=== PATIENT | female | born 1955 ===

== ENCOUNTER 2017-01-16 07:53 | Day surgery (SDC) | payer MEDICAID ==
[2016-11-17 08:17] VITALS: PULSE 83
[2017-01-16 08:09] VITALS: BMI 36.0
[2017-01-16] MEDS ORDERED: Lactated Ringer's 1,000 ML IV ONE (09:21)
[2017-01-16 10:03] LABS: PARTIAL THROMBOPLASTIN TIME 32.5 SECONDS (23.3-32.5)
[2017-01-16] MEDS ORDERED: Lidocaine 1% Inj (20ml) ONE (10:11)
[2017-01-16] MEDS ORDERED: Midazolam 2 MG/2 ML VIAL ONE (10:11)
[2017-01-16] MEDS ORDERED: Lactated Ringer's 1,000 ML IV SCH (10:38)
[2017-01-16 10:57] VITALS: RESP 18
--- NOTE | 2017-01-16 11:41 | CP.SDSHP ---
Same Day Surgery H & P - History Proposed Procedure: Left neck mass biopsy Pre-Op Diagnosis: Left neck mass, MM - Allergies Allergies: Allergies No Known Allergies Allergy (Verified 01/16/17 08:09) - Physical Exam Vital Signs: Vital Signs 01/16/17 01/16/17 01/16/17 08:52 10:22 10:35 Temperature 9.2 F L 98.5 F 97.0 F L Pulse Rate 83 84 83 Respiratory 18 16 18 Rate Blood Pressure 119/81 141/98 H 140/95 H O2 Sat by Pulse 96 100 98 Oximetry 01/16/17 01/16/17 01/16/17 10:50 11:05 11:20 Temperature 97.6 F Pulse Rate 86 84 86 Respiratory 18 18 18 Rate Blood Pressure 130/80 137/80 130/90 O2 Sat by Pulse 98 99 99 Oximetry 01/16/17 11:35 Temperature Pulse Rate 88 Respiratory 18 Rate Blood Pressure 134/86 O2 Sat by Pulse 99 Oximetry Short Stay Discharge - Short Stay Discharge Admitting Diagnosis/Reason for Visit: MULTIPLE MYELOMA Disposition: HOME/ ROUTINE Referrals: Thang Rider MD [Primary Care Provider] -
--- NOTE | 2017-01-16 11:42 | PCM.SURG1 ---
Surgeon's Initial Post Op Note - Surgeon's Notes Surgeon: Meme Circular Knife Machine Cutter: None Type of Anesthesia: IV Sedation, Local Pre-Operative Diagnosis: Left neck mass Operative Findings: Left neck mass Post-Operative Diagnosis: Left neck mass Operation Performed: Left neck mass biopsy Specimen/Specimens Removed: 18G core samples x 2 Estimated Blood Loss: EBL {In ML}: 1 Date of Surgery/Procedure: 01/16/17 Time of Surgery/Procedure: 10:20
[2017-01-16 12:53] VITALS: O2SAT 98
[2017-01-16 13:43] VITALS: BP 117/85; PULSE 92; TEMP 98.3
--- NOTE | 2017-01-20 18:18 | US ---
Left neck mass History: 61-year-old female with history of multiple myeloma presenting with left neck supraclavicular mass. Comparison: Comparison is made to prior CT scan of the chest from 11/23/2015. Procedure and findings: Informed consent was obtained after discussion of relative risks and benefits with the patient. The patient provided written informed consent. The left neck region was prepped and draped in the usual sterile techniques. Direct ultrasound evaluation of the left neck was obtained. A heterogeneous relatively oval-shaped mass measuring approximately 1.8 centimeters is noted. No significant internal vascularity was identified. Permanent images were stored. A percutaneous access site was chosen. 1 % lidocaine was used to anesthetize the skin and the subcutaneous soft tissue. A 17 gauge coaxial needle was introduced into the left neck mass. The inner stylet was removed. 18 gauge spring-loaded biopsy system was introduced into the peripheral aspect of the mass. Two 18 gauge core biopsy samples were obtained. Permanent images were stored. Biopsy samples were sent to pathology for analysis. Post biopsy ultrasound images did not demonstrate any hematoma. The patient tolerated the procedure well without any adverse events. Impression: Successful left neck mass biopsy.
== END 2017-01-16 13:35 | disposition home or self-care (01) ==
LOC: H.OPSURG 07:53
PROVIDERS: ATTEND Internal Medicine Cardiovascular Disease
DX: R22.1 Localized swelling, mass and lump, neck (principal); C90.00 Multiple myeloma not having achieved remission; I48.91 Unspecified atrial fibrillation; M54.9 Dorsalgia, unspecified

== ENCOUNTER 2017-10-03 14:46 | Inpatient (IN) | payer MEDICAID ==
[2017-10-03 14:57] VITALS: BMI 39.4
[2017-10-03] MEDS ORDERED: Albuterol-Ipratrop 3 mg / 0.5 (3 ml) UD INH STA (15:10)
--- NOTE | 2017-10-03 15:46 | RAD ---
HISTORY: SOB COMPARISON: Chest radiograph dated 11/17/2016. TECHNIQUE: Chest PA and lateral FINDINGS: LUNGS: No active pulmonary disease. PLEURA: No significant pleural effusion identified. No pneumothorax apparent. CARDIOVASCULAR: Cardiomediastinal silhouette stably enlarged. OSSEOUS STRUCTURES: Unchanged. VISUALIZED UPPER ABDOMEN: Normal. OTHER FINDINGS: None. IMPRESSION: No active disease.
[2017-10-03] MEDS ORDERED: Albuterol-Ipratrop 3 mg / 0.5 (3 ml) UD ONE (16:08)
[2017-10-03 16:31] LABS: BASO % 0.3 % (0.0-2.0); EOS # 0.2 K/uL (0.0-0.7); EOS % 2.2 % (0.0-4.0); LYMPH % 11.6 % (20.0-40.0); MEAN CELL VOLUME 89.7 fl (81.0-99.0); MEAN CORPUSCULAR HEMOGLOBIN 30.3 pg (27.0-31.0); MEAN CORPUSCULAR HGB CONC 33.8 g/dL (33.0-37.0); MEAN PLATELET VOLUME 9.2 fl (7.2-11.7); MONO # 1.1 K/uL (0.0-0.8); MONO % 12.6 % (0.0-10.0); NEUT # 6.1 K/uL (1.8-7.0); NEUT % 73.3 % (50.0-75.0); RBC 4.95 Mil/uL (3.80-5.20); RED CELL DISTRIBUTION WIDTH 14.3 % (11.5-14.5); WHITE BLOOD COUNT 8.4 K/uL (4.8-10.8)
[2017-10-03 16:44] LABS: SQUAMOUS EPITHIAL < 1 /hpf (0-5); URINE BILIRUBIN NEGATIVE (NEGATIVE); URINE BLOOD NEGATIVE (NEGATIVE); URINE CLARITY CLEAR (Clear); URINE COLOR YELLOW (YELLOW); URINE GLUCOSE (UA) NEG (Normal); URINE LEUKOCYTE ESTERASE NEG Leu/uL (Negative); URINE NITRATE NEGATIVE (NEGATIVE); URINE PROTEIN NEGATIVE (NEGATIVE); URINE UROBILINOGEN 0.2-1.0 mg/dL (0.2-1.0)
[2017-10-03 16:52] LABS: ALB/GLOB RATIO 1.3 (1.0-2.1); ALBUMIN 3.9 g/dL (3.5-5.0); ALT/SGPT 33 U/L (9-52); AST/SGOT 28 U/L (14-36); BLOOD UREA NITROGEN 10 mg/dl (7-17); CALCIUM 8.7 mg/dL (8.4-10.2); GFR AFRICAN-AMERICAN > 60; GFR NON-AFRICAN AMERICAN > 60
[2017-10-03 16:59] LABS: B-TYPE NATRIURETIC PEPTIDE 663 pg/ml (0-900)
[2017-10-03] MEDS ORDERED: levoFLOXacin 750 mg in D5W 150 ML BAG IVPB STA (17:40)
[2017-10-03] MEDS ORDERED: levoFLOXacin 750 mg in D5W 750 MG/150 ML BAG IVPB ONE (18:00)
--- NOTE | 2017-10-03 18:16 | CP.PCM.HP ---
History of Present Illness - History of Present Illness History of Present Illness: CC: shortness of breath HPI: 62 year old female with PMHx of A Fib, HTN, Multiple Myeloma on Chemotherapy, and CHF presents with a one day history of worsening dyspnea, associated with wheezing, ameliorated by home O2 patient has at home from another family member. In the ER she states she improved with nebulizer treatments, and that her mother had a history of emphysema. She has never smoked , and was never around any family members who smoke. Patient is currently saturating 96% on 2 L nasal cannula. Chest XR has no active disease, patient is afebrile, and no leukocytosis. Patient to be observed overnight for possible worsening dyspnea. ROS: per HPI all other systems reviewed and negative PMH: Chronic Back Pain; Multiple Myeloma on Chemotherapy; A Fib on Digoxin and Xarelto as anticoagulant; CHF diastolic dysfunction with EF of 60% on ECHO of 2015; gout; Mediastinal Mass; HTN; Fractured Ribs PSH: Appendectomy; Hysterectomy; Cholecystectomy SH: No Alcohol usage; No smoking; no illegal drug use; Live with the family FH: Mother with DM II; HTN Allergies: NKDA Present on Admission - Present on Admission Any Indicators Present on Admission: No Past Patient History - Infectious Disease Hx of Infectious Diseases: None - Tetanus Immunizations Tetanus Immunization: Unknown - Past Medical History & Family History Past Medical History?: Yes - Past Social History Smoking Status: Never Smoked - CARDIAC Hx Cardiac Disorders: Yes Hx Cardia Arrhythmia: Yes Hx Hypertension: Yes - PULMONARY Hx Respiratory Disorders: Yes Hx Pneumonia: Yes Other/Comment: MEDIASTINAL MASS - NEUROLOGICAL Hx Neurological Disorder: No - HEENT Hx HEENT Problems: No Other/Comment: Glasses for reading - RENAL Hx Chronic Kidney Disease: No - ENDOCRINE/METABOLIC Hx Endocrine Disorders: No - HEMATOLOGICAL/ONCOLOGICAL Hx Blood Disorders: Yes Hx AIDS: No Hx Blood Transfusions: No Hx Cancer: Yes (Multiple Myeloma) Hx Chemotherapy: Yes (Multiple Myeloma on revilimid) Hx Human Immunodeficiency Virus (HIV): No Other/Comment: Multiple Myeloma - INTEGUMENTARY Hx Dermatological Problems: No Hx Psoriasis: Yes - MUSCULOSKELETAL/RHEUMATOLOGICAL Hx Musculoskeletal Disorders: Yes Hx Back Pain: Yes Hx Falls: No Hx Fractures: Yes (rib) - GASTROINTESTINAL Hx Gastrointestinal Disorders: No - GENITOURINARY/GYNECOLOGICAL Hx Genitourinary Disorders: No Other/Comment: Uterine fibroids Hx of Hysterectomy - PSYCHIATRIC Hx Psychophysiologic Disorder: No Hx Substance Use: No - SURGICAL HISTORY Hx Surgeries: Yes Hx Appendectomy: Yes Hx Cholecystectomy: Yes Hx Hysterectomy: Yes Other/Comment: Hysterectomy - ANESTHESIA Hx Anesthesia: Yes Hx Anesthesia Reactions: No Hx Malignant Hyperthermia: No Meds Allergies/Adverse Reactions: Allergies Allergy/AdvReac Type Severity Reaction Status Date / Time No Known Allergies Allergy Verified 08/25/17 09:48 Physical Exam - Constitutional Appears: Non-toxic, No Acute Distress - Head Exam Head Exam: ATRAUMATIC, NORMOCEPHALIC - Eye Exam Eye Exam: EOMI, Normal appearance, PERRL Pupil Exam: NORMAL ACCOMODATION - ENT Exam ENT Exam: Mucous Membranes Moist, Normal Oropharynx - Respiratory Exam Respiratory Exam: Wheezes, NORMAL BREATHING PATTERN - Cardiovascular Exam Cardiovascular Exam: RRR, +S1, +S2 - GI/Abdominal Exam GI & Abdominal Exam: Normal Bowel Sounds, Soft. absent: Organomegaly, Tenderness - Extremities Exam Extremities exam: Positive for: normal capillary refill, pedal pulses present - Back Exam Back exam: absent: CVA tenderness (L), CVA tenderness (R) - Neurological Exam Neurological exam: Alert, Oriented x3 - Psychiatric Exam Psychiatric exam: Normal Affect, Normal Mood Results - Vital Signs Recent Vital Signs: Last Vital Signs Temp 98.0 F 10/03/17 14:56 Pulse 74 10/03/17 14:56 Resp 19 10/03/17 15:05 BP 147/84 10/03/17 14:56 Pulse Ox 96 10/03/17 15:05 - Labs Result Diagrams: 10/03/17 16:06 10/03/17 16:06 Labs: Laboratory Results - last 24 hr 10/03/17 10/03/17 10/03/17 16:03 16:06 16:06 WBC 8.4 D RBC 4.95 Hgb 15.0 Hct 44.4 MCV 89.7 MCH 30.3 MCHC 33.8 RDW 14.3 Plt Count 202 MPV 9.2 Neut % (Auto) 73.3 Lymph % (Auto) 11.6 L [place] % (Auto) 12.6 H Eos % (Auto) 2.2 Baso % (Auto) 0.3 Neut # 6.1 Lymph # 1.0 [place] # 1.1 H Eos # 0.2 Baso # 0.0 Sodium 140 Potassium 3.4 L Chloride 101 Carbon Dioxide 32 H Anion Gap 10 BUN 10 Creatinine 0.5 L Est GFR ( Amer) > 60 Est GFR (Non-Af Amer) > 60 Random Glucose 120 H Calcium 8.7 Total Bilirubin 0.7 AST 28 ALT 33 Alkaline Phosphatase 95 Troponin I < 0.0120 NT-Pro-B Natriuret Pep 663 Total Protein 6.9 Albumin 3.9 Globulin 3.0 Albumin/Globulin Ratio 1.3 Urine Color Yellow Urine Clarity Clear Urine pH 6.0 Ur Specific [place] 1.017 Urine Protein Negative Urine Glucose (UA) Neg Urine Ketones Negative Urine Blood Negative Urine Nitrate Negative Urine Bilirubin Negative Urine Urobilinogen 0.2-1.0 Ur Leukocyte Esterase Neg Urine RBC (Auto) 3 Urine Microscopic WBC 4 Ur Squamous Epith Cells < 1 Assessment & Plan - Assessment and Plan (Free Text) Plan: 62 year old female with PMHx of A Fib, HTN, Multiple Myeloma on Chemotherapy, and CHF presents with a one day history of worsening dyspnea, associated with mild cough and wheezing, ameliorated by home O2 patient has at home from another family member. In the ER she states she improved with nebulizer treatments, and that her mother had a history of emphysema. She has never smoked , and was never around any family members who smoke. Patient is currently saturating 96% on 2 L nasal cannula. Chest XR has no active disease, patient is afebrile, and no leukocytosis. Patient to be observed overnight for possible worsening dyspnea. Dyspnea 2/2 Bronchitis? family hx emphysema afebrile, no leukocytosis, no cough or congestion on exam, + wheezing wheezing improving with bronchodilators procalcitonin pending for bacterial infection? cont bronchodilators and reassess in AM AFib HTN cont ASA, Coreg, Digoxin, Lisinopril, Xarelto MM on chemotherapy, follows with Dr. Maddy Garcia cont dexamethasone VTE ppx cont patient Xarelto
[2017-10-03] MEDS ORDERED: Albuterol-Ipratrop 3 mg / 0.5 (3 ml) UD INH PRN (18:26)
[2017-10-03 20:59] LABS: INR 1.5 (0.9-1.2); PARTIAL THROMBOPLASTIN TIME 36.1 Seconds (25.6-37.1); PROTHROMBIN TIME 16.3 Seconds (9.8-13.1)
[2017-10-03 21:15] VITALS: RESP 18
[2017-10-03] MEDS: Oxycodone/Acetaminophen 5/325 mg Tab PO PRN (22:28)
[2017-10-04] MEDS: Oxycodone/Acetaminophen 5/325 mg Tab PO PRN ×2 (05:10→13:15)
[2017-10-04] MEDS: Albuterol-Ipratrop 3 mg / 0.5 (3 ml) UD INH SCH ×3 (07:33→15:31)
[2017-10-04 08:45] VITALS: PULSE 81
[2017-10-04] MEDS ORDERED: LENALIDOMIDE 15 MG PO SCH (09:00)
[2017-10-04] MEDS ORDERED: Digoxin 125 mcg (0.125 mg) Tab PO SCH (09:00)
[2017-10-04] MEDS ORDERED: methylPREDNISolone 125 MG in Sodium Chloride 0.9% 50 ML IVPB ONE (09:51)
--- NOTE | 2017-10-04 09:51 | CP.PCM.DIS ---
Provider - Provider Date of Admission: 10/03/17 17:41 Attending physician: Brenda Tarango DO Primary care physician: De. Rider Consults: none Time Spent in preparation of Discharge (in minutes): 20 Hospital Course - Lab Results Lab Results: Most Recent Lab Values WBC 8.4 K/uL (4.8-10.8) D 10/03/17 16:06 RBC 4.95 Mil/uL (3.80-5.20) 10/03/17 16:06 Hgb 15.0 g/dL (12.0-16.0) 10/03/17 16:06 Hct 44.4 % (34.0-47.0) 10/03/17 16:06 MCV 89.7 fl (81.0-99.0) 10/03/17 16:06 MCH 30.3 pg (27.0-31.0) 10/03/17 16:06 MCHC 33.8 g/dL (33.0-37.0) 10/03/17 16:06 RDW 14.3 % (11.5-14.5) 10/03/17 16:06 Plt Count 202 K/uL (130-400) 10/03/17 16:06 MPV 9.2 fl (7.2-11.7) 10/03/17 16:06 Neut % (Auto) 73.3 % (50.0-75.0) 10/03/17 16:06 Lymph % (Auto) 11.6 % (20.0-40.0) L 10/03/17 16:06 [place] % (Auto) 12.6 % (0.0-10.0) H 10/03/17 16:06 Eos % (Auto) 2.2 % (0.0-4.0) 10/03/17 16:06 Baso % (Auto) 0.3 % (0.0-2.0) 10/03/17 16:06 Neut # 6.1 K/uL (1.8-7.0) 10/03/17 16:06 Lymph # 1.0 K/uL (1.0-4.3) 10/03/17 16:06 [place] # 1.1 K/uL (0.0-0.8) H 10/03/17 16:06 Eos # 0.2 K/uL (0.0-0.7) 10/03/17 16:06 Baso # 0.0 K/uL (0.0-0.2) 10/03/17 16:06 PT 16.3 Seconds (9.8-13.1) H 10/03/17 20:01 INR 1.5 (0.9-1.2) H 10/03/17 20:01 APTT 36.1 Seconds (25.6-37.1) 10/03/17 20:01 Sodium 140 mmol/l (132-148) 10/03/17 16:06 Potassium 3.4 MMOL/L (3.6-5.0) L 10/03/17 16:06 Chloride 101 mmol/L (98-107) 10/03/17 16:06 Carbon Dioxide 32 mmol/L (22-30) H 10/03/17 16:06 Anion Gap 10 (10-20) 10/03/17 16:06 BUN 10 mg/dl (7-17) 10/03/17 16:06 Creatinine 0.5 mg/dl (0.7-1.2) L 10/03/17 16:06 Est GFR ( Amer) > 60 10/03/17 16:06 Est GFR (Non-Af Amer) > 60 10/03/17 16:06 Random Glucose 120 mg/dL (65-105) H 10/03/17 16:06 Calcium 8.7 mg/dL (8.4-10.2) 10/03/17 16:06 Total Bilirubin 0.7 mg/dl (0.2-1.3) 10/03/17 16:06 AST 28 U/L (14-36) 10/03/17 16:06 ALT 33 U/L (9-52) 10/03/17 16:06 Alkaline Phosphatase 95 U/L (38-126) 10/03/17 16:06 Troponin I < 0.0120 ng/mL (0.00-0.120) 10/03/17 16:06 NT-Pro-B Natriuret Pep 663 pg/ml (0-900) 10/03/17 16:06 Total Protein 6.9 G/DL (6.3-8.2) 10/03/17 16:06 Albumin 3.9 g/dL (3.5-5.0) 10/03/17 16:06 Globulin 3.0 gm/dL (2.2-3.9) 10/03/17 16:06 Albumin/Globulin Ratio 1.3 (1.0-2.1) 10/03/17 16:06 Urine Color Yellow (YELLOW) 10/03/17 16:03 Urine Clarity Clear (Clear) 10/03/17 16:03 Urine pH 6.0 (5.0-8.0) 10/03/17 16:03 Ur Specific [place] 1.017 (1.003-1.030) 10/03/17 16:03 Urine Protein Negative mg/dL (NEGATIVE) 10/03/17 16:03 Urine Glucose (UA) Neg mg/dL (Normal) 10/03/17 16:03 Urine Ketones Negative mg/dL (NEGATIVE) 10/03/17 16:03 Urine Blood Negative (NEGATIVE) 10/03/17 16:03 Urine Nitrate Negative (NEGATIVE) 10/03/17 16:03 Urine Bilirubin Negative (NEGATIVE) 10/03/17 16:03 Urine Urobilinogen 0.2-1.0 mg/dL (0.2-1.0) 10/03/17 16:03 Ur Leukocyte Esterase Neg [place]/uL (Negative) 10/03/17 16:03 Urine RBC (Auto) 3 /hpf (0-3) 10/03/17 16:03 Urine Microscopic WBC 4 /hpf (0-5) 10/03/17 16:03 Ur Squamous Epith Cells < 1 /hpf (0-5) 10/03/17 16:03 - Hospital Course Hospital Course: 62 year old female with PMHx of A Fib, HTN, Multiple Myeloma on Chemotherapy, and CHF presented with a one day history of worsening dyspnea, associated with mild cough and wheezing,upon going out in cold weather , ameliorated by home O2 patient has at home from another family member. In the ER she states she improved with nebulizer treatments, and that her mother had a history of emphysema. She has never smoked, and was never around any family members who smoke.she states that was just started recently , 2 weeks ago on Zometa. She also admits to having cough and greenish sputum production for 5 days and was started on Mucinex Po by her PMD. At present she denies any more sputum production .CXR showed no active disease but some increased interstitial markings ( as read by me). She was found to be afebrile with normal WBC, wheezing on exam . She was given Dounoebs in Er and Levaquine IV and placed under observation in telemetry for dyspnea and acute bronchitis. Patient clinically showed improvement , at present with no dyspnea, scattered wheezing on exam, afebrile saturating 97-98 % on 2 L O2 via NC patient feeling well and ready to go home Will discharge patient home on Albuterol PRN,Levaquine and Medrol pack Patient to follow up with Dr. Rider and her oncologist for continuation of her chemotherapy 1. Acute bronchitis/ URI Dyspnea 2/2 Bronchitis Patient recently started on Zometa that can cause URi and dyspnea afebrile, no leukocytosis, with cough and greenish sputum production for the last 4 days, + wheezing wheezing improved with bronchodilators Given solumedrol 125 mg IV, levaquine and Duonebs Will continue same treatment upon discharge 2.AFib rate controlled continue digoxin and xeralto 3.HTN controlled cont ASA, Coreg, Digoxin, Lisinopril, Xarelto 4.MM on chemotherapy, follows with Dr. Maddy Garcia Discharge Exam - Head Exam Head Exam: ATRAUMATIC, NORMOCEPHALIC - Eye Exam Eye Exam: EOMI, Normal appearance, PERRL Pupil Exam: NORMAL ACCOMODATION - ENT Exam ENT Exam: Mucous Membranes Moist, Normal Exam - Neck Exam Neck exam: Full Rom, Normal Inspection - Respiratory Exam Respiratory Exam: Wheezes (scattered wheezing and rhonchi), NORMAL BREATHING PATTERN. absent: Accessory Muscle Use, Prolonged Expiratory Phase, Respiratory Distress - Cardiovascular Exam Cardiovascular Exam: Irregular Rhythm, +S1, +S2. absent: JVD - GI/Abdominal Exam GI & Abdominal Exam: Normal Bowel Sounds, Soft. absent: Distended, Guarding, Rebound, Tenderness - Rectal Exam Rectal Exam: Deferred - Extremities Exam Extremities exam: normal capillary refill, normal inspection, pedal pulses present - Back Exam Back exam: NORMAL INSPECTION - Neurological Exam Neurological exam: Alert, CN II-XII Intact, Oriented x3, Reflexes Normal - Psychiatric Exam Psychiatric exam: Normal Affect, Normal Mood - Skin Skin Exam: Dry, Intact, Normal Color, Warm Discharge Plan - Discharge Medications Prescriptions: Albuterol HFA [Ventolin HFA 90 mcg/actuation (8 g)] 1 puff IH Q4 #1 inhaler levoFLOXacin [Levaquin] 750 mg PO DAILY #7 tab Methylprednisolone [Medrol Dose Pack (21 tabs)] 4 mg PO DAILY #21 mg - Follow Up Plan Condition: STABLE Disposition: HOME/ ROUTINE Patient education suggested?: Yes Instructions: Bronchospasm (DC), How to Use a Nebulizer (DC), Acute Bronchitis (GEN) Referrals: Thang Rider MD [Staff Provider] -
[2017-10-04] MEDS ORDERED: levoFLOXacin 750 mg in D5W 750 MG/150 ML BAG IVPB ONE (09:52)
[2017-10-04] MEDS ORDERED: Albuterol-Ipratrop 3 mg / 0.5 (3 ml) UD INH STA (10:00)
[2017-10-04 12:16] VITALS: BP 96/68; PULSE 74; TEMP 97.5; O2SAT 96
--- NOTE | 2017-10-04 17:00 | CT ---
PROCEDURE: CT Chest without contrast HISTORY: r/o pneumonia COMPARISON: CT chest dated 11/09/2016. TECHNIQUE: Contiguous axial images were obtained through the chest without intravenous contrast enhancement. Sagittal and coronal reconstructions were performed. Radiation dose (DLP): 648.1 mGy-cm. This CT exam was performed using one or more of the following dose reduction techniques: Automated exposure control, adjustment of the mA and/or kV according to patient size, and/or use of iterative reconstruction technique. FINDINGS: LUNGS: Bibasilar atelectasis/scarring. Stable 5 millimeter left lower lobe nodule (series 3, image 61). Visualized airway clear. MEDIASTINUM: Redemonstration of heterogeneous superior mediastinal/left lower neck mass measuring 6.7 by 4.9 centimeter causing similar tracheal deviation to the right without narrowing. Stable appearance of expansile lesion left posterior 1st rib contiguous with mediastinal mass. Unremarkable thoracic aorta. No aneurysm. Normal sized heart. Main pulmonary artery unremarkable. No vascular congestion. No lymphadenopathy. Small pericardial effusion. PLEURA: No pleural fluid. No pneumothorax. BONES: Stable osseous heterogeneity. Stable degenerative changes with multiple vertebral compression deformities. UPPER ABDOMEN: Stable left hepatic lobe cyst. OTHER FINDINGS: None. IMPRESSION: Grossly stable appearance of left superior mediastinal/lower neck mass with associated involvement of the posterior 1st rib. Additional stable findings as above.
--- NOTE | 2017-10-07 08:14 | CARD ---
APPROVED REPORT EKG Measurement Heart [id number] <Conclusion> Atrial fibrillation ST & T wave abnormality, consider inferolateral ischemia Abnormal ECG
--- NOTE | 2017-10-08 12:10 | ED PDOC ---
HPI: SOB/CHF/COPD Time Seen by Provider: 10/03/17 15:05 Chief Complaint (Nursing): Shortness Of Breath Chief Complaint (Provider): cough, SOB, respiratory distress History Per: Patient, Family History/Exam Limitations: no limitations Current Symptoms Are (Timing): Still Present Initiating Event: Upper Respiratory Illness Quality: Tightness Exacerbating Factor(s): Exertion, Coughing Current Respiratory Medications: See Home Med List Severity: Severe Similar Symptoms Previously: + Recently: Treated By A Physician Additional Complaint(s): 62yo female currently under care for multiple myeloma on cycle for chemo presents c/o cough, SOB, malaise and chest tightness. Denies hemoptysis, leg pain/edema or syncope. Using medications at home without relief. Past Medical History Reviewed: Historical Data, Nursing Documentation, Vital Signs Vital Signs: Last Vital Signs Temp 97.5 F L 10/04/17 12:16 Pulse 74 10/04/17 12:16 Resp 18 10/04/17 12:16 BP 96/68 L 10/04/17 12:16 Pulse Ox 96 10/04/17 12:16 - Medical History PMH: Atrial Fibrillation, Back Problems, Cardia Arrhythmia, CHF, Fractures (rib) , HTN, Pneumonia Denies: HIV, Chronic Kidney Disease - Surgical History Surgical History: Appendectomy, Cholecystectomy - Family History Family History: States: Unknown Family Hx - Living Arrangements Living Arrangements: With Family - Social History Current smoker - smoking cessation education provided: No - Home Medications Home Medications: Ambulatory Orders Medication Instructions Recorded Aspirin [Aspirin EC] 81 mg PO DAILY #0 tablet. 03/10/16 Carvedilol [Coreg] 25 mg PO Q12 #0 tab 03/10/16 Digoxin 0.125 mg PO DAILY #0 tab 03/10/16 Famotidine [Pepcid] 20 mg PO DAILY #0 tab 03/10/16 Furosemide [Lasix] 40 mg PO DAILY #0 tab 03/10/16 Lisinopril [Zestril] 10 mg PO DAILY #0 tab 03/10/16 Calcium Carbonate [Oscal] 500 mg PO BID tab 11/11/16 Rivaroxaban [Xarelto] 20 mg PO DAILY 11/18/16 Lenalidomide [Revlimid] 15 mg PO DAILY 02/10/17 Potassium Chloride [K-Dur 20 mEq 2 tab PO BID 05/05/17 ER Tab] Albuterol HFA [Ventolin HFA 90 1 puff IH Q4 #1 inhaler 10/04/17 mcg/actuation (8 g)] Guaifenesin [Mucinex] 600 mg PO BID #20 tab.er.12h 10/04/17 Methylprednisolone [Medrol Dose 4 mg PO DAILY #21 mg 10/04/17 Pack (21 tabs)] levoFLOXacin [Levaquin] 750 mg PO DAILY #7 tab 10/04/17 - Allergies Allergies/Adverse Reactions: Allergies Allergy/AdvReac Type Severity Reaction Status Date / Time No Known Allergies Allergy Verified 08/25/17 09:48 Review of Systems Constitutional: Positive for: Weakness, Malaise ENT: Negative for: Mouth Swelling, Throat Swelling Cardiovascular: Positive for: Chest Pain, Palpitations Respiratory: Positive for: Cough, Shortness of Breath Gastrointestinal: Negative for: Vomiting, Abdominal Pain Musculoskeletal: Negative for: Neck Pain, Arm Pain, Leg Pain Neurological: Positive for: Headache, Dizziness. Negative for: Weakness, Numbness Psych: Negative for: Suicidal ideation Physical Exam - Reviewed Nursing Documentation Reviewed: Yes Vital Signs Reviewed: Yes - Physical Exam Appears: Positive for: Non-toxic, Uncomfortable (mild resp distress) Head Exam: Positive for: ATRAUMATIC, NORMAL INSPECTION, NORMOCEPHALIC Skin: Positive for: Normal Color, Warm, DRY Eye Exam: Positive for: EOMI, Normal appearance, PERRL ENT: Positive for: Normal ENT Inspection Neck: Positive for: Normal, Painless ROM Cardiovascular/Chest: Positive for: Regular Rate, Rhythm Respiratory: Positive for: Decreased Breath Sounds, Wheezing, Respiratory Distress Pulses-Radial (L): 3+/4+ Pulses-Radial (R): 3+/4+ Gastrointestinal/Abdominal: Positive for: Bowel Sounds, Soft. Negative for: Tenderness Back: Positive for: Normal Inspection Extremity: Positive for: Normal ROM Neurologic/Psych: Positive for: Alert, Oriented. Negative for: Motor/Sensory Deficits - Laboratory Results Result Diagrams: 10/03/17 16:06 10/03/17 16:06 - ECG O2 Sat by Pulse Oximetry: 96 Medical Decision Making Medical Decision Making: workup for dyspnea initiated. given history on chemo/myeloma consider infectious etiology as immunocompromised labs, CXR and EKG were reviewed Given bronchodilators and antibiotics were initiated empirically given clinical presentation and immunocompromised Despite optimal treatment in ED, she remained w dyspnea, placed obs to hospitalist covering Dr Rider Disposition - Clinical Impression Clinical Impression: Dyspnea, Respiratory tract infection - Patient ED Disposition Is Patient to be Admitted: Yes Counseled Patient/Family Regarding: Studies Performed, Diagnosis - Disposition Disposition Time: 17:01 Condition: STABLE - Pt Status Changed To: Hospital Disposition Of: Observation
== END 2017-10-04 17:55 | disposition home or self-care (01) | DRG 588 ==
LOC: H.ER 14:46 → H.ERHOLD 17:41 → H.TEL 18:56
PROVIDERS: ADMIT Student in an Organized Health Care Education/Training Program; ATTEND Student in an Organized Health Care Education/Training Program
PROC: 3E0F7GC Introduction of Other Therapeutic Substance into Respiratory Tract, Via Natural or Artificial Opening (ICD-10-PCS; principal; 2017-10-04)
DX: J20.9 Acute bronchitis, unspecified (principal); I50.30 Unspecified diastolic (congestive) heart failure; C90.00 Multiple myeloma not having achieved remission; D89.9 Disorder involving the immune mechanism, unspecified; J44.0 Chronic obstructive pulmonary disease with (acute) lower respiratory infection; I11.0 Hypertensive heart disease with heart failure; M10.9 Gout, unspecified; Z82.49 Family history of ischemic heart disease and other diseases of the circulatory system; Z82.5 Family history of asthma and other chronic lower respiratory diseases; Z83.3 Family history of diabetes mellitus; Z87.01 Personal history of pneumonia (recurrent); Z90.49 Acquired absence of other specified parts of digestive tract; Z90.710 Acquired absence of both cervix and uterus; G89.29 Other chronic pain; L40.9 Psoriasis, unspecified; M54.9 Dorsalgia, unspecified; I48.91 Unspecified atrial fibrillation; Z92.21 Personal history of antineoplastic chemotherapy; Z79.01 Long term (current) use of anticoagulants; Z79.82 Long term (current) use of aspirin; Z79.899 Other long term (current) drug therapy

== ENCOUNTER 2017-12-21 12:07 | Observation (INO) | payer MEDICAID ==
[2017-12-21 12:08] VITALS: BMI 39.6
[2017-12-21] MEDS ORDERED: Albuterol-Ipratrop 3 mg / 0.5 (3 ml) UD INH STA (12:32)
--- NOTE | 2017-12-21 12:42 | ED PDOC ---
HPI: SOB/CHF/COPD Time Seen by Provider: 12/21/17 12:25 Chief Complaint (Nursing): Shortness Of Breath Chief Complaint (Provider): difficulty breathing History Per: Patient, Brass Buffer History/Exam Limitations: no limitations Onset/Duration Of Symptoms: Days (2) Current Symptoms Are (Timing): Still Present Quality: Tightness Exacerbating Factor(s): Exertion, Laying Flat, Coughing Current Respiratory Medications: See Home Med List Severity: Moderate Associated Symptoms: Heart Racing, Ankle/Leg Swelling, Dizziness Similar Symptoms Previously: ++ Additional Complaint(s): 62yo female c/o dyspnea, orthopnea and cough ongoing and worsening for several days. Denies fever, body aches or syncope. States compliance w medications, admits to azeri food intake which may have precipitated symptoms. Prior charts reviewed revealing under treatment for multiple myeloma, also w Afib, HTN, CHF and had episode URI/bronchoconstriction this winter requiring hospitalization. Past Medical History Reviewed: Historical Data, Nursing Documentation, Vital Signs Vital Signs: Last Vital Signs Temp 98.6 F 12/23/17 11:48 Pulse 81 12/23/17 11:48 Resp 18 12/23/17 11:48 BP 121/77 12/23/17 11:48 Pulse Ox 96 12/23/17 11:48 - Medical History PMH: Atrial Fibrillation, Back Problems, Cardia Arrhythmia, CHF, Fractures (rib) , HTN, Pneumonia Denies: HIV, Chronic Kidney Disease - Surgical History Surgical History: Appendectomy, Cholecystectomy - Family History Family History: States: Unknown Family Hx - Living Arrangements Living Arrangements: With Family - Social History Current smoker - smoking cessation education provided: No Drugs: Denies - Home Medications Home Medications: Ambulatory Orders Medication Instructions Recorded Rivaroxaban [Xarelto] 20 mg PO DAILY 11/18/16 Lenalidomide [Revlimid] 15 mg PO DAILY 02/10/17 Potassium Chloride [K-Dur 20 mEq 20 meq PO BID 05/05/17 ER Tab] Dexamethasone [Decadron] 10 mg PO BID 11/23/17 Albuterol HFA [Ventolin HFA 90 2 puff IH Q4 PRN 12/21/17 mcg/actuation (8 g)] Allopurinol [Zyloprim] 100 mg PO DAILY 12/21/17 Aspirin [Ecotrin] 81 mg PO DAILY 12/21/17 Carvedilol [Coreg] 25 mg PO Q12 12/21/17 Digoxin [Digitek] 125 mcg PO DAILY 12/21/17 Famotidine [Pepcid] 20 mg PO DAILY 12/21/17 Lisinopril [Zestril] 10 mg PO DAILY 12/21/17 oxyCODONE/Acetaminophen [Percocet 1 tab PO Q6 PRN 12/21/17 5/325 mg Tab] Furosemide [Lasix] 20 mg PO BID #60 12/23/17 guaiFENesin/Dextromethorphan 10 ml PO Q4 PRN #200 ml 12/23/17 [Robitussin DM] - Allergies Allergies/Adverse Reactions: Allergies Allergy/AdvReac Type Severity Reaction Status Date / Time No Known Allergies Allergy Verified 08/25/17 09:48 Review of Systems Constitutional: Positive for: Weakness. Negative for: Fever, Chills Cardiovascular: Positive for: Chest Pain, Palpitations, Paroxysmal Noc. Dyspnea , Edema, Light Headedness Respiratory: Positive for: Cough, Shortness of Breath, SOB with Exertion. Negative for: Hemoptysis Gastrointestinal: Negative for: Nausea, Abdominal Pain Genitourinary Female: Negative for: Dysuria Musculoskeletal: Negative for: Neck Pain, Leg Pain Skin: Negative for: Rash, Jaundice Neurological: Positive for: Dizziness. Negative for: Weakness, Numbness, Headache Psych: Negative for: Depression Physical Exam - Reviewed Nursing Documentation Reviewed: Yes Vital Signs Reviewed: Yes - Physical Exam Appears: Positive for: Well, Non-toxic, No Acute Distress Head Exam: Positive for: ATRAUMATIC, NORMAL INSPECTION, NORMOCEPHALIC Skin: Positive for: Normal Color, Warm, DRY Eye Exam: Positive for: EOMI, Normal appearance, PERRL ENT: Positive for: Normal ENT Inspection Neck: Positive for: Normal, Painless ROM Cardiovascular/Chest: Positive for: Regular Rate, Rhythm Respiratory: Positive for: Decreased Breath Sounds, Wheezing. Negative for: Respiratory Distress Gastrointestinal/Abdominal: Positive for: Soft. Negative for: Tenderness Back: Positive for: Normal Inspection Extremity: Positive for: Pedal Edema, Swelling (b/l LE) Neurologic/Psych: Positive for: Alert, Oriented. Negative for: Motor/Sensory Deficits - Laboratory Results Result Diagrams: 12/21/17 13:35 12/23/17 04:20 - ECG ECG: Positive for: Interpreted By Me ECG Rhythm: Positive for: Atrial Fibrillation, Nonspecific Changes Rate: 79 O2 Sat by Pulse Oximetry: 99 Pulse Ox Interpretation: Normal Medical Decision Making Medical Decision Making: workup for dyspnea initiated Duoneb ordered given trace wheeze at bases Time: 13:06 Portable Chest X-Ray FINDINGS: LUNGS: Inspiratory volume appears diminished bilaterally. Linear atelectasis or fibrosis seen at the inferior left lung zone laterally. No infiltrate bilaterally. PLEURA: No significant pleural effusion identified, no pneumothorax apparent. CARDIOVASCULAR: Prominent cardiac silhouette appears stable. Borderline pulmonary venous congestion. OSSEOUS STRUCTURES: Multiple old healed mid to inferior right rib fractures again evident. VISUALIZED UPPER ABDOMEN: Normal. OTHER FINDINGS: None. IMPRESSION: Borderline CHF pattern. Linear atelectasis or fibrosis in the left base laterally. No acute infiltrate or pleural effusion identified bilaterally. 14:[address] Braswell Scribe Attestation: Documented by Tay Noriega, acting as a scribe for Adrian Aquino III DO Disposition - Clinical Impression Clinical Impression: CHF exacerbation - Patient ED Disposition Is Patient to be Admitted: Yes - Disposition Disposition Time: 14:30 (admit hospitalist) Condition: GOOD - Pt Status Changed To: Hospital Disposition Of: Observation - POA Present On Arrival: None
--- NOTE | 2017-12-21 13:07 | RAD ---
HISTORY: SOB COMPARISON: Chest radiographs 10/03/2017. FINDINGS: LUNGS: Inspiratory volume appears diminished bilaterally. Linear atelectasis or fibrosis seen at the inferior left lung zone laterally. No infiltrate bilaterally. PLEURA: No significant pleural effusion identified, no pneumothorax apparent. CARDIOVASCULAR: Prominent cardiac silhouette appears stable. Borderline pulmonary venous congestion. OSSEOUS STRUCTURES: Multiple old healed mid to inferior right rib fractures again evident. VISUALIZED UPPER ABDOMEN: Normal. OTHER FINDINGS: None. IMPRESSION: Borderline CHF pattern. Linear atelectasis or fibrosis in the left base laterally. No acute infiltrate or pleural effusion identified bilaterally.
[2017-12-21] MEDS ORDERED: Albuterol-Ipratrop 3 mg / 0.5 (3 ml) UD ONE (13:11)
[2017-12-21 13:58] LABS: BASO % 0.7 % (0.0-2.0); EOS # 0.1 K/uL (0.0-0.7); EOS % 1.6 % (0.0-4.0); HEMOGLOBIN 12.7 g/dL (12.0-16.0); LYMPH # 0.8 K/uL (1.0-4.3); LYMPH % 15.4 % (20.0-40.0); MEAN CELL VOLUME 89.7 fl (81.0-99.0); MEAN CORPUSCULAR HEMOGLOBIN 30.3 pg (27.0-31.0); MEAN CORPUSCULAR HGB CONC 33.7 g/dL (33.0-37.0); MEAN PLATELET VOLUME 8.5 fl (7.2-11.7); MONO # 0.6 K/uL (0.0-0.8); MONO % 12.6 % (0.0-10.0); NEUT # 3.6 K/uL (1.8-7.0); NEUT % 69.7 % (50.0-75.0); NRBC % 0.3 % (0.0-0.0); RBC 4.18 Mil/uL (3.80-5.20); RED CELL DISTRIBUTION WIDTH 16.4 % (11.5-14.5); WHITE BLOOD COUNT 5.1 K/uL (4.8-10.8)
[2017-12-21 14:04] LABS: URINE BILIRUBIN NEGATIVE (NEGATIVE); URINE BLOOD NEGATIVE (NEGATIVE); URINE CLARITY CLEAR (Clear); URINE COLOR STRAW (YELLOW); URINE GLUCOSE (UA) NEG (Normal); URINE LEUKOCYTE ESTERASE NEG Leu/uL (Negative); URINE PROTEIN NEGATIVE (NEGATIVE); URINE UROBILINOGEN 0.2-1.0 mg/dL (0.2-1.0)
[2017-12-21 14:14] LABS: INR 1.7 (0.9-1.2); PARTIAL THROMBOPLASTIN TIME 44.7 Seconds (25.6-37.1); PROTHROMBIN TIME 18.9 Seconds (9.8-13.1)
[2017-12-21 14:21] LABS: ALB/GLOB RATIO 1.2 (1.0-2.1); ALBUMIN 3.7 g/dL (3.5-5.0); ALT/SGPT 64 U/L (9-52); AST/SGOT 41 U/L (14-36); BLOOD UREA NITROGEN 4 mg/dl (7-17); GFR AFRICAN-AMERICAN > 60; GFR NON-AFRICAN AMERICAN > 60
[2017-12-21 14:22] LABS: B-TYPE NATRIURETIC PEPTIDE 1120 pg/ml (0-900)
--- NOTE | 2017-12-21 15:51 | CP.PCM.HP ---
History of Present Illness - History of Present Illness History of Present Illness: 62 yo female with history of AFib, HTN, MMyeloma and CHF came in complaining of sudden onset of SOB upon waking up this morning. Accompanying symptoms were orthopnea with 4 pillows and on going cough productive with yellow sputum for a few days. Denied chest pain, fever, chills or abdominal pain. Present on Admission - Present on Admission Any Indicators Present on Admission: No History of DVT/PE: No History of Uncontrolled Diabetes: No Urinary Catheter: No Decubitus Ulcer Present: No Review of Systems - Review of Systems All systems: reviewed and no additional remarkable complaints except (aside from those mentioned above, 12 point system review were negative by me) Past Patient History - Infectious Disease Hx of Infectious Diseases: None - Tetanus Immunizations Tetanus Immunization: Unknown - Past Medical History & Family History Past Medical History?: Yes - Past Social History Smoking Status: Never Smoked Alcohol: Occasional Drugs: Denies Home Situation {Lives}: With Family - CARDIAC Hx Atrial Fibrillation: Yes Hx Cardia Arrhythmia: Yes Hx Congestive Heart Failure: Yes Hx Hypertension: Yes - PULMONARY Hx Pneumonia: Yes - NEUROLOGICAL Hx Neurological Disorder: No - HEENT Hx HEENT Problems: No Other/Comment: Glasses for reading - RENAL Hx Chronic Kidney Disease: No - ENDOCRINE/METABOLIC Hx Endocrine Disorders: No - HEMATOLOGICAL/ONCOLOGICAL Hx Chemotherapy: Yes Hx Human Immunodeficiency Virus (HIV): No Other/Comment: Multiple Myeloma - INTEGUMENTARY Hx Dermatological Problems: Yes Hx Psoriasis: Yes - MUSCULOSKELETAL/RHEUMATOLOGICAL Hx Fractures: Yes (rib) Hx Gout: Yes - GASTROINTESTINAL Hx Gastrointestinal Disorders: No - GENITOURINARY/GYNECOLOGICAL Hx Genitourinary Disorders: No Other/Comment: Uterine Fibroids - PSYCHIATRIC Hx Psychophysiologic Disorder: No Hx Substance Use: No - SURGICAL HISTORY Hx Appendectomy: Yes Hx Cholecystectomy: Yes Hx Hysterectomy: Yes (because of Fibroid Uteri) - ANESTHESIA Hx Anesthesia: Yes Hx Anesthesia Reactions: No Hx Malignant Hyperthermia: No Meds Allergies/Adverse Reactions: Allergies Allergy/AdvReac Type Severity Reaction Status Date / Time No Known Allergies Allergy Verified 08/25/17 09:48 Physical Exam - Constitutional Appears: No Acute Distress - Head Exam Head Exam: ATRAUMATIC - Eye Exam Eye Exam: absent: Scleral icterus - ENT Exam ENT Exam: Mucous Membranes Moist - Neck Exam Neck exam: Negative for: Meningismus - Respiratory Exam Respiratory Exam: Decreased Breath Sounds. absent: Rales, Rhonchi, Wheezes, Respiratory Distress - Cardiovascular Exam Cardiovascular Exam: REGULAR RHYTHM, +S1, +S2 - GI/Abdominal Exam GI & Abdominal Exam: Soft. absent: Tenderness - Rectal Exam Rectal Exam: Deferred - Extremities Exam Extremities exam: Negative for: pedal edema - Back Exam Back exam: NORMAL INSPECTION - Neurological Exam Neurological exam: Alert, Oriented x3 - Psychiatric Exam Psychiatric exam: Normal Affect - Skin Skin Exam: Dry, Intact Results - Vital Signs Recent Vital Signs: Last Vital Signs Temp 98 F 12/21/17 15:03 Pulse 72 12/21/17 15:03 Resp 18 12/21/17 15:03 BP 122/71 12/21/17 15:03 Pulse Ox 98 12/21/17 15:03 - Labs Result Diagrams: 12/21/17 13:35 12/21/17 13:35 Labs: Laboratory Results - last 24 hr 12/21/17 12/21/17 12/21/17 13:35 13:35 13:35 WBC 5.1 RBC 4.18 Hgb 12.7 Hct 37.5 MCV 89.7 MCH 30.3 MCHC 33.7 RDW 16.4 H Plt Count 263 MPV 8.5 Neut % (Auto) 69.7 Lymph % (Auto) 15.4 L [place] % (Auto) 12.6 H Eos % (Auto) 1.6 Baso % (Auto) 0.7 Neut # (Auto) 3.6 Lymph # (Auto) 0.8 L [place] # (Auto) 0.6 Eos # (Auto) 0.1 Baso # (Auto) 0.0 PT 18.9 H INR 1.7 H APTT 44.7 H Sodium 142 Potassium 3.0 L Chloride 103 Carbon Dioxide 27 Anion Gap 15 BUN 4 L Creatinine 0.4 L Est GFR ( Amer) > 60 Est GFR (Non-Af Amer) > 60 Random Glucose 102 Calcium 9.0 Total Bilirubin 1.2 AST 41 H D ALT 64 H D Alkaline Phosphatase 95 Troponin I < 0.0120 NT-Pro-B Natriuret Pep 1120 H Total Protein 6.8 Albumin 3.7 Globulin 3.1 Albumin/Globulin Ratio 1.2 Urine Color Urine Clarity Urine pH Ur Specific [place] Urine Protein Urine Glucose (UA) Urine Ketones Urine Blood Urine Nitrate Urine Bilirubin Urine Urobilinogen Ur Leukocyte Esterase Urine RBC (Auto) Urine Microscopic WBC 12/21/17 13:35 WBC RBC Hgb Hct MCV MCH MCHC RDW Plt Count MPV Neut % (Auto) Lymph % (Auto) [place] % (Auto) Eos % (Auto) Baso % (Auto) Neut # (Auto) Lymph # (Auto) [place] # (Auto) Eos # (Auto) Baso # (Auto) PT INR APTT Sodium Potassium Chloride Carbon Dioxide Anion Gap BUN Creatinine Est GFR ( Amer) Est GFR (Non-Af Amer) Random Glucose Calcium Total Bilirubin AST ALT Alkaline Phosphatase Troponin I NT-Pro-B Natriuret Pep Total Protein Albumin Globulin Albumin/Globulin Ratio Urine Color Straw Urine Clarity Clear Urine pH 7.0 Ur Specific [place] < 1.005 Urine Protein Negative Urine Glucose (UA) Neg Urine Ketones Negative Urine Blood Negative Urine Nitrate Negative Urine Bilirubin Negative Urine Urobilinogen 0.2-1.0 Ur Leukocyte Esterase Neg Urine RBC (Auto) 2 Urine Microscopic WBC < 1 Assessment & Plan - Assessment and Plan (Free Text) Assessment: 62 yo female with history of AFib, HTN, MMyeloma and CHF came in complaining of sudden onset of SOB upon waking up this morning. Accompanying symptoms were orthopnea with 4 pillows and on going cough productive with yellow sputum for a few days. Denied chest pain, fever, chills or abdominal pain. 1. CHF exacerbation Lasix 40mg IV continue Lisinopril serial Troponins 2. AFib rate controlled continue Digoxin and Carvedilol continue Xarelto 3. HTN BP stable continue Lisinopril 4. Multiple Myeloma continue Revlimid 15mg PO daily
[2017-12-21] MEDS ORDERED: Albuterol HFA 90 mcg/actuation (8 g) IH PRN (16:14)
[2017-12-21] MEDS ORDERED: Potassium Chloride 20 mEq ER Tab PO ONE (18:07)
[2017-12-21] MEDS: Potassium Chloride 20 mEq ER Tab PO SCH (18:07)
[2017-12-21] MEDS: Oxycodone/Acetaminophen 5/325 mg Tab PO PRN (21:11)
[2017-12-22] MEDS: Digoxin 125 mcg (0.125 mg) Tab PO SCH (09:08)
[2017-12-22] MEDS: Potassium Chloride 20 mEq ER Tab PO SCH ×2 (09:09→16:11)
[2017-12-22] MEDS: LENALIDOMIDE 15 MG PO SCH (09:11)
--- NOTE | 2017-12-22 10:53 | CP.PCM.CON ---
History of Present Illness - History of Present Illness History of Present Illness: This is a 62 yrs old female who was admitted for CHF. Pt was first diagnosed to have a myeloma when she presented in 2013 with a right upper lobe mass. This was biopsied and turned out to be a myeloma. She was started on chemotherapy and very well. the mass was almost completely gone, and her immunoglobulins came to normal as well. She was started on Revlimid and and decadron as maintenance. Recently she started having a lot of pain in the left ribs , but refused RT. She was restarted on chemotherapy but new lesions were seen on the ribs and scapular area,. She started aving a fair amount of pain and finally agreed to get rt to the mass in the left upper lobe as well as the ribs, and she is now on chemotherapy again. Pt however has a h/o chronic congestive heart failure and atrial fib and when she came for the chemotherapy yesterday she was very short of breath and could not walk a few feet without getting SOB. She was sent to the ER from where she was admitted. She was given lasix and she is much better now. Will do her chemo on ThursdayJanuary 04 Past Patient History - Infectious Disease Hx of Infectious Diseases: None - Tetanus Immunizations Tetanus Immunization: Unknown - Past Medical History & Family History Past Medical History?: Yes - Past Social History Smoking Status: Never Smoked - CARDIAC Hx Cardiac Disorders: Yes Hx Atrial Fibrillation: Yes Hx Cardia Arrhythmia: Yes Hx Congestive Heart Failure: Yes Hx Hypertension: Yes - PULMONARY Hx Respiratory Disorders: Yes Hx Pneumonia: Yes - NEUROLOGICAL Hx Neurological Disorder: No - HEENT Hx HEENT Problems: No - RENAL Hx Chronic Kidney Disease: No - ENDOCRINE/METABOLIC Hx Endocrine Disorders: No - HEMATOLOGICAL/ONCOLOGICAL Hx Blood Disorders: Yes Hx Chemotherapy: Yes Hx Human Immunodeficiency Virus (HIV): No Other/Comment: Multiple Myeloma - INTEGUMENTARY Hx Dermatological Problems: No - MUSCULOSKELETAL/RHEUMATOLOGICAL Hx Musculoskeletal Disorders: No Hx Falls: No - GASTROINTESTINAL Hx Gastrointestinal Disorders: No - GENITOURINARY/GYNECOLOGICAL Hx Genitourinary Disorders: No - PSYCHIATRIC Hx Psychophysiologic Disorder: No Hx Substance Use: No - SURGICAL HISTORY Hx Surgeries: Yes Hx Appendectomy: Yes Hx Hysterectomy: Yes (due to fibroids) - ANESTHESIA Hx Anesthesia: Yes Hx Anesthesia Reactions: No Hx Malignant Hyperthermia: No Has any member of the family had a problem w/ anesthesia?: No Meds Allergies/Adverse Reactions: Allergies Allergy/AdvReac Type Severity Reaction Status Date / Time No Known Allergies Allergy Verified 08/25/17 09:48 - Medications Medications: Current Medications Albuterol (Ventolin Hfa 90 Mcg/Actuation (8 G)) 2 puff IH Q4 PRN PRN Reason: Shortness of Breath Allopurinol (Zyloprim) 100 mg PO DAILY [facility] Last Admin: 12/22/17 09:11 Dose: 100 mg Aspirin (Ecotrin) 81 mg PO DAILY [facility] Last Admin: 12/22/17 09:09 Dose: 81 mg Carvedilol (Coreg) 25 mg PO Q12 [facility] Last Admin: 12/22/17 09:08 Dose: 25 mg Dexamethasone (Decadron) 10 mg PO BID [facility] Last Admin: 12/22/17 09:08 Dose: 10 mg Digoxin (Digoxin) 0.125 mg PO DAILY [facility] Last Admin: 12/22/17 09:08 Dose: 0.125 mg Famotidine (Pepcid) 20 mg PO DAILY [facility] Last Admin: 12/22/17 09:09 Dose: 20 mg Furosemide (Lasix) 40 mg IV DAILY [facility] Last Admin: 12/22/17 09:09 Dose: 40 mg Home Med (Lenalidomide [Revlimid]) 15 mg PO DAILY [facility] Last Admin: 12/22/17 09:11 Dose: 15 mg Lisinopril (Zestril) 10 mg PO DAILY [facility] Last Admin: 12/22/17 09:10 Dose: 10 mg Oxycodone/Acetaminophen (Percocet 5/325 Mg Tab) 1 tab PO Q6 PRN PRN Reason: Pain, severe (8-10) Stop: 12/24/17 16:15 Last Admin: 12/21/17 21:11 Dose: 1 tab Potassium Chloride (K-Dur 20 Meq Er Tab) 20 meq PO BID [facility] Last Admin: 12/22/17 09:09 Dose: 20 meq Rivaroxaban (Xarelto) 20 mg PO DAILY [facility] PRN Reason: Protocol Last Admin: 12/22/17 09:10 Dose: 20 mg Physical Exam - Additional Findings Additional findings: Physical exam; Alert,well oriented, in no acute distress neck; supple,no adenopathy, except some fullness in the neck area from a benign tumor. Cheat; Bibasilar rales. Heart; RSR, no murmur Abd; soft, no mass, no h/s megaly Results - Vital Signs Recent Vital Signs: Last Vital Signs Temp 98.4 F 12/22/17 07:58 Pulse 74 12/22/17 09:10 Resp 18 12/22/17 07:58 BP 127/80 12/22/17 09:10 Pulse Ox 97 12/22/17 07:58 - Labs Result Diagrams: 12/21/17 13:35 12/21/17 13:35 Labs: Laboratory Results - last 24 hr 12/21/17 12/21/17 12/21/17 13:35 13:35 13:35 WBC 5.1 RBC 4.18 Hgb 12.7 Hct 37.5 MCV 89.7 MCH 30.3 MCHC 33.7 RDW 16.4 H Plt Count 263 MPV 8.5 Neut % (Auto) 69.7 Lymph % (Auto) 15.4 L [place] % (Auto) 12.6 H Eos % (Auto) 1.6 Baso % (Auto) 0.7 Neut # (Auto) 3.6 Lymph # (Auto) 0.8 L [place] # (Auto) 0.6 Eos # (Auto) 0.1 Baso # (Auto) 0.0 PT 18.9 H INR 1.7 H APTT 44.7 H Sodium 142 Potassium 3.0 L Chloride 103 Carbon Dioxide 27 Anion Gap 15 BUN 4 L Creatinine 0.4 L Est GFR ( Amer) > 60 Est GFR (Non-Af Amer) > 60 Random Glucose 102 Calcium 9.0 Total Bilirubin 1.2 AST 41 H D ALT 64 H D Alkaline Phosphatase 95 Troponin I < 0.0120 NT-Pro-B Natriuret Pep 1120 H Total Protein 6.8 Albumin 3.7 Globulin 3.1 Albumin/Globulin Ratio 1.2 Urine Color Urine Clarity Urine pH Ur Specific [place] Urine Protein Urine Glucose (UA) Urine Ketones Urine Blood Urine Nitrate Urine Bilirubin Urine Urobilinogen Ur Leukocyte Esterase Urine RBC (Auto) Urine Microscopic WBC 12/21/17 13:35 WBC RBC Hgb Hct MCV MCH MCHC RDW Plt Count MPV Neut % (Auto) Lymph % (Auto) [place] % (Auto) Eos % (Auto) Baso % (Auto) Neut # (Auto) Lymph # (Auto) [place] # (Auto) Eos # (Auto) Baso # (Auto) PT INR APTT Sodium Potassium Chloride Carbon Dioxide Anion Gap BUN Creatinine Est GFR ( Amer) Est GFR (Non-Af Amer) Random Glucose Calcium Total Bilirubin AST ALT Alkaline Phosphatase Troponin I NT-Pro-B Natriuret Pep Total Protein Albumin Globulin Albumin/Globulin Ratio Urine Color Straw Urine Clarity Clear Urine pH 7.0 Ur Specific [place] < 1.005 Urine Protein Negative Urine Glucose (UA) Neg Urine Ketones Negative Urine Blood Negative Urine Nitrate Negative Urine Bilirubin Negative Urine Urobilinogen 0.2-1.0 Ur Leukocyte Esterase Neg Urine RBC (Auto) 2 Urine Microscopic WBC < 1 Assessment & Plan - Assessment and Plan (Free Text) Assessment: Imp; Multiple myeloma, Skeletal metastasis., congestive heart failure. Plan: Plan; She is being treated now with diuretics and is better. Will give her the chemotherapy on December 28 - Date & Time Date: 12/22/17 Time: 11:19
--- NOTE | 2017-12-22 11:47 | CARD ---
APPROVED REPORT EKG Measurement Heart [id number] <Conclusion> Atrial fibrillation ST & T wave abnormality, consider lateral ischemia Abnormal ECG
[2017-12-22 12:15] LABS: BLOOD UREA NITROGEN 10 mg/dl (7-17); CALCIUM 9.1 mg/dL (8.4-10.2); GFR AFRICAN-AMERICAN > 60; GFR NON-AFRICAN AMERICAN > 60
--- NOTE | 2017-12-22 12:18 | CP.PCM.CON ---
History of Present Illness - History of Present Illness History of Present Illness: this 62-year-old female,a hypertensive with a history of multiple myeloma has chronic atrial fibrillation and congestive cardiac failure which is left ventricular, diastolic and chronic , arrived in the hospital profoundly short of breath and orthopneic after having eaten salty fish for 3-4 days. The patient was hospitalized in 2015 and with congestive cardiac failure and has been taking furosemide as well as a beta abdifatah along with digoxin for rate control as well as lisinopril. She has been on oral anticoagulation for preventing systemic embolization. She also reports having noticed bloating of her abdomen and swelling of her feet at the same time she began to get short of breath. Having received intravenous furosemide she has diuresed profusely and reports significant relief of her symptoms. Patient never been a smoker and has never suffered a myocardial infarction. She is not a diabetic. Physical examination shows an elderly female who is still mildly dyspneic with a respiratory rate of approximately 18 breaths per minute while at rest she breathes comfortably propped up in bed. Has a heart rate of 76 bpm irregularly irregular and a blood pressure of 130/70 millimeters Hg. Her jugular venous pressure was not elevated. There was minimal pitting edema of both lower extremities. The pedal pulses were well felt. There were no carotid bruits. The apex was not palpable. The 1st heart sounds was variable in intensity the second heart sound was normal. No murmurs or gallop was audible.There were coarse rales at both bases. Abdomen was soft liver and spleen are not palpable. Her electrocardiogram showed atrial fibrillation at moderate heart rates nonspecific ST-T changes. The QRS voltage was borderline for left ventricular hypertrophy.the lab data was noted. Review of her echocardiogram from October 2015 demonstrates a hypertrophied left ventricle with preserved systolic function and depressed diastolic compliance and a dilated left atrium, a pattern suggestive of severe diastolic left ventricular dysfunction. impression: congestive cardiac failure which is left ventricular diastolic and acute on chronic precipitated by excessive salt intake. Hypertension, multiple myeloma, chronic atrial fibrillation. The patient is being diuresed. I have requested an echocardiogram to evaluate her left ventricle systolic function. And I have explained to the patient in great detail to avoid salty food. Past Patient History - Infectious Disease Hx of Infectious Diseases: None - Tetanus Immunizations Tetanus Immunization: Unknown - Past Medical History & Family History Past Medical History?: Yes - Past Social History Smoking Status: Never Smoked - CARDIAC Hx Cardiac Disorders: Yes Hx Atrial Fibrillation: Yes Hx Cardia Arrhythmia: Yes Hx Congestive Heart Failure: Yes Hx Hypertension: Yes - PULMONARY Hx Respiratory Disorders: Yes Hx Pneumonia: Yes - NEUROLOGICAL Hx Neurological Disorder: No - HEENT Hx HEENT Problems: No - RENAL Hx Chronic Kidney Disease: No - ENDOCRINE/METABOLIC Hx Endocrine Disorders: No - HEMATOLOGICAL/ONCOLOGICAL Hx Blood Disorders: Yes Hx Chemotherapy: Yes Hx Human Immunodeficiency Virus (HIV): No Other/Comment: Multiple Myeloma - INTEGUMENTARY Hx Dermatological Problems: No - MUSCULOSKELETAL/RHEUMATOLOGICAL Hx Musculoskeletal Disorders: No Hx Falls: No - GASTROINTESTINAL Hx Gastrointestinal Disorders: No - GENITOURINARY/GYNECOLOGICAL Hx Genitourinary Disorders: No - PSYCHIATRIC Hx Psychophysiologic Disorder: No Hx Substance Use: No - SURGICAL HISTORY Hx Surgeries: Yes Hx Appendectomy: Yes Hx Hysterectomy: Yes (due to fibroids) - ANESTHESIA Hx Anesthesia: Yes Hx Anesthesia Reactions: No Hx Malignant Hyperthermia: No Has any member of the family had a problem w/ anesthesia?: No Meds Allergies/Adverse Reactions: Allergies Allergy/AdvReac Type Severity Reaction Status Date / Time No Known Allergies Allergy Verified 08/25/17 09:48 - Medications Medications: Current Medications Albuterol (Ventolin Hfa 90 Mcg/Actuation (8 G)) 2 puff IH Q4 PRN PRN Reason: Shortness of Breath Allopurinol (Zyloprim) 100 mg PO DAILY [facility] Last Admin: 12/22/17 09:11 Dose: 100 mg Aspirin (Ecotrin) 81 mg PO DAILY [facility] Last Admin: 12/22/17 09:09 Dose: 81 mg Carvedilol (Coreg) 25 mg PO Q12 [facility] Last Admin: 12/22/17 09:08 Dose: 25 mg Dexamethasone (Decadron) 10 mg PO BID [facility] Last Admin: 12/22/17 09:08 Dose: 10 mg Digoxin (Digoxin) 0.125 mg PO DAILY [facility] Last Admin: 12/22/17 09:08 Dose: 0.125 mg Famotidine (Pepcid) 20 mg PO DAILY [facility] Last Admin: 12/22/17 09:09 Dose: 20 mg Furosemide (Lasix) 40 mg IV DAILY [facility] Last Admin: 12/22/17 09:09 Dose: 40 mg Home Med (Lenalidomide [Revlimid]) 15 mg PO DAILY [facility] Last Admin: 12/22/17 09:11 Dose: 15 mg Lisinopril (Zestril) 10 mg PO DAILY [facility] Last Admin: 12/22/17 09:10 Dose: 10 mg Oxycodone/Acetaminophen (Percocet 5/325 Mg Tab) 1 tab PO Q6 PRN PRN Reason: Pain, severe (8-10) Stop: 12/24/17 16:15 Last Admin: 12/21/17 21:11 Dose: 1 tab Potassium Chloride (K-Dur 20 Meq Er Tab) 20 meq PO BID [facility] Last Admin: 12/22/17 09:09 Dose: 20 meq Rivaroxaban (Xarelto) 20 mg PO DAILY [facility] PRN Reason: Protocol Last Admin: 12/22/17 09:10 Dose: 20 mg Results - Vital Signs Recent Vital Signs: Last Vital Signs Temp 98.8 F 12/22/17 12:00 Pulse 81 12/22/17 12:00 Resp 18 12/22/17 12:00 BP 118/74 12/22/17 12:00 Pulse Ox 96 12/22/17 12:00 - Labs Result Diagrams: 12/21/17 13:35 12/21/17 13:35 Labs: Laboratory Results - last 24 hr 12/21/17 12/21/17 12/21/17 13:35 13:35 13:35 WBC 5.1 RBC 4.18 Hgb 12.7 Hct 37.5 MCV 89.7 MCH 30.3 MCHC 33.7 RDW 16.4 H Plt Count 263 MPV 8.5 Neut % (Auto) 69.7 Lymph % (Auto) 15.4 L [place] % (Auto) 12.6 H Eos % (Auto) 1.6 Baso % (Auto) 0.7 Neut # (Auto) 3.6 Lymph # (Auto) 0.8 L [place] # (Auto) 0.6 Eos # (Auto) 0.1 Baso # (Auto) 0.0 PT 18.9 H INR 1.7 H APTT 44.7 H Sodium 142 Potassium 3.0 L Chloride 103 Carbon Dioxide 27 Anion Gap 15 BUN 4 L Creatinine 0.4 L Est GFR ( Amer) > 60 Est GFR (Non-Af Amer) > 60 Random Glucose 102 Calcium 9.0 Total Bilirubin 1.2 AST 41 H D ALT 64 H D Alkaline Phosphatase 95 Troponin I < 0.0120 NT-Pro-B Natriuret Pep 1120 H Total Protein 6.8 Albumin 3.7 Globulin 3.1 Albumin/Globulin Ratio 1.2 Urine Color Urine Clarity Urine pH Ur Specific [place] Urine Protein Urine Glucose (UA) Urine Ketones Urine Blood Urine Nitrate Urine Bilirubin Urine Urobilinogen Ur Leukocyte Esterase Urine RBC (Auto) Urine Microscopic WBC 12/21/17 13:35 WBC RBC Hgb Hct MCV MCH MCHC RDW Plt Count MPV Neut % (Auto) Lymph % (Auto) [place] % (Auto) Eos % (Auto) Baso % (Auto) Neut # (Auto) Lymph # (Auto) [place] # (Auto) Eos # (Auto) Baso # (Auto) PT INR APTT Sodium Potassium Chloride Carbon Dioxide Anion Gap BUN Creatinine Est GFR ( Amer) Est GFR (Non-Af Amer) Random Glucose Calcium Total Bilirubin AST ALT Alkaline Phosphatase Troponin I NT-Pro-B Natriuret Pep Total Protein Albumin Globulin Albumin/Globulin Ratio Urine Color Straw Urine Clarity Clear Urine pH 7.0 Ur Specific [place] < 1.005 Urine Protein Negative Urine Glucose (UA) Neg Urine Ketones Negative Urine Blood Negative Urine Nitrate Negative Urine Bilirubin Negative Urine Urobilinogen 0.2-1.0 Ur Leukocyte Esterase Neg Urine RBC (Auto) 2 Urine Microscopic WBC < 1
[2017-12-22] MEDS ORDERED: Potassium Chloride 20 mEq ER Tab PO ONE (13:15)
[2017-12-22] MEDS: guaiFENesin DM 200 mg-20 mg/10 ml UD PO PRN ×2 (17:08→22:48)
--- NOTE | 2017-12-22 19:45 | CP.PCM.PN ---
Subjective - Date & Time of Evaluation Date of Evaluation: 12/22/17 Time of Evaluation: 11:30 - Subjective Subjective: Patient seen and examined. Claimed she felt better although appeared still catching up breath. Objective - Vital Signs/Intake and Output Vital Signs (last 24 hours): Temp Pulse Resp BP Pulse Ox 98.4 F 77 19 105/68 97 12/22/17 15:45 12/22/17 15:45 12/22/17 15:45 12/22/17 15:45 12/22/17 15:45 - Medications Medications: Current Medications Albuterol (Ventolin Hfa 90 Mcg/Actuation (8 G)) 2 puff IH Q4 PRN PRN Reason: Shortness of Breath Allopurinol (Zyloprim) 100 mg PO DAILY [facility] Last Admin: 12/22/17 09:11 Dose: 100 mg Aspirin (Ecotrin) 81 mg PO DAILY [facility] Last Admin: 12/22/17 09:09 Dose: 81 mg Carvedilol (Coreg) 25 mg PO Q12 [facility] Last Admin: 12/22/17 09:08 Dose: 25 mg Dexamethasone (Decadron) 10 mg PO BID [facility] Last Admin: 12/22/17 16:11 Dose: 10 mg Digoxin (Digoxin) 0.125 mg PO DAILY [facility] Last Admin: 12/22/17 09:08 Dose: 0.125 mg Famotidine (Pepcid) 20 mg PO DAILY [facility] Last Admin: 12/22/17 09:09 Dose: 20 mg Furosemide (Lasix) 40 mg IV DAILY [facility] Last Admin: 12/22/17 09:09 Dose: 40 mg Guaifenesin/Dextromethorphan (Robitussin Dm) 10 ml PO Q4 PRN PRN Reason: Cough Last Admin: 12/22/17 17:08 Dose: 10 ml Home Med (Lenalidomide [Revlimid]) 15 mg PO DAILY [facility] Last Admin: 12/22/17 09:11 Dose: 15 mg Lisinopril (Zestril) 10 mg PO DAILY [facility] Last Admin: 12/22/17 09:10 Dose: 10 mg Oxycodone/Acetaminophen (Percocet 5/325 Mg Tab) 1 tab PO Q6 PRN PRN Reason: Pain, severe (8-10) Stop: 12/24/17 16:15 Last Admin: 04/02/18 21:11 Dose: 1 tab Potassium Chloride (K-Dur 20 Meq Er Tab) 20 meq PO BID [facility] Last Admin: 12/22/17 16:11 Dose: 20 meq Rivaroxaban (Xarelto) 20 mg PO DAILY [facility] PRN Reason: Protocol Last Admin: 12/22/17 09:10 Dose: 20 mg - Labs Labs: 12/21/17 13:35 12/22/17 11:05 PT 18.9 Seconds (9.8-13.1) H 12/21/17 13:35 INR 1.7 (0.9-1.2) H 12/21/17 13:35 APTT 44.7 Seconds (25.6-37.1) H 12/21/17 13:35 - Constitutional Appears: No Acute Distress - Head Exam Head Exam: ATRAUMATIC - Eye Exam Eye Exam: absent: Scleral icterus - ENT Exam ENT Exam: Mucous Membranes Moist - Neck Exam Neck Exam: absent: Meningismus - Respiratory Exam Respiratory Exam: Decreased Breath Sounds. absent: Rhonchi, Wheezes - Cardiovascular Exam Cardiovascular Exam: Irregular Rhythm - GI/Abdominal Exam GI & Abdominal Exam: Soft. absent: Tenderness - Rectal Exam Rectal Exam: Deferred - Back Exam Back Exam: NORMAL INSPECTION - Neurological Exam Neurological Exam: Alert, Oriented x3 - Psychiatric Exam Psychiatric exam: Normal Affect - Skin Skin Exam: Dry, Intact Assessment and Plan - Assessment and Plan (Free Text) Assessment: 62 yo female with history of AFib, HTN, MMyeloma and CHF came in complaining of sudden onset of SOB upon waking up this morning. Accompanying symptoms were orthopnea with 4 pillows and on going cough productive with yellow sputum for a few days. Denied chest pain, fever, chills or abdominal pain. 1. CHF exacerbation continue Lasix 40mg IV continue Lisinopril Troponins: negative for ischemia ECHO: offical report pending Dr Monterroso called for cardiology consult 2. AFib rate controlled continue Digoxin and Carvedilol continue Xarelto 3. HTN BP stable continue Lisinopril 4. Multiple Myeloma continue Revlimid 15mg PO daily Dr Patiño on consult
[2017-12-22] MEDS: Oxycodone/Acetaminophen 5/325 mg Tab PO PRN (20:40)
[2017-12-23 00:14] VITALS: RESP 18
[2017-12-23 06:41] LABS: BLOOD UREA NITROGEN 15 mg/dl (7-17); CALCIUM 9.5 mg/dL (8.4-10.2); GFR AFRICAN-AMERICAN > 60; GFR NON-AFRICAN AMERICAN > 60
--- NOTE | 2017-12-23 08:20 | CP.PCM.PN ---
Subjective - Date & Time of Evaluation Date of Evaluation: 12/23/17 Time of Evaluation: 08:05 - Subjective Subjective: Slept well during the night Has diuresed well with Lasix A fib at 80 BPM, BP 130/70 mm Hg JVP flat, no oedema over feet Labs: BUN/Creatinin has remained normal with normal electrolytes Echo shows Normal LV syst function with markedly dilated LA (Clear sign of LV diastolic dysfunction in absence of Mitral disease) May go home, on present Rx Pt instructed to avoid salty food and to weigh herself daily Objective - Vital Signs/Intake and Output Vital Signs (last 24 hours): Temp Pulse Resp BP Pulse Ox 98.2 F 90 18 145/88 96 12/23/17 07:46 12/23/17 07:46 12/23/17 07:46 12/23/17 07:46 12/23/17 07:46 - Medications Medications: Current Medications Albuterol (Ventolin Hfa 90 Mcg/Actuation (8 G)) 2 puff IH Q4 PRN PRN Reason: Shortness of Breath Allopurinol (Zyloprim) 100 mg PO DAILY [facility] Last Admin: 12/22/17 09:11 Dose: 100 mg Aspirin (Ecotrin) 81 mg PO DAILY [facility] Last Admin: 12/22/17 09:09 Dose: 81 mg Carvedilol (Coreg) 25 mg PO Q12 [facility] Last Admin: 12/22/17 20:39 Dose: 25 mg Dexamethasone (Decadron) 10 mg PO BID [facility] Last Admin: 12/22/17 16:11 Dose: 10 mg Digoxin (Digoxin) 0.125 mg PO DAILY [facility] Last Admin: 12/22/17 09:08 Dose: 0.125 mg Famotidine (Pepcid) 20 mg PO DAILY [facility] Last Admin: 12/22/17 09:09 Dose: 20 mg Furosemide (Lasix) 40 mg IV DAILY [facility] Last Admin: 12/22/17 09:09 Dose: 40 mg Guaifenesin/Dextromethorphan (Robitussin Dm) 10 ml PO Q4 PRN PRN Reason: Cough Last Admin: 12/22/17 22:48 Dose: 10 ml Home Med (Lenalidomide [Revlimid]) 15 mg PO DAILY [facility] Last Admin: 12/22/17 09:11 Dose: 15 mg Lisinopril (Zestril) 10 mg PO DAILY [facility] Last Admin: 12/22/17 09:10 Dose: 10 mg Oxycodone/Acetaminophen (Percocet 5/325 Mg Tab) 1 tab PO Q6 PRN PRN Reason: Pain, severe (8-10) Stop: 12/24/17 16:15 Last Admin: 12/22/17 20:40 Dose: 1 tab Potassium Chloride (K-Dur 20 Meq Er Tab) 20 meq PO BID [facility] Last Admin: 12/22/17 16:11 Dose: 20 meq Rivaroxaban (Xarelto) 20 mg PO DAILY [facility] PRN Reason: Protocol Last Admin: 12/22/17 09:10 Dose: 20 mg - Labs Labs: 12/21/17 13:35 12/23/17 04:20 PT 18.9 Seconds (9.8-13.1) H 12/21/17 13:35 INR 1.7 (0.9-1.2) H 12/21/17 13:35 APTT 44.7 Seconds (25.6-37.1) H 12/21/17 13:35
--- NOTE | 2017-12-23 08:51 | CP.PCM.PN ---
Subjective - Date & Time of Evaluation Date of Evaluation: 12/23/17 Time of Evaluation: 08:49 - Subjective Subjective: Pt is afebrile, in no respiratory distress. She is doig better since she was diuresed. Vital signs stable she will return to the infusion center om thursday to continue her chemotherapy Objective - Vital Signs/Intake and Output Vital Signs (last 24 hours): Temp Pulse Resp BP Pulse Ox 98.2 F 90 18 145/88 96 12/23/17 07:46 12/23/17 07:46 12/23/17 07:46 12/23/17 07:46 12/23/17 07:46 - Medications Medications: Current Medications Albuterol (Ventolin Hfa 90 Mcg/Actuation (8 G)) 2 puff IH Q4 PRN PRN Reason: Shortness of Breath Allopurinol (Zyloprim) 100 mg PO DAILY [facility] Last Admin: 12/22/17 09:11 Dose: 100 mg Aspirin (Ecotrin) 81 mg PO DAILY [facility] Last Admin: 12/22/17 09:09 Dose: 81 mg Carvedilol (Coreg) 25 mg PO Q12 [facility] Last Admin: 12/22/17 20:39 Dose: 25 mg Dexamethasone (Decadron) 10 mg PO BID [facility] Last Admin: 12/22/17 16:11 Dose: 10 mg Digoxin (Digoxin) 0.125 mg PO DAILY [facility] Last Admin: 12/22/17 09:08 Dose: 0.125 mg Famotidine (Pepcid) 20 mg PO DAILY [facility] Last Admin: 12/22/17 09:09 Dose: 20 mg Furosemide (Lasix) 40 mg IV DAILY [facility] Last Admin: 12/22/17 09:09 Dose: 40 mg Guaifenesin/Dextromethorphan (Robitussin Dm) 10 ml PO Q4 PRN PRN Reason: Cough Last Admin: 12/22/17 22:48 Dose: 10 ml Home Med (Lenalidomide [Revlimid]) 15 mg PO DAILY [facility] Last Admin: 12/22/17 09:11 Dose: 15 mg Lisinopril (Zestril) 10 mg PO DAILY [facility] Last Admin: 12/22/17 09:10 Dose: 10 mg Oxycodone/Acetaminophen (Percocet 5/325 Mg Tab) 1 tab PO Q6 PRN PRN Reason: Pain, severe (8-10) Stop: 12/24/17 16:15 Last Admin: 12/22/17 20:40 Dose: 1 tab Potassium Chloride (K-Dur 20 Meq Er Tab) 20 meq PO BID [facility] Last Admin: 12/22/17 16:11 Dose: 20 meq Rivaroxaban (Xarelto) 20 mg PO DAILY [facility] PRN Reason: Protocol Last Admin: 12/22/17 09:10 Dose: 20 mg - Labs Labs: 12/21/17 13:35 12/23/17 04:20 PT 18.9 Seconds (9.8-13.1) H 12/21/17 13:35 INR 1.7 (0.9-1.2) H 12/21/17 13:35 APTT 44.7 Seconds (25.6-37.1) H 12/21/17 13:35
[2017-12-23] MEDS: Digoxin 125 mcg (0.125 mg) Tab PO SCH (09:29)
[2017-12-23] MEDS: guaiFENesin DM 200 mg-20 mg/10 ml UD PO PRN (09:31)
[2017-12-23] MEDS: LENALIDOMIDE 15 MG PO SCH (09:31)
[2017-12-23] MEDS: Potassium Chloride 20 mEq ER Tab PO SCH (09:33)
[2017-12-23 09:34] VITALS: PULSE 90
--- NOTE | 2017-12-23 11:05 | CP.PCM.DIS ---
Provider - Provider Date of Admission: 12/22/17 14:09 Attending physician: Leonides Braswell MD Primary care physician: Dr Rider Consults: Cardio; Dr Yareli Garcia Oncology: Dr Maddy Garcia Time Spent in preparation of Discharge (in minutes): 35 Diagnosis - Discharge Diagnosis (1) CHF exacerbation Status: Acute (2) Chronic atrial fibrillation Status: Chronic (3) Multiple myeloma Status: Chronic Hospital Course - Lab Results Lab Results: Most Recent Lab Values WBC 5.1 K/uL (4.8-10.8) 12/21/17 13:35 RBC 4.18 Mil/uL (3.80-5.20) 12/21/17 13:35 Hgb 12.7 g/dL (12.0-16.0) 12/21/17 13:35 Hct 37.5 % (34.0-47.0) 12/21/17 13:35 MCV 89.7 fl (81.0-99.0) 12/21/17 13:35 MCH 30.3 pg (27.0-31.0) 12/21/17 13:35 MCHC 33.7 g/dL (33.0-37.0) 12/21/17 13:35 RDW 16.4 % (11.5-14.5) H 12/21/17 13:35 Plt Count 263 K/uL (130-400) 12/21/17 13:35 MPV 8.5 fl (7.2-11.7) 12/21/17 13:35 Neut % (Auto) 69.7 % (50.0-75.0) 12/21/17 13:35 Lymph % (Auto) 15.4 % (20.0-40.0) L 12/21/17 13:35 [place] % (Auto) 12.6 % (0.0-10.0) H 12/21/17 13:35 Eos % (Auto) 1.6 % (0.0-4.0) 12/21/17 13:35 Baso % (Auto) 0.7 % (0.0-2.0) 12/21/17 13:35 Neut # (Auto) 3.6 K/uL (1.8-7.0) 12/21/17 13:35 Lymph # (Auto) 0.8 K/uL (1.0-4.3) L 12/21/17 13:35 [place] # (Auto) 0.6 K/uL (0.0-0.8) 12/21/17 13:35 Eos # (Auto) 0.1 K/uL (0.0-0.7) 12/21/17 13:35 Baso # (Auto) 0.0 K/uL (0.0-0.2) 12/21/17 13:35 PT 18.9 Seconds (9.8-13.1) H 12/21/17 13:35 INR 1.7 (0.9-1.2) H 12/21/17 13:35 APTT 44.7 Seconds (25.6-37.1) H 12/21/17 13:35 Sodium 142 mmol/l (132-148) 12/23/17 04:20 Potassium 3.8 MMOL/L (3.6-5.0) 12/23/17 04:20 Chloride 106 mmol/L (98-107) 12/23/17 04:20 Carbon Dioxide 26 mmol/L (22-30) 12/23/17 04:20 Anion Gap 14 (10-20) 12/23/17 04:20 BUN 15 mg/dl (7-17) 12/23/17 04:20 Creatinine 0.4 mg/dl (0.7-1.2) L 12/23/17 04:20 Est GFR ( Amer) > 60 12/23/17 04:20 Est GFR (Non-Af Amer) > 60 12/23/17 04:20 Random Glucose 142 mg/dL (65-105) H 12/23/17 04:20 Calcium 9.5 mg/dL (8.4-10.2) 12/23/17 04:20 Total Bilirubin 1.2 mg/dl (0.2-1.3) 12/21/17 13:35 AST 41 U/L (14-36) H D 12/21/17 13:35 ALT 64 U/L (9-52) H D 12/21/17 13:35 Alkaline Phosphatase 95 U/L (38-126) 12/21/17 13:35 Troponin I < 0.0120 ng/mL (0.00-0.120) 12/21/17 13:35 NT-Pro-B Natriuret Pep 1120 pg/ml (0-900) H 12/21/17 13:35 Total Protein 6.8 G/DL (6.3-8.2) 12/21/17 13:35 Albumin 3.7 g/dL (3.5-5.0) 12/21/17 13:35 Globulin 3.1 gm/dL (2.2-3.9) 12/21/17 13:35 Albumin/Globulin Ratio 1.2 (1.0-2.1) 12/21/17 13:35 Urine Color Straw (YELLOW) 12/21/17 13:35 Urine Clarity Clear (Clear) 12/21/17 13:35 Urine pH 7.0 (5.0-8.0) 12/21/17 13:35 Ur Specific [place] < 1.005 (1.003-1.030) 12/21/17 13:35 Urine Protein Negative mg/dL (NEGATIVE) 12/21/17 13:35 Urine Glucose (UA) Neg mg/dL (Normal) 12/21/17 13:35 Urine Ketones Negative mg/dL (NEGATIVE) 12/21/17 13:35 Urine Blood Negative (NEGATIVE) 12/21/17 13:35 Urine Nitrate Negative (NEGATIVE) 12/21/17 13:35 Urine Bilirubin Negative (NEGATIVE) 12/21/17 13:35 Urine Urobilinogen 0.2-1.0 mg/dL (0.2-1.0) 12/21/17 13:35 Ur Leukocyte Esterase Neg [place]/uL (Negative) 12/21/17 13:35 Urine RBC (Auto) 2 /hpf (0-3) 12/21/17 13:35 Urine Microscopic WBC < 1 /hpf (0-5) 12/21/17 13:35 - Hospital Course Hospital Course: 62 yo female with history of AFib, HTN, Multiple Myeloma and Diatolic CHF came in complaining of sudden onset of SOB upon waking up in the morning. Accompanying symptoms were orthopnea with 4 pillows, pedal edema and on going cough productive with yellow sputum for a few days. Denied chest pain, fever, chills or abdominal pain. 1. Acute Diastolic CHF exacerbation received Lasix 40mg IV improved with diuretics continue Lisinopril and Cored Troponins: negative ECHO: normal LV function Dr Monterroso : cardiology consult SOB now resolved, pedal edema resolved 2. AFib, chronic rate controlled continue Digoxin and Carvedilol continue Xarelto 3. HTN BP stable continue Lisinopril, Coreg and Lasix 4. Multiple Myeloma on chemotherapy continue Revlimid 15mg PO daily and Decadron Dr Patiño on consulted- for Chemotherapy December 28 Discharge Exam - Head Exam Head Exam: ATRAUMATIC - Eye Exam Eye Exam: EOMI, Normal appearance Pupil Exam: NORMAL ACCOMODATION - ENT Exam ENT Exam: Mucous Membranes Moist, Normal External Ear Exam - Neck Exam Neck exam: Full Rom - Respiratory Exam Respiratory Exam: Rhonchi, NORMAL BREATHING PATTERN. absent: Rales, Respiratory Distress - Cardiovascular Exam Cardiovascular Exam: Irregular Rhythm, +S1, +S2 - GI/Abdominal Exam GI & Abdominal Exam: Normal Bowel Sounds, Soft. absent: Tenderness - Extremities Exam Extremities exam: full ROM, normal capillary refill, pedal pulses present - Back Exam Back exam: FULL ROM. absent: CVA tenderness (L), CVA tenderness (R) - Neurological Exam Neurological exam: Alert, CN II-XII Intact, Oriented x3, Reflexes Normal - Psychiatric Exam Psychiatric exam: Normal Affect, Normal Mood - Skin Skin Exam: Dry, Normal Color, Warm Discharge Plan - Discharge Medications Prescriptions: guaiFENesin/Dextromethorphan [Robitussin DM] 10 ml PO Q4 PRN #200 ml PRN Reason: Cough - Follow Up Plan Condition: GOOD Disposition: HOME/ ROUTINE Instructions: Heart Healthy Diet, Heart Failure, Adult (DC) Additional Instructions: ff up with Dr Adry dawn appt with Dr Maddy Garcia for Chemotx on Thursday12/28/17 at 10:00am 6th floor infusion center appt with Dr Yareli Garcia in 1 wk Low salt diet Referrals: Itz Garcia MD [Staff Provider] - Thang Rider MD [Family Provider] - Clinical Quality Measures - CQM - Heart Failure Ejection Fraction: 40 % or Greater Left Ventricular Function to be assessed after discharge: Yes MYRNA Inhibitor Prescribed: Yes Beta-Moiz Prescribed: Carvedilol Angiotensin II Receptor Moiz Prescribed: No Contraindication/Reason for not providing: pt on MYRNA AnticoagulationTherapy for Atrial Fibrillation/Atrialflutter: Yes Aldosterone Antagonist Prescribed: No Contraindication/Reason for not providing: BP normal Hydralazine Nitrate Prescribed: No Contraindication/Reason for not providing: normal Implantable Cardioverter Defibrillator Therapy: No Contraindication/Reason for not providing: N/A Cardiac Resynchronization Therapy Prescribed: No Contraindication/Reason for not providing: N/A Will be discharged to: Home Follow Up Date (must be within 7 days from discharge): 12/28/17 Follow Up Time: 10:00 - Date & Time of Discharge Summary Date of Discharge Summary: 12/23/17 Time of Discharge Summary: 16:38
--- NOTE | 2017-12-23 11:14 | CARD ---
APPROVED REPORT EXAM: Two-dimensional and M-mode echocardiogram with Doppler and color Doppler. Other Information Quality : AverageRhythm : Atrial Fibrillation Technically limited study due to body habitus. INDICATION Congestive Heart Failure 2D DIMENSIONS IVSd1.31 (0.7-1.1cm)LVDd4.62 (3.9-5.9cm) LVOT Diameter2.20 (1.8-2.4cm)PWd0.95 (0.7-1.1cm) IVSs1.41 (0.8-1.2cm)LVDs2.83 (2.5-4.0cm) FS (%) 38.7 %PWs1.09 (0.8-1.2cm) M-Mode DIMENSIONS Left Atrium (MM)6.43 (2.5-4.0cm)IVSd1.01 (0.7-1.1cm) Aortic Root3.28 (2.2-3.7cm)LVDd5.20 (4.0-5.6cm) Aortic Cusp Exc.1.96 (1.5-2.0cm)PWd1.01 (0.7-1.1cm) IVSs1.54 cmFS (%) 38 % LVDs3.21 (2.0-3.8cm)PWs1.68 cm Mitral Valve E/A ratio0.0 TDI E/Lateral E'0.0E/Medial E'0.0 Pulmonary Valve PV Peak Yjhajndl42.0cm/s LEFT VENTRICLE The left ventricle is normal size. There is normal left ventricular wall thickness. The left ventricular function is normal. The left ventricular ejection fraction is 60% There is normal LV segmental wall motion. not reviewed due to atrial fibrillation No left ventricle thrombus noted on this study. There is no ventricular septal defect visualized. There is no left ventricular aneurysm. There is no mass noted in the left ventricle. RIGHT VENTRICLE The right ventricle is normal size. There is normal right ventricular wall thickness. The right ventricular systolic function is normal. ATRIA The left atrium is severely dilated. The right atrium size is normal. The interatrial septum is intact with no evidence for an atrial septal defect. AORTIC VALVE The aortic valve is normal in structure. No aortic regurgitation is present. There is no aortic valvular stenosis. There is no aortic valvular vegetation. MITRAL VALVE The mitral valve is normal in structure. There is no evidence of mitral valve prolapse. There is no mitral valve stenosis. Mitral regurgitation is trace to mild. TRICUSPID VALVE The tricuspid valve is normal in structure. There is no tricuspid valve regurgitation noted. There is no tricuspid valve prolapse or vegetation. There is no tricuspid valve stenosis. PULMONIC VALVE The pulmonary valve is normal in structure. There is no pulmonic valvular regurgitation. There is no pulmonic valvular stenosis. GREAT VESSELS The aortic root is normal in size. The ascending aorta is normal in size. The IVC is normal in size and collapses >50% with inspiration. PERICARDIAL EFFUSION The pericardium appears normal. There is no pleural effusion. <Conclusion> Normal LV systolic function Left Atrial Enlargement Trace to Mild Mitral Regurgitation
[2017-12-23 11:49] VITALS: BP 121/77; TEMP 98.6
[2017-12-23 16:09] VITALS: PULSE 79; O2SAT 99
== END 2017-12-23 14:50 | disposition home or self-care (01) ==
LOC: H.ER 12:07 → H.ERHOLD 14:51 → H.TEL 19:09 → INTOOBSV 12-22 14:09 → OBSVTOIN 12-22 14:09
DX: I11.0 Hypertensive heart disease with heart failure (principal); I50.33 Acute on chronic diastolic (congestive) heart failure; C90.00 Multiple myeloma not having achieved remission; I48.2 Chronic atrial fibrillation; J44.9 Chronic obstructive pulmonary disease, unspecified; J98.11 Atelectasis; Z90.49 Acquired absence of other specified parts of digestive tract; Z90.710 Acquired absence of both cervix and uterus
CPT/HCPCS: 36415; 71045; 80048; 80053; 81003; 83880; 84484; 85025; 85610; 85730; 93005; 93306; 96374; 99285; G0378; J1940; J8540

== ENCOUNTER 2017-12-27 15:34 | Emergency (ER) | payer MEDICAID ==
[2017-12-27 15:34] VITALS: PULSE 90; BMI 39.6
[2017-12-27 15:49] VITALS: BP 133/76; PULSE 98; RESP 16; TEMP 98.1; O2SAT 96
[2017-12-27] MEDS ORDERED: Oxycodone/Acetaminophen 5/325 mg Tab PO STA (16:55)
[2017-12-27 17:24] LABS: SQUAMOUS EPITHIAL 1 /hpf (0-5); URINE AMORPHOUS SEDIMENT RARE /ul (<OCC); URINE BILIRUBIN NEGATIVE (NEGATIVE); URINE BLOOD NEGATIVE (NEGATIVE); URINE CLARITY SLIGHTY-CLOUDY (Clear); URINE COLOR YELLOW (YELLOW); URINE GLUCOSE (UA) NEG (Normal); URINE LEUKOCYTE ESTERASE TRACE Leu/uL (Negative); URINE PROTEIN NEGATIVE (NEGATIVE); URINE UROBILINOGEN 0.2-1.0 mg/dL (0.2-1.0)
--- NOTE | 2017-12-27 17:32 | RAD ---
PROCEDURE: Left Hip X-ray Radiographs. HISTORY: Pain COMPARISON: None. FINDINGS: BONES: The pelvic ring is intact. There is no acute displaced fracture or bone destruction. Bone alignment is normal. There is diffuse bone demineralization. JOINTS: Normal. SOFT TISSUES: Normal. OTHER FINDINGS: None. IMPRESSION: No acute displaced fracture or dislocation. Please note occult fractures cannot be excluded on plain radiographs. If there is a persistent clinical concern, an MRI of the hip may be performed for further evaluation.
--- NOTE | 2017-12-27 17:34 | RAD ---
PROCEDURE: Radiographs of the Lumbar Spine. HISTORY: Back pain COMPARISON: No prior. FINDINGS: BONES: There is diffuse bone demineralization. There is normal alignment of the lumbar vertebral bodies. There is normal lumbar lordosis. There is age indeterminate osteoporotic compression fracture deformity in the L3 vertebral body. DISC SPACES: There is multilevel degenerative disc disease with anterior spurring, reduced disc heights and multilevel facet arthropathy, worse at L5-S1. OTHER FINDINGS: None. IMPRESSION: Diffuse bone demineralization. Age indeterminate osteoporotic compression deformity in the L3 vertebral body. Multilevel degenerative disc disease, worse at L5-S1.
[2017-12-27] MEDS ORDERED: Oxycodone/Acetaminophen 5/325 mg Tab ONE (17:39)
--- NOTE | 2017-12-27 18:06 | ED PDOC ---
HPI: Back Time Seen by Provider: 12/27/17 16:12 Chief Complaint (Nursing): Back Pain Chief Complaint (Provider): Back Pain History Per: Patient History/Exam Limitations: no limitations Additional Complaint(s): Patient reports pain in the left lower back, radiating to left hip and left leg. Reports taking Percocet and Tylenol with mild improvement in pain. Patient is currently on chemotherapy. Otherwise: (-) urinary symptoms, (-) trauma / injury, (-) fall, (-) paresthesias, (-) weakness, (-) acute bowel or bladder dysfunction, (-) fever. Has past medical history of sciatica, and multiple myeloma. OMD: Thang Rider MD Past Medical History Reviewed: Historical Data, Nursing Documentation, Vital Signs Vital Signs: Last Vital Signs Temp 98.1 F 12/27/17 15:47 Pulse 98 H 12/27/17 15:47 Resp 16 12/27/17 15:47 BP 133/76 12/27/17 15:47 Pulse Ox 96 12/27/17 15:47 - Medical History PMH: Atrial Fibrillation, Back Problems, Cardia Arrhythmia, CHF, Fractures (rib) , HTN, Pneumonia Denies: HIV, Chronic Kidney Disease Other PMH: Multiple myeloma, Sciatica - Surgical History Surgical History: Appendectomy, Cholecystectomy - Family History Family History: States: Unknown Family Hx - Social History Current smoker - smoking cessation education provided: No Alcohol: None Drugs: Denies - Home Medications Home Medications: Ambulatory Orders Medication Instructions Recorded Rivaroxaban [Xarelto] 20 mg PO DAILY 11/18/16 Lenalidomide [Revlimid] 15 mg PO DAILY 02/10/17 Potassium Chloride [K-Dur 20 mEq 20 meq PO BID 05/05/17 ER Tab] Dexamethasone [Decadron] 10 mg PO BID 11/23/17 Albuterol HFA [Ventolin HFA 90 2 puff IH Q4 PRN 12/21/17 mcg/actuation (8 g)] Allopurinol [Zyloprim] 100 mg PO DAILY 12/21/17 Aspirin [Ecotrin] 81 mg PO DAILY 12/21/17 Carvedilol [Coreg] 25 mg PO Q12 12/21/17 Digoxin [Digitek] 125 mcg PO DAILY 12/21/17 Famotidine [Pepcid] 20 mg PO DAILY 12/21/17 Lisinopril [Zestril] 10 mg PO DAILY 12/21/17 oxyCODONE/Acetaminophen [Percocet 1 tab PO Q6 PRN 12/21/17 5/325 mg Tab] Furosemide [Lasix] 20 mg PO BID #60 12/23/17 guaiFENesin/Dextromethorphan 10 ml PO Q4 PRN #200 ml 12/23/17 [Robitussin DM] Cephalexin [Keflex] 500 mg PO Q6 #28 capsule 12/27/17 Cyclobenzaprine [Cyclobenzaprine 10 mg PO TID PRN #15 tab 12/27/17 HCl] - Allergies Allergies/Adverse Reactions: Allergies Allergy/AdvReac Type Severity Reaction Status Date / Time No Known Allergies Allergy Verified 12/27/17 15:46 Review of Systems ROS Statement: Except As Marked, All Systems Reviewed And Found Negative (As per HPI, otherwise negative) Musculoskeletal: Positive for: Back Pain (lower left) Physical Exam - Reviewed Nursing Documentation Reviewed: Yes Vital Signs Reviewed: Yes - Physical Exam Comments: GENERAL APPEARANCE: Patient is awake, alert, oriented x 3, in mild painful distress. SKIN: Warm, dry; (-) cyanosis. EYES: (-) conjunctival pallor. ENMT: Mucous membranes moist. NECK: (-) tenderness, (-) stiffness, (-) lymphadenopathy. CHEST AND RESPIRATORY: (-) rales, (-) rhonchi, (-) wheezes; breath sounds equal bilaterally. HEART AND CARDIOVASCULAR: (-) irregularity; (-) murmur, (-) gallop. ABDOMEN AND GI: Soft; (-) tenderness; (-) palpable mass. BACK: (+) left paralumbar tenderness, (+) mild spasm, (-) direct bony tenderness, (-) deformity. Straight leg raising (-) bilaterally. EXTREMITIES: (-) deformity. Distal pulses good bilaterally. NEURO AND PSYCH: Mental status as above. Intact sensation bilaterally; normal strength in extension of the knees, plantar and dorsiflexion of the toes. DTRs symmetric. - ECG O2 Sat by Pulse Oximetry: 96 (RA) Pulse Ox Interpretation: Normal Medical Decision Making Medical Decision Making: Time: 16:55 Initial Impression: Back Pain Plan: Cyclobenzaprine 10mg PO Oxycodone/Acetaminophen 1tab PO Urine culture Hip/pelvis X-ray Lumbar spine X-ray Urinalysis Reevaluation Time: 17:31 XR Hip/Pelvis : FINDINGS: BONES: The pelvic ring is intact. There is no acute displaced fracture or bone destruction. Bone alignment is normal. There is diffuse bone demineralization. JOINTS: Normal. SOFT TISSUES: Normal. OTHER FINDINGS: None. IMPRESSION: No acute displaced fracture or dislocation. Please note occult fractures cannot be excluded on plain radiographs. If there is a persistent clinical concern, an MRI of the hip may be performed for further evaluation. XR Lumbar spine : FINDINGS: BONES: There is diffuse bone demineralization. There is normal alignment of the lumbar vertebral bodies. There is normal lumbar lordosis. There is age indeterminate osteoporotic compression fracture deformity in the L3 vertebral body. DISC SPACES: There is multilevel degenerative disc disease with anterior spurring, reduced disc heights and multilevel facet arthropathy, worse at L5-S1. OTHER FINDINGS: None. IMPRESSION: Diffuse bone demineralization. Age indeterminate osteoporotic compression deformity in the L3 vertebral body. Multilevel degenerative disc disease, worse at L5-S1. UA shows (+) UTI, urine cx sent and pending. XR results d/w the patient and family. Dx of sciatica and UTI d/w the patient and family. On reevaluation, patient reports improvement of pain. Patient is laying in bed comfortably in no acute distress. Advised to follow up with primary care physician and referral physician provided in 1-2 days without fail. Advised to take medication as prescribed and continue taking percocet for pain. Return to the emergency room at any time for any new or worsening symptoms. Patient states she fully agrees with and understands discharge instructions. States that she agrees with the plan and disposition. Verbalized and repeated discharge instructions and plan. I have given the patient opportunity to ask any additional questions. Scribe Attestation: Documented by Jd Davila acting as a scribe for PA. Rand PA-C MD Loera Attestation: All medical record entries made by the Evaristo were at my direction and personally dictated by me. I have reviewed the chart and agree that the record accurately reflects my personal performance of the history, physical exam, medical decision making, and the department course for this patient. I have also personally directed, reviewed, and agree with the discharge instructions and disposition. Disposition - Clinical Impression Clinical Impression: Low back pain, Sciatica, Urinary tract infection - Patient ED Disposition Is Patient to be Admitted: No Counseled Patient/Family Regarding: Studies Performed, Diagnosis, Need For Followup, Rx Given - Disposition Disposition: Routine/Home Disposition Time: 18:00 Condition: STABLE Additional Instructions: Thank you for letting us take care of you today. You were treated for low back pain, sciatica. The emergency medical care you received today was directed at your acute symptoms. If you were prescribed any medication, please fill it and take as directed. It may take several days for your symptoms to resolve. Return to the Emergency Department if your symptoms worsen, do not improve, or if you have any other problems. Please contact your doctor in 2 days for re-evaluation and follow up / or call one of the physicians/clinics you have been referred to that are listed on the Patient Visit Information form that is included in your discharge packet. Bring any paperwork you were given at discharge with you along with any medications you are taking to your follow up visit. Our treatment cannot replace ongoing medical care by a primary care provider (PCP) outside of the emergency department. Thank you for allowing the [facility] team to be part of your care today. Prescriptions: Cephalexin [Keflex] 500 mg PO Q6 #28 capsule Cyclobenzaprine [Cyclobenzaprine HCl] 10 mg PO TID PRN #15 tab PRN Reason: Muscle Spasm Instructions: Urinary Tract Infections in Adults, Low Back Pain (DC), Sciatica (DC) Forms: [employer] ([place] Citizen) Print Language: KINYARWANDA
== END 2017-12-27 19:22 | disposition home or self-care (01) ==
LOC: H.ER 15:34
DX: N39.0 Urinary tract infection, site not specified (principal); M54.5 Low back pain; M51.37 Other intervertebral disc degeneration, lumbosacral region; M81.0 Age-related osteoporosis without current pathological fracture; M54.40 Lumbago with sciatica, unspecified side

== ENCOUNTER 2017-12-29 09:30 | Inpatient (IN) | payer MEDICAID ==
[2017-12-29 09:30] VITALS: BMI 39.6
[2017-12-29] MEDS ORDERED: Gadodiamide 287 MG/ML VIAL (15ML) IV ONE ×3 (11:41→18:50)
[2017-12-29] MEDS ORDERED: Oxycodone/Acetaminophen 5/325 mg Tab PO ONE ×2 (11:49)
[2017-12-29 12:12] LABS: BASO # 0.1 K/uL (0.0-0.2); BASO % 0.7 % (0.0-2.0); EOS % 0.1 % (0.0-4.0); HEMOGLOBIN 14.8 g/dL (12.0-16.0); LYMPH # 0.7 K/uL (1.0-4.3); LYMPH % 3.6 % (20.0-40.0); MEAN CELL VOLUME 89.2 fl (81.0-99.0); MEAN CORPUSCULAR HEMOGLOBIN 30.2 pg (27.0-31.0); MEAN CORPUSCULAR HGB CONC 33.9 g/dL (33.0-37.0); MEAN PLATELET VOLUME 9.4 fl (7.2-11.7); MONO # 1.3 K/uL (0.0-0.8); MONO % 7.3 % (0.0-10.0); NEUT % 88.3 % (50.0-75.0); PLATELET COUNT 213 K/uL (130-400); RBC 4.91 Mil/uL (3.80-5.20); RED CELL DISTRIBUTION WIDTH 16.2 % (11.5-14.5)
[2017-12-29 12:14] LABS: WHITE BLOOD COUNT 18.1 K/uL (4.8-10.8)
--- NOTE | 2017-12-29 12:42 | ED PDOC ---
HPI: Back Time Seen by Provider: 12/29/17 10:23 Chief Complaint (Nursing): Back Pain Chief Complaint (Provider): Back Pain History Per: Patient History/Exam Limitations: no limitations Onset/Duration Of Symptoms: Days (x3) Current Symptoms Are (Timing): Still Present Quality Of Discomfort: "Pain" Associated Symptoms: Other (urinary retention) Exacerbating Factor(s): Standing Additional Complaint(s): Seema Nieto is a 62 year old female, with a past medical history of HTN, and multiple myeloma, who presents to the emergency department complaining of back pain onset x3 days ago and difficulty urination since last night. Patient reports the lower back pain does not radiate to legs and pain is worst when she gets up and walks. Patient states she had urinary retention and was not able to urinate since last night. She was diagnosed with UTI last week and started on Keflex. According to Dr. Maddy Garcia, oncologist, and patient, she has gone through chemotherapy and radiation for multiple myeloma. She has no metastasis in her spine. She reports improvement of pain after radiation. However, patient is still on chemo at home, through tablets. Patient had it for many years, but over the weekend she started to have back pain. Doctor knows she has a disc herniation. Patient states she is not in a lot of pain but eventually called Dr. Maddy Garcia who instructed her to come to the ER. She denies any new weakness or numbness. No further medical complaints. PMD: Thang Rider Past Medical History Reviewed: Historical Data, Nursing Documentation, Vital Signs Vital Signs: Last Vital Signs Temp 98.1 F 12/29/17 09:34 Pulse 114 H 12/29/17 09:34 Resp 21 12/29/17 09:34 BP 117/69 12/29/17 09:34 Pulse Ox 96 12/29/17 09:34 - Medical History PMH: Atrial Fibrillation, Back Problems, Cardia Arrhythmia, CHF, Fractures (rib) , HTN, Pneumonia Denies: HIV, Chronic Kidney Disease Other PMH: Multiple Myeloma - Surgical History Surgical History: Appendectomy, Cholecystectomy Other surgeries: hysterectomy - Family History Family History: States: Unknown Family Hx - Home Medications Home Medications: Ambulatory Orders Medication Instructions Recorded Rivaroxaban [Xarelto] 20 mg PO DAILY 11/18/16 Lenalidomide [Revlimid] 15 mg PO DAILY 02/10/17 Potassium Chloride [K-Dur 20 mEq 20 meq PO BID 05/05/17 ER Tab] Dexamethasone [Decadron] 10 mg PO BID 11/23/17 Albuterol HFA [Ventolin HFA 90 2 puff IH Q4 PRN 12/21/17 mcg/actuation (8 g)] Allopurinol [Zyloprim] 100 mg PO DAILY 12/21/17 Aspirin [Ecotrin] 81 mg PO DAILY 12/21/17 Carvedilol [Coreg] 25 mg PO Q12 12/21/17 Digoxin [Digitek] 125 mcg PO DAILY 12/21/17 Famotidine [Pepcid] 20 mg PO DAILY 12/21/17 Lisinopril [Zestril] 10 mg PO DAILY 12/21/17 oxyCODONE/Acetaminophen [Percocet 1 tab PO Q6 PRN 12/21/17 5/325 mg Tab] Furosemide [Lasix] 20 mg PO BID #60 12/23/17 guaiFENesin/Dextromethorphan 10 ml PO Q4 PRN #200 ml 12/23/17 [Robitussin DM] - Allergies Allergies/Adverse Reactions: Allergies Allergy/AdvReac Type Severity Reaction Status Date / Time No Known Allergies Allergy Verified 12/27/17 15:46 Review of Systems ROS Statement: Except As Marked, All Systems Reviewed And Found Negative Constitutional: Negative for: Fever Genitourinary Female: Positive for: Other (urinary retention). Negative for: Incontinence Musculoskeletal: Positive for: Back Pain Neurological: Negative for: Weakness (legs and perineal area), Numbness (legs and perineal area) Physical Exam - Reviewed Nursing Documentation Reviewed: Yes Vital Signs Reviewed: Yes - Physical Exam Appears: Positive for: Non-toxic, Uncomfortable Head Exam: Positive for: ATRAUMATIC, NORMAL INSPECTION, NORMOCEPHALIC Skin: Positive for: Normal Color, Warm, Dry Eye Exam: Positive for: Normal appearance, EOMI, PERRL Neck: Positive for: Painless ROM, Supple Cardiovascular/Chest: Positive for: Regular Rate, Rhythm. Negative for: Murmur Respiratory: Positive for: Normal Breath Sounds. Negative for: Respiratory Distress Gastrointestinal/Abdominal: Positive for: Normal Exam, Soft. Negative for: Tenderness, Guarding, Rebound Back: Positive for: Normal Inspection, Vertebral Tenderness (lower back diffusely) Extremity: Positive for: Normal ROM (upper and lower extremities), Other (Full strength in legs and arms). Negative for: Tenderness, Deformity, Swelling Neurologic/Psych: Positive for: Alert, Oriented, Gait (unable to test due to pain). Negative for: reading professor II-XII (no deficits), Motor/Sensory Deficits (in lower extremities) - Laboratory Results Result Diagrams: 12/30/17 04:25 12/30/17 04:25 - ECG O2 Sat by Pulse Oximetry: 96 (RA) Pulse Ox Interpretation: Normal Medical Decision Making Medical Decision Making: Initial Impression: Back pain with history of meds and multiple myeloma of the spine as well as urinary retention. Differential includes MM lesions, equina, disc herniation, lumbar radiculopathy, metastatic cancer, less likely cord compression/cauda equina Additional dx Afib with RVR. Urinary retention. Possible UTI Initial Plan: --BMP --Uric Acid --Urine dipstick --CBC w/ differential --Lumbar Spine MRI w/wo Gadolinium [MRI] --Thoracic Spine w/wo Gadolinium [MRI] --Percocet 5/325 mg tab 1 tab PO --Percocet 5/325 mg tab 1 tab PO --Reevaluation -Consult has been done with Dr. Maddy Garcia who recommended an MRI, with contrast of the spine and to hold on Decadron for now. -1600 Patient went to MRI x2 unsuccessfully because she couldn't lay still in MRI. Patient refuses stronger opiods at this time. Will request anesthesia consult. Time: 162 -Spoke with Dr. Maddy Garcia who wants to admit patient to hospitalist. She agrees with the plan to obtain MRI with anesthesia. Advises 8 mg of Decadron Q8. -Potassium PO -[address] Ambrosio, hospitalist, who admitted patient for telemetry for intractable pain. -170 Discussed with anesthesiologist, Dr. Guan for possible sedation and pain control. He will provide sedation for MRI. If no contraindications, patient will be intubated. -170 Discussed with medical technologist prn to expedite. -There is no evidence of cord compression based on neuro exam although suspicion still remains due to urinary retention. There is no indicatrions for STAT neurosurgical consult. Hemonc consulted. There is no evidence of spinal infection until imaging is performed. Discussed with Dr Ambrosio to follow up on MRI and request appropriate consults. Started IV steroids. MRI will be performed with anesthesia STAT. Scribe Attestation: Documented by Harinder Tello, acting as a scribe for Day Hahn PA-C Provider Scribe Attestation: All medical record entries made by the Scribe were at my direction and personally dictated by me. I have reviewed the chart and agree that the record accurately reflects my personal performance of the history, physical exam, medical decision making, and the department course for this patient. I have also personally directed, reviewed, and agree with the discharge instructions and disposition. Disposition - Clinical Impression Clinical Impression: Back pain, Atrial fibrillation with rapid ventricular response, Hypokalemia due to loss of potassium, Myeloma, Urinary retention - Patient ED Disposition Is Patient to be Admitted: Yes Discussed With : Santos Ambrosio Doctor Will See Patient In The: ED Counseled Patient/Family Regarding: Studies Performed, Diagnosis - Disposition Disposition Time: 17:00 Condition: FAIR - Pt Status Changed To: Hospital Disposition Of: Inpatient - Admit Certification Admit to Inpatient:: After my assessment, the patient will require hospitalization for at least two midnights. This is because of the severity of symptoms shown, intensity of services needed, and/or the medical risk in this patient being treated as an outpatient. - POA Present On Arrival: Poor Glycemic Control
[2017-12-29 12:46] LABS: BLOOD UREA NITROGEN 9 mg/dl (7-17); CALCIUM 9.1 mg/dL (8.4-10.2); GFR AFRICAN-AMERICAN > 60; GFR NON-AFRICAN AMERICAN > 60; URIC ACID 2.1 mg/Dl (2.2-7.5)
[2017-12-29] MEDS ORDERED: Potassium Chloride 20 mEq ER Tab PO ONE (13:02)
[2017-12-29 14:08] LABS: BANDS 3 % (0-2); LYMPHOCYTE 4 % (20-50); MONOCYTE 8 % (0-10); NEUTROPHIL 85 % (42-75); TOTAL CELLS COUNTED 100
[2017-12-29 14:09] LABS: ANISOCYTOSIS SLIGHT; GIANT PLATELETS PRESENT; LARGE PLATELETS PRESENT; PLATELET ESTIMATE NORMAL (NORMAL)
[2017-12-29] MEDS ORDERED: Metoprolol 1 mg/ml Inj IVP ONE ×4 (16:09→18:41)
[2017-12-29] MEDS ORDERED: Dexamethasone 8 MG in Dextrose 5% In Water 50 ML IV SCH (18:45)
--- NOTE | 2017-12-29 19:37 | CP.PCM.HP ---
History of Present Illness - History of Present Illness History of Present Illness: CC: Severe back pain This is a 62 year old female with a past medical history significant for atrial fibrillation anticoagulated on Xarelto, essential hypertension, Multiple myeloma , and CHF, who presented to the ED complaining of worsening back pain. The patient has chronic back pain due to the multiple myeloma, however today the pain became much worse. In addition the patient was found to have urinary retention since this morning, prompting her to come to the ED. In the ED, the patient was found to be hemodynamically stable although in severe pain not relieved by Percocets. Garrett catheter was placed and drained large amount of urine. Multiple attempts in the ED were made for MRI to assess for spinal cord compression (possibly due to malignancy), however the patient was unable to lie flat in MRI due to pain. She is for another attempt at MRI with Iv morphine and we will attempt again. She is also found to have afib with RVR, likely secondary to pain and anxiety. Patient has no motor or sensory deficits, no fecal or urinary incontinence, and no saddle anesthesia. She denies chest pain, sob, nausea, vomiting, diarrhea, or headache at this time. Present on Admission - Present on Admission Any Indicators Present on Admission: No Review of Systems - Review of Systems Review of Systems: A 12 point review of systems was conducted and found to be negative other than what was mentioned in the HPI. Past Patient History - Infectious Disease Hx of Infectious Diseases: None - Tetanus Immunizations Tetanus Immunization: Unknown - Past Medical History & Family History Past Medical History?: Yes - Past Social History Smoking Status: Never Smoked - CARDIAC Hx Atrial Fibrillation: Yes Hx Cardia Arrhythmia: Yes Hx Congestive Heart Failure: Yes Hx Hypertension: Yes - PULMONARY Hx Pneumonia: Yes - NEUROLOGICAL Hx Neurological Disorder: No - HEENT Hx HEENT Problems: No - RENAL Hx Chronic Kidney Disease: No - ENDOCRINE/METABOLIC Hx Endocrine Disorders: No - HEMATOLOGICAL/ONCOLOGICAL Hx Human Immunodeficiency Virus (HIV): No - INTEGUMENTARY Hx Dermatological Problems: No - MUSCULOSKELETAL/RHEUMATOLOGICAL Hx Fractures: Yes (rib) - GASTROINTESTINAL Hx Gastrointestinal Disorders: No - GENITOURINARY/GYNECOLOGICAL Other/Comment: Uterine Fibroids - PSYCHIATRIC Hx Psychophysiologic Disorder: No Hx Substance Use: No - SURGICAL HISTORY Hx Appendectomy: Yes Hx Cholecystectomy: Yes - ANESTHESIA Hx Anesthesia: Yes Hx Anesthesia Reactions: No Hx Malignant Hyperthermia: No Meds Allergies/Adverse Reactions: Allergies Allergy/AdvReac Type Severity Reaction Status Date / Time No Known Allergies Allergy Verified 12/27/17 15:46 Physical Exam - Additional Findings Additional findings: Physical exam: Constitutional- cooperative, awake, alert, Head- NCAT, PERRL Eye- PERRL, EOMI ENT- normal exam, MMM. Neck- normal inspection, supple, no JVD Respiratory- CTAB, no wheezes rales rhonchi Cardiovascular- RRR, +S1, +S2 no MRG GI/Abdominal- obese, normal bowel sounds, soft, no mass, no hsm Skin- warm, dry Extremities Exam- normal capillary refill, normal inspection Neurological Exam- alert, awake, oriented, no motor or sensory deficits, CN II- XII intact Psych- normal affect appears anxious Results - Vital Signs Recent Vital Signs: Last Vital Signs Temp 98.1 F 12/29/17 14:34 Pulse 110 H 12/29/17 18:19 Resp 18 12/29/17 18:19 BP 115/51 L 12/29/17 18:19 Pulse Ox 96 12/29/17 18:19 - Labs Result Diagrams: 12/29/17 12:05 12/29/17 12:05 Labs: Laboratory Results - last 24 hr 12/29/17 12/29/17 12/29/17 12:05 12:05 14:21 WBC 18.1 H D RBC 4.91 Hgb 14.8 D Hct 43.8 MCV 89.2 MCH 30.2 MCHC 33.9 RDW 16.2 H Plt Count 213 MPV 9.4 Neut % (Auto) 88.3 H Lymph % (Auto) 3.6 L [place] % (Auto) 7.3 Eos % (Auto) 0.1 Baso % (Auto) 0.7 Neut # (Auto) 16.0 H Lymph # (Auto) 0.7 L [place] # (Auto) 1.3 H Eos # (Auto) 0.0 Baso # (Auto) 0.1 Neutrophils % (Manual) 85 H Band Neutrophils % 3 H Lymphocytes % (Manual) 4 L Monocytes % (Manual) 8 Platelet Estimate Normal Large Platelets Present Giant Platelets Present Anisocytosis (manual) Slight Sodium 134 Potassium 3.2 L Chloride 95 L Carbon Dioxide 25 Anion Gap 17 BUN 9 Creatinine 0.5 L Est GFR ( Amer) > 60 Est GFR (Non-Af Amer) > 60 Random Glucose 162 H Uric Acid 2.1 L Calcium 9.1 NT-Pro-B Natriuret Pep 898 Digoxin 12/29/17 14:21 WBC RBC Hgb Hct MCV MCH MCHC RDW Plt Count MPV Neut % (Auto) Lymph % (Auto) [place] % (Auto) Eos % (Auto) Baso % (Auto) Neut # (Auto) Lymph # (Auto) [place] # (Auto) Eos # (Auto) Baso # (Auto) Neutrophils % (Manual) Band Neutrophils % Lymphocytes % (Manual) Monocytes % (Manual) Platelet Estimate Large Platelets Giant Platelets Anisocytosis (manual) Sodium Potassium Chloride Carbon Dioxide Anion Gap BUN Creatinine Est GFR ( Amer) Est GFR (Non-Af Amer) Random Glucose Uric Acid Calcium NT-Pro-B Natriuret Pep Digoxin < 0.4 L Assessment & Plan - Assessment and Plan (Free Text) Plan: ASSESSMENT/PLAN This is a 62 year old female with a past medical history significant for atrial fibrillation anticoagulated on Xarelto, essential hypertension, Multiple myeloma , and CHF, who presented to the ED complaining of worsening back pain, now with concern for cord compression as there is coexisting new onset urinary retention 1) Severe acute on chronic back pain with urinary retention, r/o spinal cord compression - Admit to telemetry - Consultation with Dr. Kim for anesthesia- we will attempt MRI at first with IV morphine on board, if patient still unable to go for MRI due to pain we will intubate to obtain the MRI. - Decadron 8 mg IVP q 8 hours - Stat CXR 2) Afib with RVR - Lopressor 5 mg IV once to reduce HR - Likely due to anxiety and pain - Iv morphine - Restart home medications including Xarelto after the MRI and diet is advanced 3) Hypokalemia, mild - Repleted in ED - Recheck in AM 4) Essential htn - chronic - holding all bp meds for now - lopressor IV - will restart when patient is able to take po 5) Multiple myeloma - chronic - Dr. Maddy Garcia on consultation for heme/onc 6) Leukocytosis - secondary to Decadron - no evidence of infection 7) DVT prophylaxis - will restart Xarelto
[2017-12-29] MEDS ORDERED: Lactated Ringer's 1,000 ML IV SCH (22:30)
[2017-12-29] MEDS ORDERED: Digoxin 500 mcg/2ml (0.5 mg/2ml) Inj IVP STA (23:26)
--- NOTE | 2017-12-30 00:08 | CP.PCM.PN ---
Subjective - Date & Time of Evaluation Date of Evaluation: 12/30/17 Time of Evaluation: 00:08 - Subjective Subjective: EXAM: MR Lumbar Spine Without and With Intravenous Contrast EXAM DATE/TIME: Exam ordered 12/29/2017 11:33 AM FINDINGS: Vertebrae: Loss of height of the L3 vertebral body appears to be new since the prior MRI however lack of edema would suggest that this is a chronic abnormality. Prior study is 2013. History of multiple myeloma. The L1 vertebral body demonstrates mild loss of height also to be chronic. There is diffuse extramedullary, intradural diffuse pachymeningeal thickening is identified extending throughout the lumbar spine, which may be reflective of neoplasm or infection most likely. Hypertrophic change anteriorly in the lumbar spine diffusely. Mild lumbar scoliosis. No acute fracture. Spinal cord: Unremarkable. Normal signal. No abnormal enhancement. Soft tissues: Unremarkable. Kidneys and ureters: Possible cysts in the right kidney not further characterized. DISCS/SPINAL CANAL/NEURAL FORAMINA: T12-L1: At T12-L1 disc bulge is noted with central stenosis with mass effect by the intradural extramedullary process posteriorly. Similar findings are noted at L1-L2, L2-L3, and L3-L4 with degenerative disc disease and facet arthritis contributing to central stenosis. A left paracentral disc herniation is noted at L3-L4. Extruded disc material is noted to extend to just below the L2-L3 level. L4-L5: At L4-L5 and L5-S1, there is facet arthritis with foraminal narrowing. IMPRESSION: 1. Loss of height of the L3 vertebral body appears to be new since the prior MRI however lack of edema would suggest that this is a chronic abnormality. Prior study is 2013. History of multiple myeloma. 2. The L1 vertebral body demonstrates mild loss of height also to be chronic. 3. There is diffuse extramedullary, intradural pachymeningeal diffuse thickening identified extending throughout the lumbar spine, which may be reflective of neoplasm or infection most likely. Reported history of malignancy. 4. At T12-L1 disc bulge is noted with central stenosis with mass effect by the intradural extramedullary process posteriorly. Similar findings are noted at L1-L2, L2-L3, and L3-L4 with degenerative disc disease and facet arthritis contributing to central stenosis. A left paracentral disc herniation is noted at L3-L4. Extruded disc material is noted to extend to just below the L2-L3 level. EXAM: MR Thoracic Spine Without and With Intravenous Contrast EXAM DATE/TIME: Exam ordered 12/29/2017 11:33 AM FINDINGS: Vertebrae: Clinical history includes malignancy with a neck mass and multiple myeloma. There are multiple compression deformities identified in the thoracic spine. These appear to be similar to the prior study aside from further compression and flattening of T6. Lack of edema at this site would make this likely a chronic progression. History includes multiple myeloma presumably related to osteopenia related compression fractures. Hypertrophic change anteriorly in the thoracic spine. Other bones/joints: Rib fractures are noted consistent with stated history of multiple myeloma. Discs/spinal canal/neural foramina: There are multiple bulging discs in the mid and lower thoracic spine. There appears to be diffuse pachymeningeal thickening in a extra medullary intradural location throughout the thoracic spine posteriorly predominantly, similar to lumbar spine findings, which causes multilevel stenosis of the thoracic canal in combination with the compression fractures and degenerative disc disease. As before infection or neoplasm should be considered. History of a malignancy is noted. Lungs: There is abnormal enhancement in the lung parenchyma medially bilaterally which may be reflective of infection or possibly neoplastic process as well. IMPRESSION: 1. Clinical history includes malignancy with a neck mass and multiple myeloma. 2. There are multiple compression deformities identified in the thoracic spine. These appear to be similar to the prior study aside from further compression and flattening of T6. Lack of edema at this site would make this likely a chronic progression. History includes multiple myeloma presumably related to osteopenia related compression fractures. 3. There are multiple bulging discs in the mid and lower thoracic spine. There appears to be diffuse pachymeningeal thickening in a extra medullary intradural location throughout the thoracic spine posteriorly predominantly, similar to lumbar spine findings, which causes multilevel stenosis of the thoracic canal in combination with the compression fractures and degenerative disc disease. As before infection or neoplasm should be considered. History of a malignancy is noted. 4. Rib fractures are noted consistent with stated history of multiple myeloma. 5. There is abnormal enhancement in the lung parenchyma medially bilaterally which may be reflective of infection or possibly neoplastic process as well. Objective - Vital Signs/Intake and Output Vital Signs (last 24 hours): Temp Pulse Resp BP Pulse Ox 100.2 F H 113 H 18 124/86 94 L 12/29/17 23:00 12/29/17 23:00 12/29/17 23:00 12/29/17 23:00 12/29/17 23:00 - Medications Medications: Current Medications Dexamethasone (Decadron Inj) 8 mg IVP Q8H ESSIE Lactated Ringer's (Lactated Ringer's) 1,000 mls @ 75 mls/hr IV .[id number] ESSIE Morphine Sulfate (Morphine) 2 mg IVP Q4 PRN PRN Reason: Pain, moderate (4-7) Morphine Sulfate (Morphine) 5 mg IVP Q6H PRN PRN Reason: Pain, severe (8-10) Morphine Sulfate (Morphine) 2 mg IVP Q10M PRN PRN Reason: Pain, moderate (4-7) Stop: 12/30/17 00:36 Prochlorperazine (Compazine) 10 mg IVP Q8H PRN PRN Reason: Nausea/Vomiting - Labs Labs: 12/29/17 12:05 12/29/17 12:05
[2017-12-30] MEDS: Dexamethasone 4 mg/1 ml IVP SCH ×3 (02:06→17:16)
[2017-12-30] MEDS: Piperacillin/Tazobact 3.375 GM in Sodium Chloride 0.9% 100 ML IVPB SCH ×2 (03:13→09:25)
[2017-12-30 06:16] LABS: MEAN CELL VOLUME 89.3 fl (81.0-99.0); MEAN CORPUSCULAR HEMOGLOBIN 30.2 pg (27.0-31.0); MEAN CORPUSCULAR HGB CONC 33.8 g/dL (33.0-37.0); RBC 4.31 Mil/uL (3.80-5.20); RED CELL DISTRIBUTION WIDTH 16.2 % (11.5-14.5); WHITE BLOOD COUNT 15.4 K/uL (4.8-10.8)
[2017-12-30 06:25] LABS: BLOOD UREA NITROGEN 13 mg/dl (7-17); CALCIUM 8.7 mg/dL (8.4-10.2); GFR AFRICAN-AMERICAN > 60; GFR NON-AFRICAN AMERICAN > 60
--- NOTE | 2017-12-30 09:00 | CARD ---
APPROVED REPORT EKG Measurement Heart [id number] <Conclusion> Atrial fibrillation with rapid ventricular response Abnormal ECG
--- NOTE | 2017-12-30 10:42 | CP.PCM.CON ---
History of Present Illness - History of Present Illness History of Present Illness: Infectious Disease Consultation Note- asked to see this patient at the request of the hospitalist for fever , lower back pian. HPI- Patient is a 62 year old female with PMH of Multiple myeloma s/p radiation and undergoing chemotherpay, HTN, A,fib On xarelto who was admitetd with c/o severe lower back pain and urinary retention for past day. pt. states she has chronic back pain from her MM but apparently it worsened in the past few days and also yesterday she had trouble urinating adn hence came to ED to be further evaluated and treated. pt. had shultz placed in ED and large amount of urine came out. pt. had MRI of the lumabr spine to r/o cord compression and as per radiologist' s report was found to have thickening of the spinal cord. I'm asked to see the patient to rule out spinal infection since pt. also has fever and slight elevation of wbc. as per oncologist' note pt. has had skeletal mets and also has had recent admission for CHF and is receiving zometa every 4 weeks along with revlimid for maintenance therapy. Patient currently is not in any acute distress except back pian. denies any loss of sensation or any weakness in her legs , denies any loss of bowel or bladder. denies any diarrhea. states has been having cough for few weeks. denies any sob. no abdominal pain, denies any vomiting. pt. denies any h/o spinal surgery and denies any epidural injections in the past. Review of Systems - Review of Systems Review of Systems: ROS- denies any fever or chills but was found to have fever in ED, + cough but no phlegm, denies any sob, denies anyc hest pain, denies any nausea or vomiting denies any abd. pain, had urinary retention but no dysurea, denies any diarrhea denies any loss of bowel control. denies any weakness in the legs . has chronic back pain secondary to her MM and mets but worse in past few days. has been getting radiation and chemo Past Patient History - Infectious Disease Hx of Infectious Diseases: None - Tetanus Immunizations Tetanus Immunization: Unknown - Past Medical History & Family History Past Medical History?: Yes - Past Social History Smoking Status: Never Smoked Alcohol: None Drugs: Denies Home Situation {Lives}: With Family - CARDIAC Hx Cardiac Disorders: Yes Hx Atrial Fibrillation: Yes Hx Cardia Arrhythmia: Yes Hx Congestive Heart Failure: Yes Hx Hypertension: Yes - PULMONARY Hx Respiratory Disorders: Yes Hx Pneumonia: Yes - NEUROLOGICAL Hx Neurological Disorder: No - HEENT Hx HEENT Problems: No - RENAL Hx Chronic Kidney Disease: No - ENDOCRINE/METABOLIC Hx Endocrine Disorders: No - HEMATOLOGICAL/ONCOLOGICAL Hx Blood Disorders: No - INTEGUMENTARY Hx Dermatological Problems: No - MUSCULOSKELETAL/RHEUMATOLOGICAL Hx Musculoskeletal Disorders: Yes Hx Back Pain: Yes Hx Falls: No - GASTROINTESTINAL Hx Gastrointestinal Disorders: No - GENITOURINARY/GYNECOLOGICAL Hx Genitourinary Disorders: Yes Hx Urinary Tract Infection: Yes Other/Comment: Uterine Fibroids - PSYCHIATRIC Hx Psychophysiologic Disorder: No Hx Substance Use: No - SURGICAL HISTORY Hx Surgeries: Yes Hx Appendectomy: Yes Hx Cholecystectomy: Yes Hx Hysterectomy: Yes - ANESTHESIA Hx Anesthesia: Yes Hx Anesthesia Reactions: No Hx Malignant Hyperthermia: No Meds Allergies/Adverse Reactions: Allergies Allergy/AdvReac Type Severity Reaction Status Date / Time No Known Allergies Allergy Verified 12/27/17 15:46 - Medications Medications: Current Medications Dexamethasone (Decadron Inj) 8 mg IVP Q8H [facility] Last Admin: 12/30/17 09:24 Dose: 8 mg Lactated Ringer's (Lactated Ringer's) 1,000 mls @ 75 mls/hr IV .[id number] [facility] Last Admin: 12/30/17 02:08 Dose: 75 mls/hr Piperacillin Sod/Tazobactam (Sod 3.375 gm/ Sodium Chloride) 100 mls @ 100 mls/ hr IVPB Q6 [facility] PRN Reason: Protocol Last Admin: 12/30/17 09:25 Dose: 100 mls/hr Vancomycin HCl 1 gm/ Sodium (Chloride) 250 mls @ 166.667 mls/hr IVPB Q12H [facility] PRN Reason: Protocol Last Admin: 12/30/17 02:15 Dose: 166.667 mls/hr Dextrose/Sodium Chloride (Dextrose 5%/0.9% Ns 1000 Ml) 1,000 mls @ 70 mls/hr IV .[id number] [facility] Stop: 12/31/17 10:39 Morphine Sulfate (Morphine) 2 mg IVP Q4 PRN PRN Reason: Pain, moderate (4-7) Last Admin: 12/30/17 02:10 Dose: 2 mg Morphine Sulfate (Morphine) 5 mg IVP Q6H PRN PRN Reason: Pain, severe (8-10) Pregabalin (Lyrica) 75 mg PO BID [facility] Prochlorperazine (Compazine) 10 mg IVP Q8H PRN PRN Reason: Nausea/Vomiting Physical Exam - Constitutional Appears: No Acute Distress - Head Exam Head Exam: ATRAUMATIC - Eye Exam Eye Exam: EOMI, PERRL - ENT Exam ENT Exam: Normal Oropharynx - Neck Exam Neck exam: Positive for: Full Rom - Respiratory Exam Respiratory Exam: Clear to Auscultation Bilateral, NORMAL BREATHING PATTERN - Cardiovascular Exam Cardiovascular Exam: Irregular Rhythm Additional comments: Irregularly Irregular rate controlled - GI/Abdominal Exam GI & Abdominal Exam: Normal Bowel Sounds, Soft Additional comments: NT, ND - Extremities Exam Extremities exam: Positive for: normal inspection Additional comments: no edema B/L LE - Back Exam Back exam: tenderness Additional comments: positive tenderenss in mid lower lumbar and thoracic region no lesions no erythema - Neurological Exam Neurological exam: Alert, Oriented x3 Results - Vital Signs Recent Vital Signs: Last Vital Signs Temp 98.7 F 12/30/17 07:53 Pulse 93 H 12/30/17 07:53 Resp 18 12/30/17 07:53 BP 144/83 12/30/17 07:53 Pulse Ox 97 12/30/17 07:53 - Labs Result Diagrams: 12/30/17 04:25 12/30/17 04:25 Labs: Laboratory Results - last 24 hr 12/29/17 12/29/17 12/29/17 12:05 12:05 14:21 WBC 18.1 H D RBC 4.91 Hgb 14.8 D Hct 43.8 MCV 89.2 MCH 30.2 MCHC 33.9 RDW 16.2 H Plt Count 213 MPV 9.4 Neut % (Auto) 88.3 H Lymph % (Auto) 3.6 L Fergus % (Auto) 7.3 Eos % (Auto) 0.1 Baso % (Auto) 0.7 Neut # (Auto) 16.0 H Lymph # (Auto) 0.7 L Fergus # (Auto) 1.3 H Eos # (Auto) 0.0 Baso # (Auto) 0.1 Neutrophils % (Manual) 85 H Band Neutrophils % 3 H Lymphocytes % (Manual) 4 L Monocytes % (Manual) 8 Platelet Estimate Normal Large Platelets Present Giant Platelets Present Anisocytosis (manual) Slight Sodium 134 Potassium 3.2 L Chloride 95 L Carbon Dioxide 25 Anion Gap 17 BUN 9 Creatinine 0.5 L Est GFR ( Amer) > 60 Est GFR (Non-Af Amer) > 60 Random Glucose 162 H Uric Acid 2.1 L Calcium 9.1 NT-Pro-B Natriuret Pep 898 Digoxin 12/29/17 12/30/17 12/30/17 14:21 04:25 04:25 WBC 15.4 H RBC 4.31 Hgb 13.0 Hct 38.5 MCV 89.3 MCH 30.2 MCHC 33.8 RDW 16.2 H Plt Count 212 MPV Neut % (Auto) Lymph % (Auto) Fergus % (Auto) Eos % (Auto) Baso % (Auto) Neut # (Auto) Lymph # (Auto) Fergus # (Auto) Eos # (Auto) Baso # (Auto) Neutrophils % (Manual) Band Neutrophils % Lymphocytes % (Manual) Monocytes % (Manual) Platelet Estimate Large Platelets Giant Platelets Anisocytosis (manual) Sodium 141 Potassium 3.4 L Chloride 97 L Carbon Dioxide 28 Anion Gap 19 BUN 13 Creatinine 0.4 L Est GFR ( Amer) > 60 Est GFR (Non-Af Amer) > 60 Random Glucose 173 H Uric Acid Calcium 8.7 NT-Pro-B Natriuret Pep Digoxin < 0.4 L Laboratory Results - last 72 hr 12/29/17 12/29/17 12/29/17 12:05 12:05 14:21 WBC 18.1 H D RBC 4.91 Hgb 14.8 D Hct 43.8 MCV 89.2 MCH 30.2 MCHC 33.9 RDW 16.2 H Plt Count 213 MPV 9.4 Neut % (Auto) 88.3 H Lymph % (Auto) 3.6 L Fergus % (Auto) 7.3 Eos % (Auto) 0.1 Baso % (Auto) 0.7 Neut # (Auto) 16.0 H Lymph # (Auto) 0.7 L Fergus # (Auto) 1.3 H Eos # (Auto) 0.0 Baso # (Auto) 0.1 Neutrophils % (Manual) 85 H Band Neutrophils % 3 H Lymphocytes % (Manual) 4 L Monocytes % (Manual) 8 Platelet Estimate Normal Large Platelets Present Giant Platelets Present Anisocytosis (manual) Slight Sodium 134 Potassium 3.2 L Chloride 95 L Carbon Dioxide 25 Anion Gap 17 BUN 9 Creatinine 0.5 L Est GFR ( Amer) > 60 Est GFR (Non-Af Amer) > 60 Random Glucose 162 H Uric Acid 2.1 L Calcium 9.1 NT-Pro-B Natriuret Pep 898 Digoxin 12/29/17 12/30/17 12/30/17 14:21 04:25 04:25 WBC 15.4 H RBC 4.31 Hgb 13.0 Hct 38.5 MCV 89.3 MCH 30.2 MCHC 33.8 RDW 16.2 H Plt Count 212 MPV Neut % (Auto) Lymph % (Auto) Fergus % (Auto) Eos % (Auto) Baso % (Auto) Neut # (Auto) Lymph # (Auto) Fergus # (Auto) Eos # (Auto) Baso # (Auto) Neutrophils % (Manual) Band Neutrophils % Lymphocytes % (Manual) Monocytes % (Manual) Platelet Estimate Large Platelets Giant Platelets Anisocytosis (manual) Sodium 141 Potassium 3.4 L Chloride 97 L Carbon Dioxide 28 Anion Gap 19 BUN 13 Creatinine 0.4 L Est GFR ( Amer) > 60 Est GFR (Non-Af Amer) > 60 Random Glucose 173 H Uric Acid Calcium 8.7 NT-Pro-B Natriuret Pep Digoxin < 0.4 L Accession No. : [id number] Patient Name / ID : ALLAN RAMOS / [id number] Exam Date : 12/29/2017 19:44:28 ( Approved ) Study Comment : Sex / Age : F / 62Y Creator : Yony Saleem MD Dictator : Yony Saleem MD [employer] Laborer : Garment Fitter : Yony Saleem MD Approver2 : Report Date : 12/30/2017 11:47:26 My Comment : PROCEDURE: MR LUMBAR SPINE WITH AND WITHOUT CONTRAST HISTORY: back pain hx of MM with mets COMPARISON: None available. TECHNIQUE: Multiecho multiplanar sequences were performed through the lumbar spine with and without the use of intravenous contrast. FINDINGS: Stable normal curvature is appreciate without acute fracture or spondylolisthesis identified overall. L1 and L3 vertebral bodies are diminished in height somewhat which partially a function of Schmorl's nodes developing at both superior and inferior endplates of L1 with chronic, mild fractures felt to present both levels nevertheless. Marrow signal is moderately inhomogeneous, typically at the sacrum indicative of this patient's history of multiple myeloma. Marked multilevel disc desiccation is reiterated with disc height loss again evident at the mid inferior lumbar levels. Disc desiccation is least at the L1-2 intervertebral disc which also exhibits nearly normal height. Conus medullaris remains normal in signal intensity and contour terminating at L2 once again. Prevertebral and paraspinal soft tissues remain unremarkable appearing at the lumbar spine though signal changes are apparent in the soft tissues immediately posterior to the left T11-12 facet joint. Please see separate thoracic spine MRI for additional details. Post gadolinium enhancement is seen along the dura diffusely throughout the lumbar spine with thickening primarily the posterior at L1-L2 incidentally at T11 and T12. A mild amount of fluid is suggested at the posterior epidural space appearing variable from T11 down to the L3 level heterogeneously. No intrathecal abnormal enhancement is appreciated. While plasmacytoma or even focal multiple myeloma lesions may infiltrate locally into dura, they should result in focal enhancement rather than diffuse. As result, etiology of dural enhancement is unclear and may vary from a broad a set of etiologies from infectious or inflammatory causes to neoplasm. Further clinical correlation is recommended. T12-L1: No disc herniation. Thickened right greater than left posterior dura compresses the conus medullaris without reactive change associated and results in mild central canal stenosis overall, also right greater than left. No significant neural foraminal stenosis bilaterally. L1-2: No disc herniation. A disc osteophyte complex combines with facet arthropathy and posterior dural thickening resulting an moderate severe central canal stenosis. Degenerative tymr-ed-hlpnuwuf neural foraminal stenoses are symmetric , bilateral. L2-3: No disc herniation. A disc osteophyte complex combines with facet arthropathy and prominent posterior dural thickening resulting in moderate to severe central canal stenosis. Moderate, bilateral degenerative neural foraminal stenosis is symmetric. L3-4: An additional disc osteophyte complex is appreciated combined with facet arthropathy. Anterior and posterior epidural lesions contribute to result in a moderate to severe central canal stenosis. The anterior epidural lesion exhibits borderline enhancement with peripheral enhancement noted posteriorly. Borderline degenerative bilateral neural foraminal stenoses are identified. The anterior epidural defect is left paracentral/ lateral in location with disc herniation not excluded but not favored here given multifocal epidural changes not associated with the intervertebral discs. This anterior epidural component appears at the upper mid vertebral body level and extends down to the L3-4 level. L4-5: No disc herniation. Mild central stenosis results from gross facet joint degenerative arthropathy combined with a generalized circumferential disc bulge. Moderate bilateral neural foraminal stenosis is identified. L5-S1: No disc herniation. Prominent facet degenerative changes are identified as well as a limited circumferential disc bulge encroaching the lateral recesses somewhat but without significant central stenosis resulting in a generalized fashion. Mild bilateral neural foraminal stenosis appreciated degenerative. OTHER FINDINGS: None. IMPRESSION: 1. Multifocal moderate to severe central canal stenoses are identified at at L1- 2, L2-3 L3-4 with mild central stenosis identified at T12-L1 and L4-5 due to combination of degenerative findings as well as abnormal epidural changes, predominately posterior, suspicious for infectious or infiltrative process. Infiltration from multiple myeloma is not favored but is not excluded. Anterior epidural changes at the L3/L3-4 level are felt to represent the same process that is predominate current posteriorly though small disc herniation difficult to completely exclude here. 2. Chronic compression fractures L1 and L3 in the interval. Accession No. : [id number] Patient Name / ID : ALLAN RAMOS / [id number] Exam Date : 12/29/2017 20:24:22 ( Approved ) Study Comment : Sex / Age : F / 62Y Creator : Yony Saleem MD Dictator : Yony Saleem MD [employer] Laborer : Garment Fitter : Yony Saleem MD Approver2 : Report Date : 12/30/2017 15:05:21 My Comment : PROCEDURE: MR THORACIC SPINE WITH AND WITHOUT CONTRAST HISTORY: back pain hx of MM with mets COMPARISON: Thoracic spine MRI with and without contrast 08/01/2014. TECHNIQUE: Multiecho multiplanar sequences were performed through the thoracic spine with and without the use of intravenous contrast (Omniscan 22 cc intravenous). FINDINGS: ALIGNMENT: A kyphotic deformity is now apparent secondary to increased fractures in the thoracic spine which appeared re- chronic including severe fracture of T6 and increased severe fracture of T8 and moderate severe compression fracture of T10. Lesser compression fractures appears stable at multiple levels once again. Marrow signal throughout the mid to inferior thoracic vertebral bodies is inhomogeneous including the posterior elements, suggestive of patient's known history of multiple myeloma. No spondylolisthesis. The thoracic spinal cord appears grossly normal in overall signal with variable interval stenoses identified caused by apparent posterior epidural fluid/dural thickening. Prominent dural enhancement is appreciated throughout the thoracic spine and potentially even at the inferior cervical dura. There is a variable pattern of bright T2 and intermediate to diminished T1 signal likely separate from the dura at the posterior epidural space mature enhances following intravenous gadolinium administration brightly and appears somewhat thickened with these features less apparent anteriorly than at the posterior epidural space. Consider infectious process including potential epidural abscess though an infiltrative process, including neoplasm or inflammatory process is not completely excluded. Hemorrhage is felt to be unlikely. No definitive intrathecal abnormal enhances felt to be present. VERTEBRA: As above. MARROW: As above. PARASPINAL SOFT TISSUES: Prevertebral and anterior paraspinal soft tissues appear unremarkable. Posterior paraspinal soft tissues are limited evaluation due to failure of fat suppression. Prominent bony signal abnormalities are appreciated, primarily edematous, of the proximal right 7th rib, proximal right 8th rib left T10 transverse process and left T12/L1 facet joint, likely is a function of multiple myeloma. Old left 5th rib fracture noted. CORD: There is ojsb-di-khubotph stenosis at the T 11 and T12 levels due to posterior epidural soft tissue or fluid and dural thickening combining with limited posttraumatic ridging and facet arthropathy at T11-12 and T10-11 levels. There borderline cord reactive changes at T11. There is no abnormal enhancement throughout the thoracic spinal cord. Interval stenoses are identified as compared to 08/01/2014 prior MRI. DISCS: No definite disc herniation throughout the examination. Moderate bilateral T6 degenerative neural foraminal stenoses are encountered as well as at the T11 root foramina bilaterally. ENHANCEMENT: As discussed above. OTHER FINDINGS: Incidental minimal bilateral pleural effusions. IMPRESSION: Diffuse dural enhancement is appreciated greater posteriorly than anteriorly which is likely a function of fluid or soft tissue in the posterior epidural space heterogeneous in shape resulting in variable central canal stenoses which are predominantly mild at the upper and mid thoracic spine but worsen to moderate to severe at the T11 and T12 levels with limited compression of the inferior thoracic cord. Trace cord reaction is questioned at T11 though this is not definite. No abnormal intrathecal enhancement. Etiology of this finding is unclear but may be a function of infectious or inflammatory causes with infiltrate from multiple myeloma not favored which usually a focal as in relatively diffuse process. Neoplasm is not completely excluded in hemorrhage is unlikely but including differs diagnosis. Assessment & Plan (1) Back pain Status: Acute (2) Atrial fib/flutter, transient Status: Acute (3) Fever Status: Acute - Assessment and Plan (Free Text) Assessment: A/P- 62 year old female with CHF, A,fib, Multiple Myeloma with mets and undergoing chemo and radiation admitted with severe back pian and urinary retention, low garde fever and mild leukocytosis. no cord compression leptomeningeal thickening as per lumbar and thoracic MRI reports and as per hospitalist initially it was concerning for infectious process but now more c/w inflammatory changes vs mets/malignancy. neurosurgery bx of the cord to r/o inflmmation secondary to MM vs malignancy. as per oncologist continue with steroids. plan- check blood cx x 2. check UA and urine cx. decision regarding spinal cord bx vs LP as per neuro/neurosurgery. eventhough no mention of any epidural fluid collection or abscess on MRI report still advise to keep on empiric abx for now pending further results to cover for nosocomial pathogens since pt. has been in hospital recently and is immune suppressed . advise to place on empiric vanco and cefepime pending further results. monitor temp and wbc. all above d/w patient and she verbalizes full understanding of al above. all above also d/w Hospitalist . Thank you for allowing me to take part in the care of this patient.
[2017-12-30] MEDS ORDERED: Dextrose 5%/0.9% NS 1,000 ML IV SCH (10:45)
--- NOTE | 2017-12-30 11:48 | MRI ---
PROCEDURE: MR LUMBAR SPINE WITH AND WITHOUT CONTRAST HISTORY: back pain hx of MM with mets COMPARISON: None available. TECHNIQUE: Multiecho multiplanar sequences were performed through the lumbar spine with and without the use of intravenous contrast. FINDINGS: Stable normal curvature is appreciate without acute fracture or spondylolisthesis identified overall. L1 and L3 vertebral bodies are diminished in height somewhat which partially a function of Schmorl's nodes developing at both superior and inferior endplates of L1 with chronic, mild fractures felt to present both levels nevertheless. Marrow signal is moderately inhomogeneous, typically at the sacrum indicative of this patient's history of multiple myeloma. Marked multilevel disc desiccation is reiterated with disc height loss again evident at the mid inferior lumbar levels. Disc desiccation is least at the L1-2 intervertebral disc which also exhibits nearly normal height. Conus medullaris remains normal in signal intensity and contour terminating at L2 once again. Prevertebral and paraspinal soft tissues remain unremarkable appearing at the lumbar spine though signal changes are apparent in the soft tissues immediately posterior to the left T11-12 facet joint. Please see separate thoracic spine MRI for additional details. Post gadolinium enhancement is seen along the dura diffusely throughout the lumbar spine with thickening primarily the posterior at L1-L2 incidentally at T11 and T12. A mild amount of fluid is suggested at the posterior epidural space appearing variable from T11 down to the L3 level heterogeneously. No intrathecal abnormal enhancement is appreciated. While plasmacytoma or even focal multiple myeloma lesions may infiltrate locally into dura, they should result in focal enhancement rather than diffuse. As result, etiology of dural enhancement is unclear and may vary from a broad a set of etiologies from infectious or inflammatory causes to neoplasm. Further clinical correlation is recommended. T12-L1: No disc herniation. Thickened right greater than left posterior dura compresses the conus medullaris without reactive change associated and results in mild central canal stenosis overall, also right greater than left. No significant neural foraminal stenosis bilaterally. L1-2: No disc herniation. A disc osteophyte complex combines with facet arthropathy and posterior dural thickening resulting an moderate severe central canal stenosis. Degenerative egwt-ct-eozmzjug neural foraminal stenoses are symmetric, bilateral. L2-3: No disc herniation. A disc osteophyte complex combines with facet arthropathy and prominent posterior dural thickening resulting in moderate to severe central canal stenosis. Moderate, bilateral degenerative neural foraminal stenosis is symmetric. L3-4: An additional disc osteophyte complex is appreciated combined with facet arthropathy. Anterior and posterior epidural lesions contribute to result in a moderate to severe central canal stenosis. The anterior epidural lesion exhibits borderline enhancement with peripheral enhancement noted posteriorly. Borderline degenerative bilateral neural foraminal stenoses are identified. The anterior epidural defect is left paracentral/ lateral in location with disc herniation not excluded but not favored here given multifocal epidural changes not associated with the intervertebral discs. This anterior epidural component appears at the upper mid vertebral body level and extends down to the L3-4 level. L4-5: No disc herniation. Mild central stenosis results from gross facet joint degenerative arthropathy combined with a generalized circumferential disc bulge. Moderate bilateral neural foraminal stenosis is identified. L5-S1: No disc herniation. Prominent facet degenerative changes are identified as well as a limited circumferential disc bulge encroaching the lateral recesses somewhat but without significant central stenosis resulting in a generalized fashion. Mild bilateral neural foraminal stenosis appreciated degenerative. OTHER FINDINGS: None. IMPRESSION: 1. Multifocal moderate to severe central canal stenoses are identified at at L1-2, L2-3 L3-4 with mild central stenosis identified at T12-L1 and L4-5 due to combination of degenerative findings as well as abnormal epidural changes, predominately posterior, suspicious for infectious or infiltrative process. Infiltration from multiple myeloma is not favored but is not excluded. Anterior epidural changes at the L3/L3-4 level are felt to represent the same process that is predominate current posteriorly though small disc herniation difficult to completely exclude here. 2. Chronic compression fractures L1 and L3 in the interval.
--- NOTE | 2017-12-30 11:58 | CP.PCM.CON ---
History of Present Illness - History of Present Illness History of Present Illness: This is a 62 yrs old female who was diagnosed to have a multiple myeloma when in 2013 she presented with a left upper lobe lung mass and a mediastinal mass, with some bone metastasis. A biopsy of the lung lesion showed multiple myeloma, and was confirmed with bone marrow and Protein electrephoresis and immunofixation. She was started on chemotherapy with bortezomib + decadron and then switched to kyprolis with which she did very well. She responded well as far as the myeloma was concerned , but she still had skelletal metastasis. She was given zometa every 4 weeks along with revlimid for maintenence therapy. She did well until her left 8th rib started causing her a fair amount of ain. She received RT to the left upper lobe mass and left rib cage and pt felt well. She was admitted to the hospital for shortness of breath and was found to have a florid acute upon chronic CHF. She was treated by her transfer car operator drier and did well. She was due to get her chemotherapy on the 27 of november but could not come because she was unable to get out of bed and stand. She came to the ER from where was admitted for possible spinal cord compression and intractable pain. She had a MRI done which did not show any compression, but showed a thickening of the spinal cord. She is to be evaluated by a neurologist P/H HTN,Chronic CHF and AFib. Past Patient History - Infectious Disease Hx of Infectious Diseases: None - Tetanus Immunizations Tetanus Immunization: Unknown - Past Medical History & Family History Past Medical History?: Yes - Past Social History Smoking Status: Never Smoked - CARDIAC Hx Cardiac Disorders: Yes Hx Atrial Fibrillation: Yes Hx Cardia Arrhythmia: Yes Hx Congestive Heart Failure: Yes Hx Hypertension: Yes - PULMONARY Hx Respiratory Disorders: Yes Hx Pneumonia: Yes - NEUROLOGICAL Hx Neurological Disorder: No - HEENT Hx HEENT Problems: No - RENAL Hx Chronic Kidney Disease: No - ENDOCRINE/METABOLIC Hx Endocrine Disorders: No - HEMATOLOGICAL/ONCOLOGICAL Hx Blood Disorders: No Hx AIDS: No Hx Human Immunodeficiency Virus (HIV): No - INTEGUMENTARY Hx Dermatological Problems: No - MUSCULOSKELETAL/RHEUMATOLOGICAL Hx Musculoskeletal Disorders: Yes Hx Back Pain: Yes Hx Falls: No - GASTROINTESTINAL Hx Gastrointestinal Disorders: No - GENITOURINARY/GYNECOLOGICAL Hx Genitourinary Disorders: Yes Hx Urinary Tract Infection: Yes Other/Comment: Uterine Fibroids - PSYCHIATRIC Hx Psychophysiologic Disorder: No Hx Substance Use: No - SURGICAL HISTORY Hx Surgeries: Yes Hx Appendectomy: Yes Hx Cholecystectomy: Yes Hx Hysterectomy: Yes - ANESTHESIA Hx Anesthesia: Yes Hx Anesthesia Reactions: No Hx Malignant Hyperthermia: No Meds Allergies/Adverse Reactions: Allergies Allergy/AdvReac Type Severity Reaction Status Date / Time No Known Allergies Allergy Verified 12/27/17 15:46 - Medications Medications: Current Medications Dexamethasone (Decadron Inj) 8 mg IVP Q8H [facility] Last Admin: 12/30/17 09:24 Dose: 8 mg Lactated Ringer's (Lactated Ringer's) 1,000 mls @ 75 mls/hr IV .[id number] [facility] Last Admin: 12/30/17 02:08 Dose: 75 mls/hr Piperacillin Sod/Tazobactam (Sod 3.375 gm/ Sodium Chloride) 100 mls @ 100 mls/ hr IVPB Q6 [facility] PRN Reason: Protocol Last Admin: 12/30/17 09:25 Dose: 100 mls/hr Vancomycin HCl 1 gm/ Sodium (Chloride) 250 mls @ 166.667 mls/hr IVPB Q12H [facility] PRN Reason: Protocol Last Admin: 12/30/17 02:15 Dose: 166.667 mls/hr Dextrose/Sodium Chloride (Dextrose 5%/0.9% Ns 1000 Ml) 1,000 mls @ 70 mls/hr IV .[id number] [facility] Stop: 12/31/17 10:39 Last Admin: 12/30/17 10:51 Dose: 70 mls/hr Morphine Sulfate (Morphine) 2 mg IVP Q4 PRN PRN Reason: Pain, moderate (4-7) Last Admin: 12/30/17 02:10 Dose: 2 mg Morphine Sulfate (Morphine) 5 mg IVP Q6H PRN PRN Reason: Pain, severe (8-10) Pregabalin (Lyrica) 75 mg PO BID [facility] Prochlorperazine (Compazine) 10 mg IVP Q8H PRN PRN Reason: Nausea/Vomiting Physical Exam - Additional Findings Additional findings: Physical exam; alert, well oriented, in no acute distress neck; supple, no adenopathy Chest; Air entry good, but she has scattered rales in the basees. Heart; Tachycardia, no murmur Abd; Obese, no mass or h/s megaly Neurologically exam appears normal except she cannot do straight leg raises. Results - Vital Signs Recent Vital Signs: Last Vital Signs Temp 98.7 F 12/30/17 07:53 Pulse 93 H 12/30/17 07:53 Resp 18 12/30/17 07:53 BP 144/83 12/30/17 07:53 Pulse Ox 97 12/30/17 07:53 - Labs Result Diagrams: 12/30/17 04:25 12/30/17 04:25 Labs: Laboratory Results - last 24 hr 12/29/17 12/29/17 12/29/17 12:05 12:05 14:21 WBC 18.1 H D RBC 4.91 Hgb 14.8 D Hct 43.8 MCV 89.2 MCH 30.2 MCHC 33.9 RDW 16.2 H Plt Count 213 MPV 9.4 Neut % (Auto) 88.3 H Lymph % (Auto) 3.6 L Trinity % (Auto) 7.3 Eos % (Auto) 0.1 Baso % (Auto) 0.7 Neut # (Auto) 16.0 H Lymph # (Auto) 0.7 L Trinity # (Auto) 1.3 H Eos # (Auto) 0.0 Baso # (Auto) 0.1 Neutrophils % (Manual) 85 H Band Neutrophils % 3 H Lymphocytes % (Manual) 4 L Monocytes % (Manual) 8 Platelet Estimate Normal Large Platelets Present Giant Platelets Present Anisocytosis (manual) Slight Sodium 134 Potassium 3.2 L Chloride 95 L Carbon Dioxide 25 Anion Gap 17 BUN 9 Creatinine 0.5 L Est GFR ( Amer) > 60 Est GFR (Non-Af Amer) > 60 Random Glucose 162 H Uric Acid 2.1 L Calcium 9.1 NT-Pro-B Natriuret Pep 898 Digoxin 12/29/17 12/30/17 12/30/17 14:21 04:25 04:25 WBC 15.4 H RBC 4.31 Hgb 13.0 Hct 38.5 MCV 89.3 MCH 30.2 MCHC 33.8 RDW 16.2 H Plt Count 212 MPV Neut % (Auto) Lymph % (Auto) Trinity % (Auto) Eos % (Auto) Baso % (Auto) Neut # (Auto) Lymph # (Auto) Trinity # (Auto) Eos # (Auto) Baso # (Auto) Neutrophils % (Manual) Band Neutrophils % Lymphocytes % (Manual) Monocytes % (Manual) Platelet Estimate Large Platelets Giant Platelets Anisocytosis (manual) Sodium 141 Potassium 3.4 L Chloride 97 L Carbon Dioxide 28 Anion Gap 19 BUN 13 Creatinine 0.4 L Est GFR ( Amer) > 60 Est GFR (Non-Af Amer) > 60 Random Glucose 173 H Uric Acid Calcium 8.7 NT-Pro-B Natriuret Pep Digoxin < 0.4 L Assessment & Plan - Assessment and Plan (Free Text) Assessment: Imp; Multiple myeloma diffuse skeletal metastasis, and weakness of legs.R?O spinal cord compression Plan: Plan; Will await neurologist's consult and continue to give her decadson. - Date & Time Date: 12/30/17 Time: 12:06
--- NOTE | 2017-12-30 14:02 | CP.PCM.PN ---
Subjective - Date & Time of Evaluation Date of Evaluation: 12/30/17 Time of Evaluation: 10:00 - Subjective Subjective: Patient was seen and examined; still with significant amount of pain particularly near the lumbar spine. She is complaining of some mild congestion today as well. Denies any weakness of lower extremities. Has no other complaints. Diet is restarted as lumbar puncture was canceled. Objective - Vital Signs/Intake and Output Vital Signs (last 24 hours): Temp Pulse Resp BP Pulse Ox 98.1 F 102 H 18 146/76 98 12/30/17 12:04 12/30/17 12:04 12/30/17 12:04 12/30/17 12:04 12/30/17 12:04 - Medications Medications: Current Medications Allopurinol (Zyloprim) 100 mg PO DAILY [facility] Carvedilol (Coreg) 25 mg PO Q12 [facility] Dexamethasone (Decadron Inj) 8 mg IVP Q8H [facility] Last Admin: 12/30/17 09:24 Dose: 8 mg Digoxin (Digoxin) 0.125 mg PO DAILY [facility] Famotidine (Pepcid) 20 mg PO DAILY [facility] Furosemide (Lasix) 20 mg PO BID [facility] Guaifenesin/Dextromethorphan (Robitussin Dm) 10 ml PO Q4 PRN PRN Reason: Cough Home Med (Lenalidomide [Revlimid]) 15 mg PO DAILY [facility] Lisinopril (Zestril) 10 mg PO DAILY [facility] Morphine Sulfate (Morphine) 2 mg IVP Q4 PRN PRN Reason: Pain, moderate (4-7) Last Admin: 12/30/17 02:10 Dose: 2 mg Morphine Sulfate (Morphine) 5 mg IVP Q6H PRN PRN Reason: Pain, severe (8-10) Potassium Chloride (K-Dur 20 Meq Er Tab) 20 meq PO BID [facility] Pregabalin (Lyrica) 75 mg PO BID [facility] Prochlorperazine (Compazine) 10 mg IVP Q8H PRN PRN Reason: Nausea/Vomiting - Labs Labs: 12/30/17 04:25 12/30/17 04:25 - Additional Findings Additional findings: Physical exam: Constitutional- cooperative, awake, alert, appears uncomfortable. Head- NCAT, PERRL Eye- PERRL, EOMI ENT- normal exam, MMM. Neck- normal inspection, supple, no JVD Respiratory- CTAB, no wheezes rales rhonchi Cardiovascular- RRR, +S1, +S2 no MRG GI/Abdominal- obese, normal bowel sounds, soft, no mass, no hsm Skin- warm, dry Extremities Exam- normal capillary refill, normal inspection Neurological Exam- alert, awake, oriented, no motor or sensory deficits, CN II- XII intact Psych- normal affect appears anxious Assessment and Plan - Assessment and Plan (Free Text) Plan: This is a 62 year old female with a past medical history significant for atrial fibrillation anticoagulated on Xarelto, essential hypertension, Multiple myeloma , and CHF, who presented to the ED complaining of worsening back pain. The patient has chronic back pain due to the multiple myeloma, however today the pain became much worse. In addition the patient was found to have urinary retention since this morning, prompting her to come to the ED. In the ED, the patient was found to be hemodynamically stable although in severe pain not relieved by Percocets. Garrett catheter was placed and drained large amount of urine. Multiple attempts in the ED were made for MRI to assess for spinal cord compression (possibly due to malignancy). Patient had no motor or sensory deficits, no fecal or urinary incontinence, and no saddle anesthesia however. On 12/30, MRI of the thoracic/lumbar spine report showed no spinal cord compression, however it does show diffuse leptomeningeal thickening of the spinal cord suspicious for malignancy versus inflammation. There was originally concern for infection as well; however this is seen as much less likely as the patient has no hx of spinal surgery or signs of infection. As per discussion with consultants, they recommend the patient to have biopsy of the cord in order to ascertain if the thickening is due to metastatic disease versus inflammatory changes. 1) Severe acute on chronic back pain with urinary retention, spinal cord compression ruled out; however now with diffuse leptomeningeal thickening on MRI concerning for metastatic disease vs. inflammatory changes - Continue telemetry monitoring - Decadron 8 mg IVP q 8 hours - Dr. Maddy Garcia search engine optimization consultant- recommends continuing steroids for now - Dr. Merchant, neurology on consultation - Dr. Garcia, neurosurgery- recommends biopsy of the 2) Afib with RVR - Restarted Digoxin 0.125 mg po daily - Restarted Coreg - Will give additional dose of digoxin if HR not controlled with po medications 3) Hypokalemia, mild - continue po repletion - Recheck in AM 4) Essential htn - chronic - restart home po medications 5) Multiple myeloma - chronic - Dr. Maddy Garcia on consultation for heme/onc 6) Leukocytosis - secondary to Decadron - no evidence of infection 7) DVT prophylaxis - will restart Xarelto
[2017-12-30] MEDS: Digoxin 125 mcg (0.125 mg) Tab PO SCH (14:10)
[2017-12-30] MEDS: guaiFENesin DM 200 mg-20 mg/10 ml UD PO PRN ×2 (14:11→21:30)
--- NOTE | 2017-12-30 15:06 | MRI ---
PROCEDURE: MR THORACIC SPINE WITH AND WITHOUT CONTRAST HISTORY: back pain hx of MM with mets COMPARISON: Thoracic spine MRI with and without contrast 08/01/2014. TECHNIQUE: Multiecho multiplanar sequences were performed through the thoracic spine with and without the use of intravenous contrast (Omniscan 22 cc intravenous). FINDINGS: ALIGNMENT: A kyphotic deformity is now apparent secondary to increased fractures in the thoracic spine which appeared re- chronic including severe fracture of T6 and increased severe fracture of T8 and moderate severe compression fracture of T10. Lesser compression fractures appears stable at multiple levels once again. Marrow signal throughout the mid to inferior thoracic vertebral bodies is inhomogeneous including the posterior elements, suggestive of patient's known history of multiple myeloma. No spondylolisthesis. The thoracic spinal cord appears grossly normal in overall signal with variable interval stenoses identified caused by apparent posterior epidural fluid/dural thickening. Prominent dural enhancement is appreciated throughout the thoracic spine and potentially even at the inferior cervical dura. There is a variable pattern of bright T2 and intermediate to diminished T1 signal likely separate from the dura at the posterior epidural space mature enhances following intravenous gadolinium administration brightly and appears somewhat thickened with these features less apparent anteriorly than at the posterior epidural space. Consider infectious process including potential epidural abscess though an infiltrative process, including neoplasm or inflammatory process is not completely excluded. Hemorrhage is felt to be unlikely. No definitive intrathecal abnormal enhances felt to be present. VERTEBRA: As above. MARROW: As above. PARASPINAL SOFT TISSUES: Prevertebral and anterior paraspinal soft tissues appear unremarkable. Posterior paraspinal soft tissues are limited evaluation due to failure of fat suppression. Prominent bony signal abnormalities are appreciated, primarily edematous, of the proximal right 7th rib, proximal right 8th rib left T10 transverse process and left T12/L1 facet joint, likely is a function of multiple myeloma. Old left 5th rib fracture noted. CORD: There is [id number] stenosis at the T 11 and T12 levels due to posterior epidural soft tissue or fluid and dural thickening combining with limited posttraumatic ridging and facet arthropathy at T11-12 and T10-11 levels. There borderline cord reactive changes at T11. There is no abnormal enhancement throughout the thoracic spinal cord. Interval stenoses are identified as compared to 08/01/2014 prior MRI. DISCS: No definite disc herniation throughout the examination. Moderate bilateral T6 degenerative neural foraminal stenoses are encountered as well as at the T11 root foramina bilaterally. ENHANCEMENT: As discussed above. OTHER FINDINGS: Incidental minimal bilateral pleural effusions. IMPRESSION: Diffuse dural enhancement is appreciated greater posteriorly than anteriorly which is likely a function of fluid or soft tissue in the posterior epidural space heterogeneous in shape resulting in variable central canal stenoses which are predominantly mild at the upper and mid thoracic spine but worsen to moderate to severe at the T11 and T12 levels with limited compression of the inferior thoracic cord. Trace cord reaction is questioned at T11 though this is not definite. No abnormal intrathecal enhancement. Etiology of this finding is unclear but may be a function of infectious or inflammatory causes with infiltrate from multiple myeloma not favored which usually a focal as in relatively diffuse process. Neoplasm is not completely excluded in hemorrhage is unlikely but including differs diagnosis.
[2017-12-30] MEDS: Potassium Chloride 20 mEq ER Tab PO SCH (17:22)
[2017-12-30] MEDS: LENALIDOMIDE 15 MG PO SCH (17:36)
[2017-12-30] MEDS: Cefepime 1 GM in Sodium Chloride 0.9% 100 ML IVPB SCH (17:51)
[2017-12-30 18:04] LABS: SQUAMOUS EPITHIAL < 1 /hpf (0-5); URINE BILIRUBIN NEGATIVE (NEGATIVE); URINE BLOOD MODERATE (NEGATIVE); URINE CLARITY SLIGHTY-CLOUDY (Clear); URINE COLOR YELLOW (YELLOW); URINE GLUCOSE (UA) 150 mg/dL (Normal); URINE LEUKOCYTE ESTERASE NEG Leu/uL (Negative); URINE PROTEIN 100 mg/dL (NEGATIVE); URINE UROBILINOGEN 0.2-1.0 mg/dL (0.2-1.0)
--- NOTE | 2017-12-30 19:59 | CON ---
NEUROLOGY CONSULTATION DATE: 12/30/2017 CHIEF COMPLAINT: Lower extremity weakness and lower extremity back pain. HISTORY OF PRESENT ILLNESS: This is a 62-year-old woman with a past medical history of multiple myeloma diagnosed in 2013. She presented with AFib, anticoagulant on Xarelto; essential hypertension; and CHF who came into the ER for worsening back pain. The patient has chronic back pain due to multiple myeloma; however, the pain was much worse, but she had urinary retention and difficulty moving her lower extremities in terms because it was painful and she has pain radiating down both legs with some paresthesias. She has a history of left upper lobe lung mass and mediastinal mass with some bone metastasis also. Biopsy of the lung lesion showed multiple myeloma and confirmed bone marrow and protein electrophoresis immunofixation. She was started on chemotherapy by oncology. According to that, she did very well. Now, she comes back for chronic worsening lower back pain. Her MRI of the thoracic spine showed dural enhancement appreciated greatly posterior and anteriorly, which is likely a functional or fluid or soft tissue in the posterior epidural space resulting in a variable central canal stenosis predominantly at the mid thoracic spine, but worsening to [id number] at the T11 and T12 levels with limited compression inferior thoracic cord. There is no abnormal intrathecal enhancement, neurosurgery states no neurosurgical intervention at this time. Her MRI of the lumbosacral spine showed multifocal [id number]-rl-[id number] central canal stenosis at L1-L4, but mild central canal stenosis at L4-L5 due to combination of degenerative findings as well as abnormal epidural changes predominantly posteriorly suspicious for infectious and inflammatory process. She is able to drag her legs, but has some mild pain. Lyrica has been started at 75 mg p.o. b.i.d. for neuropathic relief. She would probably need a lumbar puncture by anesthesia not at bedside, the patient will be able to tolerate at bedside and probably need a biopsy eventually, which needs to be done at [facility], probably need evaluation for radiation oncology as well. PAST MEDICAL HISTORY: History of AFib, anticoagulated on Xarelto, essential hypertension, multiple myeloma, status post bony mets as well as lung mets, and CHF. FAMILY HISTORY: Noncontributory. SOCIAL HISTORY: No illicit drug use, smoking or EtOH abuse. REVIEW OF SYSTEMS: A 14-point review of systems is negative except in the HPI. ALLERGIES: NO KNOWN DRUG ALLERGIES. MEDICATIONS: Reviewed by nurse reconciliation sheet. PHYSICAL EXAMINATION: VITAL SIGNS: Temperature 98, pulse rate 98, blood pressure 131/70, respiratory rate 19, and oxygen saturations 96% on room air. GENERAL: The patient is sitting up in bed, in no acute distress, and conversing well. HEENT: Atraumatic and normocephalic. PERRLA. Extraocular muscles intact. NECK: Supple. No JVD. No adenopathy noted. LUNGS: Clear to auscultation. No adventitious sounds. HEART: S1 and S2. Normal rate and rhythm. No murmurs, rubs or gallops. ABDOMEN: Soft, nontender and nondistended. Bowel sounds are present. EXTREMITIES: No clubbing. No cyanosis. Peripheral pulses 2+ felt bilaterally. NEUROLOGIC: The patient is alert and oriented to person, place, month, and year. Speech is fluent without any errors. Cranial nerves II through XII intact. Motor exam: Moves all extremities equally and is able to drag her lower extremities, but it is difficult to do straight leg due to severe low back pain. Her DTRs are 1+ throughout. Sensory: Decreased light touch and pinprick up to the calves bilaterally. Decreased vibration at the toes. DTRs are 2+ throughout, 1 at both knees and ankles. Coordination: [id number] intact. No dysmetria noted. Gait is deferred for now. LABORATORY DATA: Sodium of 141, potassium of 4.0, chloride of 97, carbon dioxide of 28, BUN of 13, creatinine of 0.4, and random glucose of 173. ASSESSMENT AND PLAN: This is a 62-year-old woman with a history of atrial fibrillation, on Xarelto; hypertension; congestive heart failure; overweight, and multiple myeloma with diffuse skeletal metastasis, who came in for worsening lower back pain radiating down to the legs with paresthesias and urinary incontinence as long as some mild lower extremity weakness, who was found to have no obvious spinal cord compression, but has diffuse leptomeningeal thickening that was spinal cord, which is on the MRI thoracic and lumbosacral spine, which is consistent with likely metastatic disease from multiple myeloma. RECOMMENDATIONS: 1. At this time, we will recommend Lyrica 75 mg p.o. b.i.d. and can go to t.i.d. even for neuropathic relief. 2. Neurosurgery recommend no surgical intervention. Her chronic back pain with urinary retention is likely secondary to diffuse leptomeningeal thickening, which is seen on the MRI. At this time, we will recommend Decadron 8 mg IV every 8 hours and can reduce to 6 mg IV every 6 hours. Edwin Merchant MD
[2017-12-31] MEDS: Cefepime 1 GM in Sodium Chloride 0.9% 100 ML IVPB SCH ×3 (01:03→17:19)
[2017-12-31] MEDS: Dexamethasone 4 mg/1 ml IVP SCH ×3 (01:04→17:14)
[2017-12-31 06:59] LABS: MEAN CELL VOLUME 89.4 fl (81.0-99.0); MEAN CORPUSCULAR HGB CONC 33.6 g/dL (33.0-37.0); RBC 4.33 Mil/uL (3.80-5.20); RED CELL DISTRIBUTION WIDTH 16.5 % (11.5-14.5); WHITE BLOOD COUNT 11.6 K/uL (4.8-10.8)
[2017-12-31 07:11] LABS: BLOOD UREA NITROGEN 17 mg/dl (7-17); CALCIUM 8.7 mg/dL (8.4-10.2); GFR AFRICAN-AMERICAN > 60; GFR NON-AFRICAN AMERICAN > 60
--- NOTE | 2017-12-31 09:01 | CP.PCM.PN ---
Subjective - Date & Time of Evaluation Date of Evaluation: 12/31/17 Time of Evaluation: 08:58 - Subjective Subjective: Pt seems to be much better today. She has almost no pain in the lower thoracic or lumbosacral area, but still has intense pain in the upper back area around T6 area. CBC and chemistries are more or less normal. Have requested an anesthesiology consult for spinal tap and pain management. Objective - Vital Signs/Intake and Output Vital Signs (last 24 hours): Temp Pulse Resp BP Pulse Ox 98 F 91 H 18 124/74 95 12/31/17 07:49 12/31/17 07:49 12/31/17 07:49 12/31/17 07:49 12/31/17 07:49 - Medications Medications: Current Medications Allopurinol (Zyloprim) 100 mg PO DAILY [facility] Carvedilol (Coreg) 25 mg PO Q12 [facility] Last Admin: 12/30/17 21:29 Dose: 25 mg Dexamethasone (Decadron Inj) 8 mg IVP Q8H [facility] Last Admin: 12/31/17 01:04 Dose: 8 mg Digoxin (Digoxin) 0.125 mg PO DAILY [facility] Last Admin: 12/30/17 14:10 Dose: 0.125 mg Famotidine (Pepcid) 20 mg PO DAILY [facility] Last Admin: 12/30/17 14:11 Dose: 20 mg Furosemide (Lasix) 20 mg PO BID [facility] Last Admin: 12/30/17 17:23 Dose: 20 mg Guaifenesin/Dextromethorphan (Robitussin Dm) 10 ml PO Q4 PRN PRN Reason: Cough Last Admin: 12/30/17 21:30 Dose: 10 ml Home Med (Lenalidomide [Revlimid]) 15 mg PO DAILY [facility] Last Admin: 12/30/17 17:36 Dose: 15 mg Cefepime HCl 1 gm/ Sodium (Chloride) 100 mls @ 100 mls/hr IVPB Q8 [facility] PRN Reason: Protocol Last Admin: 12/31/17 01:03 Dose: 100 mls/hr Vancomycin HCl 1 gm/ Sodium (Chloride) 250 mls @ 166.667 mls/hr IVPB DAILY [facility] PRN Reason: Protocol Lisinopril (Zestril) 10 mg PO DAILY [facility] Last Admin: 12/30/17 14:12 Dose: 10 mg Morphine Sulfate (Morphine) 2 mg IVP Q4 PRN PRN Reason: Pain, moderate (4-7) Last Admin: 12/30/17 14:00 Dose: 2 mg Morphine Sulfate (Morphine) 5 mg IVP Q6H PRN PRN Reason: Pain, severe (8-10) Potassium Chloride (K-Dur 20 Meq Er Tab) 20 meq PO BID [facility] Last Admin: 12/30/17 17:22 Dose: 20 meq Pregabalin (Lyrica) 75 mg PO BID [facility] Last Admin: 12/30/17 17:53 Dose: Not Given Prochlorperazine (Compazine) 10 mg IVP Q8H PRN PRN Reason: Nausea/Vomiting - Labs Labs: 12/31/17 05:30 12/31/17 05:30
[2017-12-31] MEDS: Potassium Chloride 20 mEq ER Tab PO SCH ×2 (09:15→17:18)
[2017-12-31] MEDS: Digoxin 125 mcg (0.125 mg) Tab PO SCH ×2 (09:15→14:57)
[2017-12-31] MEDS: LENALIDOMIDE 15 MG PO SCH ×2 (09:15→14:48)
--- NOTE | 2017-12-31 10:35 | CP.PCM.PN ---
Subjective - Date & Time of Evaluation Date of Evaluation: 12/31/17 Time of Evaluation: 12:30 - Subjective Subjective: ID note- Pt. seen and examined today. she states her back pain is much less today and she is smiling and happy. denies any fever or chills Objective - Vital Signs/Intake and Output Vital Signs (last 24 hours): Temp Pulse Resp BP Pulse Ox 98 F 91 H 18 124/74 95 12/31/17 07:49 12/31/17 09:31 12/31/17 07:49 12/31/17 09:31 12/31/17 07:49 - Medications Medications: Current Medications Allopurinol (Zyloprim) 100 mg PO DAILY [facility] Last Admin: 12/31/17 09:22 Dose: Not Given Carvedilol (Coreg) 25 mg PO Q12 [facility] Last Admin: 12/31/17 09:31 Dose: 25 mg Dexamethasone (Decadron Inj) 8 mg IVP Q8H [facility] Last Admin: 12/31/17 09:11 Dose: 8 mg Digoxin (Digoxin) 0.125 mg PO DAILY [facility] Last Admin: 12/31/17 09:15 Dose: Not Given Docusate Sodium (Colace) 200 mg PO BID [facility] Famotidine (Pepcid) 20 mg PO DAILY [facility] Last Admin: 12/31/17 09:22 Dose: Not Given Furosemide (Lasix) 20 mg PO BID [facility] Last Admin: 12/31/17 09:15 Dose: Not Given Guaifenesin/Dextromethorphan (Robitussin Dm) 10 ml PO Q4 PRN PRN Reason: Cough Last Admin: 12/30/17 21:30 Dose: 10 ml Home Med (Lenalidomide [Revlimid]) 15 mg PO DAILY [facility] Last Admin: 12/31/17 09:15 Dose: Not Given Cefepime HCl 1 gm/ Sodium (Chloride) 100 mls @ 100 mls/hr IVPB Q8 [facility] PRN Reason: Protocol Last Admin: 12/31/17 01:03 Dose: 100 mls/hr Vancomycin HCl 1 gm/ Sodium (Chloride) 250 mls @ 166.667 mls/hr IVPB DAILY [facility] PRN Reason: Protocol Last Admin: 12/31/17 09:19 Dose: 166.667 mls/hr Lisinopril (Zestril) 10 mg PO DAILY [facility] Last Admin: 12/31/17 09:21 Dose: 10 mg Morphine Sulfate (Morphine) 2 mg IVP Q4 PRN PRN Reason: Pain, moderate (4-7) Last Admin: 12/31/17 09:32 Dose: 2 mg Morphine Sulfate (Morphine) 5 mg IVP Q6H PRN PRN Reason: Pain, severe (8-10) Potassium Chloride (K-Dur 20 Meq Er Tab) 20 meq PO BID [facility] Last Admin: 12/31/17 09:15 Dose: Not Given Pregabalin (Lyrica) 75 mg PO BID [facility] Last Admin: 12/31/17 09:16 Dose: Not Given Prochlorperazine (Compazine) 10 mg IVP Q8H PRN PRN Reason: Nausea/Vomiting - Labs Labs: - Additional Findings Additional findings: - Constitutional Appears: No Acute Distress - Head Exam Head Exam: ATRAUMATIC - Eye Exam Eye Exam: EOMI, PERRL - ENT Exam ENT Exam: Normal Oropharynx - Neck Exam Neck exam: Positive for: Full Rom - Respiratory Exam Respiratory Exam: Clear to Auscultation Bilateral, NORMAL BREATHING PATTERN - Cardiovascular Exam Cardiovascular Exam: Irregular Rhythm Additional comments: Irregularly Irregular rate controlled - GI/Abdominal Exam GI & Abdominal Exam: Normal Bowel Sounds, Soft Additional comments: NT, ND - Extremities Exam Extremities exam: Positive for: normal inspection Additional comments: no edema B/L LE - Back Exam Back exam: tenderness Additional comments: positive tenderness in mid lower lumbar and thoracic region no lesions no erythema - Neurological Exam Neurological exam: Alert, Oriented x 3 Laboratory Results - last 72 hr 12/29/17 12/29/17 12/29/17 12:05 12:05 14:21 WBC 18.1 H D RBC 4.91 Hgb 14.8 D Hct 43.8 MCV 89.2 MCH 30.2 MCHC 33.9 RDW 16.2 H Plt Count 213 MPV 9.4 Neut % (Auto) 88.3 H Lymph % (Auto) 3.6 L [place] % (Auto) 7.3 Eos % (Auto) 0.1 Baso % (Auto) 0.7 Neut # (Auto) 16.0 H Lymph # (Auto) 0.7 L [place] # (Auto) 1.3 H Eos # (Auto) 0.0 Baso # (Auto) 0.1 Neutrophils % (Manual) 85 H Band Neutrophils % 3 H Lymphocytes % (Manual) 4 L Monocytes % (Manual) 8 Platelet Estimate Normal Large Platelets Present Giant Platelets Present Anisocytosis (manual) Slight ESR PT INR APTT Sodium 134 Potassium 3.2 L Chloride 95 L Carbon Dioxide 25 Anion Gap 17 BUN 9 Creatinine 0.5 L Est GFR ( Amer) > 60 Est GFR (Non-Af Amer) > 60 Random Glucose 162 H Uric Acid 2.1 L Calcium 9.1 NT-Pro-B Natriuret Pep 898 Urine Color Urine Clarity Urine pH Ur Specific [place] Urine Protein Urine Glucose (UA) Urine Ketones Urine Blood Urine Nitrate Urine Bilirubin Urine Urobilinogen Ur Leukocyte Esterase Urine RBC (Auto) Urine Microscopic WBC Ur Squamous Epith Cells Digoxin 12/29/17 12/30/17 12/30/17 14:21 04:25 04:25 WBC 15.4 H RBC 4.31 Hgb 13.0 Hct 38.5 MCV 89.3 MCH 30.2 MCHC 33.8 RDW 16.2 H Plt Count 212 MPV Neut % (Auto) Lymph % (Auto) [place] % (Auto) Eos % (Auto) Baso % (Auto) Neut # (Auto) Lymph # (Auto) [place] # (Auto) Eos # (Auto) Baso # (Auto) Neutrophils % (Manual) Band Neutrophils % Lymphocytes % (Manual) Monocytes % (Manual) Platelet Estimate Large Platelets Giant Platelets Anisocytosis (manual) ESR PT INR APTT Sodium 141 Potassium 3.4 L Chloride 97 L Carbon Dioxide 28 Anion Gap 19 BUN 13 Creatinine 0.4 L Est GFR ( Amer) > 60 Est GFR (Non-Af Amer) > 60 Random Glucose 173 H Uric Acid Calcium 8.7 NT-Pro-B Natriuret Pep Urine Color Urine Clarity Urine pH Ur Specific [place] Urine Protein Urine Glucose (UA) Urine Ketones Urine Blood Urine Nitrate Urine Bilirubin Urine Urobilinogen Ur Leukocyte Esterase Urine RBC (Auto) Urine Microscopic WBC Ur Squamous Epith Cells Digoxin < 0.4 L 12/30/17 12/30/17 12/31/17 17:38 19:00 05:30 WBC 11.6 H RBC 4.33 Hgb 13.0 Hct 38.7 MCV 89.4 MCH 30.0 MCHC 33.6 RDW 16.5 H Plt Count 246 MPV Neut % (Auto) Lymph % (Auto) [place] % (Auto) Eos % (Auto) Baso % (Auto) Neut # (Auto) Lymph # (Auto) [place] # (Auto) Eos # (Auto) Baso # (Auto) Neutrophils % (Manual) Band Neutrophils % Lymphocytes % (Manual) Monocytes % (Manual) Platelet Estimate Large Platelets Giant Platelets Anisocytosis (manual) ESR 93 H PT INR APTT Sodium Potassium Chloride Carbon Dioxide Anion Gap BUN Creatinine Est GFR ( Amer) Est GFR (Non-Af Amer) Random Glucose Uric Acid Calcium NT-Pro-B Natriuret Pep Urine Color Yellow Urine Clarity Slighty-cloudy Urine pH 6.0 Ur Specific [place] 1.029 Urine Protein 100 Urine Glucose (UA) 150 Urine Ketones Trace Urine Blood Moderate Urine Nitrate Negative Urine Bilirubin Negative Urine Urobilinogen 0.2-1.0 Ur Leukocyte Esterase Neg Urine RBC (Auto) 84 H Urine Microscopic WBC 7 H Ur Squamous Epith Cells < 1 Digoxin 12/31/17 12/31/17 05:30 12:05 WBC RBC Hgb Hct MCV MCH MCHC RDW Plt Count MPV Neut % (Auto) Lymph % (Auto) [place] % (Auto) Eos % (Auto) Baso % (Auto) Neut # (Auto) Lymph # (Auto) [place] # (Auto) Eos # (Auto) Baso # (Auto) Neutrophils % (Manual) Band Neutrophils % Lymphocytes % (Manual) Monocytes % (Manual) Platelet Estimate Large Platelets Giant Platelets Anisocytosis (manual) ESR PT 13.8 H INR 1.2 APTT 29.6 Sodium 145 Potassium 4.0 Chloride 102 Carbon Dioxide 31 H Anion Gap 16 BUN 17 Creatinine 0.4 L Est GFR ( Amer) > 60 Est GFR (Non-Af Amer) > 60 Random Glucose 185 H Uric Acid Calcium 8.7 NT-Pro-B Natriuret Pep Urine Color Urine Clarity Urine pH Ur Specific [place] Urine Protein Urine Glucose (UA) Urine Ketones Urine Blood Urine Nitrate Urine Bilirubin Urine Urobilinogen Ur Leukocyte Esterase Urine RBC (Auto) Urine Microscopic WBC Ur Squamous Epith Cells Digoxin Microbiology 12/30/17 01:20 Blood-Venous Blood Culture - Preliminary Staphylococcus Aureus 12/30/17 01:20 Blood-Venous Gram Stain - Final 12/30/17 01:40 Blood-Venous S.aureus & Coag-Neg Staph PNA FISH - Final 12/30/17 01:40 Blood-Venous Blood Culture - Preliminary Staphylococcus Aureus 12/30/17 01:40 Blood-Venous Gram Stain - Final Patient Name / ID : ALLAN RAMOS / [id number] Exam Date : 12/31/2017 11:34:57 ( Approved ) Study Comment : Sex / Age : F / [id number] Creator : James Maldonado MD Dictator : James Maldonado MD Fit Model : Manager Financial : James Maldonado MD Approver2 : Report Date : 12/31/2017 13:25:35 My Comment : PROCEDURE: CHEST RADIOGRAPH, 1 VIEW HISTORY: OR COMPARISON: 12/21/2017 FINDINGS: LUNGS: No infiltrate. Vaguely nodular opacity lower left lung. Followup advised. PLEURA: No pneumothorax or pleural fluid seen. CARDIOVASCULAR: Normal. OSSEOUS STRUCTURES: No significant abnormalities. VISUALIZED UPPER ABDOMEN: Normal. OTHER FINDINGS: None. IMPRESSION: Vaguely nodular opacity lower left lung common not evident prior examination and not evident on recent chest CT examination. Follow-up advised with PA and lateral chest radiography when clinically feasible. Otherwise unremarkable. Assessment and Plan (1) Back pain Status: Acute (2) Atrial fib/flutter, transient Status: Acute (3) Fever Status: Acute (4) Bacteremia due to Staphylococcus aureus Status: Acute - Assessment and Plan (Free Text) Assessment: A/P- 62 year old female with CHF, A,fib, Multiple Myeloma with mets and undergoing chemo and radiation admitted with severe back pian and urinary retention, low garde fever and mild leukocytosis. afebrile today leukocytosis trending down blood cx- staph aureus x 2 cxr- Left lower lobe nodular opacity as per report by radiologist not seen i n previous cxr. plan- continue with IV vancomycin for staph bacteremia. keep vanco trough <20. TTE r/o endocarditis. source of staph bacteremia unclear at this time. check 2 more blood cx . check one from her port as well. eventhough no mention of any epidural fluid collection or abscess on MRI report in light of staph bacteremia would need to r/o epidural abscess /spinal abscess .r/o vertebral OM as well in light of the MRI findings , high esr and staph bacteremia. continue with empiric cefepime as well for now. all above d/w patient and she verbalizes full understanding of al above. all above also d/w the hospitalist.
[2017-12-31 12:31] LABS: INR 1.2 (0.9-1.2); PARTIAL THROMBOPLASTIN TIME 29.6 Seconds (25.6-37.1); PROTHROMBIN TIME 13.8 Seconds (9.8-13.1)
--- NOTE | 2017-12-31 13:27 | RAD ---
PROCEDURE: CHEST RADIOGRAPH, 1 VIEW HISTORY: OR COMPARISON: 12/21/2017 FINDINGS: LUNGS: No infiltrate. Vaguely nodular opacity lower left lung. Followup advised. PLEURA: No pneumothorax or pleural fluid seen. CARDIOVASCULAR: Normal. OSSEOUS STRUCTURES: No significant abnormalities. VISUALIZED UPPER ABDOMEN: Normal. OTHER FINDINGS: None. IMPRESSION: Vaguely nodular opacity lower left lung common not evident prior examination and not evident on recent chest CT examination. Follow-up advised with PA and lateral chest radiography when clinically feasible. Otherwise unremarkable.
--- NOTE | 2017-12-31 14:55 | CP.PCM.PN ---
Subjective - Date & Time of Evaluation Date of Evaluation: 12/31/17 Time of Evaluation: 11:00 - Subjective Subjective: Patient is seen and examined at bedside. Her back pain is improved today in the lumbosacral area but is still c/o pain. She is for OR today for lumbar puncture and epidural. Has no new complaints. Overall clinically appears improved. Objective - Vital Signs/Intake and Output Vital Signs (last 24 hours): Temp Pulse Resp BP Pulse Ox 97.7 F 99 H 18 134/93 H 94 L 12/31/17 12:05 12/31/17 12:05 12/31/17 12:05 12/31/17 12:05 12/31/17 12:05 - Medications Medications: Current Medications Allopurinol (Zyloprim) 100 mg PO DAILY [facility] Last Admin: 12/31/17 09:22 Dose: Not Given Carvedilol (Coreg) 25 mg PO Q12 [facility] Last Admin: 12/31/17 09:31 Dose: 25 mg Dexamethasone (Decadron Inj) 8 mg IVP Q8H [facility] Last Admin: 12/31/17 09:11 Dose: 8 mg Digoxin (Digoxin) 0.125 mg PO DAILY [facility] Last Admin: 12/31/17 09:15 Dose: Not Given Docusate Sodium (Colace) 200 mg PO BID [facility] Famotidine (Pepcid) 20 mg PO DAILY [facility] Last Admin: 12/31/17 09:22 Dose: Not Given Furosemide (Lasix) 20 mg PO BID [facility] Last Admin: 12/31/17 09:15 Dose: Not Given Guaifenesin/Dextromethorphan (Robitussin Dm) 10 ml PO Q4 PRN PRN Reason: Cough Last Admin: 12/30/17 21:30 Dose: 10 ml Home Med (Lenalidomide [Revlimid]) 15 mg PO DAILY [facility] Last Admin: 12/31/17 09:15 Dose: Not Given Cefepime HCl 1 gm/ Sodium (Chloride) 100 mls @ 100 mls/hr IVPB Q8 [facility] PRN Reason: Protocol Last Admin: 12/31/17 11:16 Dose: 100 mls/hr Vancomycin HCl 1 gm/ Sodium (Chloride) 250 mls @ 166.667 mls/hr IVPB DAILY [facility] PRN Reason: Protocol Last Admin: 12/31/17 09:19 Dose: 166.667 mls/hr Lisinopril (Zestril) 10 mg PO DAILY [facility] Last Admin: 12/31/17 09:21 Dose: 10 mg Morphine Sulfate (Morphine) 2 mg IVP Q4 PRN PRN Reason: Pain, moderate (4-7) Last Admin: 12/31/17 09:32 Dose: 2 mg Morphine Sulfate (Morphine) 5 mg IVP Q6H PRN PRN Reason: Pain, severe (8-10) Potassium Chloride (K-Dur 20 Meq Er Tab) 20 meq PO BID [facility] Last Admin: 12/31/17 09:15 Dose: Not Given Pregabalin (Lyrica) 75 mg PO BID [facility] Last Admin: 12/31/17 09:16 Dose: Not Given Prochlorperazine (Compazine) 10 mg IVP Q8H [facility]N PRN Reason: Nausea/Vomiting - Labs Labs: 12/31/17 05:30 12/31/17 05:30 PT 13.8 Seconds (9.8-13.1) H 12/31/17 12:05 INR 1.2 (0.9-1.2) 12/31/17 12:05 APTT 29.6 Seconds (25.6-37.1) 12/31/17 12:05 - Additional Findings Additional findings: Physical exam: Constitutional- cooperative, awake, alert, appears more comfortable today Head- NCAT, PERRL Eye- PERRL, EOMI ENT- normal exam, MMM. Neck- normal inspection, supple, no JVD Respiratory- CTAB, no wheezes rales rhonchi Cardiovascular- RRR, +S1, +S2 no MRG GI/Abdominal- obese, normal bowel sounds, soft, no mass, no hsm Skin- warm, dry Extremities Exam- normal capillary refill, normal inspection Neurological Exam- alert, awake, oriented, no motor or sensory deficits, CN II- XII intact Psych- normal affect, normal mood Assessment and Plan - Assessment and Plan (Free Text) Plan: This is a 62 year old female with a past medical history significant for atrial fibrillation anticoagulated on Xarelto, essential hypertension, Multiple myeloma , and CHF, who presented to the ED complaining of worsening back pain. The patient has chronic back pain due to the multiple myeloma, however today the pain became much worse. In addition the patient was found to have urinary retention since this morning, prompting her to come to the ED. In the ED, the patient was found to be hemodynamically stable although in severe pain not relieved by Percocets. Garrett catheter was placed and drained large amount of urine. Multiple attempts in the ED were made for MRI to assess for spinal cord compression (possibly due to malignancy). Patient had no motor or sensory deficits, no fecal or urinary incontinence, and no saddle anesthesia however. On 12/30, MRI of the thoracic/lumbar spine report showed no spinal cord compression, however it does show diffuse leptomeningeal thickening of the spinal cord suspicious for malignancy versus inflammation. There was originally concern for infection as well; however this is seen as much less likely as the patient has no hx of spinal surgery or signs of infection. As per discussion with consultants, they recommend the patient to have biopsy of the cord in order to ascertain if the thickening is due to metastatic disease versus inflammatory changes. 12/31: Biopsy unable to be obtained. Lumbar puncture is being performed instead for cytology for further evaluation of the leptominengeal thickening. Epidural also being done today for pain control. PT evaluation today with hopeful discharge tomorrow if patient's pain improved and if she is ambulatory. 1) Severe acute on chronic back pain with urinary retention, spinal cord compression ruled out; however now with diffuse leptomeningeal thickening on MRI concerning for metastatic disease vs. inflammatory changes. Pain now improved somewhat today, however has upper thoracic severe back pain - Continue telemetry monitoring - Decadron 8 mg IVP q 8 hours - Dr. aMddy Garcia strategy execution consultant- recommends continuing steroids for now - Dr. Merchant, neurology on consultation - Dr. Garcia, neurosurgery- no workup - Anesthesia consultation today for LP/epidural 2) Staph aureus in blood culture x 2 bottles, r/o endocarditis - Staph bacteremia suspected - Dr. Bridges on consultation - Echocardiogram - Continue Vancomycin and Cefepime 3) Afib with RVR- now controlled - Restarted Digoxin 0.125 mg po daily - Restarted Coreg - telemetry monitoring 4) Hypokalemia,- resolved - continue po repletion - Recheck in AM 5) Essential htn - chronic - restarted home po medications 6) Multiple myeloma - chronic - Dr. Maddy Garcia on consultation for heme/onc - see (1) may need further chemotherapy if LP shows cytology consistent with metastatses 7) Leukocytosis - secondary to Decadron - no evidence of infection 8) DVT prophylaxis - will restart Xarelto
[2018-01-01] MEDS: Cefepime 1 GM in Sodium Chloride 0.9% 100 ML IVPB SCH ×2 (00:39→09:07)
[2018-01-01] MEDS: Dexamethasone 4 mg/1 ml IVP SCH ×3 (02:20→17:11)
[2018-01-01 06:10] LABS: HEMOGLOBIN 12.7 g/dL (12.0-16.0); MEAN CELL VOLUME 90.5 fl (81.0-99.0); MEAN CORPUSCULAR HEMOGLOBIN 29.3 pg (27.0-31.0); MEAN CORPUSCULAR HGB CONC 32.4 g/dL (33.0-37.0); RBC 4.35 Mil/uL (3.80-5.20); RED CELL DISTRIBUTION WIDTH 16.5 % (11.5-14.5)
[2018-01-01 06:34] LABS: BLOOD UREA NITROGEN 18 mg/dl (7-17); CALCIUM 8.3 mg/dL (8.4-10.2); GFR AFRICAN-AMERICAN > 60; GFR NON-AFRICAN AMERICAN > 60
[2018-01-01] MEDS: Potassium Chloride 20 mEq ER Tab PO SCH ×2 (09:01→17:11)
[2018-01-01] MEDS: Digoxin 125 mcg (0.125 mg) Tab PO SCH (09:01)
[2018-01-01] MEDS: LENALIDOMIDE 15 MG PO SCH (09:02)
--- NOTE | 2018-01-01 09:31 | CARD ---
APPROVED REPORT EXAM: Two-dimensional and M-mode echocardiogram with Doppler and color Doppler. Other Information Quality : GoodRhythm : Atrial Fibrillation INDICATION Infection:Subacute bacterial endocarditis 2D DIMENSIONS IVSd1.22 (0.7-1.1cm)LVDd2.98 (3.9-5.9cm) LVOT Diameter2.41 (1.8-2.4cm)PWd1.07 (0.7-1.1cm) IVSs1.53 (0.8-1.2cm)LVDs3.00 (2.5-4.0cm) FS (%) 0.4 %PWs1.19 (0.8-1.2cm) M-Mode DIMENSIONS Left Atrium (MM)6.78 (2.5-4.0cm)IVSd0.99 (0.7-1.1cm) Aortic Root3.28 (2.2-3.7cm)LVDd5.56 (4.0-5.6cm) Aortic Cusp Exc.2.32 (1.5-2.0cm)PWd0.96 (0.7-1.1cm) IVSs1.65 cmFS (%) 30 % LVDs3.87 (2.0-3.8cm)PWs1.22 cm Mitral Valve E/A ratio0.0 TDI E/Lateral E'0.0E/Medial E'0.0 LEFT VENTRICLE The left ventricle is normal size. There is normal left ventricular wall thickness. Left ventricle systolic function is normal. The Ejection Fraction is 55-60%. There is normal LV segmental wall motion. Pt in A Fib RIGHT VENTRICLE The right ventricle is normal size. There is normal right ventricular wall thickness. The right ventricular systolic function is normal. ATRIA The left atrium is severely dilated. The right atrium size is normal. AORTIC VALVE The aortic valve is mildly sclerotic. No aortic regurgitation is present. There is no aortic valvular stenosis. MITRAL VALVE The mitral valve is normal in structure. There is no evidence of mitral valve prolapse. There is no mitral valve stenosis. Mitral regurgitation is moderate. TRICUSPID VALVE The tricuspid valve is normal in structure. There is no tricuspid valve regurgitation noted. PULMONIC VALVE The pulmonary valve is normal in structure. There is no pulmonic valvular regurgitation. GREAT VESSELS The aortic root is normal in size. Due to poor image quality, the IVC could not be assessed. PERICARDIAL EFFUSION The pericardium appears normal. <Conclusion> Poor echo window with suboptimal images. The left ventricle is normal size. There is normal left ventricular wall thickness. There is normal LV segmental wall motion. Left ventricle systolic function is normal. The Ejection Fraction is 55-60%. The left atrium is severely dilated. Mitral regurgitation is moderate. No vegetations seen on this TTE
--- NOTE | 2018-01-01 10:52 | CP.PCM.PN ---
Subjective - Date & Time of Evaluation Date of Evaluation: 01/01/18 Time of Evaluation: 10:52 - Subjective Subjective: ID Note- Pt. seen and examined today. denies any fever or chills. still has some back pain. no new events overnight. Objective - Vital Signs/Intake and Output Vital Signs (last 24 hours): Temp Pulse Resp BP Pulse Ox 98.3 F 97 H 18 121/70 95 01/01/18 08:03 01/01/18 09:03 01/01/18 08:03 01/01/18 09:03 01/01/18 08:03 Intake and Output: 01/01/18 01/01/18 06:59 18:59 Intake Total 300 Output Total 1100 Balance -800 - Medications Medications: Current Medications Allopurinol (Zyloprim) 100 mg PO DAILY [facility] Last Admin: 01/01/18 09:04 Dose: 100 mg Carvedilol (Coreg) 25 mg PO Q12 [facility] Last Admin: 01/01/18 09:00 Dose: 25 mg Dexamethasone (Decadron Inj) 8 mg IVP Q8H [facility] Last Admin: 01/01/18 09:01 Dose: 8 mg Digoxin (Digoxin) 0.125 mg PO DAILY [facility] Last Admin: 01/01/18 09:01 Dose: 0.125 mg Docusate Sodium (Colace) 200 mg PO BID [facility] Last Admin: 01/01/18 09:00 Dose: 200 mg Famotidine (Pepcid) 20 mg PO DAILY [facility] Last Admin: 01/01/18 09:03 Dose: 20 mg Furosemide (Lasix) 20 mg PO BID [facility] Last Admin: 01/01/18 09:02 Dose: 20 mg Guaifenesin/Dextromethorphan (Robitussin Dm) 10 ml PO Q4 PRN PRN Reason: Cough Last Admin: 12/30/17 21:30 Dose: 10 ml Home Med (Lenalidomide [Revlimid]) 15 mg PO DAILY [facility] Last Admin: 01/01/18 09:02 Dose: 15 mg Cefepime HCl 1 gm/ Sodium (Chloride) 100 mls @ 100 mls/hr IVPB Q8 [facility] PRN Reason: Protocol Last Admin: 01/01/18 09:07 Dose: 100 mls/hr Vancomycin HCl 1 gm/ Sodium (Chloride) 250 mls @ 166.667 mls/hr IVPB Q12 [facility] PRN Reason: Protocol Last Admin: 01/01/18 09:07 Dose: 166.667 mls/hr Lisinopril (Zestril) 10 mg PO DAILY [facility] Last Admin: 01/01/18 09:03 Dose: 10 mg Morphine Sulfate (Morphine) 2 mg IVP Q4 PRN PRN Reason: Pain, moderate (4-7) Last Admin: 01/01/18 10:32 Dose: 2 mg Morphine Sulfate (Morphine) 5 mg IVP Q6H PRN PRN Reason: Pain, severe (8-10) Potassium Chloride (K-Dur 20 Meq Er Tab) 20 meq PO BID [facility] Last Admin: 01/01/18 09:01 Dose: 20 meq Pregabalin (Lyrica) 75 mg PO BID [facility] Last Admin: 01/01/18 09:06 Dose: 75 mg Prochlorperazine (Compazine) 10 mg IVP Q8H PRN PRN Reason: Nausea/Vomiting Rivaroxaban (Xarelto) 20 mg PO DAILY [facility] PRN Reason: Protocol - Labs Labs: - Additional Findings Additional findings: - Constitutional Appears: No Acute Distress - Head Exam Head Exam: ATRAUMATIC - Eye Exam Eye Exam: EOMI, PERRL - ENT Exam ENT Exam: Normal Oropharynx - Neck Exam Neck exam: Positive for: Full Rom - Respiratory Exam Respiratory Exam: Clear to Auscultation Bilateral, NORMAL BREATHING PATTERN - Cardiovascular Exam Cardiovascular Exam: Irregular Rhythm Additional comments: Irregularly Irregular rate controlled - GI/Abdominal Exam GI & Abdominal Exam: Normal Bowel Sounds, Soft Additional comments: NT, ND - Extremities Exam Extremities exam: Positive for: normal inspection Additional comments: no edema B/L LE - Back Exam Back exam: tenderness Additional comments: positive tenderness in mid lower lumbar and thoracic region no lesions no erythema - Neurological Exam Neurological exam: Alert, Oriented x 3 Laboratory Results - last 72 hr 12/29/17 12/29/17 12/29/17 12:05 14:21 14:21 WBC RBC Hgb Hct MCV MCH MCHC RDW Plt Count Neutrophils % (Manual) 85 H Band Neutrophils % 3 H Lymphocytes % (Manual) 4 L Monocytes % (Manual) 8 Platelet Estimate Normal Large Platelets Present Giant Platelets Present Anisocytosis (manual) Slight ESR PT INR APTT Sodium Potassium Chloride Carbon Dioxide Anion Gap BUN Creatinine Est GFR ( Amer) Est GFR (Non-Af Amer) Random Glucose Calcium NT-Pro-B Natriuret Pep 898 Procalcitonin Urine Color Urine Clarity Urine pH Ur Specific [place] Urine Protein Urine Glucose (UA) Urine Ketones Urine Blood Urine Nitrate Urine Bilirubin Urine Urobilinogen Ur Leukocyte Esterase Urine RBC (Auto) Urine Microscopic WBC Ur Squamous Epith Cells Digoxin < 0.4 L 12/30/17 12/30/17 12/30/17 04:25 04:25 17:38 WBC 15.4 H RBC 4.31 Hgb 13.0 Hct 38.5 MCV 89.3 MCH 30.2 MCHC 33.8 RDW 16.2 H Plt Count 212 Neutrophils % (Manual) Band Neutrophils % Lymphocytes % (Manual) Monocytes % (Manual) Platelet Estimate Large Platelets Giant Platelets Anisocytosis (manual) ESR PT INR APTT Sodium 141 Potassium 3.4 L Chloride 97 L Carbon Dioxide 28 Anion Gap 19 BUN 13 Creatinine 0.4 L Est GFR ( Amer) > 60 Est GFR (Non-Af Amer) > 60 Random Glucose 173 H Calcium 8.7 NT-Pro-B Natriuret Pep Procalcitonin Urine Color Yellow Urine Clarity Slighty-cloudy Urine pH 6.0 Ur Specific [place] 1.029 Urine Protein 100 Urine Glucose (UA) 150 Urine Ketones Trace Urine Blood Moderate Urine Nitrate Negative Urine Bilirubin Negative Urine Urobilinogen 0.2-1.0 Ur Leukocyte Esterase Neg Urine RBC (Auto) 84 H Urine Microscopic WBC 7 H Ur Squamous Epith Cells < 1 Digoxin 12/30/17 12/30/17 12/31/17 18:44 19:00 05:30 WBC 11.6 H RBC 4.33 Hgb 13.0 Hct 38.7 MCV 89.4 MCH 30.0 MCHC 33.6 RDW 16.5 H Plt Count 246 Neutrophils % (Manual) Band Neutrophils % Lymphocytes % (Manual) Monocytes % (Manual) Platelet Estimate Large Platelets Giant Platelets Anisocytosis (manual) ESR 93 H PT INR APTT Sodium Potassium Chloride Carbon Dioxide Anion Gap BUN Creatinine Est GFR ( Amer) Est GFR (Non-Af Amer) Random Glucose Calcium NT-Pro-B Natriuret Pep Procalcitonin 0.41 Urine Color Urine Clarity Urine pH Ur Specific [place] Urine Protein Urine Glucose (UA) Urine Ketones Urine Blood Urine Nitrate Urine Bilirubin Urine Urobilinogen Ur Leukocyte Esterase Urine RBC (Auto) Urine Microscopic WBC Ur Squamous Epith Cells Digoxin 12/31/17 12/31/17 01/01/18 05:30 12:05 05:56 WBC 10.0 RBC 4.35 Hgb 12.7 Hct 39.3 MCV 90.5 MCH 29.3 MCHC 32.4 L RDW 16.5 H Plt Count 296 Neutrophils % (Manual) Band Neutrophils % Lymphocytes % (Manual) Monocytes % (Manual) Platelet Estimate Large Platelets Giant Platelets Anisocytosis (manual) ESR PT 13.8 H INR 1.2 APTT 29.6 Sodium 145 Potassium 4.0 Chloride 102 Carbon Dioxide 31 H Anion Gap 16 BUN 17 Creatinine 0.4 L Est GFR ( Amer) > 60 Est GFR (Non-Af Amer) > 60 Random Glucose 185 H Calcium 8.7 NT-Pro-B Natriuret Pep Procalcitonin Urine Color Urine Clarity Urine pH Ur Specific [place] Urine Protein Urine Glucose (UA) Urine Ketones Urine Blood Urine Nitrate Urine Bilirubin Urine Urobilinogen Ur Leukocyte Esterase Urine RBC (Auto) Urine Microscopic WBC Ur Squamous Epith Cells Digoxin 01/01/18 05:56 WBC RBC Hgb Hct MCV MCH MCHC RDW Plt Count Neutrophils % (Manual) Band Neutrophils % Lymphocytes % (Manual) Monocytes % (Manual) Platelet Estimate Large Platelets Giant Platelets Anisocytosis (manual) ESR PT INR APTT Sodium 143 Potassium 4.2 Chloride 104 Carbon Dioxide 27 Anion Gap 16 BUN 18 H Creatinine 0.4 L Est GFR ( Amer) > 60 Est GFR (Non-Af Amer) > 60 Random Glucose 171 H Calcium 8.3 L NT-Pro-B Natriuret Pep Procalcitonin Urine Color Urine Clarity Urine pH Ur Specific [place] Urine Protein Urine Glucose (UA) Urine Ketones Urine Blood Urine Nitrate Urine Bilirubin Urine Urobilinogen Ur Leukocyte Esterase Urine RBC (Auto) Urine Microscopic WBC Ur Squamous Epith Cells Digoxin Microbiology 12/30/17 17:38 Urine,Garrett Urine Culture - Final No Growth (<1,000 CFU/ML) 12/30/17 01:20 Blood-Venous Blood Culture - Final Staphylococcus Aureus 12/30/17 01:20 Blood-Venous Gram Stain - Final 12/30/17 01:40 Blood-Venous S.aureus & Coag-Neg Staph PNA FISH - Final 12/30/17 01:40 Blood-Venous Blood Culture - Final Staphylococcus Aureus 04/11/18 01:40 Blood-Venous Gram Stain - Final Assessment and Plan (1) Back pain Status: Acute (2) Atrial fib/flutter, transient Status: Acute (3) Fever Status: Acute (4) Bacteremia due to Staphylococcus aureus Status: Acute - Assessment and Plan (Free Text) Assessment: A/P- 62 year old female with CHF, A,fib, Multiple Myeloma with mets and undergoing chemo and radiation admitted with severe back pian and urinary retention, low garde fever and mild leukocytosis. afebrile leukocytosis has resolved blood cx- MSSA x 2 urine cx- neg TTE- no vegetation as per report plan- continue with IV vancomycin for staph bacteremia. keep vanco trough <20. day #3 today. check 2 more blood cx . d/c cefepime today. since TTE negative source of bacteremia could be the epidural region/ perhaps epidural abscess. no LP as per anesthesia since pos blood cx. hence pt. would be assumed to have epidural abscess based on MRI findings pending furthere results. would need at least 3-4 weeks of IV abx for this MSSA bacteremia/ ? epidural abscess. all above d/w the hospitalist.
--- NOTE | 2018-01-01 11:20 | CP.PCM.PN ---
Subjective - Date & Time of Evaluation Date of Evaluation: 01/01/18 Time of Evaluation: 11:02 - Subjective Subjective: Pt is afebrile, lower back pain much better, but she still c/o upper back pain, even though she is responding well to the analgesics. The pt's blood c/s showed 2 samples positive for staph aureus. An echocardiogram done does not show any vegetations. Because of the positive blood c/s, the Spinal tap was not done. We have to wait until her blood c/s are normal. Meanwhile pt was able to slowly ambulate the bathroom with help. and is able to roll from side to side. She is on cefepine, and is afebrile at this time Objective - Vital Signs/Intake and Output Vital Signs (last 24 hours): Temp Pulse Resp BP Pulse Ox 98.3 F 97 H 18 121/70 95 01/01/18 08:03 01/01/18 09:03 01/01/18 08:03 01/01/18 09:03 01/01/18 08:03 Intake and Output: 01/01/18 01/01/18 06:59 18:59 Intake Total 300 Output Total 1100 Balance -800 - Medications Medications: Current Medications Allopurinol (Zyloprim) 100 mg PO DAILY [facility] Last Admin: 01/01/18 09:04 Dose: 100 mg Carvedilol (Coreg) 25 mg PO Q12 [facility] Last Admin: 01/01/18 09:00 Dose: 25 mg Dexamethasone (Decadron Inj) 8 mg IVP Q8H [facility] Last Admin: 01/01/18 09:01 Dose: 8 mg Digoxin (Digoxin) 0.125 mg PO DAILY [facility] Last Admin: 01/01/18 09:01 Dose: 0.125 mg Docusate Sodium (Colace) 200 mg PO BID [facility] Last Admin: 01/01/18 09:00 Dose: 200 mg Famotidine (Pepcid) 20 mg PO DAILY [facility] Last Admin: 01/01/18 09:03 Dose: 20 mg Furosemide (Lasix) 20 mg PO BID [facility] Last Admin: 01/01/18 09:02 Dose: 20 mg Guaifenesin/Dextromethorphan (Robitussin Dm) 10 ml PO Q4 PRN PRN Reason: Cough Last Admin: 12/30/17 21:30 Dose: 10 ml Home Med (Lenalidomide [Revlimid]) 15 mg PO DAILY [facility] Last Admin: 01/01/18 09:02 Dose: 15 mg Cefepime HCl 1 gm/ Sodium (Chloride) 100 mls @ 100 mls/hr IVPB Q8 [facility] PRN Reason: Protocol Last Admin: 01/01/18 09:07 Dose: 100 mls/hr Vancomycin HCl 1 gm/ Sodium (Chloride) 250 mls @ 166.667 mls/hr IVPB Q12 [facility] PRN Reason: Protocol Last Admin: 01/01/18 09:07 Dose: 166.667 mls/hr Lisinopril (Zestril) 10 mg PO DAILY [facility] Last Admin: 01/01/18 09:03 Dose: 10 mg Morphine Sulfate (Morphine) 2 mg IVP Q4 PRN PRN Reason: Pain, moderate (4-7) Last Admin: 01/01/18 10:32 Dose: 2 mg Morphine Sulfate (Morphine) 5 mg IVP Q6H PRN PRN Reason: Pain, severe (8-10) Potassium Chloride (K-Dur 20 Meq Er Tab) 20 meq PO BID [facility] Last Admin: 01/01/18 09:01 Dose: 20 meq Pregabalin (Lyrica) 75 mg PO BID [facility] Last Admin: 01/01/18 09:06 Dose: 75 mg Prochlorperazine (Compazine) 10 mg IVP Q8H PRN PRN Reason: Nausea/Vomiting Rivaroxaban (Xarelto) 20 mg PO DAILY [facility] PRN Reason: Protocol - Labs Labs: 01/01/18 05:56 01/01/18 05:56 PT 13.8 Seconds (9.8-13.1) H 12/31/17 12:05 INR 1.2 (0.9-1.2) 12/31/17 12:05 APTT 29.6 Seconds (25.6-37.1) 12/31/17 12:05
--- NOTE | 2018-01-01 13:28 | CP.PCM.PN ---
Subjective - Date & Time of Evaluation Date of Evaluation: 01/01/18 Time of Evaluation: 12:00 - Subjective Subjective: No fever Back pain better today good appetite no CP no SOB no cough no abd pain no diarrhea, no N/V Objective - Vital Signs/Intake and Output Vital Signs (last 24 hours): Temp Pulse Resp BP Pulse Ox 98.3 F 96 H 18 121/78 97 01/01/18 12:33 01/01/18 12:33 01/01/18 12:33 01/01/18 12:33 01/01/18 12:33 Intake and Output: 01/01/18 01/01/18 06:59 18:59 Intake Total 300 Output Total 1100 Balance -800 - Medications Medications: Current Medications Allopurinol (Zyloprim) 100 mg PO DAILY [facility] Last Admin: 01/01/18 09:04 Dose: 100 mg Carvedilol (Coreg) 25 mg PO Q12 [facility] Last Admin: 01/01/18 09:00 Dose: 25 mg Dexamethasone (Decadron Inj) 8 mg IVP Q8H [facility] Last Admin: 01/01/18 09:01 Dose: 8 mg Digoxin (Digoxin) 0.125 mg PO DAILY [facility] Last Admin: 01/01/18 09:01 Dose: 0.125 mg Docusate Sodium (Colace) 200 mg PO BID [facility] Last Admin: 01/01/18 09:00 Dose: 200 mg Famotidine (Pepcid) 20 mg PO DAILY [facility] Last Admin: 01/01/18 09:03 Dose: 20 mg Furosemide (Lasix) 20 mg PO BID [facility] Last Admin: 01/01/18 09:02 Dose: 20 mg Guaifenesin/Dextromethorphan (Robitussin Dm) 10 ml PO Q4 PRN PRN Reason: Cough Last Admin: 12/30/17 21:30 Dose: 10 ml Home Med (Lenalidomide [Revlimid]) 15 mg PO DAILY [facility] Last Admin: 01/01/18 09:02 Dose: 15 mg Cefepime HCl 1 gm/ Sodium (Chloride) 100 mls @ 100 mls/hr IVPB Q8 [facility] PRN Reason: Protocol Last Admin: 01/01/18 09:07 Dose: 100 mls/hr Vancomycin HCl 1 gm/ Sodium (Chloride) 250 mls @ 166.667 mls/hr IVPB Q12 [facility] PRN Reason: Protocol Last Admin: 01/01/18 09:07 Dose: 166.667 mls/hr Lisinopril (Zestril) 10 mg PO DAILY [facility] Last Admin: 01/01/18 09:03 Dose: 10 mg Morphine Sulfate (Morphine) 2 mg IVP Q4 PRN PRN Reason: Pain, moderate (4-7) Last Admin: 01/01/18 10:32 Dose: 2 mg Morphine Sulfate (Morphine) 5 mg IVP Q6H PRN PRN Reason: Pain, severe (8-10) Potassium Chloride (K-Dur 20 Meq Er Tab) 20 meq PO BID [facility] Last Admin: 01/01/18 09:01 Dose: 20 meq Pregabalin (Lyrica) 75 mg PO BID [facility] Last Admin: 01/01/18 09:06 Dose: 75 mg Prochlorperazine (Compazine) 10 mg IVP Q8H PRN PRN Reason: Nausea/Vomiting Rivaroxaban (Xarelto) 20 mg PO DAILY [facility] PRN Reason: Protocol Last Admin: 01/01/18 12:20 Dose: 20 mg - Labs Labs: 01/01/18 05:56 01/01/18 05:56 PT 13.8 Seconds (9.8-13.1) H 12/31/17 12:05 INR 1.2 (0.9-1.2) 12/31/17 12:05 APTT 29.6 Seconds (25.6-37.1) 12/31/17 12:05 - Constitutional Appears: No Acute Distress - Head Exam Head Exam: ATRAUMATIC, NORMAL INSPECTION, NORMOCEPHALIC - Eye Exam Eye Exam: EOMI, Normal appearance Pupil Exam: NORMAL ACCOMODATION - ENT Exam ENT Exam: Mucous Membranes Moist, Normal External Ear Exam - Neck Exam Neck Exam: Full ROM. absent: Meningismus - Respiratory Exam Respiratory Exam: NORMAL BREATHING PATTERN. absent: Rales, Wheezes, Respiratory Distress - Cardiovascular Exam Cardiovascular Exam: Irregular Rhythm, +S1, +S2 - GI/Abdominal Exam GI & Abdominal Exam: Soft, Normal Bowel Sounds. absent: Tenderness - Extremities Exam Extremities Exam: Normal Capillary Refill. absent: Calf Tenderness, Pedal Edema - Back Exam Back Exam: paraspinal tenderness, vertebral tenderness. absent: CVA tenderness (L), CVA tenderness (R) - Neurological Exam Neurological Exam: Alert, Awake, CN II-XII Intact, Oriented x3 Neuro motor strength exam: Left Upper Extremity: 5, Right Upper Extremity: 5, Left Lower Extremity: 5, Right Lower Extremity: 5 - Psychiatric Exam Psychiatric exam: Normal Affect, Normal Mood - Skin Skin Exam: Dry, Normal Color, Warm Assessment and Plan - Assessment and Plan (Free Text) Assessment: This is a 62 year old female with a past medical history significant for Atrial fibrillation anticoagulated on Xarelto, essential hypertension, Multiple myeloma , and CHF, who presented to the ED complaining of worsening back pain. The patient has chronic back pain due to the multiple myeloma, however today the pain became much worse. In addition the patient was found to have urinary retention x 1 day , prompting her to come to the ED. In the ED, the patient was found to be hemodynamically stable although in severe pain not relieved by Percocet. Garrett catheter was placed and drained large amount of urine. Patient had no motor or sensory deficits, no fecal or urinary incontinence, and no saddle anesthesia On 12/30, MRI of the thoracic/lumbar spine report showed no spinal cord compression, however it does show diffuse leptomeningeal thickening of the spinal cord suspicious for malignancy versus inflammation. There was originally concern for infection as well; however this is seen as much less likely as the patient has no hx of spinal surgery or signs of infection. As per discussion with consultants, they recommend the patient to have biopsy of the cord in order to ascertain if the thickening is due to metastatic disease versus inflammatory changes. Neurosurgery was consulted ( Dr Garcia- did not rec biopsy) 01/01: Biopsy unable to be obtained. Anesthesia consulted for Lumbar puncture instead for cytology for further evaluation of the leptominengeal thickening. However since pt's Blood c/s came back + for Staph aureus, anesthesia did not do LP. 1) Severe acute on chronic back pain with urinary retention, spinal cord compression ruled out; however now with diffuse leptomeningeal thickening on MRI concerning for metastatic disease vs. inflammatory changes/ Infection - Continue telemetry monitoring - Decadron 8 mg IVP q 8 hours - Dr. Maddy Garcia hematology oncology consultant- recommends continuing steroids for now - Dr. Merchant, neurology on consultation - Dr. Garcia, neurosurgery- no workup - Pain better today 2) Staph aureus in blood culture x 2 bottles- ? etiology unclear etiology - ? Epidural abscess - Staph bacteremia - Dr. Bridges on consultation - Echocardiogram : no vegetation - Continue Vancomycin x 4 wks as rec by ID - will rpt Blood c/s - if neg , PICC line will be placed - Urine c/s : neg 3) Afib with RVR- now controlled - Restarted Digoxin 0.125 mg po daily - Restarted Coreg - telemetry monitoring 4) Hypokalemia,- resolved - continue po repletion 5) Essential htn - chronic - restarted home po medications 6) Multiple myeloma - chronic - Dr. Maddy Garcia on consultation for heme/onc - may need further chemotherapy if LP shows cytology consistent with mets 7. DVT prophylaxis - will restart Xarelto
[2018-01-02] MEDS: Dexamethasone 4 mg/1 ml IVP SCH ×3 (01:19→17:33)
[2018-01-02 08:15] LABS: BASO % 0.2 % (0.0-2.0); HEMOGLOBIN 12.9 g/dL (12.0-16.0); LYMPH # 0.4 K/uL (1.0-4.3); MEAN CELL VOLUME 89.2 fl (81.0-99.0); MEAN CORPUSCULAR HEMOGLOBIN 29.7 pg (27.0-31.0); MEAN CORPUSCULAR HGB CONC 33.3 g/dL (33.0-37.0); MONO # 0.7 K/uL (0.0-0.8); MONO % 7.9 % (0.0-10.0); NEUT # 7.9 K/uL (1.8-7.0); NEUT % 87.9 % (50.0-75.0); PLATELET COUNT 308 K/uL (130-400); RBC 4.35 Mil/uL (3.80-5.20); RED CELL DISTRIBUTION WIDTH 16.1 % (11.5-14.5)
--- NOTE | 2018-01-02 08:20 | CP.PCM.PN ---
Subjective - Date & Time of Evaluation Date of Evaluation: 01/02/18 Time of Evaluation: 08:19 - Subjective Subjective: Pt continues to improve. Her pain in the upper back is only when she turns, otherwise she is much better. She will continue the antibiotics for 3 more weeks. Pt's shultz catheter was removed, and she is urinating on her own. Will discuss with neurologist and start decreasing the dose of steroids. Objective - Vital Signs/Intake and Output Vital Signs (last 24 hours): Temp Pulse Resp BP Pulse Ox 97.9 F 88 18 144/88 98 01/02/18 05:02 01/02/18 05:02 01/02/18 05:02 01/02/18 05:02 01/02/18 05:02 - Medications Medications: Current Medications Allopurinol (Zyloprim) 100 mg PO DAILY [facility] Last Admin: 01/01/18 09:04 Dose: 100 mg Carvedilol (Coreg) 25 mg PO Q12 [facility] Last Admin: 01/01/18 20:34 Dose: 25 mg Dexamethasone (Decadron Inj) 8 mg IVP Q8H [facility] Last Admin: 01/02/18 01:19 Dose: 8 mg Digoxin (Digoxin) 0.125 mg PO DAILY [facility] Last Admin: 01/01/18 09:01 Dose: 0.125 mg Docusate Sodium (Colace) 200 mg PO BID [facility] Last Admin: 01/01/18 17:11 Dose: 200 mg Famotidine (Pepcid) 20 mg PO DAILY [facility] Last Admin: 01/01/18 09:03 Dose: 20 mg Furosemide (Lasix) 20 mg PO BID [facility] Last Admin: 01/01/18 17:11 Dose: 20 mg Guaifenesin/Dextromethorphan (Robitussin Dm) 10 ml PO Q4 PRN PRN Reason: Cough Last Admin: 12/30/17 21:30 Dose: 10 ml Home Med (Lenalidomide [Revlimid]) 15 mg PO DAILY [facility] Last Admin: 01/01/18 09:02 Dose: 15 mg Vancomycin HCl 1 gm/ Sodium (Chloride) 250 mls @ 166.667 mls/hr IVPB Q12 [facility] PRN Reason: Protocol Last Admin: 01/01/18 20:34 Dose: 166.667 mls/hr Lisinopril (Zestril) 10 mg PO DAILY [facility] Last Admin: 01/01/18 09:03 Dose: 10 mg Morphine Sulfate (Morphine) 2 mg IVP Q4 PRN PRN Reason: Pain, moderate (4-7) Last Admin: 01/01/18 10:32 Dose: 2 mg Morphine Sulfate (Morphine) 5 mg IVP Q6H PRN PRN Reason: Pain, severe (8-10) Potassium Chloride (K-Dur 20 Meq Er Tab) 20 meq PO BID [facility] Last Admin: 01/01/18 17:11 Dose: 20 meq Pregabalin (Lyrica) 75 mg PO BID [facility] Last Admin: 01/01/18 17:15 Dose: 75 mg Prochlorperazine (Compazine) 10 mg IVP Q8H PRN PRN Reason: Nausea/Vomiting Rivaroxaban (Xarelto) 20 mg PO DAILY [facility] PRN Reason: Protocol Last Admin: 01/01/18 12:20 Dose: 20 mg - Labs Labs: 01/01/18 05:56 01/01/18 05:56 PT 13.8 Seconds (9.8-13.1) H 12/31/17 12:05 INR 1.2 (0.9-1.2) 12/31/17 12:05 APTT 29.6 Seconds (25.6-37.1) 12/31/17 12:05
--- NOTE | 2018-01-02 08:42 | CARD ---
APPROVED REPORT EKG Measurement Heart [id number] <Conclusion> Atrial fibrillation Nonspecific T wave abnormality Abnormal ECG
[2018-01-02] MEDS: Digoxin 125 mcg (0.125 mg) Tab PO SCH (08:53)
[2018-01-02] MEDS: Potassium Chloride 20 mEq ER Tab PO SCH ×2 (08:53→17:33)
[2018-01-02] MEDS: LENALIDOMIDE 15 MG PO SCH (08:54)
[2018-01-02 09:07] LABS: ALB/GLOB RATIO 0.9 (1.0-2.1); ALBUMIN 2.9 g/dL (3.5-5.0); ALT/SGPT 308 U/L (9-52); AST/SGOT 61 U/L (14-36); BLOOD UREA NITROGEN 15 mg/dl (7-17); CALCIUM 8.2 mg/dL (8.4-10.2); GFR AFRICAN-AMERICAN > 60; GFR NON-AFRICAN AMERICAN > 60
[2018-01-02 11:55] LABS: ANISOCYTOSIS SLIGHT; BANDS 3 % (0-2); HYPOCHROMIC SLIGHT; LYMPHOCYTE 9 % (20-50); MONOCYTE 7 % (0-10); NEUTROPHIL 81 % (42-75); PLATELET ESTIMATE NORMAL (NORMAL); TOTAL CELLS COUNTED 100
--- NOTE | 2018-01-02 13:28 | CP.PCM.PN ---
Subjective - Date & Time of Evaluation Date of Evaluation: 01/02/18 Time of Evaluation: 11:00 - Subjective Subjective: Patient seen and examined. Admitted feeling with pain more tolerable Objective - Vital Signs/Intake and Output Vital Signs (last 24 hours): Temp Pulse Resp BP Pulse Ox 97.9 F 84 20 117/76 95 01/02/18 12:50 01/02/18 12:50 01/02/18 12:50 01/02/18 12:50 01/02/18 12:50 - Medications Medications: Current Medications Allopurinol (Zyloprim) 100 mg PO DAILY [facility] Last Admin: 01/02/18 08:55 Dose: 100 mg Carvedilol (Coreg) 25 mg PO Q12 [facility] Last Admin: 01/02/18 08:52 Dose: 25 mg Dexamethasone (Decadron Inj) 8 mg IVP Q8H [facility] Last Admin: 01/02/18 08:53 Dose: 8 mg Digoxin (Digoxin) 0.125 mg PO DAILY [facility] Last Admin: 01/02/18 08:53 Dose: 0.125 mg Docusate Sodium (Colace) 200 mg PO BID [facility] Last Admin: 01/02/18 08:52 Dose: 200 mg Famotidine (Pepcid) 20 mg PO DAILY [facility] Last Admin: 01/02/18 08:54 Dose: 20 mg Furosemide (Lasix) 20 mg PO BID [facility] Last Admin: 01/02/18 08:54 Dose: 20 mg Guaifenesin/Dextromethorphan (Robitussin Dm) 10 ml PO Q4 PRN PRN Reason: Cough Last Admin: 12/30/17 21:30 Dose: 10 ml Home Med (Lenalidomide [Revlimid]) 15 mg PO DAILY [facility] Last Admin: 01/02/18 08:54 Dose: 15 mg Vancomycin HCl 1 gm/ Sodium (Chloride) 250 mls @ 166.667 mls/hr IVPB Q12 [facility] PRN Reason: Protocol Last Admin: 01/02/18 08:58 Dose: 166.667 mls/hr Lisinopril (Zestril) 10 mg PO DAILY [facility] Last Admin: 01/02/18 08:54 Dose: 10 mg Morphine Sulfate (Morphine) 2 mg IVP Q4 PRN PRN Reason: Pain, moderate (4-7) Last Admin: 01/02/18 09:54 Dose: 2 mg Morphine Sulfate (Morphine) 5 mg IVP Q6H PRN PRN Reason: Pain, severe (8-10) Potassium Chloride (K-Dur 20 Meq Er Tab) 20 meq PO BID [facility] Last Admin: 01/02/18 08:53 Dose: 20 meq Prochlorperazine (Compazine) 10 mg IVP Q8H PRN PRN Reason: Nausea/Vomiting Rivaroxaban (Xarelto) 20 mg PO DAILY [facility] PRN Reason: Protocol Last Admin: 01/02/18 08:54 Dose: 20 mg - Labs Labs: 01/02/18 06:12 01/02/18 06:12 PT 13.8 Seconds (9.8-13.1) H 12/31/17 12:05 INR 1.2 (0.9-1.2) 12/31/17 12:05 APTT 29.6 Seconds (25.6-37.1) 12/31/17 12:05 - Constitutional Appears: No Acute Distress - Head Exam Head Exam: ATRAUMATIC - Eye Exam Eye Exam: absent: Scleral icterus - ENT Exam ENT Exam: Mucous Membranes Moist - Neck Exam Neck Exam: absent: Meningismus - Respiratory Exam Respiratory Exam: absent: Rales, Rhonchi, Wheezes, Respiratory Distress - Cardiovascular Exam Cardiovascular Exam: Irregular Rhythm - GI/Abdominal Exam GI & Abdominal Exam: Soft. absent: Tenderness - Rectal Exam Rectal Exam: Deferred - Extremities Exam Extremities Exam: absent: Calf Tenderness, Pedal Edema - Back Exam Back Exam: absent: tenderness - Neurological Exam Neurological Exam: Alert, Oriented x3 - Psychiatric Exam Psychiatric exam: Normal Affect - Skin Skin Exam: Dry, Intact Assessment and Plan - Assessment and Plan (Free Text) Assessment: 62 yo female with history of AFib, HTN, Multiple Myeloma with Chronic Back Pain and CHF came in because of worsening back pain. MRI of the thoraco-lumbar spine was negative for cord compression but showed diffuse leptomeningeal thickening of the spinal cord. Metastasis or inflammation were entertained so biopsy was recommended. Neurosurgery consult however did not recommend biopsy but instead recommended cytology of the CSF. Blood culture grew Staph aureus and patient was put on IV Vanco. Lumbar tap was held because of Staph bacteremia and would have to wait until the bacteremia is resolved. 1. Acute on chronic back pain MRI showed leptomeningeal thickening lumbar tap for CSF cytology on hold until bacteremia is cleared Decadron 8 mg IVP q 8 hours patient had better relief from pain and has been moving around 2. Staph aureus Bacteremia ID consult with Dr Bridges Echocardiogram showed no vegetation Continue IV Vancomycin for a total of 4 wks follow up blood culture: negative for growth PICC line possibly by Thursday 3. Afib rate controlled continue Digoxin and Coreg continue Xarelto 4. HTN BP stable continue Coreg, Lisinopril and Lasix 5. Multiple myeloma Dr Patiño on oncology consult 6. DVT prophylaxis on Xarelto
[2018-01-03] MEDS: Dexamethasone 4 mg/1 ml IVP SCH ×3 (01:41→17:36)
[2018-01-03] MEDS: LENALIDOMIDE 15 MG PO SCH (08:40)
[2018-01-03] MEDS: Potassium Chloride 20 mEq ER Tab PO SCH ×2 (08:40→17:35)
[2018-01-03] MEDS: Digoxin 125 mcg (0.125 mg) Tab PO SCH (08:41)
--- NOTE | 2018-01-03 09:29 | CP.PCM.PN ---
Subjective - Date & Time of Evaluation Date of Evaluation: 01/03/18 Time of Evaluation: 09:26 - Subjective Subjective: Pt is feekling much better, even though she still has pain off and on in the right side of the upper back. CBC is stable Her chemistries show a marked increase in the liver enzymes. Her Bilirubin is normal but the AST, ALT, and ALK are richard much increased..Will do a abdominal ultrasound. tomorrow, and discuss with ID and Neurology if all meds can be continued, Objective - Vital Signs/Intake and Output Vital Signs (last 24 hours): Temp Pulse Resp BP Pulse Ox 98.2 F 80 18 128/85 96 01/03/18 08:00 01/03/18 08:42 01/03/18 08:00 01/03/18 08:42 01/03/18 08:00 - Medications Medications: Current Medications Allopurinol (Zyloprim) 100 mg PO DAILY [facility] Last Admin: 01/03/18 08:42 Dose: 100 mg Carvedilol (Coreg) 25 mg PO Q12 [facility] Last Admin: 01/03/18 08:40 Dose: 25 mg Dexamethasone (Decadron Inj) 8 mg IVP Q8H [facility] Last Admin: 01/03/18 01:41 Dose: 8 mg Digoxin (Digoxin) 0.125 mg PO DAILY [facility] Last Admin: 01/03/18 08:41 Dose: 0.125 mg Docusate Sodium (Colace) 200 mg PO BID [facility] Last Admin: 01/03/18 08:41 Dose: 200 mg Famotidine (Pepcid) 20 mg PO DAILY [facility] Last Admin: 01/03/18 08:39 Dose: 20 mg Furosemide (Lasix) 20 mg PO BID [facility] Last Admin: 01/03/18 08:40 Dose: 20 mg Guaifenesin/Dextromethorphan (Robitussin Dm) 10 ml PO Q4 PRN PRN Reason: Cough Last Admin: 12/30/17 21:30 Dose: 10 ml Home Med (Lenalidomide [Revlimid]) 15 mg PO DAILY [facility] Last Admin: 01/03/18 08:40 Dose: 15 mg Vancomycin HCl 1 gm/ Sodium (Chloride) 250 mls @ 166.667 mls/hr IVPB Q12 [facility] PRN Reason: Protocol Last Admin: 01/02/18 21:35 Dose: 166.667 mls/hr Lisinopril (Zestril) 10 mg PO DAILY [facility] Last Admin: 01/03/18 08:42 Dose: 10 mg Potassium Chloride (K-Dur 20 Meq Er Tab) 20 meq PO BID [facility] Last Admin: 01/03/18 08:40 Dose: 20 meq Pregabalin (Lyrica) 75 mg PO BID [facility] Last Admin: 01/03/18 08:35 Dose: 75 mg Prochlorperazine (Compazine) 10 mg IVP Q8H PRN PRN Reason: Nausea/Vomiting Rivaroxaban (Xarelto) 20 mg PO DAILY [facility] PRN Reason: Protocol Last Admin: 01/03/18 08:36 Dose: 20 mg - Labs Labs: 01/02/18 06:12 01/02/18 06:12 PT 13.8 Seconds (9.8-13.1) H 12/31/17 12:05 INR 1.2 (0.9-1.2) 12/31/17 12:05 APTT 29.6 Seconds (25.6-37.1) 12/31/17 12:05
--- NOTE | 2018-01-03 13:12 | CP.PCM.PN ---
Subjective - Date & Time of Evaluation Date of Evaluation: 01/03/18 Time of Evaluation: 11:30 - Subjective Subjective: Patient seen and examined. Claimed she is able to move around with minimal back pain Objective - Vital Signs/Intake and Output Vital Signs (last 24 hours): Temp Pulse Resp BP Pulse Ox 97.8 F 82 18 127/83 96 01/03/18 12:00 01/03/18 12:00 01/03/18 12:00 01/03/18 12:00 01/03/18 12:00 - Medications Medications: Current Medications Allopurinol (Zyloprim) 100 mg PO DAILY [facility] Last Admin: 01/03/18 08:42 Dose: 100 mg Carvedilol (Coreg) 25 mg PO Q12 [facility] Last Admin: 01/03/18 08:40 Dose: 25 mg Dexamethasone (Decadron Inj) 8 mg IVP Q8H [facility] Last Admin: 01/03/18 09:57 Dose: 8 mg Digoxin (Digoxin) 0.125 mg PO DAILY [facility] Last Admin: 01/03/18 08:41 Dose: 0.125 mg Docusate Sodium (Colace) 200 mg PO BID [facility] Last Admin: 01/03/18 08:41 Dose: 200 mg Famotidine (Pepcid) 20 mg PO DAILY [facility] Last Admin: 01/03/18 08:39 Dose: 20 mg Furosemide (Lasix) 20 mg PO BID [facility] Last Admin: 01/03/18 08:40 Dose: 20 mg Guaifenesin/Dextromethorphan (Robitussin Dm) 10 ml PO Q4 PRN PRN Reason: Cough Last Admin: 12/30/17 21:30 Dose: 10 ml Home Med (Lenalidomide [Revlimid]) 15 mg PO DAILY [facility] Last Admin: 01/03/18 08:40 Dose: 15 mg Vancomycin HCl 1 gm/ Sodium (Chloride) 250 mls @ 166.667 mls/hr IVPB Q12 [facility] PRN Reason: Protocol Last Admin: 01/03/18 09:55 Dose: 166.667 mls/hr Lisinopril (Zestril) 10 mg PO DAILY [facility] Last Admin: 01/03/18 08:42 Dose: 10 mg Potassium Chloride (K-Dur 20 Meq Er Tab) 20 meq PO BID [facility] Last Admin: 01/03/18 08:40 Dose: 20 meq Pregabalin (Lyrica) 75 mg PO BID [facility] Last Admin: 01/03/18 08:35 Dose: 75 mg Prochlorperazine (Compazine) 10 mg IVP Q8H PRN PRN Reason: Nausea/Vomiting Rivaroxaban (Xarelto) 20 mg PO DAILY [facility] PRN Reason: Protocol Last Admin: 01/03/18 08:36 Dose: 20 mg - Labs Labs: 01/02/18 06:12 01/02/18 06:12 PT 13.8 Seconds (9.8-13.1) H 12/31/17 12:05 INR 1.2 (0.9-1.2) 12/31/17 12:05 APTT 29.6 Seconds (25.6-37.1) 12/31/17 12:05 - Constitutional Appears: No Acute Distress - Head Exam Head Exam: ATRAUMATIC - Eye Exam Eye Exam: absent: Scleral icterus - ENT Exam ENT Exam: Mucous Membranes Moist - Neck Exam Neck Exam: absent: Meningismus - Respiratory Exam Respiratory Exam: absent: Rales, Rhonchi, Wheezes, Respiratory Distress - Cardiovascular Exam Cardiovascular Exam: Irregular Rhythm - GI/Abdominal Exam GI & Abdominal Exam: Soft. absent: Tenderness - Rectal Exam Rectal Exam: Deferred - Extremities Exam Extremities Exam: absent: Calf Tenderness, Pedal Edema - Back Exam Back Exam: absent: tenderness - Neurological Exam Neurological Exam: Alert, Oriented x3 - Psychiatric Exam Psychiatric exam: Normal Affect - Skin Skin Exam: Dry, Intact Assessment and Plan - Assessment and Plan (Free Text) Assessment: 62 yo female with history of AFib, HTN, Multiple Myeloma with Chronic Back Pain and CHF came in because of worsening back pain. MRI of the thoraco-lumbar spine was negative for cord compression but showed diffuse leptomeningeal thickening of the spinal cord. Metastasis or inflammation were entertained so biopsy was recommended. Neurosurgery consult however did not recommend biopsy but instead recommended cytology of the CSF. Blood culture grew Staph aureus and patient was put on IV Vanco. Lumbar tap was held because of Staph bacteremia and would have to wait until the bacteremia is resolved. 1. Acute on chronic back pain MRI showed leptomeningeal thickening lumbar tap for CSF cytology on hold until bacteremia is cleared Decadron 8 mg IVP q 8 hours patient had better relief from pain and has been moving around 2. Staph aureus Bacteremia ID consult with Dr Bridges Echocardiogram showed no vegetation Continue IV Vancomycin 1gm q 12hrs for a total of 4 wks subsequent blood culture: no growth PICC line on Thursday 3. Afib rate controlled continue Digoxin and Coreg continue Xarelto 4. HTN BP stable continue Coreg, Lisinopril and Lasix 5. Multiple myeloma Dr Patiño on oncology consult 6. elevated LFTs maybe secondary to Xarelto which can induced hepatitis and elevated ALT or liver mets abdominal sonogram repeat LFT 7. DVT prophylaxis on Xarelto
[2018-01-04] MEDS: Dexamethasone 4 mg/1 ml IVP SCH ×3 (01:03→23:03)
[2018-01-04] MEDS: Digoxin 125 mcg (0.125 mg) Tab PO SCH (08:32)
[2018-01-04] MEDS: LENALIDOMIDE 15 MG PO SCH (08:33)
[2018-01-04] MEDS: Potassium Chloride 20 mEq ER Tab PO SCH ×2 (08:34→16:56)
--- NOTE | 2018-01-04 09:20 | US ---
HISTORY: sudden elevation in hepatic enzymes COMPARISON: Unenhanced abdomen and pelvis CT examination 06/26/2014. TECHNIQUE: Sonographic evaluation of the abdomen. FINDINGS: LIVER: Measures 19.2 cm. A 3.4 x 3.0 x 3.8 cm cysts is seen the left lobe liver with minimal septation related, not significantly changed in size compared a prior abdomen pelvis CT 06/26/2014 when it measured 3.7 greatest dimension. Overall echogenicity of the liver parenchyma is otherwise unremarkable. No solid mass evident. No intrahepatic bile duct dilatation. GALLBLADDER: Unremarkable. No gallstones. COMMON BILE DUCT: Measures 3.9 mm. No stones. No dilatation. PANCREAS: The tail of the pancreas is obscured by overlying bowel gas with remainder unremarkable. RIGHT KIDNEY: Measures 13.3cm. Normal echogenicity. No calculus, mass, or hydronephrosis. LEFT KIDNEY: Measures 13.1cm. Normal echogenicity. No calculus, mass, or hydronephrosis. SPLEEN: Normal in size and contour. No mass. The spleen measures 10.7 cm. AORTA: No aneurysmal dilatation. IVC: Unremarkable. OTHER FINDINGS: None. IMPRESSION: Stable minimally complex cyst left lobe liver with liver otherwise unremarkable. Partial imaging of the pancreas due to overlying bowel gas. The remainder of the examination appears unremarkable.
--- NOTE | 2018-01-04 10:06 | CP.PCM.PN ---
Subjective - Date & Time of Evaluation Date of Evaluation: 01/04/18 Time of Evaluation: 09:49 - Subjective Subjective: Pt is afebrile in no acute distress. She is going to be on antibiotics for the next 2 weeks. She has already missed her chemo for 2 weeks because of hospital admissions. Considering the rate of progress of her myeloma, it is imperative that we start her chemo as soon as possible. It does not cause significant neutropenia , so it should not interfere with the infection and antibiotics. Will start her on chemo today with Kyprolis,decadron and revlimid. Objective - Vital Signs/Intake and Output Vital Signs (last 24 hours): Temp Pulse Resp BP Pulse Ox 97.7 F 67 20 107/68 97 01/04/18 08:30 01/04/18 08:33 01/04/18 08:30 01/04/18 08:34 01/04/18 08:30 Intake and Output: 01/04/18 01/04/18 06:59 18:59 Intake Total 990 Balance 990 - Medications Medications: Current Medications Allopurinol (Zyloprim) 100 mg PO DAILY [facility] Last Admin: 01/04/18 08:32 Dose: 100 mg Carvedilol (Coreg) 25 mg PO Q12 [facility] Last Admin: 01/04/18 08:32 Dose: 25 mg Digoxin (Digoxin) 0.125 mg PO DAILY [facility] Last Admin: 01/04/18 08:32 Dose: 0.125 mg Docusate Sodium (Colace) 200 mg PO BID [facility] Last Admin: 01/04/18 08:33 Dose: 200 mg Famotidine (Pepcid) 20 mg PO DAILY [facility] Last Admin: 01/04/18 08:31 Dose: 20 mg Furosemide (Lasix) 20 mg PO BID [facility] Last Admin: 01/04/18 08:34 Dose: 20 mg Guaifenesin/Dextromethorphan (Robitussin Dm) 10 ml PO Q4 PRN PRN Reason: Cough Last Admin: 12/30/17 21:30 Dose: 10 ml Home Med (Lenalidomide [Revlimid]) 15 mg PO DAILY [facility] Last Admin: 01/04/18 08:33 Dose: 15 mg Vancomycin HCl 1 gm/ Sodium (Chloride) 250 mls @ 166.667 mls/hr IVPB Q12 [facility] PRN Reason: Protocol Last Admin: 01/04/18 08:38 Dose: 166.667 mls/hr Lisinopril (Zestril) 10 mg PO DAILY [facility] Last Admin: 01/04/18 08:33 Dose: 10 mg Morphine Sulfate (Morphine) 2 mg IVP Q4 PRN PRN Reason: Pain, moderate (4-7) Last Admin: 01/04/18 09:32 Dose: 2 mg Potassium Chloride (K-Dur 20 Meq Er Tab) 20 meq PO BID [facility] Last Admin: 01/04/18 08:34 Dose: 20 meq Pregabalin (Lyrica) 75 mg PO BID [facility] Last Admin: 01/03/18 17:35 Dose: 75 mg Prochlorperazine (Compazine) 10 mg IVP Q8H PRN PRN Reason: Nausea/Vomiting Rivaroxaban (Xarelto) 20 mg PO DAILY [facility] PRN Reason: Protocol Last Admin: 01/04/18 08:32 Dose: 20 mg - Labs Labs: 01/02/18 06:12 01/02/18 06:12 PT 13.8 Seconds (9.8-13.1) H 12/31/17 12:05 INR 1.2 (0.9-1.2) 12/31/17 12:05 APTT 29.6 Seconds (25.6-37.1) 12/31/17 12:05
[2018-01-04] MEDS ORDERED: Lidocaine Hydrochloride 1% 10 ML ONE (10:16)
--- NOTE | 2018-01-04 10:41 | PCM.SURG1 ---
Surgeon's Initial Post Op Note - Surgeon's Notes Surgeon: Arron James MD Speech Language Specialist: None Type of Anesthesia: Local Pre-Operative Diagnosis: infection Operative Findings: patent right basilic vein. catheter length: 35 cm. catheter tip: cavoatrial junction Post-Operative Diagnosis: same Operation Performed: RUE PICC Insertion Specimen/Specimens Removed: n/a Estimated Blood Loss: EBL {In ML}: 3 Date of Surgery/Procedure: 01/04/18 Time of Surgery/Procedure: 10:30
--- NOTE | 2018-01-04 11:16 | VASCULAR ---
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 COMPARISON: None. PROCEDURE: 1. Focused ultrasound of the right upper extremity vasculature. 2. Ultrasound-guided access. 3. Insertion of peripherally inserted central venous catheter. 4. Fluoroscopic localization of catheter tip. PRE-PROCEDURE FINDINGS: 1. Patent right basilic vein. POST-PROCEDURE FINDINGS: 1. Placement of 4 [place] single-lumen PICC. 2. Catheter length: 35 cm. 3. Catheter tip at cavoatrial junction. INTERVENTIONAL RADIOLOGIST: Arron James M.D. (the attending was present for the entire procedure) ANESTHESIA: None. MEDICATION: Lidocaine 1% for local subcutaneous analgesia. COMPLICATIONS: None. RADIATION DOSE: Fluoroscopy Time: 7.6 seconds Cumulative Dose: 1.44 mGy PROCEDURE DESCRIPTION AND FINDINGS: The risks, benefits, alternatives and possible complications of the procedure were fully discussed; all questions were answered and informed consent was obtained. The patient was brought into the interventional suite and a pre-procedure 'time-out' was performed. The patient was placed on the fluoroscopy table in the supine position. The right upper extremity was prepped and draped in the usual sterile fashion. Maximum sterile barrier precautions were maintained throughout the entire procedure. Preliminary ultrasound images of the right upper extremity vasculature demonstrate patency of the right basilic vein. Following subcutaneous infiltration of 1% lidocaine for local analgesia, under ultrasound guidance, a 21-gauge needle was advanced into the right basilic vein with real-time visualization of needle entry. The ultrasound images were permanently recorded and submitted to the PACS. A 0.018 guidewire was advanced centrally to the cavoatrial junction. A 4.5 [place] peel-away sheath was advanced over the guidewire. After obtaining length measurement, a 4 [place] single-lumen PICC was placed with the tip of the catheter at the cavoatrial junction. The total length of the catheter is 35 cm. The hub of the PICC was secured to the skin using a sterile adhesive bandage. The patient tolerated the procedure well without immediate post-procedure complications and was transferred back to the floor in stable condition. IMPRESSION: SUCCESSFUL INSERTION OF RIGHT UPPER EXTREMITY PICC. PICC OK TO USE.
--- NOTE | 2018-01-04 11:47 | CP.PCM.PN ---
Subjective - Date & Time of Evaluation Date of Evaluation: 01/04/18 Time of Evaluation: 10:30 - Subjective Subjective: Pt is in better spirit no fever Low back pain better controlled + BM denies CP no SOB no abd pain Objective - Vital Signs/Intake and Output Vital Signs (last 24 hours): Temp Pulse Resp BP Pulse Ox 99.0 F 94 H 18 104/50 L 98 01/04/18 10:31 01/04/18 10:31 01/04/18 10:31 01/04/18 10:31 01/04/18 10:31 Intake and Output: 01/04/18 01/04/18 06:59 18:59 Intake Total 990 Balance 990 - Medications Medications: Current Medications Allopurinol (Zyloprim) 100 mg PO DAILY [facility] Last Admin: 01/04/18 08:32 Dose: 100 mg Carvedilol (Coreg) 25 mg PO Q12 [facility] Last Admin: 01/04/18 08:32 Dose: 25 mg Digoxin (Digoxin) 0.125 mg PO DAILY [facility] Last Admin: 01/04/18 08:32 Dose: 0.125 mg Diphenhydramine HCl (Benadryl) 25 mg PO ONCE ONE Stop: 01/04/18 10:23 Docusate Sodium (Colace) 200 mg PO BID [facility] Last Admin: 01/04/18 08:33 Dose: 200 mg Famotidine (Pepcid) 20 mg PO DAILY [facility] Last Admin: 01/04/18 08:31 Dose: 20 mg Furosemide (Lasix) 20 mg PO BID [facility] Last Admin: 01/04/18 08:34 Dose: 20 mg Granisetron HCl (Kytril) 1 mg PO ONCE ONE Stop: 01/04/18 10:24 Guaifenesin/Dextromethorphan (Robitussin Dm) 10 ml PO Q4 PRN PRN Reason: Cough Last Admin: 12/30/17 21:30 Dose: 10 ml Home Med (Lenalidomide [Revlimid]) 15 mg PO DAILY [facility] Last Admin: 01/04/18 08:33 Dose: 15 mg Vancomycin HCl 1 gm/ Sodium (Chloride) 250 mls @ 166.667 mls/hr IVPB Q12 [facility] PRN Reason: Protocol Last Admin: 01/04/18 08:38 Dose: 166.667 mls/hr Carfilzomib 54 mg/ Dextrose 50 mls @ 0 mls/hr IV ONCE ONE PRN Reason: As Directed Stop: 01/04/18 10:24 Lisinopril (Zestril) 10 mg PO DAILY [facility] Last Admin: 01/04/18 08:33 Dose: 10 mg Morphine Sulfate (Morphine) 2 mg IVP Q4 PRN PRN Reason: Pain, moderate (4-7) Last Admin: 01/04/18 09:32 Dose: 2 mg Potassium Chloride (K-Dur 20 Meq Er Tab) 20 meq PO BID [facility] Last Admin: 01/04/18 08:34 Dose: 20 meq Pregabalin (Lyrica) 75 mg PO BID [facility] Last Admin: 01/03/18 17:35 Dose: 75 mg Prochlorperazine (Compazine) 10 mg IVP Q8H PRN PRN Reason: Nausea/Vomiting Rivaroxaban (Xarelto) 20 mg PO DAILY [facility] PRN Reason: Protocol Last Admin: 01/04/18 08:32 Dose: 20 mg - Labs Labs: 01/02/18 06:12 01/02/18 06:12 PT 13.8 Seconds (9.8-13.1) H 12/31/17 12:05 INR 1.2 (0.9-1.2) 12/31/17 12:05 APTT 29.6 Seconds (25.6-37.1) 12/31/17 12:05 - Constitutional Appears: No Acute Distress - Head Exam Head Exam: ATRAUMATIC, NORMAL INSPECTION, NORMOCEPHALIC - Eye Exam Eye Exam: EOMI, Normal appearance Pupil Exam: NORMAL ACCOMODATION - ENT Exam ENT Exam: Mucous Membranes Moist, Normal External Ear Exam - Neck Exam Neck Exam: Full ROM. absent: Meningismus - Respiratory Exam Respiratory Exam: NORMAL BREATHING PATTERN. absent: Rales, Wheezes, Respiratory Distress - Cardiovascular Exam Cardiovascular Exam: Irregular Rhythm, +S1, +S2 - GI/Abdominal Exam GI & Abdominal Exam: Soft, Normal Bowel Sounds. absent: Tenderness - Extremities Exam Extremities Exam: Normal Capillary Refill. absent: Calf Tenderness, Pedal Edema - Back Exam Back Exam: paraspinal tenderness, vertebral tenderness. absent: CVA tenderness (L), CVA tenderness (R) - Neurological Exam Neurological Exam: Alert, Awake, CN II-XII Intact, Oriented x3 Neuro motor strength exam: Left Upper Extremity: 5, Right Upper Extremity: 5, Left Lower Extremity: 5, Right Lower Extremity: 5 - Psychiatric Exam Psychiatric exam: Normal Affect, Normal Mood - Skin Skin Exam: Dry, Normal Color, Warm Assessment and Plan - Assessment and Plan (Free Text) Assessment: This is a 62 year old female with a past medical history significant for Atrial fibrillation anticoagulated on Xarelto, essential hypertension, Multiple myeloma , and CHF, who presented to the ED complaining of worsening back pain. The patient has chronic back pain due to the multiple myeloma, however today the pain became much worse. In addition the patient was found to have urinary retention x 1 day , prompting her to come to the ED. In the ED, the patient was found to be hemodynamically stable although in severe pain not relieved by Percocet. Garrett catheter was placed and drained large amount of urine. Patient had no motor or sensory deficits, no fecal or urinary incontinence, and no saddle anesthesia On 12/30, MRI of the thoracic/lumbar spine report showed no spinal cord compression, however it does show diffuse leptomeningeal thickening of the spinal cord suspicious for malignancy versus inflammation. There was originally concern for infection as well; however this is seen as much less likely as the patient has no hx of spinal surgery or signs of infection. As per discussion with consultants, they recommend the patient to have biopsy of the cord in order to ascertain if the thickening is due to metastatic disease versus inflammatory changes. Neurosurgery was consulted ( Dr Garcia- did not rec biopsy) 01/01: [facility] didnt rec biopsy. Anesthesia consulted for Lumbar puncture with Cytology for further evaluation of the leptominengeal thickening. However since pt's Blood c/s came back + for Staph aureus, anesthesia did not do LP. 1) Severe acute on chronic back pain with urinary retention, spinal cord compression ruled out; however now with diffuse leptomeningeal thickening on MRI concerning for metastatic disease vs. inflammatory changes/ Infection - Continue telemetry monitoring - Decadron 8 mg IVP q 8 hours - will slowly taper - Dr. Maddy Garcia clinical application consultant- plan to start Chemotherapy for MM today - Dr. Merchant, neurology on consultation- rec steroids - Dr. Garcia, neurosurgery- no workup - Pain better today 2) Staph aureus in blood culture x 2 bottles- ? etiology unclear etiology - ? Epidural abscess - Staph bacteremia - Dr. Bridges on consultation - Echocardiogram : no vegetation - Continue Vancomycin x 4 wks as rec by ID- plan for BJ placement -rpt Blood c/s neg , PICC line placed - Urine c/s : yeast 3) Afib with RVR- now controlled - cont Digoxin 0.125 mg po daily and Coreg - telemetry monitoring - cont Xarelto 4) Hypokalemia,- resolved - continue po repletion 5) Essential htn - chronic - restarted home po medications 6) Multiple myeloma - chronic - Dr. Maddy Garcia on consultation for heme/onc- discussed case - plan to start Chemotherapy - today and tomorrow 7. Abn LFT , ? mets vs sec to meds abd Sonogram 7. DVT prophylaxis - Xavanceto
--- NOTE | 2018-01-04 14:33 | CP.PCM.PN ---
Subjective - Date & Time of Evaluation Date of Evaluation: 01/04/18 Time of Evaluation: 14:33 - Subjective Subjective: ID note- Pt. seen and examined today. pt. in good spirits and smiling and states feels better and that her back pain is less. got call from oncologist who states pt. needs to resume her chemo for her MM and as per this particular regimen should not cause neutropenia. Objective - Vital Signs/Intake and Output Vital Signs (last 24 hours): Temp Pulse Resp BP Pulse Ox 97.7 F 93 H 18 98/62 L 97 01/04/18 12:44 01/04/18 12:44 01/04/18 12:44 01/04/18 12:44 01/04/18 12:44 Intake and Output: 01/04/18 01/04/18 06:59 18:59 Intake Total 990 Balance 990 - Medications Medications: Current Medications Allopurinol (Zyloprim) 100 mg PO DAILY [facility] Last Admin: 01/04/18 08:32 Dose: 100 mg Carvedilol (Coreg) 25 mg PO Q12 [facility] Last Admin: 01/04/18 08:32 Dose: 25 mg Digoxin (Digoxin) 0.125 mg PO DAILY [facility] Last Admin: 01/04/18 08:32 Dose: 0.125 mg Docusate Sodium (Colace) 200 mg PO BID [facility] Last Admin: 01/04/18 08:33 Dose: 200 mg Famotidine (Pepcid) 20 mg PO DAILY [facility] Last Admin: 01/04/18 08:31 Dose: 20 mg Furosemide (Lasix) 20 mg PO BID [facility] Last Admin: 01/04/18 08:34 Dose: 20 mg Guaifenesin/Dextromethorphan (Robitussin Dm) 10 ml PO Q4 PRN PRN Reason: Cough Last Admin: 12/30/17 21:30 Dose: 10 ml Home Med (Lenalidomide [Revlimid]) 15 mg PO DAILY [facility] Last Admin: 01/04/18 08:33 Dose: 15 mg Vancomycin HCl 1 gm/ Sodium (Chloride) 250 mls @ 166.667 mls/hr IVPB Q12 [facility] PRN Reason: Protocol Last Admin: 01/04/18 08:38 Dose: 166.667 mls/hr Carfilzomib 54 mg/ Dextrose 50 mls @ 100 mls/hr IV ONCE ONE PRN Reason: As Directed Stop: 01/04/18 15:14 Lisinopril (Zestril) 10 mg PO DAILY [facility] Last Admin: 01/04/18 08:33 Dose: 10 mg Morphine Sulfate (Morphine) 2 mg IVP Q4 PRN PRN Reason: Pain, moderate (4-7) Last Admin: 01/04/18 09:32 Dose: 2 mg Potassium Chloride (K-Dur 20 Meq Er Tab) 20 meq PO BID [facility] Last Admin: 01/04/18 08:34 Dose: 20 meq Pregabalin (Lyrica) 75 mg PO BID [facility] Last Admin: 01/04/18 11:53 Dose: Not Given Prochlorperazine (Compazine) 10 mg IVP Q8H PRN PRN Reason: Nausea/Vomiting Rivaroxaban (Xarelto) 20 mg PO DAILY [facility] PRN Reason: Protocol Last Admin: 01/04/18 08:32 Dose: 20 mg - Labs Labs: - Additional Findings Additional findings: - Constitutional Appears: No Acute Distress - Head Exam Head Exam: ATRAUMATIC - Eye Exam Eye Exam: EOMI, PERRL - ENT Exam ENT Exam: Normal Oropharynx - Neck Exam Neck exam: Positive for: Full Rom - Respiratory Exam Respiratory Exam: Clear to Auscultation Bilateral, NORMAL BREATHING PATTERN - Cardiovascular Exam Cardiovascular Exam: Irregular Rhythm Additional comments: Irregularly Irregular rate controlled - GI/Abdominal Exam GI & Abdominal Exam: Normal Bowel Sounds, Soft Additional comments: NT, ND - Extremities Exam Extremities exam: Positive for: normal inspection Additional comments: no edema B/L LE - Back Exam Back exam: tenderness Additional comments: positive tenderness in mid lower lumbar and thoracic region no lesions no erythema - Neurological Exam Neurological exam: Alert, Oriented x 3 Laboratory Results - last 72 hr 01/02/18 01/02/18 01/02/18 06:12 06:12 06:12 WBC 9.0 RBC 4.35 Hgb 12.9 Hct 38.8 MCV 89.2 MCH 29.7 MCHC 33.3 RDW 16.1 H Plt Count 308 MPV 9.0 Neut % (Auto) 87.9 H Lymph % (Auto) 4.0 L [place] % (Auto) 7.9 Eos % (Auto) 0.0 Baso % (Auto) 0.2 Neut # (Auto) 7.9 H Lymph # (Auto) 0.4 L [place] # (Auto) 0.7 Eos # (Auto) 0.0 Baso # (Auto) 0.0 Neutrophils % (Manual) 81 H Band Neutrophils % 3 H Lymphocytes % (Manual) 9 L Monocytes % (Manual) 7 Platelet Estimate Normal Hypochromasia (manual) Slight Anisocytosis (manual) Slight Sodium 141 Potassium 4.2 Chloride 103 Carbon Dioxide 24 Anion Gap 18 BUN 15 Creatinine 0.4 L Est GFR ( Amer) > 60 Est GFR (Non-Af Amer) > 60 POC Glucose (mg/dL) Random Glucose 201 H Calcium 8.2 L Total Bilirubin 1.0 AST 61 H D ALT 308 H D Alkaline Phosphatase 187 H D Total Protein 6.1 L Albumin 2.9 L D Globulin 3.2 Albumin/Globulin Ratio 0.9 L Vancomycin Trough < 5.0 L 01/04/18 11:35 WBC RBC Hgb Hct MCV MCH MCHC RDW Plt Count MPV Neut % (Auto) Lymph % (Auto) [place] % (Auto) Eos % (Auto) Baso % (Auto) Neut # (Auto) Lymph # (Auto) [place] # (Auto) Eos # (Auto) Baso # (Auto) Neutrophils % (Manual) Band Neutrophils % Lymphocytes % (Manual) Monocytes % (Manual) Platelet Estimate Hypochromasia (manual) Anisocytosis (manual) Sodium Potassium Chloride Carbon Dioxide Anion Gap BUN Creatinine Est GFR ( Amer) Est GFR (Non-Af Amer) POC Glucose (mg/dL) 156 H Random Glucose Calcium Total Bilirubin AST ALT Alkaline Phosphatase Total Protein Albumin Globulin Albumin/Globulin Ratio Vancomycin Trough Microbiology 01/02/18 13:30 Urine Urine Culture - Final Yeast Species 01/02/18 06:12 Blood Blood Culture - Preliminary NO GROWTH AFTER 48 HOURS 12/31/17 18:44 Blood-Venous Blood Culture - Preliminary NO GROWTH AFTER 3 DAYS 12/30/17 17:38 Urine,Garrett Urine Culture - Final No Growth (<1,000 CFU/ML) 12/30/17 01:20 Blood-Venous Blood Culture - Final Staphylococcus Aureus 12/30/17 01:20 Blood-Venous Gram Stain - Final 12/30/17 01:40 Blood-Venous S.aureus & Coag-Neg Staph PNA FISH - Final 12/30/17 01:40 Blood-Venous Blood Culture - Final Staphylococcus Aureus 12/30/17 01:40 Blood-Venous Gram Stain - Final Assessment and Plan (1) Back pain Status: Acute (2) Atrial fib/flutter, transient Status: Acute (3) Fever Status: Acute (4) Bacteremia due to Staphylococcus aureus Status: Acute - Assessment and Plan (Free Text) Assessment: A/P- 62 year old female with CHF, A,fib, Multiple Myeloma with mets and undergoing chemo and radiation admitted with severe back pian and urinary retention, low garde fever and mild leukocytosis. afebrile leukocytosis has resolved blood cx- MSSA x 2 urine cx- neg repeat blood cx- neg x 2 TTE- no vegetation as per report plan- continue with IV vancomycin for staph bacteremia. keep vanco trough <20. day #6 today. check 2 more blood cx . since TTE negative source of bacteremia could be the epidural region/ perhaps epidural abscess. no LP as per anesthesia since pos blood cx. hence pt. would be assumed to have epidural abscess based on MRI findings pending further results. would need at least 3-4 weeks of IV abx for this MSSA bacteremia/ ? epidural abscess. all above d/w the hospitalist and with
[2018-01-04] MEDS ORDERED: WATER IV ONE (14:45)
[2018-01-04] MEDS ORDERED: CARFILZOMIB IV ONE (14:45)
[2018-01-04] MEDS ORDERED: DEXTROSE 5% IV ONE (14:45)
[2018-01-04] MEDS: Oxycodone/Acetaminophen 5/325 mg Tab PO PRN (21:05)
[2018-01-05 05:40] LABS: ALB/GLOB RATIO 0.9 (1.0-2.1); ALBUMIN 2.8 g/dL (3.5-5.0); ALT/SGPT 129 U/L (9-52); AST/SGOT 23 U/L (14-36); BLOOD UREA NITROGEN 16 mg/dl (7-17); CALCIUM 8.6 mg/dL (8.4-10.2); GFR AFRICAN-AMERICAN > 60; GFR NON-AFRICAN AMERICAN > 60
[2018-01-05 05:52] LABS: BASO % 0.1 % (0.0-2.0); EOS % 0.1 % (0.0-4.0); HEMOGLOBIN 13.2 g/dL (12.0-16.0); LYMPH # 0.3 K/uL (1.0-4.3); LYMPH % 1.6 % (20.0-40.0); MEAN CELL VOLUME 90.2 fl (81.0-99.0); MEAN CORPUSCULAR HEMOGLOBIN 29.4 pg (27.0-31.0); MEAN CORPUSCULAR HGB CONC 32.7 g/dL (33.0-37.0); MEAN PLATELET VOLUME 8.6 fl (7.2-11.7); MONO # 0.5 K/uL (0.0-0.8); MONO % 3.1 % (0.0-10.0); NEUT # 15.5 K/uL (1.8-7.0); NEUT % 95.1 % (50.0-75.0); PLATELET COUNT 306 K/uL (130-400); RBC 4.48 Mil/uL (3.80-5.20); RED CELL DISTRIBUTION WIDTH 15.7 % (11.5-14.5); WHITE BLOOD COUNT 16.3 K/uL (4.8-10.8)
[2018-01-05] MEDS: Dexamethasone 4 mg/1 ml IVP SCH ×2 (06:09→14:33)
[2018-01-05] MEDS: LENALIDOMIDE 15 MG PO SCH (09:38)
[2018-01-05] MEDS: Digoxin 125 mcg (0.125 mg) Tab PO SCH (09:39)
[2018-01-05] MEDS: Potassium Chloride 20 mEq ER Tab PO SCH ×2 (09:44→16:35)
[2018-01-05 09:47] LABS: ANISOCYTOSIS SLIGHT; BANDS 3 % (0-2); LYMPHOCYTE 3 % (20-50); MONOCYTE 3 % (0-10); NEUTROPHIL 91 % (42-75); PLATELET ESTIMATE NORMAL (NORMAL); TOTAL CELLS COUNTED 100
--- NOTE | 2018-01-05 10:00 | CP.PCM.PN ---
Subjective - Date & Time of Evaluation Date of Evaluation: 01/05/18 Time of Evaluation: 09:25 - Subjective Subjective: Pt still c/o pain in the right shoulder and upper back ,but improving.lower back pain is no longer present. She received chemotherapy yesterday and did well Second dose of chemotherapy today. Pt will be transferred to a sub acute rehab or TCU. tomorrow. Objective - Vital Signs/Intake and Output Vital Signs (last 24 hours): Temp Pulse Resp BP Pulse Ox 97.7 F 107 H 18 101/65 98 01/05/18 08:35 01/05/18 08:35 01/05/18 08:35 01/05/18 08:35 01/05/18 08:35 - Medications Medications: Current Medications Allopurinol (Zyloprim) 100 mg PO DAILY [facility] Last Admin: 01/04/18 08:32 Dose: 100 mg Carvedilol (Coreg) 25 mg PO Q12 [facility] Last Admin: 01/04/18 21:03 Dose: Not Given Dexamethasone (Decadron Inj) 8 mg IVP Q8H [facility] Last Admin: 01/05/18 06:09 Dose: 8 mg Digoxin (Digoxin) 0.125 mg PO DAILY [facility] Last Admin: 01/04/18 08:32 Dose: 0.125 mg Diphenhydramine HCl (Benadryl) 25 mg PO ONCE ONE Stop: 01/05/18 08:06 Docusate Sodium (Colace) 200 mg PO BID [facility] Last Admin: 01/04/18 16:57 Dose: 200 mg Famotidine (Pepcid) 20 mg PO DAILY [facility] Last Admin: 01/04/18 08:31 Dose: 20 mg Furosemide (Lasix) 20 mg PO BID [facility] Last Admin: 01/04/18 16:56 Dose: 20 mg Granisetron HCl (Kytril) 1 mg PO ONCE ONE Stop: 01/05/18 08:06 Guaifenesin/Dextromethorphan (Robitussin Dm) 10 ml PO Q4 PRN PRN Reason: Cough Last Admin: 12/30/17 21:30 Dose: 10 ml Home Med (Lenalidomide [Revlimid]) 15 mg PO DAILY [facility] Last Admin: 01/04/18 08:33 Dose: 15 mg Vancomycin HCl 1 gm/ Sodium (Chloride) 250 mls @ 166.667 mls/hr IVPB Q12 [facility] PRN Reason: Protocol Last Admin: 01/04/18 20:50 Dose: 166.667 mls/hr Carfilzomib 54 mg/ Dextrose 50 mls @ 0 mls/hr IV ONCE ONE PRN Reason: As Directed Stop: 01/05/18 08:07 Lisinopril (Zestril) 10 mg PO DAILY [facility] Last Admin: 01/04/18 08:33 Dose: 10 mg Oxycodone/Acetaminophen (Percocet 5/325 Mg Tab) 1 tab PO Q4 PRN PRN Reason: Other Stop: 01/07/18 19:25 Last Admin: 01/04/18 21:05 Dose: 1 tab Potassium Chloride (K-Dur 20 Meq Er Tab) 20 meq PO BID [facility] Last Admin: 01/04/18 16:56 Dose: 20 meq Pregabalin (Lyrica) 75 mg PO BID [facility] Last Admin: 01/04/18 16:56 Dose: 75 mg Prochlorperazine (Compazine) 10 mg IVP Q8H PRN PRN Reason: Nausea/Vomiting Rivaroxaban (Xarelto) 20 mg PO DAILY [facility] PRN Reason: Protocol Last Admin: 01/04/18 08:32 Dose: 20 mg - Labs Labs: 01/05/18 04:25 01/05/18 04:25 PT 13.8 Seconds (9.8-13.1) H 12/31/17 12:05 INR 1.2 (0.9-1.2) 12/31/17 12:05 APTT 29.6 Seconds (25.6-37.1) 12/31/17 12:05
[2018-01-05] MEDS: Oxycodone/Acetaminophen 5/325 mg Tab PO PRN (10:12)
[2018-01-05] MEDS ORDERED: CARFILZOMIB IV ONE (10:30)
[2018-01-05] MEDS ORDERED: WATER IV ONE (10:30)
[2018-01-05] MEDS ORDERED: DEXTROSE 5% IV ONE (10:30)
[2018-01-05] MEDS ORDERED: Sodium Chloride 0.9% 500 ML IV SCH (12:15)
--- NOTE | 2018-01-05 15:23 | CP.PCM.PN ---
Subjective - Date & Time of Evaluation Date of Evaluation: 01/05/18 Time of Evaluation: 13:00 - Subjective Subjective: ID note- pt. seen and examined today. in good spirits. receiving her CTX day #2. denies any fever or chills. denies any diarrhea denies any dysurea Objective - Vital Signs/Intake and Output Vital Signs (last 24 hours): Temp Pulse Resp BP Pulse Ox 97.3 F L 77 18 93/62 L 98 01/05/18 12:38 01/05/18 12:38 01/05/18 12:38 01/05/18 12:38 01/05/18 12:38 - Medications Medications: Current Medications Allopurinol (Zyloprim) 100 mg PO DAILY [facility] Last Admin: 01/05/18 09:38 Dose: 100 mg Carvedilol (Coreg) 25 mg PO Q12 [facility] Last Admin: 01/05/18 09:37 Dose: 25 mg Dexamethasone (Decadron Inj) 8 mg IVP Q8H [facility] Last Admin: 01/05/18 14:33 Dose: 8 mg Digoxin (Digoxin) 0.125 mg PO DAILY [facility] Last Admin: 01/05/18 09:39 Dose: 0.125 mg Docusate Sodium (Colace) 200 mg PO BID [facility] Last Admin: 01/05/18 09:37 Dose: 200 mg Famotidine (Pepcid) 20 mg PO DAILY [facility] Last Admin: 01/05/18 09:38 Dose: 20 mg Furosemide (Lasix) 20 mg PO BID [facility] Last Admin: 01/05/18 09:38 Dose: 20 mg Guaifenesin/Dextromethorphan (Robitussin Dm) 10 ml PO Q4 PRN PRN Reason: Cough Last Admin: 12/30/17 21:30 Dose: 10 ml Home Med (Lenalidomide [Revlimid]) 15 mg PO DAILY [facility] Last Admin: 01/05/18 09:38 Dose: 15 mg Vancomycin HCl 1 gm/ Sodium (Chloride) 250 mls @ 166.667 mls/hr IVPB Q12 [facility] PRN Reason: Protocol Last Admin: 01/05/18 09:42 Dose: 166.667 mls/hr Sodium Chloride (Sodium Chloride 0.9%) 500 mls @ 50 mls/hr IV .Q10H [facility] Stop: 01/05/18 22:14 Lisinopril (Zestril) 10 mg PO DAILY [facility] Last Admin: 01/05/18 09:43 Dose: 10 mg Oxycodone/Acetaminophen (Percocet 5/325 Mg Tab) 1 tab PO Q4 PRN PRN Reason: Other Stop: 01/07/18 19:25 Last Admin: 01/05/18 10:12 Dose: 1 tab Potassium Chloride (K-Dur 20 Meq Er Tab) 20 meq PO BID [facility] Last Admin: 01/05/18 09:44 Dose: 20 meq Pregabalin (Lyrica) 75 mg PO BID [facility] Last Admin: 01/05/18 09:42 Dose: 75 mg Prochlorperazine (Compazine) 10 mg IVP Q8H PRN PRN Reason: Nausea/Vomiting Rivaroxaban (Xarelto) 20 mg PO DAILY [facility] PRN Reason: Protocol Last Admin: 01/05/18 09:37 Dose: 20 mg - Labs Labs: - Additional Findings Additional findings: - Constitutional Appears: No Acute Distress - Head Exam Head Exam: ATRAUMATIC - Eye Exam Eye Exam: EOMI, PERRL - ENT Exam ENT Exam: Normal Oropharynx - Neck Exam Neck exam: Positive for: Full Rom - Respiratory Exam Respiratory Exam: Clear to Auscultation Bilateral, NORMAL BREATHING PATTERN - Cardiovascular Exam Cardiovascular Exam: Irregular Rhythm Additional comments: Irregularly Irregular rate controlled - GI/Abdominal Exam GI & Abdominal Exam: Normal Bowel Sounds, Soft Additional comments: NT, ND - Extremities Exam Extremities exam: Positive for: normal inspection Additional comments: no edema B/L LE - Back Exam Back exam: tenderness Additional comments: positive tenderness in mid lower lumbar and thoracic region no lesions no erythema - Neurological Exam Neurological exam: Alert, Oriented x 3 Laboratory Results - last 72 hr 01/04/18 01/05/18 01/05/18 11:35 04:25 04:25 WBC 16.3 H D RBC 4.48 Hgb 13.2 Hct 40.4 MCV 90.2 MCH 29.4 MCHC 32.7 L RDW 15.7 H Plt Count 306 MPV 8.6 Neut % (Auto) 95.1 H Lymph % (Auto) 1.6 L [place] % (Auto) 3.1 Eos % (Auto) 0.1 Baso % (Auto) 0.1 Neut # (Auto) 15.5 H Lymph # (Auto) 0.3 L [place] # (Auto) 0.5 Eos # (Auto) 0.0 Baso # (Auto) 0.0 Neutrophils % (Manual) 91 H Band Neutrophils % 3 H Lymphocytes % (Manual) 3 L Monocytes % (Manual) 3 Platelet Estimate Normal Anisocytosis (manual) Slight Sodium 140 Potassium 4.5 Chloride 103 Carbon Dioxide 27 Anion Gap 15 BUN 16 Creatinine 0.4 L Est GFR ( Amer) > 60 Est GFR (Non-Af Amer) > 60 POC Glucose (mg/dL) 156 H Random Glucose 156 H Calcium 8.6 Total Bilirubin 1.0 AST 23 ALT 129 H D Alkaline Phosphatase 129 H D Total Protein 5.8 L Albumin 2.8 L Globulin 3.0 Albumin/Globulin Ratio 0.9 L Vancomycin Trough 01/05/18 04:30 WBC RBC Hgb Hct MCV MCH MCHC RDW Plt Count MPV Neut % (Auto) Lymph % (Auto) [place] % (Auto) Eos % (Auto) Baso % (Auto) Neut # (Auto) Lymph # (Auto) [place] # (Auto) Eos # (Auto) Baso # (Auto) Neutrophils % (Manual) Band Neutrophils % Lymphocytes % (Manual) Monocytes % (Manual) Platelet Estimate Anisocytosis (manual) Sodium Potassium Chloride Carbon Dioxide Anion Gap BUN Creatinine Est GFR ( Amer) Est GFR (Non-Af Amer) POC Glucose (mg/dL) Random Glucose Calcium Total Bilirubin AST ALT Alkaline Phosphatase Total Protein Albumin Globulin Albumin/Globulin Ratio Vancomycin Trough 5.8 Microbiology 12/31/17 18:44 Blood-Venous Blood Culture - Final NO GROWTH AFTER 5 DAYS 01/04/18 16:32 Blood-Venous Blood Culture - Preliminary NO GROWTH AFTER 24 HOURS 01/04/18 16:22 Blood-Venous Blood Culture - Preliminary NO GROWTH AFTER 24 HOURS 01/02/18 06:12 Blood Blood Culture - Preliminary NO GROWTH AFTER 3 DAYS 01/02/18 13:30 Urine Urine Culture - Final Yeast Species 12/30/17 17:38 Urine,Garrett Urine Culture - Final No Growth (<1,000 CFU/ML) 12/30/17 01:20 Blood-Venous Blood Culture - Final Staphylococcus Aureus 12/30/17 01:20 Blood-Venous Gram Stain - Final 12/30/17 01:40 Blood-Venous S.aureus & Coag-Neg Staph PNA FISH - Final 12/30/17 01:40 Blood-Venous Blood Culture - Final Staphylococcus Aureus 12/30/17 01:40 Blood-Venous Gram Stain - Final Assessment and Plan (1) Back pain Status: Acute (2) Atrial fib/flutter, transient Status: Acute (3) Fever Status: Acute (4) Bacteremia due to Staphylococcus aureus Status: Acute - Assessment and Plan (Free Text) Assessment: A/P- 62 year old female with CHF, A,fib, Multiple Myeloma with mets and undergoing chemo and radiation admitted with severe back pian and urinary retention, low garde fever and mild leukocytosis. afebrile new leukocytoiss most likley from combination of decadron and granix ( guven by onc) blood cx- MSSA x 2 urine cx- neg repeat blood cx- neg x 4 TTE- no vegetation as per report plan- continue with IV vancomycin for staph bacteremia. keep vanco trough <20. day #7 today. would need at least 3-4 weeks of IV abx for this MSSA bacteremia/ ? epidural abscess. all above d/w the hospitalist and with
--- NOTE | 2018-01-05 16:17 | CP.PCM.PN ---
Subjective - Date & Time of Evaluation Date of Evaluation: 01/05/18 Time of Evaluation: 10:00 - Subjective Subjective: On Day 2 of chemotherapy Pt is afebrile her back pain is very much better no CP no SOB no abd pain Objective - Vital Signs/Intake and Output Vital Signs (last 24 hours): Temp Pulse Resp BP Pulse Ox 97.1 F L 93 H 20 94/65 L 97 01/05/18 15:41 01/05/18 15:41 01/05/18 15:41 01/05/18 15:41 01/05/18 15:41 - Medications Medications: Current Medications Allopurinol (Zyloprim) 100 mg PO DAILY [facility] Last Admin: 01/05/18 09:38 Dose: 100 mg Carvedilol (Coreg) 25 mg PO Q12 [facility] Last Admin: 01/05/18 09:37 Dose: 25 mg Dexamethasone (Decadron Inj) 8 mg IVP Q8H [facility] Last Admin: 01/05/18 14:33 Dose: 8 mg Digoxin (Digoxin) 0.125 mg PO DAILY [facility] Last Admin: 01/05/18 09:39 Dose: 0.125 mg Docusate Sodium (Colace) 200 mg PO BID [facility] Last Admin: 01/05/18 09:37 Dose: 200 mg Famotidine (Pepcid) 20 mg PO DAILY [facility] Last Admin: 01/05/18 09:38 Dose: 20 mg Furosemide (Lasix) 20 mg PO BID [facility] Last Admin: 01/05/18 09:38 Dose: 20 mg Guaifenesin/Dextromethorphan (Robitussin Dm) 10 ml PO Q4 PRN PRN Reason: Cough Last Admin: 12/30/17 21:30 Dose: 10 ml Home Med (Lenalidomide [Revlimid]) 15 mg PO DAILY [facility] Last Admin: 01/05/18 09:38 Dose: 15 mg Vancomycin HCl 1 gm/ Sodium (Chloride) 250 mls @ 166.667 mls/hr IVPB Q12 [facility] PRN Reason: Protocol Last Admin: 01/05/18 09:42 Dose: 166.667 mls/hr Sodium Chloride (Sodium Chloride 0.9%) 500 mls @ 50 mls/hr IV .Q10H [facility] Stop: 01/05/18 22:14 Last Admin: 01/05/18 12:30 Dose: 50 mls/hr Lisinopril (Zestril) 10 mg PO DAILY [facility] Last Admin: 01/05/18 09:43 Dose: 10 mg Oxycodone/Acetaminophen (Percocet 5/325 Mg Tab) 1 tab PO Q4 PRN PRN Reason: Other Stop: 01/07/18 19:25 Last Admin: 01/05/18 10:12 Dose: 1 tab Potassium Chloride (K-Dur 20 Meq Er Tab) 20 meq PO BID [facility] Last Admin: 01/05/18 09:44 Dose: 20 meq Pregabalin (Lyrica) 75 mg PO BID [facility] Last Admin: 01/05/18 09:42 Dose: 75 mg Prochlorperazine (Compazine) 10 mg IVP Q8H PRN PRN Reason: Nausea/Vomiting Rivaroxaban (Xarelto) 20 mg PO DAILY [facility] PRN Reason: Protocol Last Admin: 01/05/18 09:37 Dose: 20 mg - Labs Labs: 01/05/18 04:25 01/05/18 04:25 PT 13.8 Seconds (9.8-13.1) H 12/31/17 12:05 INR 1.2 (0.9-1.2) 12/31/17 12:05 APTT 29.6 Seconds (25.6-37.1) 12/31/17 12:05 - Constitutional Appears: No Acute Distress - Head Exam Head Exam: ATRAUMATIC, NORMAL INSPECTION, NORMOCEPHALIC - Eye Exam Eye Exam: EOMI, Normal appearance Pupil Exam: NORMAL ACCOMMODATION - ENT Exam ENT Exam: Mucous Membranes Moist, Normal External Ear Exam - Neck Exam Neck Exam: Full ROM. absent: Meningismus - Respiratory Exam Respiratory Exam: NORMAL BREATHING PATTERN. absent: Rales, Wheezes, Respiratory Distress - Cardiovascular Exam Cardiovascular Exam: Irregular Rhythm, +S1, +S2 - GI/Abdominal Exam GI & Abdominal Exam: Soft, Normal Bowel Sounds. absent: Tenderness - Extremities Exam Extremities Exam: Normal Capillary Refill. absent: Calf Tenderness, Pedal Edema - Back Exam Back Exam: No paraspinal tenderness, No vertebral tenderness. absent: CVA tenderness (L), CVA tenderness (R) - Neurological Exam Neurological Exam: Alert, Awake, CN II-XII Intact, Oriented x3 Neuro motor strength exam: Left Upper Extremity: 5, Right Upper Extremity: 5, Left Lower Extremity: 5, Right Lower Extremity: 5 - Psychiatric Exam Psychiatric exam: Normal Affect, Normal Mood - Skin Skin Exam: Dry, Normal Color, Warm Assessment and Plan - Assessment and Plan (Free Text) Assessment: This is a 62 year old female with a past medical history significant for Atrial fibrillation anticoagulated on Xarelto, essential hypertension, Multiple myeloma , and CHF, who presented to the ED complaining of worsening back pain. The patient has chronic back pain due to the multiple myeloma, however today the pain became much worse. In addition the patient was found to have urinary retention x 1 day , prompting her to come to the ED. In the ED, the patient was found to be hemodynamically stable although in severe pain not relieved by Percocet. Garrett catheter was placed and drained large amount of urine. Patient had no motor or sensory deficits, no fecal or urinary incontinence, and no saddle anesthesia On 12/30, MRI of the thoracic/lumbar spine report showed no spinal cord compression, however it does show diffuse leptomeningeal thickening of the spinal cord suspicious for malignancy versus inflammation. There was originally concern for infection as well; however this is seen as much less likely as the patient has no hx of spinal surgery or signs of infection. As per discussion with consultants, they recommend the patient to have biopsy of the cord in order to ascertain if the thickening is due to metastatic disease versus inflammatory changes. Neurosurgery was consulted ( Dr Garcia- did not rec biopsy) 01/01: Neurosurg didnt rec biopsy. Anesthesia consulted for Lumbar puncture with Cytology for further evaluation of the leptominengeal thickening. However since pt's Blood c/s came back + for Staph aureus, anesthesia did not do LP. 01/04 : Started on Chemotherapy 1) Severe acute on chronic back pain with urinary retention, spinal cord compression ruled out; however now with diffuse leptomeningeal thickening on MRI concerning for metastatic disease vs. inflammatory changes/ Infection - Continue telemetry monitoring - Decadron 8 mg IVP q 8 hours - will taper to 4 mg q 8 in am - Dr. Maddy Garcia pension consultant- started Chemotherapy for MM - - Dr. Merchant, neurology on consultation- rec steroids - Dr. Garcia, neurosurgery- no workup - Pain better today 2) Bacteremia : Staph aureus (blood culture x 2 bottles)- ? etiology unclear etiology - ? Epidural abscess - Staph bacteremia - Dr. Bridges on consult - Echocardiogram : no vegetation - Continue Vancomycin x 3-4 wks total as rec by ID- plan for BJ placement -rpt Blood c/s neg , PICC line placed - Urine c/s : yeast 3) Afib with RVR- now controlled - cont Digoxin 0.125 mg po daily and Coreg - telemetry monitoring - cont Xarelto 4) Hypokalemia,- resolved - continue po repletion 5) Essential htn - chronic - restarted home po medications 6) Multiple myeloma - chronic - Dr. Maddy Garcia on consultation for heme/onc- discussed case - started Chemotherapy yesterday - will complete chemotx today - Plan for Chemotx again nect Thursday and Thursday 7. Abn LFT , ? mets vs sec to meds abd Sonogram: Hepatic cyst ( no change from previous) 7. DVT prophylaxis - Xarelto
[2018-01-05] MEDS ORDERED: Dexamethasone 4 mg/1 ml IV SCH (17:15)
[2018-01-05] MEDS ORDERED: Dexamethasone 4 mg/1 ml IV ONE (17:15)
[2018-01-05 23:51] VITALS: RESP 18
[2018-01-06] MEDS: Oxycodone/Acetaminophen 5/325 mg Tab PO PRN ×2 (00:07→08:43)
[2018-01-06] MEDS: Dexamethasone 4 mg/1 ml IV SCH ×2 (00:10→08:32)
[2018-01-06] MEDS ORDERED: Dexamethasone 4 MG in Sodium Chloride 0.9% 50 ML IVPB SCH (01:00)
[2018-01-06 06:12] LABS: BLOOD UREA NITROGEN 24 mg/dl (7-17); CALCIUM 8.8 mg/dL (8.4-10.2); GFR AFRICAN-AMERICAN > 60; GFR NON-AFRICAN AMERICAN > 60
[2018-01-06 06:13] LABS: HEMOGLOBIN 12.7 g/dL (12.0-16.0); MEAN CELL VOLUME 90.6 fl (81.0-99.0); MEAN CORPUSCULAR HGB CONC 33.2 g/dL (33.0-37.0); RBC 4.24 Mil/uL (3.80-5.20)
[2018-01-06] MEDS: LENALIDOMIDE 15 MG PO SCH (08:33)
[2018-01-06 08:34] VITALS: PULSE 75
[2018-01-06] MEDS: Digoxin 125 mcg (0.125 mg) Tab PO SCH (08:34)
[2018-01-06] MEDS: Potassium Chloride 20 mEq ER Tab PO SCH (08:34)
--- NOTE | 2018-01-06 09:38 | CP.PCM.DIS ---
Provider - Provider Date of Admission: 12/29/17 16:24 Attending physician: Tay Ambrosio DO Primary care physician: Dr. Rider Consults: ID consult Hem/onc consult IR consult Neurology consult Neurosurgery consult Anesthesiology consult Time Spent in preparation of Discharge (in minutes): 15 Hospital Course - Lab Results Lab Results: Micro Results 01/02/18 06:12 Blood Blood Culture - Preliminary NO GROWTH AFTER 4 DAYS 12/31/17 18:44 Blood-Venous Blood Culture - Final NO GROWTH AFTER 5 DAYS 01/04/18 16:32 Blood-Venous Blood Culture - Preliminary NO GROWTH AFTER 24 HOURS 01/04/18 16:22 Blood-Venous Blood Culture - Preliminary NO GROWTH AFTER 24 HOURS 01/02/18 13:30 Urine Urine Culture - Final Yeast Species 12/30/17 17:38 Urine,Garrett Urine Culture - Final No Growth (<1,000 CFU/ML) 12/30/17 01:20 Blood-Venous Blood Culture - Final Staphylococcus Aureus 12/30/17 01:20 Blood-Venous Gram Stain - Final 12/30/17 01:40 Blood-Venous S.aureus & Coag-Neg Staph PNA FISH - Final 12/30/17 01:40 Blood-Venous Blood Culture - Final Staphylococcus Aureus 12/30/17 01:40 Blood-Venous Gram Stain - Final Most Recent Lab Values WBC 10.0 K/uL (4.8-10.8) 01/06/18 04:20 RBC 4.24 Mil/uL (3.80-5.20) 01/06/18 04:20 Hgb 12.7 g/dL (12.0-16.0) 01/06/18 04:20 Hct 38.4 % (34.0-47.0) 01/06/18 04:20 MCV 90.6 fl (81.0-99.0) 01/06/18 04:20 MCH 30.0 pg (27.0-31.0) 01/06/18 04:20 MCHC 33.2 g/dL (33.0-37.0) 01/06/18 04:20 RDW 16.0 % (11.5-14.5) H 01/06/18 04:20 Plt Count 248 K/uL (130-400) 01/06/18 04:20 MPV 8.6 fl (7.2-11.7) 01/05/18 04:25 Neut % (Auto) 95.1 % (50.0-75.0) H 01/05/18 04:25 Lymph % (Auto) 1.6 % (20.0-40.0) L 01/05/18 04:25 Whitfield % (Auto) 3.1 % (0.0-10.0) 01/05/18 04:25 Eos % (Auto) 0.1 % (0.0-4.0) 01/05/18 04:25 Baso % (Auto) 0.1 % (0.0-2.0) 01/05/18 04:25 Neut # (Auto) 15.5 K/uL (1.8-7.0) H 01/05/18 04:25 Lymph # (Auto) 0.3 K/uL (1.0-4.3) L 01/05/18 04:25 Whitfield # (Auto) 0.5 K/uL (0.0-0.8) 01/05/18 04:25 Eos # (Auto) 0.0 K/uL (0.0-0.7) 01/05/18 04:25 Baso # (Auto) 0.0 K/uL (0.0-0.2) 01/05/18 04:25 Neutrophils % (Manual) 91 % (42-75) H 01/05/18 04:25 Band Neutrophils % 3 % (0-2) H 01/05/18 04:25 Lymphocytes % (Manual) 3 % (20-50) L 01/05/18 04:25 Monocytes % (Manual) 3 % (0-10) 01/05/18 04:25 Platelet Estimate Normal (NORMAL) 01/05/18 04:25 Large Platelets Present 12/29/17 12:05 Giant Platelets Present 12/29/17 12:05 Hypochromasia (manual) Slight 01/02/18 06:12 Anisocytosis (manual) Slight 01/05/18 04:25 ESR 93 mm/hr (0-30) H 12/30/17 19:00 PT 13.8 Seconds (9.8-13.1) H 12/31/17 12:05 INR 1.2 (0.9-1.2) 12/31/17 12:05 APTT 29.6 Seconds (25.6-37.1) 12/31/17 12:05 Sodium 138 mmol/l (132-148) 01/06/18 04:20 Potassium 5.0 MMOL/L (3.6-5.0) 01/06/18 04:20 Chloride 104 mmol/L (98-107) 01/06/18 04:20 Carbon Dioxide 24 mmol/L (22-30) 01/06/18 04:20 Anion Gap 15 (10-20) 01/06/18 04:20 BUN 24 mg/dl (7-17) H 01/06/18 04:20 Creatinine 0.4 mg/dl (0.7-1.2) L 01/06/18 04:20 Est GFR ( Amer) > 60 01/06/18 04:20 Est GFR (Non-Af Amer) > 60 01/06/18 04:20 POC Glucose (mg/dL) 156 mg/dL (65-110) H 01/04/18 11:35 Random Glucose 205 mg/dL (65-105) H 01/06/18 04:20 Uric Acid 2.1 mg/Dl (2.2-7.5) L 12/29/17 12:05 Calcium 8.8 mg/dL (8.4-10.2) 01/06/18 04:20 Total Bilirubin 1.0 mg/dl (0.2-1.3) 01/05/18 04:25 AST 23 U/L (14-36) 01/05/18 04:25 ALT 129 U/L (9-52) H D 01/05/18 04:25 Alkaline Phosphatase 129 U/L (38-126) H D 01/05/18 04:25 NT-Pro-B Natriuret Pep 898 pg/ml (0-900) 12/29/17 14:21 Total Protein 5.8 G/DL (6.3-8.2) L 01/05/18 04:25 Albumin 2.8 g/dL (3.5-5.0) L 01/05/18 04:25 Globulin 3.0 gm/dL (2.2-3.9) 01/05/18 04:25 Albumin/Globulin Ratio 0.9 (1.0-2.1) L 01/05/18 04:25 Procalcitonin 0.41 NG/ML (0.19-0.49) 12/30/17 18:44 Urine Color Yellow (YELLOW) 12/30/17 17:38 Urine Clarity Slighty-cloudy (Clear) 12/30/17 17:38 Urine pH 6.0 (5.0-8.0) 12/30/17 17:38 Ur Specific [place] 1.029 (1.003-1.030) 12/30/17 17:38 Urine Protein 100 mg/dL (NEGATIVE) 12/30/17 17:38 Urine Glucose (UA) 150 mg/dL (Normal) 12/30/17 17:38 Urine Ketones Trace mg/dL (NEGATIVE) 12/30/17 17:38 Urine Blood Moderate (NEGATIVE) 12/30/17 17:38 Urine Nitrate Negative (NEGATIVE) 12/30/17 17:38 Urine Bilirubin Negative (NEGATIVE) 12/30/17 17:38 Urine Urobilinogen 0.2-1.0 mg/dL (0.2-1.0) 12/30/17 17:38 Ur Leukocyte Esterase Neg Natasha/uL (Negative) 12/30/17 17:38 Urine RBC (Auto) 84 /hpf (0-3) H 12/30/17 17:38 Urine Microscopic WBC 7 /hpf (0-5) H 12/30/17 17:38 Ur Squamous Epith Cells < 1 /hpf (0-5) 12/30/17 17:38 Vancomycin Trough 5.8 ug/mL (5.0-10.0) 01/05/18 04:30 Digoxin < 0.4 ng/mL (0.8-2.0) L 12/29/17 14:21 - Hospital Course Hospital Course: This is a 62 year old female with a past medical history significant for Atrial fibrillation anticoagulated on Xarelto, essential hypertension, Multiple myeloma , and CHF, who presented to the ED complaining of worsening back pain. The patient has chronic back pain due to the multiple myeloma, however today the pain became much worse. In addition the patient was found to have urinary retention x 1 day , prompting her to come to the ED. In the ED, the patient was found to be hemodynamically stable although in severe pain not relieved by Percocet. Garrett catheter was placed and drained large amount of urine. Patient had no motor or sensory deficits, no fecal or urinary incontinence, and no saddle anesthesia On 12/30, MRI of the thoracic/lumbar spine report showed no spinal cord compression, however it does show diffuse leptomeningeal thickening of the spinal cord suspicious for malignancy versus inflammation. There was originally concern for infection as well; however this is seen as much less likely as the patient has no hx of spinal surgery or signs of infection. As per discussion with consultants, they recommend the patient to have biopsy of the cord in order to ascertain if the thickening is due to metastatic disease versus inflammatory changes. Neurosurgery was consulted ( Dr Garcia- did not rec biopsy) Anesthesia consulted for Lumbar puncture with Cytology for further evaluation of the leptominengeal thickening. However since pt's Blood c/s came back + for Staph aureus, anesthesia opted not to perform the LP.After discussion with ID decided to continue treatment with Vancomycin IV for total 4 weeks for her bacteremia.Hem/onc consulted and Chemotherapy was started on 01/04. Patient is hemodynamically stable, afebrile. Participating with PT and pain is better controlled. Will discharge her to [facility] for continuation of her PT and IV antibiotics. She will need to continue with her Chemotherapy infusion every week on Thursday and Thursday and need to return to infusion center for that. Will need repeat blood tests weekly . D/C to [facility] 1. Severe acute on chronic back pain with urinary retention, spinal cord compression ruled out; however now with diffuse leptomeningeal thickening on MRI concerning for metastatic disease vs. inflammatory changes/ Infection Started on Decadron tapering dose. Will d/c on 4 mg PO 8 hours Neuro, neurosurgery , Hem/onc ,anesthesia/pain management and PT were consulted Started on Lyrica, decadron and Percoset PRN for pain control Participated with PT will d/c to [facility] 2. Bacteremia : Staph aureus (blood culture x 2 bottles)- ? etiology unclear etiology Staph bacteremia ID consulted and recommended 4 weeks of IV vancomycin PICC line placed Will d/c to [facility] for continuation of treatment Echocardiogram : no vegetation Repeat blood culture showed no growth Check BMP weekly. Check vanco levels weekly 3.Afib with RVR now controlled cont Digoxin 0.125 mg po daily and Coreg cont Xarelto 4. Hypokalemia resolved continue po repletion 5.Essential htn chronic, controlled 6.Multiple myeloma chronic hem/onc ,Dr. Maddy Garcia on consultation for heme/onc. Started Chemotherapy . will continue chemotherapy every week . arrangewments made by for patient to return to infusion center for chemotherapy every Thursday and Thursday 7. Abnormal LFT possible sec to meds abd Sonogram showed Hepatic cyst ( no change from previous) Discharge Exam - Head Exam Head Exam: ATRAUMATIC, NORMOCEPHALIC - Eye Exam Eye Exam: EOMI, Normal appearance, PERRL Pupil Exam: NORMAL ACCOMODATION - ENT Exam ENT Exam: Mucous Membranes Moist, Normal Exam - Neck Exam Neck exam: Full Rom, Normal Inspection - Respiratory Exam Respiratory Exam: Clear to PA & Lateral, NORMAL BREATHING PATTERN. absent: Rales, Rhonchi, Wheezes - Cardiovascular Exam Cardiovascular Exam: REGULAR RHYTHM, RRR, +S1, +S2. absent: JVD - GI/Abdominal Exam GI & Abdominal Exam: Normal Bowel Sounds, Soft. absent: Distended, Guarding, Rebound, Tenderness - Rectal Exam Rectal Exam: Deferred - Extremities Exam Extremities exam: normal capillary refill, normal inspection, pedal pulses present - Back Exam Back exam: NORMAL INSPECTION - Neurological Exam Neurological exam: Alert, CN II-XII Intact, Reflexes Normal - Psychiatric Exam Psychiatric exam: Normal Affect - Skin Skin Exam: Dry, Warm Discharge Plan - Follow Up Plan Condition: STABLE Disposition: REHAB FACILITY/REHAB UNIT Patient education suggested?: Yes Instructions: Multiple Myeloma (DC) Referrals: Thang Rider MD [Family Provider] - Brea Garcia MD [Staff Provider] -
--- NOTE | 2018-01-06 09:58 | CP.PCM.PN ---
Subjective - Date & Time of Evaluation Date of Evaluation: 01/06/18 Time of Evaluation: 09:55 - Subjective Subjective: Pt is afebrile in no acute distress. She is able to ambulate with help. Back pain is better, with the present analgesic regimen. She will be discharged to a sub acute rehab for continuation of antibiotics and physical therapy Objective - Vital Signs/Intake and Output Vital Signs (last 24 hours): Temp Pulse Resp BP Pulse Ox 97.8 F 75 18 123/77 98 01/06/18 07:50 01/06/18 08:31 01/06/18 07:50 01/06/18 08:32 01/06/18 07:50 - Medications Medications: Current Medications Allopurinol (Zyloprim) 100 mg PO DAILY [facility] Last Admin: 01/06/18 08:34 Dose: 100 mg Carvedilol (Coreg) 25 mg PO Q12 [facility] Last Admin: 01/06/18 08:31 Dose: 25 mg Dexamethasone (Decadron Inj) 4 mg IV Q8H [facility] Last Admin: 01/06/18 08:32 Dose: 4 mg Digoxin (Digoxin) 0.125 mg PO DAILY [facility] Last Admin: 01/06/18 08:34 Dose: 0.125 mg Docusate Sodium (Colace) 200 mg PO BID [facility] Last Admin: 01/06/18 08:30 Dose: 200 mg Famotidine (Pepcid) 20 mg PO DAILY [facility] Last Admin: 01/06/18 08:33 Dose: 20 mg Furosemide (Lasix) 20 mg PO BID [facility] Last Admin: 01/06/18 08:32 Dose: 20 mg Guaifenesin/Dextromethorphan (Robitussin Dm) 10 ml PO Q4 PRN PRN Reason: Cough Last Admin: 12/30/17 21:30 Dose: 10 ml Home Med (Lenalidomide [Revlimid]) 15 mg PO DAILY [facility] Last Admin: 01/06/18 08:33 Dose: 15 mg Vancomycin HCl 1 gm/ Sodium (Chloride) 250 mls @ 166.667 mls/hr IVPB Q12 [facility] PRN Reason: Protocol Last Admin: 01/06/18 08:33 Dose: 166.667 mls/hr Lisinopril (Zestril) 10 mg PO DAILY [facility] Last Admin: 01/06/18 08:31 Dose: 10 mg Oxycodone/Acetaminophen (Percocet 5/325 Mg Tab) 1 tab PO Q4 PRN PRN Reason: Other Stop: 01/07/18 19:25 Last Admin: 01/06/18 08:43 Dose: 1 tab Potassium Chloride (K-Dur 20 Meq Er Tab) 20 meq PO BID [facility] Last Admin: 01/06/18 08:34 Dose: 20 meq Pregabalin (Lyrica) 75 mg PO BID [facility] Last Admin: 01/06/18 08:36 Dose: 75 mg Prochlorperazine (Compazine) 10 mg IVP Q8H PRN PRN Reason: Nausea/Vomiting Rivaroxaban (Xarelto) 20 mg PO DAILY [facility] PRN Reason: Protocol Last Admin: 01/06/18 08:34 Dose: 20 mg - Labs Labs: 01/06/18 04:20 01/06/18 04:20 PT 13.8 Seconds (9.8-13.1) H 12/31/17 12:05 INR 1.2 (0.9-1.2) 12/31/17 12:05 APTT 29.6 Seconds (25.6-37.1) 12/31/17 12:05
[2018-01-06 12:01] VITALS: BP 96/63; PULSE 86; TEMP 97.9; O2SAT 97
== END 2018-01-06 15:40 | DRG 243 ==
LOC: H.ER 09:30 → H.ERHOLD 16:24 → H.TEL 23:37
PROVIDERS: ADMIT Internal Medicine; ATTEND Internal Medicine
DX: M48.061 Spinal stenosis, lumbar region without neurogenic claudication (principal); I48.92 Unspecified atrial flutter; E87.6 Hypokalemia; C90.00 Multiple myeloma not having achieved remission; G89.3 Neoplasm related pain (acute) (chronic); I48.91 Unspecified atrial fibrillation

== ENCOUNTER 2018-02-08 11:14 | Inpatient (IN) | payer MEDICAID ==
[~2018-02-08 11:14] MED LIST: Lidocaine 2% w Epi 1:100,000 Inj IJ ONE
[2018-02-08 11:17] VITALS: BMI 32.3
[2018-02-08 13:04] LABS: INR 2.6 (0.9-1.2); PARTIAL THROMBOPLASTIN TIME 41.4 Seconds (25.6-37.1); PROTHROMBIN TIME 29.7 Seconds (9.8-13.1)
[2018-02-08 13:12] LABS: BLOOD UREA NITROGEN 15 mg/dl (7-17); GFR AFRICAN-AMERICAN > 60; GFR NON-AFRICAN AMERICAN > 60
[2018-02-08 13:13] LABS: ALBUMIN 3.2 g/dL (3.5-5.0); ALT/SGPT 60 U/L (9-52); AST/SGOT 24 U/L (14-36); CALCIUM 8.7 mg/dL (8.4-10.2)
[2018-02-08] MEDS ORDERED: Potassium Chloride 20 mEq ER Tab PO STA (13:15)
[2018-02-08 13:21] LABS: BASO % 0.1 % (0.0-2.0); EOS # 0.1 K/uL (0.0-0.7); EOS % 1.2 % (0.0-4.0); HEMOGLOBIN 13.1 g/dL (12.0-16.0); LYMPH # 0.8 K/uL (1.0-4.3); LYMPH % 13.3 % (20.0-40.0); MEAN CELL VOLUME 89.8 fl (81.0-99.0); MEAN CORPUSCULAR HEMOGLOBIN 30.2 pg (27.0-31.0); MEAN CORPUSCULAR HGB CONC 33.6 g/dL (33.0-37.0); MONO # 0.4 K/uL (0.0-0.8); MONO % 6.7 % (0.0-10.0); NEUT # 4.7 K/uL (1.8-7.0); NEUT % 78.7 % (50.0-75.0); NRBC % 0.2 % (0.0-0.0); RBC 4.32 Mil/uL (3.80-5.20); RED CELL DISTRIBUTION WIDTH 18.4 % (11.5-14.5)
--- NOTE | 2018-02-08 13:34 | ED PDOC ---
Lower Extremity Pain/Injury Time Seen by Provider: 02/08/18 11:57 Chief Complaint (Nursing): Lower Extremity Problem/Injury Chief Complaint (Provider): Lower Extremity Problem/Injury History Per: Patient History/Exam Limitations: no limitations Onset/Duration Of Symptoms: Days (x 1) Current Symptoms Are (Timing): Still Present Additional Complaint(s): 62 year old female undergoing chemotherapy for multiple myeloma presents to the ED with increased leg weakness since yesterday. Patient reports she tried to get up from bed to use her bedside commode last night. She was unable to get back up from her knees and slept sitting on the floor. Patient usually ambulates with a walker. Both legs are weak, but the left is weaker than the right. She denies saddle anesthesia, trauma, head injury, loss of consciousness , incontinence, and paraesthesias. PMD: Dr. Taco Lowe Past Medical History Reviewed: Historical Data, Nursing Documentation, Vital Signs Vital Signs: Last Vital Signs Temp 98.2 F 02/08/18 11:16 Pulse 90 02/08/18 11:16 Resp 16 02/08/18 11:16 BP 92/65 L 02/08/18 11:16 Pulse Ox 98 02/08/18 11:20 - Medical History PMH: Atrial Fibrillation, Back Problems, Cardia Arrhythmia, CHF, Fractures (rib) , HTN, Pneumonia Denies: HIV, Chronic Kidney Disease Other PMH: multiple myeloma - Surgical History Surgical History: Appendectomy, Cholecystectomy - Family History Family History: States: Unknown Family Hx - Home Medications Home Medications: Ambulatory Orders Medication Instructions Recorded Rivaroxaban [Xarelto] 20 mg PO DAILY 11/18/16 Lenalidomide [Revlimid] 15 mg PO DAILY 02/10/17 Albuterol HFA [Ventolin HFA 90 2 puff IH Q4 PRN 12/21/17 mcg/actuation (8 g)] Allopurinol [Zyloprim] 100 mg PO DAILY 12/21/17 Aspirin [Ecotrin] 81 mg PO DAILY 12/21/17 Carvedilol [Coreg] 25 mg PO Q12 12/21/17 Digoxin [Digitek] 125 mcg PO DAILY 12/21/17 Famotidine [Pepcid] 20 mg PO BID 12/21/17 Lisinopril [Zestril] 10 mg PO DAILY 12/21/17 Dexamethasone [Decadron] 20 mg PO DAILY 01/11/18 Furosemide [Lasix] 20 mg PO DAILY 02/08/18 - Allergies Allergies/Adverse Reactions: Allergies Allergy/AdvReac Type Severity Reaction Status Date / Time No Known Allergies Allergy Verified 02/08/18 11:20 Review of Systems ROS Statement: Except As Marked, All Systems Reviewed And Found Negative Musculoskeletal: Positive for: Other (b/l leg weakness) Physical Exam - Reviewed Nursing Documentation Reviewed: Yes Vital Signs Reviewed: Yes - Physical Exam Appears: Positive for: Non-toxic, No Acute Distress Head Exam: Positive for: ATRAUMATIC, NORMOCEPHALIC Skin: Positive for: Normal Color, Warm, Dry Eye Exam: Positive for: EOMI, Normal appearance, PERRL Neck: Positive for: Normal, Painless ROM Cardiovascular/Chest: Positive for: Regular Rate, Rhythm Respiratory: Positive for: CNT, Normal Breath Sounds Gastrointestinal/Abdominal: Positive for: Normal Exam, Soft, Other (pelvis is stable; no rocking) Back: Positive for: Other (tenderness to lumbar spine (chronic) with sensation intact in saddle area ) Extremity: Positive for: Normal ROM (sensation intact b/l lower extremities; moving right LE more than left), Other (RLE: No effort against gravity, LLE: + lateral movement) Neurologic/Psych: Positive for: Alert, racebook writer II-XII, Oriented (x 3), Motor/ Sensory Deficits. Negative for: Aphasia, Facial Droop - Laboratory Results Result Diagrams: 02/13/18 06:30 02/14/18 05:30 - ECG O2 Sat by Pulse Oximetry: 98 (RA) Pulse Ox Interpretation: Normal - Critical Care Total Time (In Min): 45 Medical Decision Making Medical Decision Making: Time: 12:16 Initial Plan: --CMP --Urine dip --CBC with diff --PTT --Prothrombin time --Knee x-ray b/l --K-Dur 40 meq PO --Urinalysis --Lumbar spine MRI Time: 12:15 --Discussed patient with Dr. Maddy Garcia who agrees with repeat MRI and recommends admission. Knee x-ray is unremarkable. Lumbar Spine MRI FINDINGS: Normal lumbar curvature appreciate without fracture or spondylolisthesis identified. Mildly inhomogeneous comparison is appreciate without suspicious focal finding. A small Schmorl's node is noted at the upper endplate of as L1. Multilevel diffuse disc bulging is appreciated including at the inferior visualized thoracic levels of T11-12 and T12-L1. Conus medullaris appears normal in intrinsic signal terminating at L2 mid vertebral body level. Evaluation of the prevertebral paraspinal soft tissues reveals no prevertebral findings with paraspinal soft tissues unremarkable at the lumbar level. However , at T11-12, there are persistent edematous soft tissue changes suspicious for simple cyst development or even synovial cyst rupture related to the facet joints at T11-12 posteriorly toward the left but not at the right. An increased amount of fluid is seen at the posterior epidural space at T11 and T12 measuring 1.1 x 3.2 cm at the right greater than left. This fluid collection now appears to impinge the right greater than left lower thoracic spinal cord. No definite cord reaction is appreciate. Mild contrast enhancement is appreciated surrounding this epidural collection which is suspicious for an abscess though an other inflammatory processes possible as well. Subtle enhancement is seen in the left paraspinal soft tissues posteriorly. Improved imaging can provided by dedicated thoracic spine MRI as no axial imaging was carried out through this level. Stable subtle chronic compression fractures of L1 and L3 are seen once again. T12-L1: Stable mild central canal stenosis without definite disc herniation appreciable. L1-2: A disc osteophyte complex combines with facet arthropathy resulting in a moderate central canal stenosis posterior epidural fluid less apparent currently. [id number] bilateral neural foraminal stenosis. No disc herniation. L2-3: Disc osteophyte complex combines with facet arthropathy to cause moderate central canal stenosis and moderate bilateral neural foraminal stenosis. No disc herniation. L3-4: A mild central stenosis results from a disc bulge and facet joint degenerative arthropathy with mild bilateral neural foraminal stenosis again evident. The previously suggested anterior left epidural finding is not identified currently. L4-5: A stable mild degenerative central canal stenosis appreciated based on gross facet joint arthropathy and a mild disc osteophyte complex without disc herniation. Mild bilateral degenerative neural foraminal stenoses are stable as well. L5-S1: Gross facet joint degenerative changes are appreciated once again encroachment lateral recesses without significant central stenosis. No disc herniation. Mild bilateral degenerative neural foraminal stenoses are stable. OTHER FINDINGS: None. IMPRESSION: 1. Multilevel degenerative lumbar spondylosis, facet joint arthropathy and variable degenerative spinal stenosis is reiterated without interval disc herniation. Findings seen worst at the upper lumbar spine L1-2 and L2-3 where moderate central canal stenoses are appreciated. 2. Developing posterior epidural fluid collection is increased at the T11 and T12 posterior epidural space (1.3 x 3.2 cm) with left paraspinal soft tissue edema/fluid also identified with limited enhancement. Cord compression results without definite cord reaction at this time. Consider infectious or inflammatory process including epidural abscess. Spine surgical consultation advised. Time; 15:15 --Patient will be admitted to the service of Dr. Lowe. Admitting diagnosis is BLE weakness, UTI and multiple myeloma. 16:[address] Horner (Neurosurg), recommends MRI C and T-spine, will consult. Scribe Attestation: Documented by Catalina Silva, acting as a scribe for Ifeoma Rajan MD Provider Scribe Attestation: All medical record entries made by the Scribe were at my direction and personally dictated by me. I have reviewed the chart and agree that the record accurately reflects my personal performance of the history, physical exam, medical decision making, and the department course for this patient. I have also personally directed, reviewed, and agree with the discharge instructions and disposition. Disposition - Clinical Impression Clinical Impression: Mass in epidural space, UTI (urinary tract infection), Bilateral leg weakness, Multiple myeloma - Patient ED Disposition Is Patient to be Admitted: Yes - Disposition Disposition Time: 16:15 Condition: GUARDED - Pt Status Changed To: Hospital Disposition Of: Inpatient - Admit Certification Admit to Inpatient:: After my assessment, the patient will require hospitalization for at least two midnights. This is because of the severity of symptoms shown, intensity of services needed, and/or the medical risk in this patient being treated as an outpatient. - POA Present On Arrival: None
[2018-02-08] MEDS ORDERED: Gadodiamide 287 MG/ML VIAL (15ML) IV ONE (13:39)
[2018-02-08 13:56] LABS: SQUAMOUS EPITHIAL 4 /hpf (0-5); URINE BACTERIA OCC (<OCC); URINE BILIRUBIN NEGATIVE (NEGATIVE); URINE BLOOD LARGE (NEGATIVE); URINE CLARITY TURBID (Clear); URINE COLOR YELLOW (YELLOW); URINE GLUCOSE (UA) NEG (Normal); URINE LEUKOCYTE ESTERASE LARGE Leu/uL (Negative); URINE PROTEIN 30 mg/dL (NEGATIVE); URINE UROBILINOGEN 0.2-1.0 mg/dL (0.2-1.0)
[2018-02-08] MEDS ORDERED: Potassium Chloride 20 mEq ER Tab PO ONE (14:06)
--- NOTE | 2018-02-08 14:09 | RAD ---
PROCEDURE: Bilateral Knee Radiographs. HISTORY: Fall COMPARISON: None. FINDINGS: BONES: Right Knee: No acute fracture. Left Knee: No acute fracture. JOINTS: Right Knee: Mild medial compartment narrowing. Left knee: Moderate medial compartment narrowing. SOFT TISSUES: Right Knee: Normal. Left Knee: Normal. JOINT EFFUSION: Right Knee: None. Left Knee: None. OTHER FINDINGS: None. IMPRESSION: No acute findings related to/accounting for the clinical presentation.
[2018-02-08] MEDS ORDERED: cefTRIAXone (Rocephin) 1 gm Inj ONE (14:43)
--- NOTE | 2018-02-08 16:03 | MRI ---
PROCEDURE: MR LUMBAR SPINE WITH AND WITHOUT CONTRAST HISTORY: BLE weakness, multiple myeloma COMPARISON: Lumbar spine MRI without contrast 12/29/2017. TECHNIQUE: Multiecho multiplanar sequences were performed through the lumbar spine with and without the use of intravenous contrast. FINDINGS: Normal lumbar curvature appreciate without fracture or spondylolisthesis identified. Mildly inhomogeneous comparison is appreciate without suspicious focal finding. A small Schmorl's node is noted at the upper endplate of as L1. Multilevel diffuse disc bulging is appreciated including at the inferior visualized thoracic levels of T11-12 and T12-L1. Conus medullaris appears normal in intrinsic signal terminating at L2 mid vertebral body level. Evaluation of the prevertebral paraspinal soft tissues reveals no prevertebral findings with paraspinal soft tissues unremarkable at the lumbar level. However, at T11-12, there are persistent edematous soft tissue changes suspicious for simple cyst development or even synovial cyst rupture related to the facet joints at T11-12 posteriorly toward the left but not at the right. An increased amount of fluid is seen at the posterior epidural space at T11 and T12 measuring 1.1 x 3.2 cm at the right greater than left. This fluid collection now appears to impinge the right greater than left lower thoracic spinal cord. No definite cord reaction is appreciate. Mild contrast enhancement is appreciated surrounding this epidural collection which is suspicious for an abscess though an other inflammatory processes possible as well. Subtle enhancement is seen in the left paraspinal soft tissues posteriorly. Improved imaging can provided by dedicated thoracic spine MRI as no axial imaging was carried out through this level. Stable subtle chronic compression fractures of L1 and L3 are seen once again. T12-L1: Stable mild central canal stenosis without definite disc herniation appreciable. L1-2: A disc osteophyte complex combines with facet arthropathy resulting in a moderate central canal stenosis posterior epidural fluid less apparent currently. [id number] bilateral neural foraminal stenosis. No disc herniation. L2-3: Disc osteophyte complex combines with facet arthropathy to cause moderate central canal stenosis and moderate bilateral neural foraminal stenosis. No disc herniation. L3-4: A mild central stenosis results from a disc bulge and facet joint degenerative arthropathy with mild bilateral neural foraminal stenosis again evident. The previously suggested anterior left epidural finding is not identified currently. L4-5: A stable mild degenerative central canal stenosis appreciated based on gross facet joint arthropathy and a mild disc osteophyte complex without disc herniation. Mild bilateral degenerative neural foraminal stenoses are stable as well. L5-S1: Gross facet joint degenerative changes are appreciated once again encroachment lateral recesses without significant central stenosis. No disc herniation. Mild bilateral degenerative neural foraminal stenoses are stable. OTHER FINDINGS: None. IMPRESSION: 1. Multilevel degenerative lumbar spondylosis, facet joint arthropathy and variable degenerative spinal stenosis is reiterated without interval disc herniation. Findings seen worst at the upper lumbar spine L1-2 and L2-3 where moderate central canal stenoses are appreciated. 2. Developing posterior epidural fluid collection is increased at the T11 and T12 posterior epidural space (1.3 x 3.2 cm) with left paraspinal soft tissue edema/fluid also identified with limited enhancement. Cord compression results without definite cord reaction at this time. Consider infectious or inflammatory process including epidural abscess. Spine surgical consultation advised. Findings discussed with Dr. Rajan with written down and read back verification 02/08/2018 3:15 p.m..
--- NOTE | 2018-02-08 17:02 | CP.PCM.PN ---
Subjective - Date & Time of Evaluation Date of Evaluation: 02/08/18 Time of Evaluation: 17:00 - Subjective Subjective: 62yo femal with mult myeloma had acute onset weakness in legs MRI shows progression t11/12 lesion Pt on Xeralto ordered MRI of T and C spine as had previous disease in T spine As pt is on xeralto it is unsafe to operate at this time, need at least 24 hrs off for spine surgery Dr Laura will follow, awaiting MRI studies Objective - Vital Signs/Intake and Output Vital Signs (last 24 hours): Temp Pulse Resp BP Pulse Ox 98.1 F 86 18 119/72 98 02/08/18 15:56 02/08/18 15:56 02/08/18 15:56 02/08/18 15:56 02/08/18 16:47 - Labs Labs: 02/08/18 12:25 02/08/18 12:25 PT 29.7 Seconds (9.8-13.1) H 02/08/18 12:25 INR 2.6 (0.9-1.2) H 02/08/18 12:25 APTT 41.4 Seconds (25.6-37.1) H 02/08/18 12:25
[2018-02-09] MEDS ORDERED: Albuterol HFA 90 mcg/actuation (8 g) IH PRN (00:08)
[2018-02-09 06:37] LABS: HEMOGLOBIN 12.3 g/dL (12.0-16.0); MEAN CELL VOLUME 89.6 fl (81.0-99.0); MEAN CORPUSCULAR HEMOGLOBIN 30.6 pg (27.0-31.0); MEAN CORPUSCULAR HGB CONC 34.1 g/dL (33.0-37.0); RBC 4.02 Mil/uL (3.80-5.20); RED CELL DISTRIBUTION WIDTH 18.5 % (11.5-14.5); WHITE BLOOD COUNT 5.9 K/uL (4.8-10.8)
[2018-02-09] MEDS: Digoxin 125 mcg (0.125 mg) Tab PO SCH (09:07)
[2018-02-09] MEDS: LENALIDOMIDE 15 MG PO SCH (09:07)
--- NOTE | 2018-02-09 09:17 | CP.PCM.PN ---
Subjective - Date & Time of Evaluation Date of Evaluation: 02/09/18 Time of Evaluation: 09:14 - Subjective Subjective: This is a 62 yrs old female who has had multiple myeloid diagnosed about 3 yrs ago. She had a left upper lobe mass, and skeletal metastasis even at that [id number] was started on chemotherapy,with bortezomib and decadron therapy and pt was doing well.. The myeloma was responding but she was beginning to have some neuropathy, so she was changed over to kyprolis + decadron and she had a good response . She was started on revlimid as maintainence and she did fairly well until 6 weeks ago when she was admitted for some weakness of the lower extremities. MRI showed no evidence of compression, but there was thickening of the spinal cord which was interpreted as either leptomeningeal involvement with the myeloma or infectoious process. . She was given antibiotics for 4 weeks via PICC line. After the antibiotics were done the picc line was removed and her chemo continued,. She was due to come back today for the chemo.but she fell in the bathroom and was unable to get up. She could not move her left leg at all, and the right leg is weak as well. She had a MRI in the [facility] and it showed that she had a fluid collection in the epidural space at the T11 ad T12 level.This is causing compression of the cord. There is no reaction in the cord at this time , but she cannot move her left leg at all and the right lower extremity is getting weaker. She has a past h/o atrial fibrillation, but this has been stable, she also has chronic CHF, and DM. Objective - Vital Signs/Intake and Output Vital Signs (last 24 hours): Temp Pulse Resp BP Pulse Ox 98.9 F 82 19 130/84 98 02/09/18 07:43 02/09/18 09:10 02/09/18 07:43 02/09/18 09:10 02/09/18 07:43 - Medications Medications: Current Medications Albuterol (Ventolin Hfa 90 Mcg/Actuation (8 G)) 2 puff IH Q4 PRN PRN Reason: Shortness of Breath Allopurinol (Zyloprim) 100 mg PO DAILY [facility] Carvedilol (Coreg) 25 mg PO Q12 ESSIE Last Admin: 02/09/18 09:09 Dose: 25 mg Dexamethasone (Decadron) 20 mg PO DAILY [facility] Digoxin (Digoxin) 0.125 mg PO DAILY [facility] Last Admin: 02/09/18 09:07 Dose: 0.125 mg Famotidine (Pepcid) 20 mg PO BID [facility] Last Admin: 02/09/18 09:10 Dose: 20 mg Furosemide (Lasix) 20 mg PO DAILY [facility] Home Med (Lenalidomide [Revlimid]) 15 mg PO DAILY [facility] Last Admin: 02/09/18 09:07 Dose: 15 mg Ceftriaxone Sodium 1 gm/ (Sodium Chloride) 100 mls @ 100 mls/hr IVPB DAILY [facility] PRN Reason: Protocol Lisinopril (Zestril) 10 mg PO DAILY [facility] Last Admin: 02/09/18 09:10 Dose: 10 mg Morphine Sulfate (Morphine) 2 mg IVP Q4 PRN PRN Reason: Pain, moderate (4-7) Last Admin: 02/08/18 21:26 Dose: 2 mg Nystatin (Nystop Topical Powder) 1 applic TOP TID [facility] - Labs Labs: 02/09/18 04:00 02/08/18 12:25 PT 29.7 Seconds (9.8-13.1) H 02/08/18 12:25 INR 2.6 (0.9-1.2) H 02/08/18 12:25 APTT 41.4 Seconds (25.6-37.1) H 02/08/18 12:25 - Additional Findings Additional findings: Physical exam; Alert,well oriented in no acute distress, obese neck supple, no mass, no adenopathy Chest; Air entry good, occ rales in the bases Heart; RSR, no murmur Abd; Soft, obese, no mass palpable. EXT; Pt is unable to move her left extremity, right only a little. Assessment and Plan - Assessment and Plan (Free Text) Assessment: Impression; Multiple myeloma with skeletal metastasis, and now a collection of fluid ?ruptured disc, ? abscess. Spinal cord compression Plan: Plan; Will give her another run of potassium so K can be in the normal range. She has been off the xarelto for more than 24 hrs She will be given 2 units of fresh frozen plasma prior to the spine surgery which is scheduled for this afternoon. She will get a lifeport placed after the spine surgery to continue her chemotherapy
[2018-02-09 09:25] LABS: ALB/GLOB RATIO 0.9 (1.0-2.1); ALBUMIN 2.9 g/dL (3.5-5.0); ALT/SGPT 65 U/L (9-52); AST/SGOT 86 U/L (14-36); BLOOD UREA NITROGEN 13 mg/dl (7-17); CALCIUM 8.7 mg/dL (8.4-10.2); GFR AFRICAN-AMERICAN > 60; GFR NON-AFRICAN AMERICAN > 60
--- NOTE | 2018-02-09 11:16 | MRI ---
PROCEDURE: MR CERVICAL SPINE WITHOUT CONTRAST HISTORY: BLE weakness COMPARISON: None available. TECHNIQUE: Multiecho multiplanar sequences were performed through the cervical spine without the use of intravenous contrast. FINDINGS: Normal lordotic curvature. Craniocervical junction unremarkable. Vertebral body heights preserved. No marrow signal abnormality. Diffuse multilevel disc desiccation is identified. Normal cervical cord. No prevertebral abnormality. Note is made of a heterogeneous signal intensity mass 5.0 x 4.0 cm at the left neck/ lateral paraspinal soft tissues best seen in axial images at the level of the C6 through T1 vertebral bodies well defined in prior chest CT 10/04/2017. Motion artifacts limit this study somewhat. C2-C3: No disc herniation, spinal canal stenosis or neural foraminal narrowing. C3-C4: No disc herniation is identified although limited disc bulging encroaches the ventral nerve roots and causes borderline central canal stenosis. No neural foraminal stenosis bilaterally. C4-C5: No disc herniation or severe central canal foraminal stenosis although an additional limited disc bulge encroaches ventral nerve roots at this level as well resulting in borderline central stenosis. C5-C6: Again, limited disc bulging encroaches the ventral nerve roots with a borderline central stenosis. No significant neural foraminal stenosis. C6-C7: No disc herniation, spinal canal stenosis or neural foraminal narrowing. C7-T1: No disc herniation, spinal canal stenosis or neural foraminal narrowing. OTHER FINDINGS: None. IMPRESSION: Degenerative borderline central stenoses are identified at C3-4, C4-5 and C5-6. No disc herniation throughout the exam. Normal curvature evident. Incidental note is made of a mass at the left neck base/ left lateral paraspinal soft tissues once again, better defined in separate unenhanced chest CT 10/04/2017. Follow-up neck or chest CT can be performed for additional interval characterization of this finding.
--- NOTE | 2018-02-09 11:41 | CP.PCM.HP ---
History of Present Illness - History of Present Illness History of Present Illness: 62 yrs old female PMHx AFib , anticoagulated with Xarelto , HTN , CHF , Multiple Myeloma , AD on 12-29 [facility] for severe low back pain, not relieved by Percocet , Patient was with no motor or sensory deficit , no fecal or urinary incontinence, no saddle anesthesia , MRI 12-30 no spinal cord compresion , diffuse leptomeningeal thickening, malignancy vs inflammation , Neurosurgery did not recommend , Bx , Anesthesia did not recommend Lumbar Spinal tap , Patient blood C-S came back Staph Aureus , ID recommended Vanco IV for 4 weeks , , Hematology started Chemotherapy 01-04-18 and Patient was transferred to [facility] to continue ATB treatment and PT, Patient was DD [facility] 01-30 , Patient was having leg weakness , yesterday 02-08 at aprox. 1am Patient went out of bed to the commode and fell down , there after Patient was unable to move Left L/E also weakness Left L /E , Patient was in the floor aprox to 8 am , Family came and Patient was brought by EMS to ER. Lumbar Spine MRI multilevel lumbar spondylosis , spinal stenosis , no interval disc herniation , possible epidural fluid collection increased T-11, T 12 posterior epidural space , Left paraspinal soft tissue edema-fluid , cord compression result without definive cord reaction , consider infectious , inflammatory process including epidural abcess. Neurosurgoical consult : MRI progressive T11 , T 12 lesion , Patient on Xarelto , last dosis earlier yesterday , need 24 hs off for spine surgery Hematology consult : Multiple Myeloma , spinal cord compression , transfuse FFP before Surgery Present on Admission - Present on Admission Any Indicators Present on Admission: No Review of Systems - Constitutional Constitutional: Other (neg) - EENT Eyes: Other (neg) Nose/Mouth/Throat: Other (neg) - Cardiovascular Cardiovascular: Irregular Heart Rhythm - Respiratory Respiratory: Cough - Gastrointestinal Gastrointestinal: Other (neg) - Genitourinary Genitourinary: Other (neg) - Musculoskeletal Musculoskeletal: Arthralgias, Back Pain, Muscle Weakness - Integumentary Integumentary: Other - Neurological Neurological: Weakness (L/E L>R) - Endocrine Endocrine: Other (neg) - Hematologic/Lymphatic Hematologic: Other (neg) Past Patient History - Infectious Disease Hx of Infectious Diseases: None - Tetanus Immunizations Tetanus Immunization: Unknown - Past Medical History & Family History Past Medical History?: Yes - Past Social History Smoking Status: Never Smoked - CARDIAC Hx Cardiac Disorders: Yes Hx Atrial Fibrillation: Yes Hx Congestive Heart Failure: Yes Hx Hypertension: Yes - PULMONARY Hx Respiratory Disorders: Yes Hx Pneumonia: Yes - NEUROLOGICAL Hx Neurological Disorder: No - HEENT Hx HEENT Problems: No - RENAL Hx Chronic Kidney Disease: No - ENDOCRINE/METABOLIC Hx Endocrine Disorders: No - HEMATOLOGICAL/ONCOLOGICAL Hx AIDS: No Hx Human Immunodeficiency Virus (HIV): No Other/Comment: Multiple Myeloma - INTEGUMENTARY Hx Dermatological Problems: No - MUSCULOSKELETAL/RHEUMATOLOGICAL Hx Musculoskeletal Disorders: Yes Hx Falls: Yes Hx Unsteady Gait: Yes - GASTROINTESTINAL Hx Gastrointestinal Disorders: No - GENITOURINARY/GYNECOLOGICAL Hx Genitourinary Disorders: Yes Hx Urinary Tract Infection: Yes Other/Comment: Uterine Fibroids - PSYCHIATRIC Hx Psychophysiologic Disorder: No Hx Substance Use: No - SURGICAL HISTORY Hx Surgeries: Yes Hx Appendectomy: Yes Hx Cholecystectomy: Yes - ANESTHESIA Hx Anesthesia: Yes Hx Anesthesia Reactions: No Hx Malignant Hyperthermia: No Meds Allergies/Adverse Reactions: Allergies Allergy/AdvReac Type Severity Reaction Status Date / Time No Known Allergies Allergy Verified 02/08/18 11:20 Physical Exam - Constitutional Appears: No Acute Distress - Head Exam Head Exam: NORMAL INSPECTION - Eye Exam Eye Exam: PERRL - ENT Exam ENT Exam: Normal Exam - Neck Exam Neck exam: Positive for: Normal Inspection - Respiratory Exam Respiratory Exam: Rhonchi Additional comments: feew scattered - Cardiovascular Exam Cardiovascular Exam: Irregular Rhythm - GI/Abdominal Exam GI & Abdominal Exam: Normal Bowel Sounds, Soft - Extremities Exam Extremities exam: Positive for: tenderness (L knee , abrassion L knee) - Back Exam Back exam: tenderness - Neurological Exam Neurological exam: Alert, CN II-XII Intact, Oriented x3 Additional comments: unable to move Left lower extremity, minimal movement Right lower extremity , sensory negative , Plantar reflex equivocal - Psychiatric Exam Psychiatric exam: Normal Affect Results - Vital Signs Recent Vital Signs: Last Vital Signs Temp 98.9 F 02/09/18 07:43 Pulse 82 02/09/18 09:10 Resp 19 02/09/18 07:43 BP 130/84 02/09/18 09:10 Pulse Ox 98 02/09/18 07:43 - Labs Result Diagrams: 02/11/18 04:30 02/12/18 05:35 Labs: Laboratory Results - last 24 hr 02/08/18 02/08/18 02/08/18 11:41 12:25 12:25 WBC 6.0 RBC 4.32 Hgb 13.1 Hct 38.8 MCV 89.8 MCH 30.2 MCHC 33.6 RDW 18.4 H Plt Count 183 MPV 9.0 Neut % (Auto) 78.7 H Lymph % (Auto) 13.3 L Delta % (Auto) 6.7 Eos % (Auto) 1.2 Baso % (Auto) 0.1 Neut # (Auto) 4.7 Lymph # (Auto) 0.8 L Delta # (Auto) 0.4 Eos # (Auto) 0.1 Baso # (Auto) 0.0 PT INR APTT Sodium 138 Potassium 3.1 L Chloride 101 Carbon Dioxide 26 Anion Gap 14 BUN 15 Creatinine 0.3 L Est GFR ( Amer) > 60 Est GFR (Non-Af Amer) > 60 POC Glucose (mg/dL) 109 Random Glucose 141 H Calcium 8.7 Total Bilirubin 0.9 AST 24 ALT 60 H Alkaline Phosphatase 99 Total Protein 6.3 Albumin 3.2 L Globulin 3.1 Albumin/Globulin Ratio 1.0 Urine Color Urine Clarity Urine pH Ur Specific [place] Urine Protein Urine Glucose (UA) Urine Ketones Urine Blood Urine Nitrate Urine Bilirubin Urine Urobilinogen Ur Leukocyte Esterase Urine RBC (Auto) Urine Microscopic WBC Ur Squamous Epith Cells Urine Bacteria Crossmatch BBK History Checked 02/08/18 02/08/18 02/09/18 12:25 13:45 04:00 WBC 5.9 RBC 4.02 Hgb 12.3 Hct 36.0 MCV 89.6 MCH 30.6 MCHC 34.1 RDW 18.5 H Plt Count 183 MPV Neut % (Auto) Lymph % (Auto) Delta % (Auto) Eos % (Auto) Baso % (Auto) Neut # (Auto) Lymph # (Auto) Delta # (Auto) Eos # (Auto) Baso # (Auto) PT 29.7 H INR 2.6 H APTT 41.4 H Sodium Potassium Chloride Carbon Dioxide Anion Gap BUN Creatinine Est GFR ( Amer) Est GFR (Non-Af Amer) POC Glucose (mg/dL) Random Glucose Calcium Total Bilirubin AST ALT Alkaline Phosphatase Total Protein Albumin Globulin Albumin/Globulin Ratio Urine Color Yellow Urine Clarity Turbid Urine pH 6.0 Ur Specific [place] 1.011 Urine Protein 30 Urine Glucose (UA) Neg Urine Ketones Negative Urine Blood Large Urine Nitrate Negative Urine Bilirubin Negative Urine Urobilinogen 0.2-1.0 Ur Leukocyte Esterase Large Urine RBC (Auto) 793 H Urine Microscopic WBC 958 H Ur Squamous Epith Cells 4 Urine Bacteria Occ H Crossmatch BBK History Checked 02/09/18 02/09/18 09:00 10:15 WBC RBC Hgb Hct MCV MCH MCHC RDW Plt Count MPV Neut % (Auto) Lymph % (Auto) Delta % (Auto) Eos % (Auto) Baso % (Auto) Neut # (Auto) Lymph # (Auto) Delta # (Auto) Eos # (Auto) Baso # (Auto) PT INR APTT Sodium 137 Potassium 3.4 L Chloride 101 Carbon Dioxide 25 Anion Gap 14 BUN 13 Creatinine 0.3 L Est GFR ( Amer) > 60 Est GFR (Non-Af Amer) > 60 POC Glucose (mg/dL) Random Glucose 106 H Calcium 8.7 Total Bilirubin 1.0 AST 86 H D ALT 65 H Alkaline Phosphatase 103 Total Protein 6.1 L Albumin 2.9 L Globulin 3.2 Albumin/Globulin Ratio 0.9 L Urine Color Urine Clarity Urine pH Ur Specific [place] Urine Protein Urine Glucose (UA) Urine Ketones Urine Blood Urine Nitrate Urine Bilirubin Urine Urobilinogen Ur Leukocyte Esterase Urine RBC (Auto) Urine Microscopic WBC Ur Squamous Epith Cells Urine Bacteria Crossmatch See Detail BBK History Checked Patient has bt Assessment & Plan (1) Spinal cord compression Status: Acute Priority: High (2) Multiple myeloma Status: Chronic Priority: High (3) Afib Status: Chronic Priority: High (4) HTN (hypertension) Status: Chronic Priority: Medium (5) Hypokalemia Status: Acute Priority: High (6) Urinary tract infection Status: Acute (7) Coagulopathy Status: Acute Priority: High - Assessment and Plan (Free Text) Plan: Transfuse FFP, correction of PT , PTT . INR , correction of Hypokalemia , Ceftriazone , Cardiology clearance prior to OR
--- NOTE | 2018-02-09 11:53 | MRI ---
PROCEDURE: MR THORACIC SPINE WITHOUT CONTRAST HISTORY: BLE weakness COMPARISON: Thoracic spine MRI dated 12/29/2017 with and without contrast. TECHNIQUE: Multiecho multiplanar sequences were performed through the thoracic spine without the use of intravenous contrast. FINDINGS: ALIGNMENT: A kyphotic deformity from multiple mid to inferior thoracic spinal anterior wedge compression fractures is maintained with 2 worse fracture remaining at the T6 level appearing severe once again. No definite suspicious marrow signal changes are appreciated although diffuse disc desiccation is again evident. There is no interval spondylolisthesis with the overall thoracic spinal cord signal normal. At the T12-L1 level, however, there is now cord compression caused by a complex cystic lesion with peripheral enhancement seen in the prior lumbar spine MRI also performed 02/08/2018 suspicious for an abscess or other proteinaceous lesion appears soft tissue lesion is not completely excluded. It measures approximately 1.7 x 81.1 x 4.4 cm While this is a significant interval finding, the overall appearance of the posterior epidural space sedated appears significantly improved in the interval with more normal appearing thin epidural pattern above and below the cord compression level. Thickening of the epidural space leading to the collection spans from the inferior T11 to mid L1 level. A small fluid collection is identified related to the T12-1 left facet joint potentially representing rupture synovial cyst. Is difficult to differentiate between this fluid and the epidural fluid at the posterior epidural space however. Inhomogeneous enhancement is seen related to this posterior paraspinal soft tissue. No cord signal abnormality is appreciated throughout the thoracic spinal cord including at the T12-L1 disc interspace level despite moderate to severe compression the conus appearing unremarkable once again, terminating at L2-3 disc interspace level. Motion artifacts obscure evaluation in the axial view. Note, the L5 vertebral body is apparently a transitional lumbarized S1. VERTEBRA: As above. MARROW: As above. PARASPINAL SOFT TISSUES: As above. CORD: As above. DISCS: Disc bulges at T10-11, T11-12 and T12-L1 are reiterated and abut the ventral cord without significant stenosis although the disc bulges T12-L1 contributes to the compression from posterior epidural collection. OTHER FINDINGS: None. IMPRESSION: In general, there is marked improvement in the posterior epidural space throughout the thoracic spine as compared to the prior examination 12/29/2017 demonstrating irregular, inhomogeneous fluid in the posterior epidural space throughout the majority if not entirety of the thoracic spine suspicious for abscess or other infiltrative process. However, prominent focal collection at the T12-L1 posterior epidural space is identified combined with disc bulge resulting in significant compression of the inferior thoracic cord but no cord reaction or enhancement at this time. This may communicate with left paraspinal fluid collection/edema at the posterior left paraspinal space at T12-L1 as discussed above. Other lesser findings as discussed above. Concordant preliminary report from [facility], 02/08/2018.
[2018-02-09] MEDS: Ipratropium 0.02% Inhal Soln (0.5 mg/2.5 ml) UD IH SCH ×3 (12:08→19:06)
--- NOTE | 2018-02-09 12:43 | RAD ---
HISTORY: for OR @2pm COMPARISON: 12/31/2017. TECHNIQUE: Chest PA and lateral FINDINGS: LUNGS: No active pulmonary disease. Rotation accentuates pulmonary markings in the right lung. PLEURA: No significant pleural effusion identified. No pneumothorax apparent. CARDIOVASCULAR: No radiographic findings to suggest acute or significant cardiovascular disease. OSSEOUS STRUCTURES: No significant abnormalities. Stable healed posterior lateral right rib fractures. VISUALIZED UPPER ABDOMEN: Normal. OTHER FINDINGS: None. IMPRESSION: No active disease. No significant interval change compared to the prior examination(s).
[2018-02-09] MEDS: Levalbuterol 0.63 MG/3 ML Inhal Soln UD INH SCH ×3 (12:47→19:07)
[2018-02-09] MEDS ORDERED: Ipratropium 0.02% Inhal Soln (0.5 mg/2.5 ml) UD IH ONE (12:50)
--- NOTE | 2018-02-09 13:51 | CARD ---
APPROVED REPORT EKG Measurement Heart [id number] <Conclusion> Atrial fibrillation Nonspecific ST and T wave abnormality Abnormal ECG
[2018-02-09] MEDS ORDERED: Digoxin 125 mcg (0.125 mg) Tab PO ONE (14:27)
--- NOTE | 2018-02-09 14:34 | CP.PCM.CON ---
History of Present Illness - History of Present Illness History of Present Illness: This 62-year-old female with a long history of atrial fibrillation with congestive cardiac failure which was diastolic and left ventricular and chronic is hospitalized with cord compression and unable to move her left lower extremity. The patient has a long history of multiple myeloma for which she has been treated with various chemotherapeutic agents. She was recently hospitalized with acute pulmonary edema following a meal containing excessive salt. She is being managed with oral diabetics, rate controlled and anticoagulation. She has no history of diabetes of smoking and has never suffered a myocardial infarction. A recent echocardiogram demonstrates preserved left ventricular systolic function with a markedly dilated left atrium as a consequence of left ventricular diastolic dysfunction. Physical examination shows an elderly pleasant female who is in the process of receiving fresh frozen plasma to rectify coagulopathy. She is mildly dyspneic with a respiratory rate of 18-20 breaths per minute but can carry on a conversation. She had a heart rate off 92 bpm irregularly irregular and a blood pressure of 128/74 mmHg. Her jugular venous pressure was not elevated and there was no edema over lower extremities. Her extremities were warm and nailbeds were pink. There was no central or peripheral cyanosis. There was no clubbing. The apex was not palpable. The first heart sound had a variable intensity of the second heart sound was normal. There were few scattered rales at both bases. Her pulse oximetry was 96%. Abdomen was soft and liver and spleen were not palpable. Her electrocardiogram showed atrial fibrillation with moderate heart rate. There were no Q waves on the electric cardiogram. Her echocardiogram off December hospitalization showed a preserved left ventricular systolic function with a markedly enlarged left atrium. Her lab data was noted. Her BUN/creatinine were normal. Her serum potassium is mildly depressed and replacement has been ordered. Her hemoglobin and hematocrit were normal. Her oral anticoagulation has been withheld since yesterday in anticipation of surgery tomorrow. Her INR is elevated and she is receiving fresh frozen plasma to rectify it. Impression: Cord compression with paraparesis. Chronic atrial fibrillation with congestive cardiac failure which is left ventricular diastolic and chronic. She is receiving large volume in the form of FFP. She will receive an additional Diuretics to relieve her of her volume overload. I'm giving her an additional dose of digoxin to control her heart rate. Potassium replacement has been ordered. The patient appears medically stable for her planned surgery. I will reevaluate her tomorrow morning prior to her surgery. Past Patient History - Infectious Disease Hx of Infectious Diseases: None - Tetanus Immunizations Tetanus Immunization: Unknown - Past Medical History & Family History Past Medical History?: Yes - Past Social History Smoking Status: Never Smoked - CARDIAC Hx Cardiac Disorders: Yes Hx Atrial Fibrillation: Yes Hx Congestive Heart Failure: Yes Hx Hypertension: Yes - PULMONARY Hx Respiratory Disorders: Yes Hx Pneumonia: Yes - NEUROLOGICAL Hx Neurological Disorder: No - HEENT Hx HEENT Problems: No - RENAL Hx Chronic Kidney Disease: No - ENDOCRINE/METABOLIC Hx Endocrine Disorders: No - HEMATOLOGICAL/ONCOLOGICAL Hx AIDS: No Hx Human Immunodeficiency Virus (HIV): No Other/Comment: Multiple Myeloma - INTEGUMENTARY Hx Dermatological Problems: No - MUSCULOSKELETAL/RHEUMATOLOGICAL Hx Musculoskeletal Disorders: Yes Hx Falls: Yes Hx Unsteady Gait: Yes - GASTROINTESTINAL Hx Gastrointestinal Disorders: No - GENITOURINARY/GYNECOLOGICAL Hx Genitourinary Disorders: Yes Hx Urinary Tract Infection: Yes Other/Comment: Uterine Fibroids - PSYCHIATRIC Hx Psychophysiologic Disorder: No Hx Substance Use: No - SURGICAL HISTORY Hx Surgeries: Yes Hx Appendectomy: Yes Hx Cholecystectomy: Yes - ANESTHESIA Hx Anesthesia: Yes Hx Anesthesia Reactions: No Hx Malignant Hyperthermia: No Meds Allergies/Adverse Reactions: Allergies Allergy/AdvReac Type Severity Reaction Status Date / Time No Known Allergies Allergy Verified 02/08/18 11:20 - Medications Medications: Current Medications Albuterol (Ventolin Hfa 90 Mcg/Actuation (8 G)) 2 puff IH Q4 PRN PRN Reason: Shortness of Breath Allopurinol (Zyloprim) 100 mg PO DAILY [facility] Last Admin: 02/09/18 11:48 Dose: 100 mg Carvedilol (Coreg) 25 mg PO Q12 [facility] Last Admin: 02/09/18 09:09 Dose: 25 mg Dexamethasone (Decadron) 20 mg PO DAILY [facility] Digoxin (Digoxin) 0.125 mg PO DAILY [facility] Last Admin: 02/09/18 09:07 Dose: 0.125 mg Digoxin (Digoxin) 0.125 mg PO ONCE ONE Stop: 02/09/18 14:28 Famotidine (Pepcid) 20 mg PO BID [facility] Last Admin: 02/09/18 09:10 Dose: 20 mg Furosemide (Lasix) 20 mg PO DAILY [facility] Last Admin: 02/09/18 11:48 Dose: 20 mg Home Med (Lenalidomide [Revlimid]) 15 mg PO DAILY [facility] Last Admin: 02/09/18 09:07 Dose: 15 mg Ceftriaxone Sodium 1 gm/ (Sodium Chloride) 100 mls @ 100 mls/hr IVPB DAILY [facility] PRN Reason: Protocol Ipratropium [place] (Atrovent) 0.5 mg IH RQ6 [facility] Levalbuterol HCl (Xopenex) 0.63 mg INH RQ6 [facility] Last Admin: 02/09/18 12:47 Dose: 0.63 mg Lisinopril (Zestril) 10 mg PO DAILY [facility] Last Admin: 02/09/18 09:10 Dose: 10 mg Morphine Sulfate (Morphine) 2 mg IVP Q4 PRN PRN Reason: Pain, moderate (4-7) Last Admin: 02/08/18 21:26 Dose: 2 mg Nystatin (Nystop Topical Powder) 1 applic TOP TID [facility] Results - Vital Signs Recent Vital Signs: Last Vital Signs Temp 98.9 F 02/09/18 07:43 Pulse 82 02/09/18 12:52 Resp 19 02/09/18 07:43 BP 104/62 02/09/18 11:48 Pulse Ox 98 02/09/18 07:43 - Labs Result Diagrams: 02/09/18 04:00 02/09/18 09:00 Labs: Laboratory Results - last 24 hr 02/08/18 02/09/18 02/09/18 11:41 04:00 09:00 WBC 5.9 RBC 4.02 Hgb 12.3 Hct 36.0 MCV 89.6 MCH 30.6 MCHC 34.1 RDW 18.5 H Plt Count 183 Sodium 137 Potassium 3.4 L Chloride 101 Carbon Dioxide 25 Anion Gap 14 BUN 13 Creatinine 0.3 L Est GFR ( Amer) > 60 Est GFR (Non-Af Amer) > 60 POC Glucose (mg/dL) 109 Random Glucose 106 H Calcium 8.7 Total Bilirubin 1.0 AST 86 H D ALT 65 H Alkaline Phosphatase 103 Total Protein 6.1 L Albumin 2.9 L Globulin 3.2 Albumin/Globulin Ratio 0.9 L Blood Type Antibody Screen Crossmatch BBK History Checked 02/09/18 10:15 WBC RBC Hgb Hct MCV MCH MCHC RDW Plt Count Sodium Potassium Chloride Carbon Dioxide Anion Gap BUN Creatinine Est GFR ( Amer) Est GFR (Non-Af Amer) POC Glucose (mg/dL) Random Glucose Calcium Total Bilirubin AST ALT Alkaline Phosphatase Total Protein Albumin Globulin Albumin/Globulin Ratio Blood Type O POSITIVE Antibody Screen Negative Crossmatch See Detail BBK History Checked Patient has bt
--- NOTE | 2018-02-09 17:18 | CP.PCM.CON ---
History of Present Illness - History of Present Illness History of Present Illness: SPINE CONSULT Pt seen and examined. Full consult dictated. Rec decompressive laminectomy at T11-12. Have advised family this may not result in partial/complete neurological recovery, especially given delay secondary to her elevated INR Past Patient History - Infectious Disease Hx of Infectious Diseases: None - Tetanus Immunizations Tetanus Immunization: Unknown - Past Medical History & Family History Past Medical History?: Yes - Past Social History Smoking Status: Never Smoked - CARDIAC Hx Cardiac Disorders: Yes Hx Atrial Fibrillation: Yes Hx Congestive Heart Failure: Yes Hx Hypertension: Yes - PULMONARY Hx Respiratory Disorders: Yes Hx Pneumonia: Yes - NEUROLOGICAL Hx Neurological Disorder: No - HEENT Hx HEENT Problems: No - RENAL Hx Chronic Kidney Disease: No - ENDOCRINE/METABOLIC Hx Endocrine Disorders: No - HEMATOLOGICAL/ONCOLOGICAL Hx AIDS: No Hx Human Immunodeficiency Virus (HIV): No Other/Comment: Multiple Myeloma - INTEGUMENTARY Hx Dermatological Problems: No - MUSCULOSKELETAL/RHEUMATOLOGICAL Hx Musculoskeletal Disorders: Yes Hx Falls: Yes Hx Unsteady Gait: Yes - GASTROINTESTINAL Hx Gastrointestinal Disorders: No - GENITOURINARY/GYNECOLOGICAL Hx Genitourinary Disorders: Yes Hx Urinary Tract Infection: Yes Other/Comment: Uterine Fibroids - PSYCHIATRIC Hx Psychophysiologic Disorder: No Hx Substance Use: No - SURGICAL HISTORY Hx Surgeries: Yes Hx Appendectomy: Yes Hx Cholecystectomy: Yes - ANESTHESIA Hx Anesthesia: Yes Hx Anesthesia Reactions: No Hx Malignant Hyperthermia: No Meds Allergies/Adverse Reactions: Allergies Allergy/AdvReac Type Severity Reaction Status Date / Time No Known Allergies Allergy Verified 02/08/18 11:20 - Medications Medications: Current Medications Albuterol (Ventolin Hfa 90 Mcg/Actuation (8 G)) 2 puff IH Q4 PRN PRN Reason: Shortness of Breath Allopurinol (Zyloprim) 100 mg PO DAILY [facility] Last Admin: 02/09/18 11:48 Dose: 100 mg Carvedilol (Coreg) 25 mg PO Q12 [facility] Last Admin: 02/09/18 09:09 Dose: 25 mg Dexamethasone (Decadron) 20 mg PO DAILY [facility] Last Admin: 02/09/18 14:37 Dose: 20 mg Digoxin (Digoxin) 0.125 mg PO DAILY [facility] Last Admin: 02/09/18 09:07 Dose: 0.125 mg Famotidine (Pepcid) 20 mg PO BID [facility] Last Admin: 02/09/18 09:10 Dose: 20 mg Furosemide (Lasix) 20 mg PO DAILY [facility] Last Admin: 02/09/18 11:48 Dose: 20 mg Home Med (Lenalidomide [Revlimid]) 15 mg PO DAILY [facility] Last Admin: 02/09/18 09:07 Dose: 15 mg Ceftriaxone Sodium 1 gm/ (Sodium Chloride) 100 mls @ 100 mls/hr IVPB DAILY [facility] PRN Reason: Protocol Ipratropium [place] (Atrovent) 0.5 mg IH RQ6 [facility] Levalbuterol HCl (Xopenex) 0.63 mg INH RQ6 [facility] Last Admin: 02/09/18 12:47 Dose: 0.63 mg Lisinopril (Zestril) 10 mg PO DAILY [facility] Last Admin: 02/09/18 09:10 Dose: 10 mg Morphine Sulfate (Morphine) 2 mg IVP Q4 PRN PRN Reason: Pain, moderate (4-7) Last Admin: 02/08/18 21:26 Dose: 2 mg Nystatin (Nystop Topical Powder) 1 applic TOP TID [facility] Results - Vital Signs Recent Vital Signs: Last Vital Signs Temp 98.7 F 02/09/18 16:01 Pulse 98 H 02/09/18 16:01 Resp 20 02/09/18 16:01 BP 118/80 02/09/18 16:01 Pulse Ox 95 02/09/18 16:01 - Labs Result Diagrams: 02/09/18 04:00 02/09/18 09:00 Labs: Laboratory Results - last 24 hr 02/08/18 02/09/18 02/09/18 11:41 04:00 09:00 WBC 5.9 RBC 4.02 Hgb 12.3 Hct 36.0 MCV 89.6 MCH 30.6 MCHC 34.1 RDW 18.5 H Plt Count 183 Sodium 137 Potassium 3.4 L Chloride 101 Carbon Dioxide 25 Anion Gap 14 BUN 13 Creatinine 0.3 L Est GFR ( Amer) > 60 Est GFR (Non-Af Amer) > 60 POC Glucose (mg/dL) 109 Random Glucose 106 H Calcium 8.7 Total Bilirubin 1.0 AST 86 H D ALT 65 H Alkaline Phosphatase 103 Total Protein 6.1 L Albumin 2.9 L Globulin 3.2 Albumin/Globulin Ratio 0.9 L Blood Type Antibody Screen Crossmatch BBK History Checked 02/09/18 10:15 WBC RBC Hgb Hct MCV MCH MCHC RDW Plt Count Sodium Potassium Chloride Carbon Dioxide Anion Gap BUN Creatinine Est GFR ( Amer) Est GFR (Non-Af Amer) POC Glucose (mg/dL) Random Glucose Calcium Total Bilirubin AST ALT Alkaline Phosphatase Total Protein Albumin Globulin Albumin/Globulin Ratio Blood Type O POSITIVE Antibody Screen Negative Crossmatch See Detail BBK History Checked Patient has bt
[2018-02-09] MEDS: Potassium Chloride 20 mEq 100 ML IVPB SCH ×2 (20:29→20:30)
[2018-02-09] MEDS ORDERED: Iohexol 240 (50 ml) IVP ONE (20:30)
[2018-02-09 20:34] LABS: HEMOGLOBIN 11.7 g/dL (12.0-16.0); MEAN CELL VOLUME 89.8 fl (81.0-99.0); MEAN CORPUSCULAR HEMOGLOBIN 30.4 pg (27.0-31.0); MEAN CORPUSCULAR HGB CONC 33.9 g/dL (33.0-37.0); RBC 3.84 Mil/uL (3.80-5.20); RED CELL DISTRIBUTION WIDTH 18.9 % (11.5-14.5); WHITE BLOOD COUNT 6.5 K/uL (4.8-10.8)
[2018-02-09 20:49] LABS: INR 1.2 (0.9-1.2); PARTIAL THROMBOPLASTIN TIME 32.7 Seconds (25.6-37.1); PROTHROMBIN TIME 13.8 Seconds (9.8-13.1)
[2018-02-09 21:06] LABS: BLOOD UREA NITROGEN 12 mg/dl (7-17); GFR AFRICAN-AMERICAN > 60; GFR NON-AFRICAN AMERICAN > 60
[2018-02-09 21:07] LABS: ALT/SGPT 95 U/L (9-52); AST/SGOT 78 U/L (14-36)
[2018-02-09 21:08] LABS: ALBUMIN 3.4 g/dL (3.5-5.0); CALCIUM 8.9 mg/dL (8.4-10.2)
[2018-02-09] MEDS ORDERED: Sodium Chloride 0.9% 50 ML IV ONE (21:59)
[2018-02-09] MEDS ORDERED: Iohexol 300 100 ML IJ ONE (21:59)
[2018-02-09] MEDS ORDERED: Potassium Chloride 20 mEq ER Tab PO ONE (22:00)
--- NOTE | 2018-02-10 00:35 | CT ---
EXAM: CT Chest With Intravenous Contrast CT Abdomen and Pelvis With Intravenous Contrast EXAM DATE/TIME: 02/09/2018 6:38 PM CLINICAL HISTORY: 62 years old, female; Signs and symptoms; Other: Weakness, epidural fluid collection; Prior surgery; Surgery date: 6+ months; Surgery type: Append. Cholecyst. Hysterectomy; Patient HX: HX of multiple myloma; Additional info: Md order TECHNIQUE: Axial computed tomography images of the chest, abdomen and pelvis with intravenous contrast. All CT scans at this facility use one or more dose reduction techniques, viz.: automated exposure control; ma/kV adjustment per patient size (including targeted exams where dose is matched to indication; i.e. head); or iterative reconstruction technique. All CT scans at this facility use one or more dose reduction techniques, viz.: automated exposure control; ma/kV adjustment per patient size (including targeted exams where dose is matched to indication; i.e. head); or iterative reconstruction technique. Coronal and sagittal reformatted images were created and reviewed. CONTRAST: 95 mL of [id number] administered intravenously. COMPARISON: Prior CT chest of 2017-10-04 FINDINGS: LIMITATIONS: Mild to moderate motion artifact. CHEST: LUNGS: Findings suspicious for a scattered bilateral acute pneumonia. There are focal areas of dense consolidation in the medial lower lobes bilaterally, greater on the left. There is also patchy consolidation in the left upper lobe. Subtle, patchy ground glass densities also noted in the lungs bilaterally. Stable appearance of a 6 mm noncalcified pulmonary nodule in the left lung base. No evidence of diffuse pulmonary vascular congestion. PLEURAL SPACE: No pneumothorax or significant pleural effusions seen. HEART: Heart appears mildly enlarged. MEDIASTINUM: Again seen is a 6.2 x 4.5 cm well-defined probable cystic mass in the left superior mediastinum, abutting the trachea and esophagus on the left. This does not appear significantly changed compared to the previous exam. A vessel is noted to course within this cystic mass inferiorly. The trachea and esophagus are displaced rightward by the mass, unchanged. No associated gas or adjacent inflammation. ABDOMEN: LIVER: 4 cm low density liver lesion, most likely a cyst. Fatty infiltration of the liver. GALLBLADDER AND BILE DUCTS: Cholecystectomy clips. PANCREAS: No CT evidence of acute pancreatitis. SPLEEN: No acute abnormality of the spleen identified. ADRENALS: No acute abnormality of the adrenal glands. KIDNEYS AND URETERS: Incidental fluid density probable cystic right renal lesion, measuring less than 10 mm. Consistent with the [employer]?s Incidental Findings Committee Report, unless the patient?s specific circumstances suggest otherwise, any cystic kidney lesion less than 1.0 cm not otherwise characterized in this report as possessing suspicious or indeterminate imaging features is/are highly likely to be benign and do not require follow-up imaging or biopsy. No acute abnormality of the kidneys identified. STOMACH AND BOWEL: No acute abnormality of the stomach, small bowel or colon identified. No evidence of bowel obstruction. PELVIS: APPENDIX: Normal appendix is not seen, and there is a reported history of previous appendectomy. BLADDER: Catheter noted within the bladder lumen. REPRODUCTIVE: Uterus is surgically absent. No evidence of large adnexal masses. CHEST, ABDOMEN and PELVIS: INTRAPERITONEAL SPACE: No evidence of free intraperitoneal air or fluid. BONES/JOINTS: Extensive lytic bony lesions, compatible with the given diagnosis of multiple myeloma. The largest lesion is a large, destructive, expansile lytic lesion involving the left first rib, grossly stable in appearance. There is also a large lesion in the right sacrum, measuring 5 cm, which does break through the cortex. A second lytic lesion of the lower sacrum on the left also breaks through the cortex. Multiple chronic vertebral compression fractures again seen, greatest at the T6 level, where there is associated marked vertebral flattening. Bilateral healed rib fractures also seen. No acute fractures visualized. SOFT TISSUES: No acute abnormality of the visualized soft tissues is seen. VASCULATURE: Main pulmonary artery segment is enlarged, a finding which can be seen with pulmonary hypertension. Recommend clinical correlation. No evidence of pulmonary embolism involving the large/central pulmonary arteries. The exam is nondiagnostic for small pulmonary emboli, however. No evidence of aortic dissection or periaortic hemorrhage. LYMPH NODES: No evidence of diffuse lymphadenopathy. IMPRESSION: - Findings highly suspicious for scattered, bilateral acute pneumonia, greatest in the left lower lobe medially. - Otherwise, no evidence of significant acute process. - Extensive lytic bony lesions, compatible with the given diagnosis of multiple myeloma. The largest lesion is a destructive, expansile lesion involving the left first rib, grossly stable compared to a 10/04/2017 CT. There are also bilateral sacral lytic lesions. - Stable appearance of a well-defined 6.2 cm cystic mass in the left upper mediastinum, of uncertain etiology. - See above for remaining findings.
[2018-02-10] MEDS: Levalbuterol 0.63 MG/3 ML Inhal Soln UD INH SCH ×4 (01:23→22:04)
[2018-02-10] MEDS: Ipratropium 0.02% Inhal Soln (0.5 mg/2.5 ml) UD IH SCH ×4 (01:23→22:05)
[2018-02-10 06:34] LABS: INR 1.2 (0.9-1.2); PROTHROMBIN TIME 13.4 Seconds (9.8-13.1)
[2018-02-10 06:48] LABS: ALB/GLOB RATIO 0.9 (1.0-2.1); ALBUMIN 3.3 g/dL (3.5-5.0); ALT/SGPT 86 U/L (9-52); AST/SGOT 43 U/L (14-36); BLOOD UREA NITROGEN 12 mg/dl (7-17); CALCIUM 8.7 mg/dL (8.4-10.2); GFR AFRICAN-AMERICAN > 60; GFR NON-AFRICAN AMERICAN > 60
[2018-02-10] MEDS ORDERED: ceFAZolin IV 2 gm in Dextrose 2 GM/50 ML BAG IVPB ONE (07:21)
[2018-02-10] MEDS ORDERED: Thrombin Topical 5,000 Int Units Spray Kit ONE (07:22)
[2018-02-10] MEDS ORDERED: Lidocaine 2% Inj (20ml) ONE (07:22)
[2018-02-10] MEDS ORDERED: Bacitracin Ointment 30 GM TUBE ONE (07:22)
[2018-02-10] MEDS ORDERED: Absorbable Gelatin Sponge Size 100 ONE (07:22)
--- NOTE | 2018-02-10 08:14 | CARD ---
APPROVED REPORT EKG Measurement Heart [id number] <Conclusion> Atrial fibrillation with a competing junctional pacemaker Minimal voltage criteria for LVH, may be normal variant Nonspecific T wave abnormality Abnormal ECG
[2018-02-10 08:43] LABS: ABG ALLEN TEST YES; ARTERIAL BLOOD GAS HCO3 33.2 mmol/L (21-28); ARTERIAL BLOOD GAS HEMOGLOBIN 10.2 g/dL (11.7-17.4); ARTERIAL BLOOD GAS O2 CAPACITY 13.8 mL/dL (16-24); ARTERIAL BLOOD GAS O2 CONTENT 13.5 ML/dL (15-23); ARTERIAL BLOOD GAS O2 SAT 97.6 % (95-98); ARTERIAL BLOOD GAS PCO2 40 mm/Hg (35-45); ARTERIAL BLOOD GAS PH 7.54 (7.35-7.45); ARTERIAL BLOOD GAS PO2 67 mm/Hg (80-100); ARTERIAL BLOOD GAS TCO2 35.4 mmol/L (22-28)
[2018-02-10] MEDS ORDERED: Potassium Chloride 20 mEq ER Tab PO STA (08:53)
[2018-02-10 09:19] LABS: PARTIAL THROMBOPLASTIN TIME 29.4 Seconds (25.6-37.1)
--- NOTE | 2018-02-10 09:43 | CP.PCM.PN ---
Subjective - Date & Time of Evaluation Date of Evaluation: 02/10/18 Time of Evaluation: 09:00 - Subjective Subjective: Tolerated large quantities of IV volume with FFP infusion (Balanced by diuresis with IV Lasix) This AM denies any dyspnoea (Can converse effortlessly) A Fib at 74 BPM BP 136/70 mm Hg JVP flat, no rales HypoK+ this AM (Oral 40mEq tab given with a sip of water) Discussed this with anesthesia Pt medically stable for her Sx today Objective - Vital Signs/Intake and Output Vital Signs (last 24 hours): Temp Pulse Resp BP Pulse Ox 98.0 F 81 18 143/89 96 02/10/18 07:51 02/10/18 07:51 02/10/18 07:51 02/10/18 07:51 02/10/18 07:51 - Medications Medications: Current Medications Albuterol (Ventolin Hfa 90 Mcg/Actuation (8 G)) 2 puff IH Q4 PRN PRN Reason: Shortness of Breath Allopurinol (Zyloprim) 100 mg PO DAILY COUNTS [facility]CLUDE 234 BEDS AT THE [facility] Last Admin: 02/09/18 11:48 Dose: 100 mg Carvedilol (Coreg) 25 mg PO Q12 COUNTS INCLUDE 234 BEDS AT THE [facility] Last Admin: 02/09/18 21:40 Dose: 25 mg Dexamethasone (Decadron) 20 mg PO DAILY COUNTS INCLUDE 234 BEDS AT THE [facility] Last Admin: 02/09/18 14:37 Dose: 20 mg Digoxin (Digoxin) 0.125 mg PO DAILY COUNTS INCLUDE 234 BEDS AT THE [facility] Last Admin: 02/09/18 09:07 Dose: 0.125 mg Famotidine (Pepcid) 20 mg PO BID COUNTS INCLUDE 234 BEDS AT THE [facility] Last Admin: 02/09/18 17:26 Dose: 20 mg Furosemide (Lasix) 20 mg PO DAILY COUNTS INCLUDE 234 BEDS AT THE [facility] Last Admin: 02/09/18 11:48 Dose: 20 mg Home Med (Lenalidomide [Revlimid]) 15 mg PO DAILY COUNTS INCLUDE 234 BEDS AT THE [facility] Last Admin: 02/09/18 09:07 Dose: 15 mg Potassium Chloride (Potassium Chloride 20 Meq/100 Ml) 100 mls @ 50 mls/hr IVPB Q2 COUNTS INCLUDE 234 BEDS AT THE [facility] Stop: 02/10/18 13:59 Cefepime HCl 1 gm/ Sodium (Chloride) 100 mls @ 100 mls/hr IVPB Q12 [facility] PRN Reason: Protocol Ipratropium [place] (Atrovent) 0.5 mg IH RQ6 COUNTS INCLUDE 234 BEDS AT THE [facility] Last Admin: 02/10/18 07:51 Dose: 0.5 mg Levalbuterol HCl (Xopenex) 0.63 mg INH RQ6 COUNTS INCLUDE 234 BEDS AT THE [facility] Last Admin: 02/10/18 07:52 Dose: 0.63 mg Lisinopril (Zestril) 10 mg PO DAILY COUNTS INCLUDE 234 BEDS AT THE [facility] Last Admin: 02/09/18 09:10 Dose: 10 mg Morphine Sulfate (Morphine) 2 mg IVP Q4 PRN PRN Reason: Pain, moderate (4-7) Last Admin: 02/09/18 16:47 Dose: 2 mg Nystatin (Nystop Topical Powder) 1 applic TOP TID COUNTS INCLUDE 234 BEDS AT THE [facility] Last Admin: 02/09/18 17:26 Dose: 1 applic - Labs Labs: 02/09/18 20:35 02/10/18 05:40 PT 13.4 Seconds (9.8-13.1) H 02/10/18 05:40 INR 1.2 (0.9-1.2) 02/10/18 05:40 APTT 29.4 Seconds (25.6-37.1) 02/10/18 05:40
--- NOTE | 2018-02-10 09:53 | CON ---
DATE: 02/09/2018 REASON FOR CONSULTATION: Inability to move legs. HISTORY OF PRESENT ILLNESS: The patient is a 62-year-old young woman with history of multiple myeloma. She was recently hospitalized with a Staph infection and was placed on IV vancomycin for four weeks. She also has chemotherapy started. She was transferred to [place] to continue her treatments and then discharged on 01/30/2018. The son reports her having some weakness at that time, but she was ambulatory with the walker. However, yesterday around 1 a.m., she went to get out of bed and fell down and could not get herself up off the floor. The family came and brought her to the emergency room. It has been noted that she is unable to move her left leg at all. She has some motion just down around the right ankle. An MRI was done of the lumbar spine from the emergency room, which was reviewed and we asked them to do MRIs of the entire spinal column to review. She states she is having some difficulty of voiding and that she always feels like she still has to void. According to nursing, she has voided a lot, but bladder scan after a large void still reveal a residual 500 mL, so she is going to have placement of an indwelling Garrett. PAST MEDICAL HISTORY: Significant for atrial fibrillation for which she takes Xarelto. She has also hypertension, CHF, and multiple myelomas we mentioned. PAST SURGICAL HISTORY: Significant for placement of a port for her chemo, which is now out as well as many years ago hysterectomy. MEDICATIONS: As listed on the chart. ALLERGIES: SHE IS NOT ALLERGIC TO ANY MEDICATION SHE KNOWS OF. SOCIAL HISTORY: No history of smoking or alcohol intake with all the medications she is on. PHYSICAL EXAMINATION: EXTREMITIES: She complains of pain in the lower thoracic as well as the lumbosacral junction. She has no obvious active movement or muscle contraction of her left lower extremity. She has good inversion, eversion, and dorsiflexion of her right ankle with good strength. She has good strength of her right EHL as well. She states her sensation is intact everywhere to light touch. Reflexes are intact and symmetrical. No clonus is present. She has good distal pulses. Toes appeared to be downgoing on the right side, but upgoing on the left. No active hip flexion for quad function either leg. LABORATORY DATA: MRIs reviewed and they still show some thickening either from the malignancy or inflammation diffusely through an epidural space. However, there appears to be much larger collection at T11-T12 that is much more significant than on the December MRI studies. IMPRESSION: Spinal cord compression with resulted neurologic dysfunction. The only significant change looking at comparing her MRIs from December to January is that of this collection at T11-T12. RECOMMENDATIONS: Our recommendation would be to do a decompressive laminectomy at that level. Her complicating factor when she first came in was that she had already taken Xarelto or been given it Thursday, so that the recommendation is to wait at least 24, if not 48 hours before proceeding with surgery. The Xarelto was stopped after that dose on Thursday. However, her INR came back at 2.6. There is no known reason for this coagulation dysfunction. She is being given units of fresh frozen plasma now. Retesting will be done after the completion of the second unit to see if it is having any effect at all. If it seems to be lowering it some, then the recommendation would be to continue to keep giving the unit to try and get her below 1.5 would be relatively safe to operate. The fact that at that point she will already be 48 hours with no motion, presuming there is no spontaneous recovery, would indicate that the chances of her regaining any functional ability are very small, but the family would like something done if there is any chance whatsoever. Again, it only depend on what happens with her coagulopathy because if the fresh frozen has no effect, there is really no way of doing anything else. She is tentatively scheduled for surgery tomorrow around noontime, again pending on her lab results. Thank you for allowing me to participate in the care of your patient. Jai Laura MD
[2018-02-10] MEDS ORDERED: Potassium Chloride 20 mEq 100 ML IVPB SCH (10:00)
[2018-02-10] MEDS: LENALIDOMIDE 15 MG PO SCH (10:06)
[2018-02-10] MEDS: Digoxin 125 mcg (0.125 mg) Tab PO SCH (10:18)
[2018-02-10] MEDS: Cefepime 1 GM in Sodium Chloride 0.9% 100 ML IVPB SCH ×2 (10:31→21:49)
--- NOTE | 2018-02-10 10:33 | CP.PCM.PN ---
Subjective - Date & Time of Evaluation Date of Evaluation: 02/10/18 Time of Evaluation: 10:30 - Subjective Subjective: Pt has received 3 units of ffpand the INR is 1.2 today. She was given lasix after the 2nd unit of plasma and her potassium dropped to 3.2 this morning. She was given 40 meq kcl po and is now cleared for surgery. Objective - Vital Signs/Intake and Output Vital Signs (last 24 hours): Temp Pulse Resp BP Pulse Ox 98.0 F 81 18 143/89 96 02/10/18 07:51 02/10/18 07:51 02/10/18 07:51 02/10/18 07:51 02/10/18 07:51 - Medications Medications: Current Medications Albuterol (Ventolin Hfa 90 Mcg/Actuation (8 G)) 2 puff IH Q4 PRN PRN Reason: Shortness of Breath Allopurinol (Zyloprim) 100 mg PO DAILY [facility] Last Admin: 02/09/18 11:48 Dose: 100 mg Carvedilol (Coreg) 25 mg PO Q12 [facility] Last Admin: 02/09/18 21:40 Dose: 25 mg Dexamethasone (Decadron) 20 mg PO DAILY [facility] Last Admin: 02/09/18 14:37 Dose: 20 mg Digoxin (Digoxin) 0.125 mg PO DAILY [facility] Last Admin: 02/09/18 09:07 Dose: 0.125 mg Famotidine (Pepcid) 20 mg PO BID [facility] Last Admin: 02/09/18 17:26 Dose: 20 mg Furosemide (Lasix) 20 mg PO DAILY [facility] Last Admin: 02/09/18 11:48 Dose: 20 mg Home Med (Lenalidomide [Revlimid]) 15 mg PO DAILY [facility] Last Admin: 02/09/18 09:07 Dose: 15 mg Potassium Chloride (Potassium Chloride 20 Meq/100 Ml) 100 mls @ 50 mls/hr IVPB Q2 [facility] Stop: 02/10/18 13:59 Cefepime HCl 1 gm/ Sodium (Chloride) 100 mls @ 100 mls/hr IVPB Q12 [facility] PRN Reason: Protocol Ipratropium [place] (Atrovent) 0.5 mg IH RQ6 [facility] Last Admin: 02/10/18 07:51 Dose: 0.5 mg Levalbuterol HCl (Xopenex) 0.63 mg INH RQ6 [facility] Last Admin: 02/10/18 07:52 Dose: 0.63 mg Lisinopril (Zestril) 10 mg PO DAILY [facility] Last Admin: 02/09/18 09:10 Dose: 10 mg Morphine Sulfate (Morphine) 2 mg IVP Q4 PRN PRN Reason: Pain, moderate (4-7) Last Admin: 02/09/18 16:47 Dose: 2 mg Nystatin (Nystop Topical Powder) 1 applic TOP TID [facility] Last Admin: 02/09/18 17:26 Dose: 1 applic - Labs Labs: 02/09/18 20:35 02/10/18 05:40 PT 13.4 Seconds (9.8-13.1) H 02/10/18 05:40 INR 1.2 (0.9-1.2) 02/10/18 05:40 APTT 29.4 Seconds (25.6-37.1) 02/10/18 05:40
[2018-02-10] MEDS ORDERED: Rocuronium 10 mg/ml (5 ml) ONE (10:56)
[2018-02-10] MEDS ORDERED: Lidocaine 4% (Laryng-O-Jet) Kit MM ONE (10:57)
[2018-02-10] MEDS ORDERED: Etomidate 20 mg/10ml Inj IV ONE (10:57)
[2018-02-10] MEDS ORDERED: Succinylcholine 200 mg/10 ml Inj IV ONE (10:57)
[2018-02-10] MEDS ORDERED: Propofol 10 mg/ml Inj (20 ML) ONE ×5 (10:58→14:06)
[2018-02-10] MEDS ORDERED: Phenylephrine 10 mg/ml Inj ONE (11:00)
[2018-02-10 11:47] LABS: BLOOD UREA NITROGEN 13 mg/dl (7-17); CALCIUM 8.9 mg/dL (8.4-10.2); GFR AFRICAN-AMERICAN > 60; GFR NON-AFRICAN AMERICAN > 60
[2018-02-10] MEDS ORDERED: Remifentanil 2 MG PDS IV ONE (12:07)
[2018-02-10 12:42] LABS: HEPATITIS B CORE AB NEGATIVE (NEGATIVE)
[2018-02-10] MEDS ORDERED: Lactated Ringer's 1,000 ML IV ONE (12:50)
[2018-02-10 12:54] LABS: HEPATITIS C ANTIBODY NEGATIVE (NEGATIVE)
[2018-02-10] MEDS ORDERED: Midazolam 2 MG/2 ML VIAL ONE (12:55)
--- NOTE | 2018-02-10 13:17 | PQF GENQUE ---
This form is a permanent part of the medical record 02/10/18 Dr. Lowe, Would you please clarify if there is an associated diagnosis or not to go along with the CT of the Chest findings. Patient with Multiple Myeloma is admitted with Spinal Cord Compression. CT chest : - Findings highly suspicious for scattered, bilateral acute pneumonia, greatest in the left lower lobe medially. WBC 6.0 with a L shift. Started on Maxipime. Clarification of your documentation is requested to better reflect the severity of illness and intensity of treatment of your patient. Indicators present PHYSICIAN'S RESPONSE Based on your medical judgment of the clinical indicators outlined above please clarify the following: [] Practitioner response [] If unable to determine, please check the box, sign and date. Present On Admission (POA) Indicator: [] Present at the time of admission [] Not present at the time of admission [] Clinically Undetermined In responding to this query, please exercise your independent professional judgment. The fact that a question is asked does not imply that any particular answer is desired or expected. Thank you for your clarification on this documentation. If you have any questions please call:ext [phone] * Thank you, Paty Valdes RN CDMP MTDD
[2018-02-10] MEDS ORDERED: Dexamethasone 4 mg/1 ml ONE (13:22)
[2018-02-10] MEDS ORDERED: Absorbable Gelatin Sponge Size 100 TP ONE (13:38)
[2018-02-10] MEDS ORDERED: Vancomycin 1 g Inj ONE (14:13)
[2018-02-10] MEDS ORDERED: Thrombin Topical 5,000 Int Units Spray Kit TOP ONE (14:15)
[2018-02-10] MEDS ORDERED: Vancomycin 1 g Inj IVPB ONE (14:15)
[2018-02-10] MEDS ORDERED: Lactated Ringer's 1,000 ML IV SCH ×2 (14:45→15:45)
[2018-02-10] MEDS ORDERED: HYDROmorphone 0.5 mg/0.5 ml ISec ONE (16:00)
[2018-02-10] MEDS: HYDROmorphone 0.5 mg/0.5 ml ISec IVP PRN ×4 (16:05→16:54)
--- NOTE | 2018-02-10 17:46 | CP.CCUPN ---
CCU Subjective - Physician Review Subjective (Free Text): 66F with chronic A fib on Xarelto; metastatic Multiple Myeloma, on Chemotx, admitted 2 days ago for progressive LLE weakness / flaccidity, and concomitant weakness of RLE too; falls were reported. Further w/u with MRIs showed SPC compression of T11-12 and an epidural abscess. After adequate time off Xarelto , she underwent surgery today for T11-12 Laminectomy. Intra-op fluids given include 400ml , and urine output of 200+ml. EBL was very minimal. She was able to be extubated post-op. Awake, alert and appropriately responsive upon arrival to ICU. Other vitals and I/O's reviewed. ROS: No other pertinent negs or positives on 10+ system review. ALLERGIES: NKDA Home Meds: Ventolin HFA, ASA, Xarelto, Allopurinol, Coreg, Decadron, Digoxin, Pepcid, Lasix, Revlimid, Zestril. PMSFH: All other Nursing and physician documentation reviewed to date; no new pertinent info noted relevant to current medical problems. EXAM- HEENT: no icterus, no gaze preference, pupils equal and reactive NECK: No JVD, supple, carotids equal upstroke bilat/no bruits CHEST: decreased BS bases, no wheezes audible now, no accessory mm use. HEART: regular, distant, S1S2, no rubs. ABD: soft, no distention, no tympany, no palp tenderness, BS hypoactive EXT: No mottling. No edema. No peripheral/ digital cyanosis, no calf tenderness or palpable cords, distal pulses intact and symmetrical. NEURO: moves RLE +2-3/5; LLE motor is 0-1/5 manifest by slight wiggle of entire foot SKIN: no rashes, warm and dry. LABS: Pre-op WBC= 6.5 HGB= 11.7 PLTs= 207K Ks=917 K= 3.4 NJ=866 HCO3= 29 BUN/Cr= 13/0.3 BS= 127 7.54/40/67 INR= 1.2 CXR: mild haziness R lung, elevated Left hemidiaphragm (my interp). IMPRESSION / MAJOR PROBLEMS NOW: 1. Post-op T-Spine Laminectomy 2. Epidural Abscess with SPC compression 3. s/p COPD Exacerb 4. Bilateral pneumonia as seen on CT 5. Chronic A Fib with medication-induced coagulopathy 6. Metastatic Multiple Myeloma PLAN: 1. Presently stable post-op status, for observation overnight in ICU. 2. Monitor Neurochecks Q1-2H. 3. Cefepime empiric abx coverage. 4. Continuation of Decadron. 5. Resume AC for chronic AFib when cleared by NeuroSurg. 6. Additional Lasix prn. 7. SCDs CCU Objective - Vital Signs / Intake & Output Vital Signs (Last 4 hours): Vital Signs Temp Pulse Resp BP Pulse Ox 02/10/18 17:20 97.8 F 81 19 142/88 96 02/10/18 17:05 97.9 F 80 19 146/88 97 02/10/18 16:50 75 18 135/98 H 95 02/10/18 16:35 98.1 F 76 19 135/89 95 02/10/18 16:20 73 19 120/61 97 02/10/18 16:05 98 F 74 19 146/75 98 02/10/18 15:50 78 20 130/67 100 02/10/18 15:35 80 20 125/72 100 02/10/18 15:20 87 18 128/64 100 02/10/18 15:07 98.9 F 90 18 140/57 L 100 Intake and Output (Last 8hrs): Intake & Output 02/10/18 02/10/18 02/10/18 06:59 14:59 22:59 Intake Total 400 150 Output Total 450 Balance 400 -300 Intake: IV 400 150 Output: Urine 450
[2018-02-10 22:31] LABS: ALBUMIN 3.3 g/dL (3.5-5.0); ALT/SGPT 68 U/L (9-52); AST/SGOT 39 U/L (14-36); BLOOD UREA NITROGEN 14 mg/dl (7-17); CALCIUM 8.5 mg/dL (8.4-10.2); GFR AFRICAN-AMERICAN > 60; GFR NON-AFRICAN AMERICAN > 60
[2018-02-11] MEDS: Levalbuterol 0.63 MG/3 ML Inhal Soln UD INH SCH ×4 (02:29→19:32)
[2018-02-11] MEDS: Ipratropium 0.02% Inhal Soln (0.5 mg/2.5 ml) UD IH SCH ×4 (02:29→19:31)
[2018-02-11 05:42] LABS: HEMOGLOBIN 10.6 g/dL (12.0-16.0); MEAN CELL VOLUME 90.6 fl (81.0-99.0); MEAN CORPUSCULAR HEMOGLOBIN 29.9 pg (27.0-31.0); RBC 3.55 Mil/uL (3.80-5.20); RED CELL DISTRIBUTION WIDTH 18.4 % (11.5-14.5); WHITE BLOOD COUNT 8.6 K/uL (4.8-10.8)
[2018-02-11 05:56] LABS: ALB/GLOB RATIO 0.9 (1.0-2.1); ALBUMIN 3.2 g/dL (3.5-5.0); ALT/SGPT 76 U/L (9-52); AST/SGOT 34 U/L (14-36); BLOOD UREA NITROGEN 17 mg/dl (7-17); CALCIUM 8.5 mg/dL (8.4-10.2); GFR AFRICAN-AMERICAN > 60; GFR NON-AFRICAN AMERICAN > 60
[2018-02-11 06:05] LABS: INR 1.2 (0.9-1.2); PARTIAL THROMBOPLASTIN TIME 26.4 Seconds (25.6-37.1); PROTHROMBIN TIME 13.2 Seconds (9.8-13.1)
--- NOTE | 2018-02-11 08:49 | CP.CCUPN ---
CCU Subjective - Physician Review Subjective (Free Text): Uneventful overnight, minor pain issues relieved with narcotics. Denies any new weakness. Other vitals and I/O's reviewed. ROS: No other pertinent negs or positives on 10+ system review. PMSFH: All other Nursing and physician documentation reviewed to date; no new pertinent info noted relevant to current medical problems. EXAM- HEENT: no icterus, no gaze preference, pupils equal and reactive NECK: No JVD, supple, carotids equal upstroke bilat/no bruits CHEST: decreased BS bases, no wheezes heard. HEART: regular, distant, S1S2, no rubs. ABD: soft, no distention, no tympany, no palp tenderness, BS hypoactive EXT: No mottling. No edema. No peripheral/ digital cyanosis, no calf tenderness or palpable cords, distal pulses intact and symmetrical. NEURO: moves RLE +2-3/5 LLE motor 0-1/5 maintains ability to wiggle entire R foot SKIN: no rashes, warm and dry. LABS: WBC=8.6 HGB= 10.6 PLTs= 238K Kh=858 K= 3.8 CW=252 HCO3= 29 BUN/Cr= 17/0.3 BS= 125 INR= 1.2 IMPRESSION / MAJOR PROBLEMS NOW: 1. Post-op T-Spine Laminectomy 2. Epidural Abscess with SPC compression 3. s/p COPD Exacerb 4. Bilateral pneumonia as seen on CT 5. Chronic A Fib with medication-induced coagulopathy 6. Metastatic Multiple Myeloma PLAN: 1. Presently stable post-op status, has been under observation overnight in ICU. Could discontinue Arterial Line. Could remove Garrett if cleared by NeuroSurg. Incentive Spirometry. 2. Monitor Neurochecks Q2H. 3. Cefepime empiric abx coverage. 4. Continuation of Decadron. 5. Resume AC for chronic AFib when cleared by NeuroSurg. 6. Additional Lasix prn. 7. SCDs CCU Objective - Vital Signs / Intake & Output Vital Signs (Last 4 hours): Vital Signs Pulse Resp BP Pulse Ox 02/11/18 06:00 80 18 134/86 96 Intake and Output (Last 8hrs): Intake & Output 02/10/18 02/11/18 02/11/18 22:59 06:59 14:59 Intake Total 590 520 Output Total 450 450 Balance 140 70 Weight 202 lb 8 oz Intake: IV 250 400 Intake, Piggyback 100 Oral 240 120 Output: Urine 450 450 Urethral (Garrett) 450
[2018-02-11] MEDS: LENALIDOMIDE 15 MG PO SCH (09:11)
[2018-02-11] MEDS: Digoxin 125 mcg (0.125 mg) Tab PO SCH (09:11)
[2018-02-11] MEDS: Cefepime 1 GM in Sodium Chloride 0.9% 100 ML IVPB SCH ×2 (11:00→21:44)
--- NOTE | 2018-02-11 11:10 | CP.PCM.PN ---
Subjective - Date & Time of Evaluation Date of Evaluation: 02/11/18 Time of Evaluation: 10:45 - Subjective Subjective: Drowsy, easily arousable Sleepy after Morphine given for surgical pain A Fib at 78 BPM BP 150/70 mm Hg Chest clear, no rales Labs show mild drop in Hb/HCT post op INR 1.2 K+ and Bun/ Creatinin stable Pt taking oral fluid readily (Have D/Jett IV fluids) Objective - Vital Signs/Intake and Output Vital Signs (last 24 hours): Temp Pulse Resp BP Pulse Ox 98.2 F 83 19 129/89 97 02/11/18 08:00 02/11/18 09:37 02/11/18 08:00 02/11/18 09:37 02/11/18 08:00 Intake and Output: 02/11/18 02/11/18 06:59 18:59 Intake Total 840 200 Output Total 450 Balance 390 200 - Medications Medications: Current Medications Albuterol (Ventolin Hfa 90 Mcg/Actuation (8 G)) 2 puff IH Q4 PRN PRN Reason: Shortness of Breath Last Admin: 02/11/18 06:27 Dose: 2 puff Allopurinol (Zyloprim) 100 mg PO DAILY [facility] Last Admin: 02/11/18 09:12 Dose: Not Given Carvedilol (Coreg) 25 mg PO Q12 [facility] Last Admin: 02/11/18 09:37 Dose: 25 mg Dexamethasone (Decadron) 20 mg PO DAILY [facility] Last Admin: 02/11/18 09:11 Dose: Not Given Digoxin (Digoxin) 0.125 mg PO DAILY [facility] Last Admin: 02/11/18 09:11 Dose: Not Given Famotidine (Pepcid) 20 mg PO BID [facility] Last Admin: 02/11/18 09:11 Dose: Not Given Furosemide (Lasix) 20 mg PO DAILY [facility] Last Admin: 02/11/18 09:11 Dose: Not Given Cefepime HCl 1 gm/ Sodium (Chloride) 100 mls @ 100 mls/hr IVPB Q12 [facility] PRN Reason: Protocol Last Admin: 02/10/18 21:49 Dose: 100 mls/hr Ipratropium [place] (Atrovent) 0.5 mg IH RQ6 [facility] Last Admin: 02/11/18 07:34 Dose: 0.5 mg Levalbuterol HCl (Xopenex) 0.63 mg INH RQ6 [facility] Last Admin: 02/11/18 07:34 Dose: 0.63 mg Lisinopril (Zestril) 10 mg PO DAILY [facility] Last Admin: 02/11/18 09:12 Dose: Not Given Morphine Sulfate (Morphine) 2 mg IVP Q4 PRN PRN Reason: Pain, moderate (4-7) Last Admin: 02/11/18 09:42 Dose: 2 mg Morphine Sulfate (Morphine) 1 mg IVP Q4 PRN PRN Reason: Pain, severe (8-10) Nystatin (Nystop Topical Powder) 1 applic TOP TID [facility] Last Admin: 02/11/18 09:38 Dose: 1 applic Oxycodone/Acetaminophen (Percocet 5/325 Mg Tab) 1 tab PO Q4 PRN PRN Reason: Pain, Mild (1-3) Stop: 02/13/18 14:33 - Labs Labs: 02/11/18 04:30 02/11/18 04:30 PT 13.2 Seconds (9.8-13.1) H 02/11/18 04:30 INR 1.2 (0.9-1.2) 02/11/18 04:30 APTT 26.4 Seconds (25.6-37.1) 02/11/18 04:30
--- NOTE | 2018-02-11 13:30 | CP.PCM.PN ---
Subjective - Date & Time of Evaluation Date of Evaluation: 02/11/18 Time of Evaluation: 13:25 - Subjective Subjective: SPINE - POD #1 Pt seen in ICU. Resting in bed, but now has active movement of both LE's! Taking po. Voiding via shultz. VSS. Afebrile.Has at least 4/5 strength in all groups R LE. 4/5 L ant tib, EHL but nothing proximal. sensation intact. Dressing clean and dry. Plan: PT for transfers, strengthening. Consider trial of d/c shultz in am. OK from our viewpoint for transfer to med-surg floor. Objective - Vital Signs/Intake and Output Vital Signs (last 24 hours): Temp Pulse Resp BP Pulse Ox 97.7 F 84 20 124/86 92 L 02/11/18 12:00 02/11/18 12:00 02/11/18 12:00 02/11/18 12:00 02/11/18 12:00 Intake and Output: 02/11/18 02/11/18 06:59 18:59 Intake Total 840 200 Output Total 450 Balance 390 200 - Medications Medications: Current Medications Albuterol (Ventolin Hfa 90 Mcg/Actuation (8 G)) 2 puff IH Q4 PRN PRN Reason: Shortness of Breath Last Admin: 02/11/18 06:27 Dose: 2 puff Allopurinol (Zyloprim) 100 mg PO DAILY [facility] Last Admin: 02/11/18 09:12 Dose: Not Given Carvedilol (Coreg) 25 mg PO Q12 [facility] Last Admin: 02/11/18 09:37 Dose: 25 mg Dexamethasone (Decadron) 20 mg PO DAILY [facility] Last Admin: 02/11/18 09:11 Dose: Not Given Digoxin (Digoxin) 0.125 mg PO DAILY [facility] Last Admin: 02/11/18 09:11 Dose: Not Given Famotidine (Pepcid) 20 mg PO BID [facility] Last Admin: 02/11/18 09:11 Dose: Not Given Furosemide (Lasix) 20 mg PO DAILY [facility] Last Admin: 02/11/18 09:11 Dose: Not Given Cefepime HCl 1 gm/ Sodium (Chloride) 100 mls @ 100 mls/hr IVPB Q12 [facility] PRN Reason: Protocol Last Admin: 02/11/18 11:00 Dose: 100 mls/hr Ipratropium [place] (Atrovent) 0.5 mg IH RQ6 [facility] Last Admin: 02/11/18 07:34 Dose: 0.5 mg Levalbuterol HCl (Xopenex) 0.63 mg INH RQ6 [facility] Last Admin: 02/11/18 07:34 Dose: 0.63 mg Lisinopril (Zestril) 10 mg PO DAILY [facility] Last Admin: 02/11/18 09:12 Dose: Not Given Morphine Sulfate (Morphine) 2 mg IVP Q4 PRN PRN Reason: Pain, moderate (4-7) Last Admin: 02/11/18 09:42 Dose: 2 mg Morphine Sulfate (Morphine) 1 mg IVP Q4 PRN PRN Reason: Pain, severe (8-10) Nystatin (Nystop Topical Powder) 1 applic TOP TID [facility] Last Admin: 02/11/18 13:12 Dose: 1 applic Oxycodone/Acetaminophen (Percocet 5/325 Mg Tab) 1 tab PO Q4 PRN PRN Reason: Pain, Mild (1-3) Stop: 02/13/18 14:33 - Labs Labs: 02/11/18 04:30 02/11/18 04:30 PT 13.2 Seconds (9.8-13.1) H 02/11/18 04:30 INR 1.2 (0.9-1.2) 02/11/18 04:30 APTT 26.4 Seconds (25.6-37.1) 02/11/18 04:30
--- NOTE | 2018-02-11 13:46 | CP.PCM.PN ---
Subjective - Date & Time of Evaluation Date of Evaluation: 02/11/18 Time of Evaluation: 10:15 - Subjective Subjective: F/U S/P T-Spine Laminectomy minimal post surgical pain , no SOB , no cough , no chest congestion Objective - Vital Signs/Intake and Output Vital Signs (last 24 hours): Temp Pulse Resp BP Pulse Ox 97.7 F 84 20 124/86 92 L 02/11/18 12:00 02/11/18 12:00 02/11/18 12:00 02/11/18 12:00 02/11/18 12:00 Intake and Output: 02/11/18 02/11/18 06:59 18:59 Intake Total 840 200 Output Total 450 Balance 390 200 - Medications Medications: Current Medications Albuterol (Ventolin Hfa 90 Mcg/Actuation (8 G)) 2 puff IH Q4 PRN PRN Reason: Shortness of Breath Last Admin: 02/11/18 06:27 Dose: 2 puff Allopurinol (Zyloprim) 100 mg PO DAILY [facility] Last Admin: 02/11/18 09:12 Dose: Not Given Bacitracin (Bacitracin Oint) 1 applic TOP DAILY [facility] Carvedilol (Coreg) 25 mg PO Q12 [facility] Last Admin: 02/11/18 09:37 Dose: 25 mg Dexamethasone (Decadron) 20 mg PO DAILY [facility] Last Admin: 02/11/18 09:11 Dose: Not Given Digoxin (Digoxin) 0.125 mg PO DAILY [facility] Last Admin: 02/11/18 09:11 Dose: Not Given Famotidine (Pepcid) 20 mg PO BID [facility] Last Admin: 02/11/18 09:11 Dose: Not Given Furosemide (Lasix) 20 mg PO DAILY [facility] Last Admin: 02/11/18 09:11 Dose: Not Given Cefepime HCl 1 gm/ Sodium (Chloride) 100 mls @ 100 mls/hr IVPB Q12 [facility] PRN Reason: Protocol Last Admin: 02/11/18 11:00 Dose: 100 mls/hr Ipratropium [place] (Atrovent) 0.5 mg IH RQ6 [facility] Last Admin: 02/11/18 13:41 Dose: 0.5 mg Levalbuterol HCl (Xopenex) 0.63 mg INH RQ6 [facility] Last Admin: 02/11/18 13:41 Dose: 0.63 mg Lisinopril (Zestril) 10 mg PO DAILY [facility] Last Admin: 02/11/18 09:12 Dose: Not Given Morphine Sulfate (Morphine) 2 mg IVP Q4 PRN PRN Reason: Pain, moderate (4-7) Last Admin: 02/11/18 09:42 Dose: 2 mg Morphine Sulfate (Morphine) 1 mg IVP Q4 PRN PRN Reason: Pain, severe (8-10) Nystatin (Nystop Topical Powder) 1 applic TOP TID [facility] Last Admin: 02/11/18 13:12 Dose: 1 applic Oxycodone/Acetaminophen (Percocet 5/325 Mg Tab) 1 tab PO Q4 PRN PRN Reason: Pain, Mild (1-3) Stop: 02/13/18 14:33 - Labs Labs: 02/11/18 04:30 02/11/18 04:30 PT 13.2 Seconds (9.8-13.1) H 02/11/18 04:30 INR 1.2 (0.9-1.2) 02/11/18 04:30 APTT 26.4 Seconds (25.6-37.1) 02/11/18 04:30 - Constitutional Appears: No Acute Distress - Head Exam Head Exam: NORMAL INSPECTION - Eye Exam Eye Exam: PERRL - ENT Exam ENT Exam: Normal Exam - Neck Exam Neck Exam: Normal Inspection - Respiratory Exam Respiratory Exam: Rhonchi (few scattered) - Cardiovascular Exam Cardiovascular Exam: Irregular Rhythm - GI/Abdominal Exam GI & Abdominal Exam: Soft, Normal Bowel Sounds - Extremities Exam Extremities Exam: Tenderness (L knee, abrasion L knee) - Back Exam Back Exam: tenderness (mild , dressing in place) - Neurological Exam Neurological Exam: Alert, CN II-XII Intact, Oriented x3 Additional comments: Able to move LLE with limitations , RLE full flexion and etension - Psychiatric Exam Psychiatric exam: Normal Affect - Skin Skin Exam: Warm Assessment and Plan (1) Status post laminectomy Status: Acute (2) Spinal cord compression Status: Acute (3) Multiple myeloma Status: Chronic (4) Afib Status: Chronic (5) HTN (hypertension) Status: Chronic (6) Hypokalemia Status: Acute (7) Urinary tract infection Status: Acute (8) Coagulopathy Status: Acute (9) Pneumonia Status: Acute - Assessment and Plan (Free Text) Plan: stable post-op , walked with PT and walker , off Xarelto , to have Life Port for Chemo , continue Cefepime for Tx UTI and PNA
[2018-02-12] MEDS: Ipratropium 0.02% Inhal Soln (0.5 mg/2.5 ml) UD IH SCH ×4 (01:22→19:25)
[2018-02-12] MEDS: Levalbuterol 0.63 MG/3 ML Inhal Soln UD INH SCH ×4 (01:22→19:25)
[2018-02-12 06:24] LABS: ALBUMIN 3.1 g/dL (3.5-5.0); ALT/SGPT 86 U/L (9-52); AST/SGOT 42 U/L (14-36); BLOOD UREA NITROGEN 16 mg/dl (7-17); CALCIUM 8.6 mg/dL (8.4-10.2); GFR AFRICAN-AMERICAN > 60; GFR NON-AFRICAN AMERICAN > 60
--- NOTE | 2018-02-12 08:31 | CP.PCM.PN ---
Subjective - Date & Time of Evaluation Date of Evaluation: 02/12/18 Time of Evaluation: 08:30 - Subjective Subjective: Pt is alert and awake, c/o only slight pain at the surgical site. She is able to move both her lower extremities up to the knee level. She has left middle lobe pneumonia and is antibiotics for the same. She is back on the xarelto, but it will be held 3 days prior to the lifeport placement on thursday. She will receive chemotherapy on thursday after the life port is placed. Objective - Vital Signs/Intake and Output Vital Signs (last 24 hours): Temp Pulse Resp BP Pulse Ox 97.9 F 91 H 18 126/86 96 02/12/18 03:44 02/12/18 03:44 02/12/18 03:44 02/12/18 03:44 02/12/18 03:44 - Medications Medications: Current Medications Albuterol (Ventolin Hfa 90 Mcg/Actuation (8 G)) 2 puff IH Q4 PRN PRN Reason: Shortness of Breath Last Admin: 02/11/18 06:27 Dose: 2 puff Allopurinol (Zyloprim) 100 mg PO DAILY [facility] Last Admin: 02/11/18 09:12 Dose: Not Given Bacitracin (Bacitracin Oint) 1 applic TOP DAILY [facility] Carvedilol (Coreg) 25 mg PO Q12 [facility] Last Admin: 02/11/18 21:59 Dose: 25 mg Dexamethasone (Decadron) 20 mg PO DAILY [facility] Last Admin: 02/11/18 09:11 Dose: Not Given Digoxin (Digoxin) 0.125 mg PO DAILY [facility] Last Admin: 02/11/18 09:11 Dose: Not Given Famotidine (Pepcid) 20 mg PO BID [facility] Last Admin: 02/11/18 16:30 Dose: 20 mg Furosemide (Lasix) 20 mg PO DAILY [facility] Last Admin: 02/11/18 09:11 Dose: Not Given Cefepime HCl 1 gm/ Sodium (Chloride) 100 mls @ 100 mls/hr IVPB Q12 [facility] PRN Reason: Protocol Last Admin: 02/11/18 21:44 Dose: 100 mls/hr Ipratropium [place] (Atrovent) 0.5 mg IH RQ6 [facility] Last Admin: 02/12/18 07:08 Dose: 0.5 mg Levalbuterol HCl (Xopenex) 0.63 mg INH RQ6 [facility] Last Admin: 02/12/18 07:08 Dose: 0.63 mg Lisinopril (Zestril) 10 mg PO DAILY [facility] Last Admin: 02/11/18 09:12 Dose: Not Given Morphine Sulfate (Morphine) 1 mg IVP Q4 PRN PRN Reason: Pain, severe (8-10) Last Admin: 02/11/18 21:51 Dose: 1 mg Nystatin (Nystop Topical Powder) 1 applic TOP TID [facility] Last Admin: 02/11/18 16:30 Dose: 1 applic Oxycodone/Acetaminophen (Percocet 5/325 Mg Tab) 1 tab PO Q4 PRN PRN Reason: Pain, Mild (1-3) Stop: 02/13/18 14:33 - Labs Labs: 02/11/18 04:30 02/12/18 05:35 PT 13.2 Seconds (9.8-13.1) H 02/11/18 04:30 INR 1.2 (0.9-1.2) 02/11/18 04:30 APTT 26.4 Seconds (25.6-37.1) 02/11/18 04:30
--- NOTE | 2018-02-12 08:31 | OP ---
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 POSTOPERATIVE DIAGNOSIS: Spinal cord compression secondary to epidural abscess. OPERATION: Decompressive laminectomy T11-T12. SURGEON: Jai Larua MD FIELD NURSE: Leobardo Garcia MD DESCRIPTION OF PROCEDURE: The patient was brought to the operating room and general anesthesia was achieved. The patient already been receiving antibiotics during her hospital stay. Sequential compression boots are placed to each of the patient's legs. Neurophysiologic monitoring leads were placed throughout the patient's body. Real-time monitoring was done by compliance technician in the room and remote monitoring done by physician as well. The patient was gently transferred onto the operating room table, placed prone on Doug frame and keeping her breast and abdomen free from pressure anteriorly. Care was taken to protect the elbows and knees from pressure points. A Steri-Drape was used to seal off the patient's perineal region from the operative field and her back was sterilely prepped and draped. The level of the incision was noted under fluoroscopy. Incision was made sharply in the midline and taken down subcutaneous tissue using sharp and blunt dissection. Hemostasis was achieved using electrocautery. The fascia was divided and stripped laterally off the spinous processes and lamina and held back with angled-Weitlaner retractors and subsequently Gelpi retractors. Soft tissue attachments were cleared, so we could identify the pars on each side and at each level. Hemostasis was achieved with electrocautery as well as thrombinated Gelfoam powder. Fluoroscopic views again were taken to demonstrate we were at the appropriate level. It should be noted that initially it was read as being as T11-T12. Subsequently, the radiologist feeling was that there was a lumbarized S1 and that really was T12-L1. Either way what we did was count up from the first open disk space on the MRI to where the epidural mass was and then did the same under fluoroscopy to identify the appropriate level. The Leksell rongeur was used to remove the spinous process, thinned down the lamina and laminectomy carried out with a Kerrison rongeurs. We did this in a caudocephalad fashion as we advanced it in the cephalad direction, the production of pus was noted. Therefore, we carried this up further and took culture swabs and aspirated some of the pus to send to microbiology. We decompressed centrally and then out to each side. Some pus appeared to be coming up through the facet joint on the left side as well. We copiously irrigated the entire area until no further purulent material was noted either in the canal nor coming from the joint. We passed a small red rubber catheter caudally and cephalad and passed easily. Again, further antibiotic irrigation was done. Hemostasis was achieved using thrombinated Gelfoam powder. A piece of thrombins of Gelfoam was used to cover the exposed neural elements. The wound was closed with interrupted sutures of 0 Vicryl for the muscle and the fascia. The subcutaneous tissue was copiously irrigated with antibiotic solution and vancomycin powder placed in the wound. We then closed the subcutaneous tissue with interrupted sutures of 2-0 Vicryl and the skin with kaylee. Bacitracin ointment and sterile compression dressings were applied. The patient was gently transferred back onto her bed in supine position. She was not extubated right away as per anesthesia, was taken to the recovery room, and placed on a vent. Her estimated blood loss was 10 mL and she received 400 mL of normal saline during the procedure. It should be noted that baseline electrophysiologic monitoring showed no motor tracings in either leg, but after the decompression, the compliance technician began to get motor tracings in the right lower extremity. It should also be noted that when she was admitted on Thursday, the surgery had to be delayed as she was on Xarelto and had an INR when she first came in of 2.6. Once that was corrected with fresh frozen plasma and having her off the Xarelto to 1.2, she was then taken to the OR on Thursday appropriately. Jai Laura MD [facility]
[2018-02-12] MEDS: Bacitracin OINT 15GM TOP SCH (08:41)
[2018-02-12] MEDS: Cefepime 1 GM in Sodium Chloride 0.9% 100 ML IVPB SCH ×2 (08:41→20:48)
[2018-02-12] MEDS: Digoxin 125 mcg (0.125 mg) Tab PO SCH (08:42)
--- NOTE | 2018-02-12 08:45 | CP.PCM.PN ---
Subjective - Date & Time of Evaluation Date of Evaluation: 02/12/18 Time of Evaluation: 08:20 - Subjective Subjective: Comfortable, appears to be fairly free of surgical pain Afebrile HR 70 BPM, irreg BP 130/70 mm Hg No evidence of volume over load Motor function in Lt foot much better Will start PT today Objective - Vital Signs/Intake and Output Vital Signs (last 24 hours): Temp Pulse Resp BP Pulse Ox 97.9 F 91 H 18 126/86 96 02/12/18 03:44 02/12/18 03:44 02/12/18 03:44 02/12/18 03:44 02/12/18 03:44 - Medications Medications: Current Medications Albuterol (Ventolin Hfa 90 Mcg/Actuation (8 G)) 2 puff IH Q4 PRN PRN Reason: Shortness of Breath Last Admin: 02/11/18 06:27 Dose: 2 puff Allopurinol (Zyloprim) 100 mg PO DAILY [facility] Last Admin: 02/11/18 09:12 Dose: Not Given Bacitracin (Bacitracin Oint) 1 applic TOP DAILY [facility] Carvedilol (Coreg) 25 mg PO Q12 [facility] Last Admin: 02/11/18 21:59 Dose: 25 mg Dexamethasone (Decadron) 20 mg PO DAILY [facility] Last Admin: 02/11/18 09:11 Dose: Not Given Digoxin (Digoxin) 0.125 mg PO DAILY [facility] Last Admin: 02/11/18 09:11 Dose: Not Given Famotidine (Pepcid) 20 mg PO BID [facility] Last Admin: 02/11/18 16:30 Dose: 20 mg Furosemide (Lasix) 20 mg PO DAILY [facility] Last Admin: 02/11/18 09:11 Dose: Not Given Cefepime HCl 1 gm/ Sodium (Chloride) 100 mls @ 100 mls/hr IVPB Q12 [facility] PRN Reason: Protocol Last Admin: 02/11/18 21:44 Dose: 100 mls/hr Ipratropium [place] (Atrovent) 0.5 mg IH RQ6 [facility] Last Admin: 02/12/18 07:08 Dose: 0.5 mg Levalbuterol HCl (Xopenex) 0.63 mg INH RQ6 [facility] Last Admin: 02/12/18 07:08 Dose: 0.63 mg Lisinopril (Zestril) 10 mg PO DAILY [facility] Last Admin: 02/11/18 09:12 Dose: Not Given Morphine Sulfate (Morphine) 1 mg IVP Q4 PRN PRN Reason: Pain, severe (8-10) Last Admin: 02/12/18 08:38 Dose: 1 mg Nystatin (Nystop Topical Powder) 1 applic TOP TID [facility] Last Admin: 02/11/18 16:30 Dose: 1 applic Oxycodone/Acetaminophen (Percocet 5/325 Mg Tab) 1 tab PO Q4 PRN PRN Reason: Pain, Mild (1-3) Stop: 02/13/18 14:33 - Labs Labs: 02/11/18 04:30 02/12/18 05:35 PT 13.2 Seconds (9.8-13.1) H 02/11/18 04:30 INR 1.2 (0.9-1.2) 02/11/18 04:30 APTT 26.4 Seconds (25.6-37.1) 02/11/18 04:30
[2018-02-12] MEDS: Oxycodone/Acetaminophen 5/325 mg Tab PO PRN (14:54)
--- NOTE | 2018-02-12 17:23 | CP.PCM.PN ---
Subjective - Subjective Subjective: mild post-surgical pain increased movement LLE , able to ambulate with Pt and walker , no SOB , no cough , no chest congestion Objective - Vital Signs/Intake and Output Vital Signs (last 24 hours): Temp Pulse Resp BP Pulse Ox 97.7 F 74 20 144/87 97 02/12/18 16:26 02/12/18 16:26 02/12/18 16:26 02/12/18 16:26 02/12/18 16:26 - Medications Medications: Current Medications Albuterol (Ventolin Hfa 90 Mcg/Actuation (8 G)) 2 puff IH Q4 PRN PRN Reason: Shortness of Breath Last Admin: 02/11/18 06:27 Dose: 2 puff Allopurinol (Zyloprim) 100 mg PO DAILY [facility] Last Admin: 02/12/18 08:43 Dose: 100 mg Bacitracin (Bacitracin Oint) 1 applic TOP DAILY [facility] Last Admin: 02/12/18 08:41 Dose: 1 applic Carvedilol (Coreg) 25 mg PO Q12 [facility] Last Admin: 02/12/18 08:42 Dose: 25 mg Dexamethasone (Decadron) 20 mg PO DAILY [facility] Last Admin: 02/12/18 08:42 Dose: 20 mg Digoxin (Digoxin) 0.125 mg PO DAILY [facility] Last Admin: 02/12/18 08:42 Dose: 0.125 mg Famotidine (Pepcid) 20 mg PO BID [facility] Last Admin: 02/12/18 16:10 Dose: 20 mg Furosemide (Lasix) 20 mg PO DAILY [facility] Last Admin: 02/12/18 08:42 Dose: 20 mg Cefepime HCl 1 gm/ Sodium (Chloride) 100 mls @ 100 mls/hr IVPB Q12 [facility] PRN Reason: Protocol Last Admin: 02/12/18 08:41 Dose: 100 mls/hr Ipratropium [place] (Atrovent) 0.5 mg IH RQ6 [facility] Last Admin: 02/12/18 13:24 Dose: 0.5 mg Levalbuterol HCl (Xopenex) 0.63 mg INH RQ6 [facility] Last Admin: 02/12/18 13:24 Dose: 0.63 mg Lisinopril (Zestril) 10 mg PO DAILY [facility] Last Admin: 02/12/18 08:43 Dose: 10 mg Morphine Sulfate (Morphine) 1 mg IVP Q4 PRN PRN Reason: Pain, severe (8-10) Last Admin: 02/12/18 08:38 Dose: 1 mg Nystatin (Nystop Topical Powder) 1 applic TOP TID [facility] Last Admin: 02/12/18 16:10 Dose: 1 applic Oxycodone/Acetaminophen (Percocet 5/325 Mg Tab) 1 tab PO Q4 PRN PRN Reason: Pain, Mild (1-3) Stop: 02/13/18 14:33 Last Admin: 02/12/18 14:54 Dose: 1 tab - Labs Labs: 02/11/18 04:30 02/12/18 05:35 PT 13.2 Seconds (9.8-13.1) H 02/11/18 04:30 INR 1.2 (0.9-1.2) 02/11/18 04:30 APTT 26.4 Seconds (25.6-37.1) 02/11/18 04:30 - Constitutional Appears: No Acute Distress - Head Exam Head Exam: NORMAL INSPECTION - Eye Exam Eye Exam: PERRL - ENT Exam ENT Exam: Normal Exam - Neck Exam Neck Exam: Normal Inspection - Respiratory Exam Respiratory Exam: Clear to Ausculation Bilateral - Cardiovascular Exam Cardiovascular Exam: Irregular Rhythm - GI/Abdominal Exam GI & Abdominal Exam: Soft, Normal Bowel Sounds - Extremities Exam Extremities Exam: Normal Inspection - Back Exam Back Exam: tenderness (mild tenderness L-S , dressing in place) - Neurological Exam Neurological Exam: Alert, CN II-XII Intact, Oriented x3 Additional comments: limited movement LLE able to partially lift it against gravity , able to move left foot , mild numbness distal leg foot , RLE full ROM - Psychiatric Exam Psychiatric exam: Normal Affect, Normal Mood - Skin Skin Exam: Warm Assessment and Plan (1) Status post laminectomy Status: Acute (2) Spinal cord compression Status: Acute (3) Multiple myeloma Status: Chronic (4) Afib Status: Chronic (5) HTN (hypertension) Status: Chronic (6) Hypokalemia Status: Acute (7) Urinary tract infection Status: Acute (8) Coagulopathy Status: Acute (9) Pneumonia Status: Acute - Assessment and Plan (Free Text) Plan: continue Cefepime for Tx Pneumonia, wound C-S Staph , add Vanco , f/u ID , continue Xopenex , Atrovent , Morphine , Percocet and rest of treatment, off Xarelto pre and post -op , to have Life-Port , f/u Chemo
[2018-02-13] MEDS: Oxycodone/Acetaminophen 5/325 mg Tab PO PRN ×2 (00:45→09:37)
[2018-02-13] MEDS: Ipratropium 0.02% Inhal Soln (0.5 mg/2.5 ml) UD IH SCH ×4 (01:05→19:56)
[2018-02-13] MEDS: Levalbuterol 0.63 MG/3 ML Inhal Soln UD INH SCH ×4 (01:05→19:56)
[2018-02-13 07:06] LABS: HEMOGLOBIN 11.3 g/dL (12.0-16.0); MEAN CELL VOLUME 90.1 fl (81.0-99.0); MEAN CORPUSCULAR HEMOGLOBIN 30.5 pg (27.0-31.0); MEAN CORPUSCULAR HGB CONC 33.8 g/dL (33.0-37.0); RBC 3.72 Mil/uL (3.80-5.20); RED CELL DISTRIBUTION WIDTH 18.4 % (11.5-14.5); WHITE BLOOD COUNT 7.9 K/uL (4.8-10.8)
[2018-02-13 07:18] LABS: ALT/SGPT 108 U/L (9-52); AST/SGOT 41 U/L (14-36); BLOOD UREA NITROGEN 15 mg/dl (7-17); CALCIUM 8.5 mg/dL (8.4-10.2); GFR AFRICAN-AMERICAN > 60; GFR NON-AFRICAN AMERICAN > 60
--- NOTE | 2018-02-13 08:56 | CP.PCM.PN ---
Subjective - Date & Time of Evaluation Date of Evaluation: 02/13/18 Time of Evaluation: 08:52 - Subjective Subjective: SPINE - POD #3 Pt resting in bed. Continues to improve. Able to transfer bed to chair yesterday with PT. Minimal c/o pain in back. VSS Afebrile. Good strength in R LE. Now with active motion of L LE, including quad contraction, but waek. Incision clean and dry. C/S + for Staph aureus Plan: Continue to mobilize as tolerated. Agree with plan for acute rehab. Cara to be removed in 2 weeks. Objective - Vital Signs/Intake and Output Vital Signs (last 24 hours): Temp Pulse Resp BP Pulse Ox 98.3 F 68 20 143/87 98 02/13/18 07:40 02/13/18 07:40 02/13/18 07:40 02/13/18 07:40 02/13/18 07:40 Intake and Output: 02/13/18 02/13/18 06:59 18:59 Intake Total 100 Balance 100 - Medications Medications: Current Medications Albuterol (Ventolin Hfa 90 Mcg/Actuation (8 G)) 2 puff IH Q4 PRN PRN Reason: Shortness of Breath Last Admin: 02/11/18 06:27 Dose: 2 puff Allopurinol (Zyloprim) 100 mg PO DAILY [facility] Last Admin: 02/12/18 08:43 Dose: 100 mg Bacitracin (Bacitracin Oint) 1 applic TOP DAILY [facility] Last Admin: 02/12/18 08:41 Dose: 1 applic Carvedilol (Coreg) 25 mg PO Q12 [facility] Last Admin: 02/12/18 20:48 Dose: 25 mg Dexamethasone (Decadron) 20 mg PO DAILY [facility] Last Admin: 02/12/18 08:42 Dose: 20 mg Digoxin (Digoxin) 0.125 mg PO DAILY [facility] Last Admin: 02/12/18 08:42 Dose: 0.125 mg Famotidine (Pepcid) 20 mg PO BID [facility] Last Admin: 02/12/18 16:10 Dose: 20 mg Furosemide (Lasix) 20 mg PO DAILY [facility] Last Admin: 02/12/18 08:42 Dose: 20 mg Cefepime HCl 2 gm/ Sodium (Chloride) 100 mls @ 100 mls/hr IVPB Q12 [facility] PRN Reason: Protocol Vancomycin HCl 1 gm/ Sodium (Chloride) 250 mls @ 166.667 mls/hr IVPB Q12 [facility] PRN Reason: Protocol Ipratropium [place] (Atrovent) 0.5 mg IH RQ6 [facility] Last Admin: 02/13/18 07:15 Dose: 0.5 mg Levalbuterol HCl (Xopenex) 0.63 mg INH RQ6 [facility] Last Admin: 02/13/18 07:15 Dose: 0.63 mg Lisinopril (Zestril) 10 mg PO DAILY [facility] Last Admin: 02/12/18 08:43 Dose: 10 mg Morphine Sulfate (Morphine) 1 mg IVP Q4 PRN PRN Reason: Pain, severe (8-10) Last Admin: 02/12/18 08:38 Dose: 1 mg Nystatin (Nystop Topical Powder) 1 applic TOP TID [facility] Last Admin: 02/12/18 16:10 Dose: 1 applic Oxycodone/Acetaminophen (Percocet 5/325 Mg Tab) 1 tab PO Q4 PRN PRN Reason: Pain, Mild (1-3) Stop: 02/13/18 14:33 Last Admin: 02/13/18 00:45 Dose: 1 tab - Labs Labs: 02/13/18 06:30 02/13/18 06:30 PT 13.2 Seconds (9.8-13.1) H 02/11/18 04:30 INR 1.2 (0.9-1.2) 02/11/18 04:30 APTT 26.4 Seconds (25.6-37.1) 02/11/18 04:30
[2018-02-13] MEDS: Digoxin 125 mcg (0.125 mg) Tab PO SCH (09:22)
[2018-02-13] MEDS: Bacitracin OINT 15GM TOP SCH (09:26)
[2018-02-13] MEDS: Cefepime 2 GM in Sodium Chloride 0.9% 100 ML IVPB SCH ×2 (09:26→21:49)
--- NOTE | 2018-02-13 10:39 | CP.PCM.PN ---
Subjective - Date & Time of Evaluation Date of Evaluation: 02/13/18 Time of Evaluation: 10:36 - Subjective Subjective: Pt is making good progress day by day. She is sitting in a chair able to move both her lower extremities below the knee, but needs physical therapy for the proximal muscle strength, She would benefit from acute physical therapy. Will have a live port put in on Thursday and continue her chemotherapy She is on cefipine for the staph grown in the abscess drained and the pneumonia Objective - Vital Signs/Intake and Output Vital Signs (last 24 hours): Temp Pulse Resp BP Pulse Ox 98.3 F 68 20 143/87 98 02/13/18 07:40 02/13/18 09:53 02/13/18 07:40 02/13/18 09:53 02/13/18 07:40 Intake and Output: 02/13/18 02/13/18 06:59 18:59 Intake Total 100 Balance 100 - Medications Medications: Current Medications Albuterol (Ventolin Hfa 90 Mcg/Actuation (8 G)) 2 puff IH Q4 PRN PRN Reason: Shortness of Breath Last Admin: 02/11/18 06:27 Dose: 2 puff Allopurinol (Zyloprim) 100 mg PO DAILY [facility] Last Admin: 02/13/18 09:24 Dose: 100 mg Bacitracin (Bacitracin Oint) 1 applic TOP DAILY [facility] Last Admin: 02/13/18 09:26 Dose: 1 applic Carvedilol (Coreg) 25 mg PO Q12 [facility] Last Admin: 02/13/18 09:24 Dose: 25 mg Dexamethasone (Decadron) 20 mg PO DAILY [facility] Last Admin: 02/13/18 09:22 Dose: 20 mg Digoxin (Digoxin) 0.125 mg PO DAILY [facility] Last Admin: 02/13/18 09:22 Dose: 0.125 mg Famotidine (Pepcid) 20 mg PO BID [facility] Last Admin: 02/13/18 09:25 Dose: 20 mg Furosemide (Lasix) 20 mg PO DAILY [facility] Last Admin: 02/13/18 09:25 Dose: 20 mg Cefepime HCl 2 gm/ Sodium (Chloride) 100 mls @ 100 mls/hr IVPB Q12 [facility] PRN Reason: Protocol Last Admin: 02/13/18 09:26 Dose: 100 mls/hr Vancomycin HCl 1 gm/ Sodium (Chloride) 250 mls @ 166.667 mls/hr IVPB Q12 [facility] PRN Reason: Protocol Last Admin: 02/13/18 09:33 Dose: 166.667 mls/hr Ipratropium [place] (Atrovent) 0.5 mg IH RQ6 [facility] Last Admin: 02/13/18 07:15 Dose: 0.5 mg Levalbuterol HCl (Xopenex) 0.63 mg INH RQ6 [facility] Last Admin: 02/13/18 07:15 Dose: 0.63 mg Lisinopril (Zestril) 10 mg PO DAILY [facility] Last Admin: 02/13/18 09:53 Dose: 10 mg Morphine Sulfate (Morphine) 1 mg IVP Q4 PRN PRN Reason: Pain, severe (8-10) Last Admin: 02/13/18 09:44 Dose: 1 mg Nystatin (Nystop Topical Powder) 1 applic TOP TID [facility] Last Admin: 02/13/18 09:25 Dose: 1 applic Oxycodone/Acetaminophen (Percocet 5/325 Mg Tab) 1 tab PO Q4 PRN PRN Reason: Pain, Mild (1-3) Stop: 02/13/18 14:33 Last Admin: 02/13/18 00:45 Dose: 1 tab - Labs Labs: 02/13/18 06:30 02/13/18 06:30 PT 13.2 Seconds (9.8-13.1) H 02/11/18 04:30 INR 1.2 (0.9-1.2) 02/11/18 04:30 APTT 26.4 Seconds (25.6-37.1) 02/11/18 04:30
--- NOTE | 2018-02-13 16:26 | CP.PCM.PN ---
Subjective - Date & Time of Evaluation Date of Evaluation: 02/13/18 Time of Evaluation: 12:40 - Subjective Subjective: F/U S/P Laminectomy. complains of post-op pain last night with difficulty to sleep , requesting pain medication, increase movement LLE Objective - Vital Signs/Intake and Output Vital Signs (last 24 hours): Temp Pulse Resp BP Pulse Ox 98 F 61 20 125/84 96 02/13/18 16:17 02/13/18 16:17 02/13/18 16:17 02/13/18 16:17 02/13/18 16:17 Intake and Output: 02/13/18 02/13/18 06:59 18:59 Intake Total 100 Balance 100 - Medications Medications: Current Medications Albuterol (Ventolin Hfa 90 Mcg/Actuation (8 G)) 2 puff IH Q4 PRN PRN Reason: Shortness of Breath Last Admin: 02/11/18 06:27 Dose: 2 puff Allopurinol (Zyloprim) 100 mg PO DAILY [facility] Last Admin: 02/13/18 09:24 Dose: 100 mg Bacitracin (Bacitracin Oint) 1 applic TOP DAILY [facility] Last Admin: 02/13/18 09:26 Dose: 1 applic Carvedilol (Coreg) 25 mg PO Q12 [facility] Last Admin: 02/13/18 09:24 Dose: 25 mg Dexamethasone (Decadron) 20 mg PO DAILY [facility] Last Admin: 02/13/18 09:22 Dose: 20 mg Digoxin (Digoxin) 0.125 mg PO DAILY [facility] Last Admin: 02/13/18 09:22 Dose: 0.125 mg Famotidine (Pepcid) 20 mg PO BID [facility] Last Admin: 02/13/18 16:02 Dose: 20 mg Furosemide (Lasix) 20 mg PO DAILY [facility] Last Admin: 02/13/18 09:25 Dose: 20 mg Cefepime HCl 2 gm/ Sodium (Chloride) 100 mls @ 100 mls/hr IVPB Q12 [facility] PRN Reason: Protocol Last Admin: 02/13/18 09:26 Dose: 100 mls/hr Vancomycin HCl 1 gm/ Sodium (Chloride) 250 mls @ 166.667 mls/hr IVPB Q12 [facility] PRN Reason: Protocol Last Admin: 02/13/18 09:33 Dose: 166.667 mls/hr Ipratropium [place] (Atrovent) 0.5 mg IH RQ6 [facility] Last Admin: 02/13/18 13:11 Dose: 0.5 mg Levalbuterol HCl (Xopenex) 0.63 mg INH RQ6 [facility] Last Admin: 02/13/18 13:11 Dose: 0.63 mg Lisinopril (Zestril) 10 mg PO DAILY [facility] Last Admin: 02/13/18 09:53 Dose: 10 mg Morphine Sulfate (Morphine) 2 mg IVP Q4 PRN PRN Reason: Pain, severe (8-10) Last Admin: 02/13/18 15:45 Dose: 2 mg Nystatin (Nystop Topical Powder) 1 applic TOP TID [facility] Last Admin: 02/13/18 16:01 Dose: 1 applic - Labs Labs: 02/13/18 06:30 02/13/18 06:30 PT 13.2 Seconds (9.8-13.1) H 02/11/18 04:30 INR 1.2 (0.9-1.2) 02/11/18 04:30 APTT 26.4 Seconds (25.6-37.1) 02/11/18 04:30 - Constitutional Appears: No Acute Distress - Head Exam Head Exam: NORMAL INSPECTION - Eye Exam Eye Exam: PERRL - ENT Exam ENT Exam: Normal Exam - Neck Exam Neck Exam: Normal Inspection - Respiratory Exam Respiratory Exam: Clear to Ausculation Bilateral - Cardiovascular Exam Cardiovascular Exam: Irregular Rhythm - GI/Abdominal Exam GI & Abdominal Exam: Soft, Normal Bowel Sounds - Extremities Exam Extremities Exam: Normal Inspection - Back Exam Back Exam: tenderness (L-S) Additional comments: surgical incision healing well , kaylee in place - Neurological Exam Neurological Exam: Alert, CN II-XII Intact, Oriented x3 Additional comments: increased movement LLE, almost to full extension , able to move left foot, mild numbness distal leg foot. RLE full ROM. - Psychiatric Exam Psychiatric exam: Normal Affect, Normal Mood - Skin Skin Exam: Warm Assessment and Plan (1) Status post laminectomy Status: Acute (2) Epidural abscess Assessment & Plan: wound C-S Staph Status: Acute (3) Spinal cord compression Status: Acute (4) Staph aureus infection Assessment & Plan: wound Status: Acute (5) Multiple myeloma Status: Chronic (6) Afib Status: Chronic (7) HTN (hypertension) Status: Chronic (8) Urinary tract infection Status: Acute (9) Coagulopathy Status: Acute (10) Pneumonia Status: Acute - Assessment and Plan (Free Text) Plan: Vanco for wound Staph , Cefepime for PNA and UTI E Coli , increase Morphine , continue rest of treatment , for Life Port and f/u Chemo , PT , able to ambulate with walker with PT help, f/u ID
[2018-02-14] MEDS: Ipratropium 0.02% Inhal Soln (0.5 mg/2.5 ml) UD IH SCH ×4 (01:04→19:54)
[2018-02-14] MEDS: Levalbuterol 0.63 MG/3 ML Inhal Soln UD INH SCH ×4 (01:04→19:54)
[2018-02-14 07:35] LABS: ALB/GLOB RATIO 0.9 (1.0-2.1); ALT/SGPT 83 U/L (9-52); AST/SGOT 28 U/L (14-36); BLOOD UREA NITROGEN 14 mg/dl (7-17); CALCIUM 8.7 mg/dL (8.4-10.2); GFR AFRICAN-AMERICAN > 60; GFR NON-AFRICAN AMERICAN > 60
[2018-02-14] MEDS: Cefepime 2 GM in Sodium Chloride 0.9% 100 ML IVPB SCH ×2 (09:01→20:15)
[2018-02-14] MEDS: Digoxin 125 mcg (0.125 mg) Tab PO SCH (09:02)
[2018-02-14] MEDS: Bacitracin OINT 15GM TOP SCH (09:54)
[2018-02-14] MEDS ORDERED: Oxycodone/Acetaminophen 5/325 mg Tab PO PRN (11:46)
--- NOTE | 2018-02-14 13:53 | CP.PCM.CON ---
History of Present Illness - History of Present Illness History of Present Illness: ID consulted for UTI s/p laminectomy and drainage of epidural abscess 66F with chronic A fib on Xarelto; metastatic Multiple Myeloma, on Chemotx, admitted 2 days ago for progressive LLE weakness / flaccidity, and concomitant weakness of RLE too; falls were reported. Further w/u with MRIs showed SPC compression of T11-12 and an epidural abscess. After adequate time off Xarelto , she underwent surgery today for T11-12 Laminectomy. Intra-op fluids given include 400ml , and urine output of 200+ml. EBL was very minimal. She was able to be extubated post-op. Awake, alert and appropriately responsive upon arrival to ICU. Other vitals and I/O's reviewed. ROS: No other pertinent negs or positives on 10+ system review. ALLERGIES: NKDA Home Meds: Ventolin HFA, ASA, Xarelto, Allopurinol, Coreg, Decadron, Digoxin, Pepcid, Lasix, Revlimid, Zestril. PMSFH: All other Nursing and physician documentation reviewed to date; no new pertinent info noted relevant to current medical problems. Review of Systems - Constitutional Constitutional: As Per HPI - EENT Eyes: absent: As Per HPI, Blind Spots, Blurred Vision, Change in Vision, Decreased Night Vision, Diplopia, Discharge, Dry Eye, Exophthalmos, Floaters, Irritation, Itchy Eyes, Loss of Peripheral Vision, Pain, Photophobia, Requires Corrective Lenses, Sees Flashes, Spots in Vision, Tunnel Vision, Other Visual Disturbances, Loss of Vision, Other Ears: absent: As Per HPI, Decreased Hearing, Ear Discharge, Ear Pain, Tinnitus, Abnormal Hearing, Disequilibrium, Dizziness, Other Nose/Mouth/Throat: absent: As Per HPI, Epistaxis, Nasal Congestion, Nasal Discharge, Nasal Obstruction, Nasal Trauma, Nose Pain, Post Nasal Drip, Sinus Pain, Sinus Pressure, Bleeding Gums, Change in Voice, Dental Pain, Dry Mouth, Dysphagia, Halitosis, Hoarsness, Lip Swelling, Mouth Lesions, Mouth Pain, Odynophagia, Sore Throat, Throat Swelling, Tongue Swelling, Facial Pain, Neck Pain, Neck Mass, Other - Breasts Breasts: absent: As Per HPI, Change in Shape, Mass, Pain, Nipple Discharge, Nipple Inversion, Skin Changes, Swelling, Other - Cardiovascular Cardiovascular: absent: As Per HPI, Acrocyanosis, Chest Pain, Chest Pain at Rest , Chest Pain with Activity, Claudication, Diaphoresis, Dyspnea, Dyspnea on Exertion, Edema, Irregular Heart Rhythm, Pain Radiating to Arm/Neck/Jaw, Leg Edema, Leg Ulcers, Lightheadedness, Orthopnea, Palpitations, Paroxysmal Nocturnal Dyspnea, Pedal Edema, Radiating Pain, Rapid Heart Rate, Slow Heart Rate, Syncope, Other - Respiratory Respiratory: absent: As Per HPI, Cough, Dyspnea, Hemoptysis, Dyspnea on Exertion , Wheezing, Snoring, Stridor, Pain on Inspiration, Chest Congestion, Excessive Mucous Production, Change in Mucous Color, Pain with Coughing, Other - Gastrointestinal Gastrointestinal: absent: As Per HPI, Abdominal Pain, Belching, Bloating, Change in Bowel Habits, Change in Stool Character, Coffee Ground Emesis, Constipation, Cramping, Diarrhea, Dyspepsia, Dysphagia, Early Satiety, Excessive Flatus, Fecal Incontinence, Heartburn, Hematemesis, Hematochezia, Loose Stools, Melena, Nausea, Odynophagia, Temesmus, Vomiting, Other - Genitourinary Genitourinary: absent: As Per HPI, Change in Urinary Stream, Difficulty Urinating, Dysuria, Flank Pain, Hematuria, Pyuria, Nocturia, Urinary Incontinence, Urinary Frequency, Urinary Hesitance, Urinary Urgency, Voiding Freq/Small Amts, Freq UTI, Hx Renal/Bladder Calculi, Hx /Renal Surgery, Bladder Distension, Other - Reproductive: Female Reproductive:Female: absent: As Per HPI, Amenorrhea, Amenorrhea/ Control, Currently Menstual, Cycle <21 Days, Cycle >35 Days, Cycle Variable, Menses 1-7 Days, Menses >/= 8 Days, Menses Variable, Cycle > 4 Weeks Between, No Menses for 6 Months, Heavy Menses, Light Menses, Normal Menses, Spotting Between Cycles , S/P Hysterectomy, Menopausal, Post Menopausal, Premenarche, Abnormal Vaginal Bleeding, Dysmenorrhea, Dyspareunia, Genital Lesions, Genital Pruritis, Pelvic Pain, Prolapse Symptoms, Sexual Dysfunction, Vaginal Discharge, Vaginal Dryness , Vaginal Odor, Vaginal Pruritis, Other - Menstruation Menstruation: absent: As Per HPI, Amenorrhea, Amenorrhea/ Control, Currently Menstual, Cycle <21 Days, Cycle >35 Days, Cycle Variable, Menses 1-7 Days, Menses >/= 8 Days, Menses Variable, Cycle > 4 Weeks Between, No Menses for 6 Months, Heavy Menses, Light Menses, Normal Menses, Spotting Between Cycles , S/P Hysterectomy, Menopausal, Post Menopausal, Premenarche, Abnormal Vaginal Bleeding, Dysmenorrhea, Other - Musculoskeletal Musculoskeletal: As Per HPI - Integumentary Integumentary: absent: As Per HPI, Acne, Alopecia, Bleeding Lesions, Change in Hair, Change in Nails, Change in Pigmentation, Changing Lesions, Dry Skin, Erythema, Furuncle, Hirsutism, Lesions, New Lesions, Non-Healing Lesions, Photosensitivity, Pruritus, Rash, Skin Pain, Skin Ulcer, Sores, Striae, Swelling , Unusual Bruising, Wounds, Jaundice, Other - Neurological Neurological: As Per HPI - Psychiatric Psychiatric: absent: As Per HPI, Abnormal Sleep Pattern, Anhedonia, Anxiety, Auditory Hallucinations, Behavioral Changes, Change in Appetite, Change in Libido, Confusion, Depression, Difficulty Concentrating, Hallucinations, Homicidal Ideation, Hopelessness, Irritability, Memory Loss, Mood Swings, Panic Attacks, Paranoia, Suicidal Ideation, Visual Hallucinations, Tactile Hallucinations, Other - Endocrine Endocrine: absent: As Per HPI, Change in Body Appearance, Change in Libido, Cold Intolorance, Deepening of Voice, Excessive Sweating, Fatigue, Flushing, Heat Intolorance, Increase in Ring/Shoe/Hat Size, Palpitations, Polydipsia, Polyphagia, Polyuria, Other - Hematologic/Lymphatic Hematologic: absent: As Per HPI, Easy Bleeding, Easy Bruising, Lymphadenopathy, Other Past Patient History - Infectious Disease Hx of Infectious Diseases: None - Tetanus Immunizations Tetanus Immunization: Unknown - Past Medical History & Family History Past Medical History?: Yes - Past Social History Smoking Status: Never Smoked - CARDIAC Hx Cardiac Disorders: Yes Hx Atrial Fibrillation: Yes Hx Congestive Heart Failure: Yes Hx Hypertension: Yes - PULMONARY Hx Respiratory Disorders: Yes Hx Pneumonia: Yes - NEUROLOGICAL Hx Neurological Disorder: No - HEENT Hx HEENT Problems: No - RENAL Hx Chronic Kidney Disease: No - ENDOCRINE/METABOLIC Hx Endocrine Disorders: No - HEMATOLOGICAL/ONCOLOGICAL Hx AIDS: No Hx Human Immunodeficiency Virus (HIV): No Other/Comment: Multiple Myeloma - INTEGUMENTARY Hx Dermatological Problems: No - MUSCULOSKELETAL/RHEUMATOLOGICAL Hx Musculoskeletal Disorders: Yes Hx Falls: Yes Hx Unsteady Gait: Yes - GASTROINTESTINAL Hx Gastrointestinal Disorders: No - GENITOURINARY/GYNECOLOGICAL Hx Genitourinary Disorders: Yes Hx Urinary Tract Infection: Yes Other/Comment: Uterine Fibroids - PSYCHIATRIC Hx Psychophysiologic Disorder: No Hx Substance Use: No - SURGICAL HISTORY Hx Surgeries: Yes Hx Appendectomy: Yes Hx Cholecystectomy: Yes - ANESTHESIA Hx Anesthesia: Yes Hx Anesthesia Reactions: No Hx Malignant Hyperthermia: No Meds Allergies/Adverse Reactions: Allergies Allergy/AdvReac Type Severity Reaction Status Date / Time No Known Allergies Allergy Verified 02/08/18 11:20 - Medications Medications: Current Medications Albuterol (Ventolin Hfa 90 Mcg/Actuation (8 G)) 2 puff IH Q4 PRN PRN Reason: Shortness of Breath Last Admin: 02/11/18 06:27 Dose: 2 puff Allopurinol (Zyloprim) 100 mg PO DAILY [facility] Last Admin: 02/14/18 09:06 Dose: 100 mg Bacitracin (Bacitracin Oint) 1 applic TOP DAILY [facility] Last Admin: 02/14/18 09:54 Dose: 1 applic Carvedilol (Coreg) 25 mg PO Q12 [facility] Last Admin: 02/14/18 08:58 Dose: 25 mg Dexamethasone (Decadron) 20 mg PO DAILY [facility] Last Admin: 02/14/18 09:00 Dose: 20 mg Digoxin (Digoxin) 0.125 mg PO DAILY [facility] Last Admin: 02/14/18 09:02 Dose: 0.125 mg Famotidine (Pepcid) 20 mg PO BID [facility] Last Admin: 02/14/18 08:58 Dose: 20 mg Furosemide (Lasix) 20 mg PO DAILY [facility] Last Admin: 02/14/18 08:59 Dose: 20 mg Cefepime HCl 2 gm/ Sodium (Chloride) 100 mls @ 100 mls/hr IVPB Q12 [facility] PRN Reason: Protocol Last Admin: 02/14/18 09:01 Dose: 100 mls/hr Vancomycin HCl 1 gm/ Sodium (Chloride) 250 mls @ 166.667 mls/hr IVPB Q12 [facility] PRN Reason: Protocol Last Admin: 02/14/18 11:07 Dose: 166.667 mls/hr Ipratropium [place] (Atrovent) 0.5 mg IH RQ6 [facility] Last Admin: 02/14/18 13:07 Dose: 0.5 mg Levalbuterol HCl (Xopenex) 0.63 mg INH RQ6 [facility] Last Admin: 02/14/18 13:08 Dose: 0.63 mg Lisinopril (Zestril) 10 mg PO DAILY [facility] Last Admin: 02/14/18 09:06 Dose: 10 mg Morphine Sulfate (Morphine) 2 mg IVP Q4 PRN PRN Reason: Pain, severe (8-10) Last Admin: 02/14/18 12:04 Dose: 2 mg Nystatin (Nystop Topical Powder) 1 applic TOP TID [facility] Last Admin: 02/14/18 09:45 Dose: 1 applic Oxycodone/Acetaminophen (Percocet 5/325 Mg Tab) 1 tab PO Q4 PRN PRN Reason: Pain, Mild (1-3) Stop: 02/17/18 11:47 Physical Exam - Constitutional Appears: Non-toxic, Chronically Ill - Head Exam Head Exam: NORMOCEPHALIC - Eye Exam Eye Exam: PERRL - ENT Exam ENT Exam: Mucous Membranes Dry - Neck Exam Neck exam: Negative for: Lymphadenopathy - Respiratory Exam Respiratory Exam: Decreased Breath Sounds, Clear to Auscultation Bilateral - Cardiovascular Exam Cardiovascular Exam: REGULAR RHYTHM, +S1, +S2 - GI/Abdominal Exam GI & Abdominal Exam: Diminished Bowel Sounds, Soft. absent: Tenderness - Rectal Exam Rectal Exam: Deferred - Exam Exam: NORMAL INSPECTION - Extremities Exam Extremities exam: Positive for: pedal pulses present. Negative for: calf tenderness, pedal edema - Back Exam Back exam: absent: CVA tenderness (L), CVA tenderness (R) - Neurological Exam Neurological exam: Alert, CN II-XII Intact, Oriented x3, Reflexes Normal - Psychiatric Exam Psychiatric exam: Normal Mood - Skin Skin Exam: Dry Results - Vital Signs Recent Vital Signs: Last Vital Signs Temp 97.8 F 02/14/18 08:12 Pulse 90 02/14/18 09:06 Resp 20 02/14/18 08:12 BP 132/83 02/14/18 09:06 Pulse Ox 95 02/14/18 08:12 - Labs Result Diagrams: 02/13/18 06:30 02/14/18 05:30 Labs: Laboratory Results - last 24 hr 02/13/18 02/14/18 06:30 05:30 Sodium 137 Potassium 3.8 Chloride 102 Carbon Dioxide 28 Anion Gap 11 BUN 14 Creatinine 0.3 L Est GFR ( Amer) > 60 Est GFR (Non-Af Amer) > 60 Random Glucose 132 H Calcium 8.7 Total Bilirubin 0.7 AST 28 ALT 83 H D Alkaline Phosphatase 109 Total Protein 6.2 L Albumin 3.0 L Globulin 3.3 Albumin/Globulin Ratio 0.9 L Procalcitonin < 0.05 L Assessment & Plan (1) Bilateral leg weakness Status: Acute (2) Coagulopathy Status: Acute Priority: High (3) Epidural abscess Status: Acute (4) Mass in epidural space Status: Acute - Assessment and Plan (Free Text) Assessment: cont IV antibiotics- may need long course of rx
--- NOTE | 2018-02-14 15:08 | CP.PCM.PN ---
Subjective - Date & Time of Evaluation Date of Evaluation: 02/14/18 Time of Evaluation: 15:05 - Subjective Subjective: General condition u nchanged, the right leg shows a lot of improvement , the left is only a little bit better. She is on antibiotics for the pneumonia and the staph aureus infexction in the spine. Objective - Vital Signs/Intake and Output Vital Signs (last 24 hours): Temp Pulse Resp BP Pulse Ox 97.8 F 90 20 132/83 95 02/14/18 08:12 02/14/18 09:06 02/14/18 08:12 02/14/18 09:06 02/14/18 08:12 - Medications Medications: Current Medications Albuterol (Ventolin Hfa 90 Mcg/Actuation (8 G)) 2 puff IH Q4 PRN PRN Reason: Shortness of Breath Last Admin: 02/11/18 06:27 Dose: 2 puff Allopurinol (Zyloprim) 100 mg PO DAILY [facility] Last Admin: 02/14/18 09:06 Dose: 100 mg Bacitracin (Bacitracin Oint) 1 applic TOP DAILY [facility] Last Admin: 02/14/18 09:54 Dose: 1 applic Carvedilol (Coreg) 25 mg PO Q12 [facility] Last Admin: 02/14/18 08:58 Dose: 25 mg Dexamethasone (Decadron) 20 mg PO DAILY [facility] Last Admin: 02/14/18 09:00 Dose: 20 mg Digoxin (Digoxin) 0.125 mg PO DAILY [facility] Last Admin: 02/14/18 09:02 Dose: 0.125 mg Famotidine (Pepcid) 20 mg PO BID [facility] Last Admin: 02/14/18 08:58 Dose: 20 mg Furosemide (Lasix) 20 mg PO DAILY [facility] Last Admin: 02/14/18 08:59 Dose: 20 mg Cefepime HCl 2 gm/ Sodium (Chloride) 100 mls @ 100 mls/hr IVPB Q12 [facility] PRN Reason: Protocol Last Admin: 02/14/18 09:01 Dose: 100 mls/hr Vancomycin HCl 1 gm/ Sodium (Chloride) 250 mls @ 166.667 mls/hr IVPB Q12 [facility]SS[facility] PRN Reason: Protocol Last Admin: 02/14/18 11:07 Dose: 166.667 mls/hr Ipratropium [place] (Atrovent) 0.5 mg IH RQ6 [facility] Last Admin: 02/14/18 13:07 Dose: 0.5 mg Levalbuterol HCl (Xopenex) 0.63 mg INH RQ6 [facility] Last Admin: 02/14/18 13:08 Dose: 0.63 mg Lisinopril (Zestril) 10 mg PO DAILY [facility] Last Admin: 02/14/18 09:06 Dose: 10 mg Morphine Sulfate (Morphine) 2 mg IVP Q4 PRN PRN Reason: Pain, severe (8-10) Last Admin: 02/14/18 12:04 Dose: 2 mg Nystatin (Nystop Topical Powder) 1 applic TOP TID [facility] Last Admin: 02/14/18 14:29 Dose: 1 applic Oxycodone/Acetaminophen (Percocet 5/325 Mg Tab) 1 tab PO Q4 PRN PRN Reason: Pain, Mild (1-3) Stop: 02/17/18 11:47 - Labs Labs: 02/13/18 06:30 02/14/18 05:30 PT 13.2 Seconds (9.8-13.1) H 02/11/18 04:30 INR 1.2 (0.9-1.2) 02/11/18 04:30 APTT 26.4 Seconds (25.6-37.1) 02/11/18 04:30
--- NOTE | 2018-02-14 15:59 | CP.PCM.PN ---
Subjective - Date & Time of Evaluation Date of Evaluation: 02/14/18 Time of Evaluation: 15:20 - Subjective Subjective: Sitting OOB, recovering well following Sx Motor function in Lt lower extremity much improved Vital signs stable No evidence of CHF Objective - Vital Signs/Intake and Output Vital Signs (last 24 hours): Temp Pulse Resp BP Pulse Ox 97.8 F 90 20 132/83 95 02/14/18 08:12 02/14/18 09:06 02/14/18 08:12 02/14/18 09:06 02/14/18 08:12 - Medications Medications: Current Medications Albuterol (Ventolin Hfa 90 Mcg/Actuation (8 G)) 2 puff IH Q4 PRN PRN Reason: Shortness of Breath Last Admin: 02/11/18 06:27 Dose: 2 puff Allopurinol (Zyloprim) 100 mg PO DAILY [facility] Last Admin: 02/14/18 09:06 Dose: 100 mg Bacitracin (Bacitracin Oint) 1 applic TOP DAILY [facility] Last Admin: 02/14/18 09:54 Dose: 1 applic Carvedilol (Coreg) 25 mg PO Q12 [facility] Last Admin: 02/14/18 08:58 Dose: 25 mg Dexamethasone (Decadron) 20 mg PO DAILY [facility] Last Admin: 02/14/18 09:00 Dose: 20 mg Digoxin (Digoxin) 0.125 mg PO DAILY [facility] Last Admin: 02/14/18 09:02 Dose: 0.125 mg Famotidine (Pepcid) 20 mg PO BID [facility] Last Admin: 02/14/18 08:58 Dose: 20 mg Furosemide (Lasix) 20 mg PO DAILY [facility] Last Admin: 02/14/18 08:59 Dose: 20 mg Cefepime HCl 2 gm/ Sodium (Chloride) 100 mls @ 100 mls/hr IVPB Q12 [facility] PRN Reason: Protocol Last Admin: 02/14/18 09:01 Dose: 100 mls/hr Vancomycin HCl 1 gm/ Sodium (Chloride) 250 mls @ 166.667 mls/hr IVPB Q12 [facility] PRN Reason: Protocol Last Admin: 02/14/18 11:07 Dose: 166.667 mls/hr Ipratropium [place] (Atrovent) 0.5 mg IH RQ6 [facility] Last Admin: 02/14/18 13:07 Dose: 0.5 mg Levalbuterol HCl (Xopenex) 0.63 mg INH RQ6 [facility] Last Admin: 02/14/18 13:08 Dose: 0.63 mg Lisinopril (Zestril) 10 mg PO DAILY [facility] Last Admin: 02/14/18 09:06 Dose: 10 mg Morphine Sulfate (Morphine) 2 mg IVP Q4 PRN PRN Reason: Pain, severe (8-10) Last Admin: 02/14/18 12:04 Dose: 2 mg Nystatin (Nystop Topical Powder) 1 applic TOP TID [facility] Last Admin: 02/14/18 14:29 Dose: 1 applic Oxycodone/Acetaminophen (Percocet 5/325 Mg Tab) 1 tab PO Q4 PRN PRN Reason: Pain, Mild (1-3) Stop: 02/17/18 11:47 - Labs Labs: 02/13/18 06:30 02/14/18 05:30 PT 13.2 Seconds (9.8-13.1) H 02/11/18 04:30 INR 1.2 (0.9-1.2) 02/11/18 04:30 APTT 26.4 Seconds (25.6-37.1) 02/11/18 04:30
--- NOTE | 2018-02-14 17:09 | CP.PCM.PN ---
Subjective - Date & Time of Evaluation Date of Evaluation: 02/14/18 Time of Evaluation: 13:30 - Subjective Subjective: F/U S/P Laminectomy N/C of post-op surgical pain today, has not required IV pain medication Objective - Vital Signs/Intake and Output Vital Signs (last 24 hours): Temp Pulse Resp BP Pulse Ox 97.9 F 92 H 20 115/74 98 02/14/18 16:02 02/14/18 16:02 02/14/18 16:02 02/14/18 16:02 02/14/18 17:07 - Medications Medications: Current Medications Albuterol (Ventolin Hfa 90 Mcg/Actuation (8 G)) 2 puff IH Q4 PRN PRN Reason: Shortness of Breath Last Admin: 02/11/18 06:27 Dose: 2 puff Allopurinol (Zyloprim) 100 mg PO DAILY [facility] Last Admin: 02/14/18 09:06 Dose: 100 mg Bacitracin (Bacitracin Oint) 1 applic TOP DAILY [facility] Last Admin: 02/14/18 09:54 Dose: 1 applic Carvedilol (Coreg) 25 mg PO Q12 [facility] Last Admin: 02/14/18 08:58 Dose: 25 mg Dexamethasone (Decadron) 20 mg PO DAILY [facility] Last Admin: 02/14/18 09:00 Dose: 20 mg Digoxin (Digoxin) 0.125 mg PO DAILY [facility] Last Admin: 02/14/18 09:02 Dose: 0.125 mg Famotidine (Pepcid) 20 mg PO BID [facility] Last Admin: 02/14/18 16:41 Dose: 20 mg Furosemide (Lasix) 20 mg PO DAILY [facility] Last Admin: 02/14/18 08:59 Dose: 20 mg Cefepime HCl 2 gm/ Sodium (Chloride) 100 mls @ 100 mls/hr IVPB Q12 ESSIE PRN Reason: Protocol Last Admin: 02/14/18 09:01 Dose: 100 mls/hr Vancomycin HCl 1 gm/ Sodium (Chloride) 250 mls @ 166.667 mls/hr IVPB Q12 ESSIE PRN Reason: Protocol Last Admin: 02/14/18 11:07 Dose: 166.667 mls/hr Ipratropium [place] (Atrovent) 0.5 mg IH RQ6 [facility] Last Admin: 02/14/18 13:07 Dose: 0.5 mg Levalbuterol HCl (Xopenex) 0.63 mg INH RQ6 [facility] Last Admin: 02/14/18 13:08 Dose: 0.63 mg Lisinopril (Zestril) 10 mg PO DAILY [facility] Last Admin: 02/14/18 09:06 Dose: 10 mg Morphine Sulfate (Morphine) 2 mg IVP Q4 PRN PRN Reason: Pain, severe (8-10) Last Admin: 02/14/18 12:04 Dose: 2 mg Nystatin (Nystop Topical Powder) 1 applic TOP TID [facility] Last Admin: 02/14/18 14:29 Dose: 1 applic Oxycodone/Acetaminophen (Percocet 5/325 Mg Tab) 1 tab PO Q4 PRN PRN Reason: Pain, Mild (1-3) Stop: 02/17/18 11:47 - Labs Labs: 02/13/18 06:30 02/14/18 05:30 PT 13.2 Seconds (9.8-13.1) H 02/11/18 04:30 INR 1.2 (0.9-1.2) 02/11/18 04:30 APTT 26.4 Seconds (25.6-37.1) 02/11/18 04:30 - Constitutional Appears: No Acute Distress - Head Exam Head Exam: NORMAL INSPECTION - Eye Exam Eye Exam: PERRL - ENT Exam ENT Exam: Normal Exam - Neck Exam Neck Exam: Normal Inspection - Respiratory Exam Respiratory Exam: Rhonchi (scattered) - Cardiovascular Exam Cardiovascular Exam: REGULAR RHYTHM - GI/Abdominal Exam GI & Abdominal Exam: Soft, Normal Bowel Sounds - Back Exam Back Exam: tenderness Additional comments: tenderness L-S , surgical incision healing well , kaylee - Neurological Exam Neurological Exam: Awake, Oriented x3 Additional comments: increased movement LLE , almost full extension L leg , unable to flex L thigh , limited movement L foot, RLE full ROM Assessment and Plan (1) Status post laminectomy Status: Acute (2) Epidural abscess Status: Acute (3) Spinal cord compression Status: Acute (4) Staph aureus infection Status: Acute (5) Multiple myeloma Status: Chronic (6) Afib Status: Chronic (7) HTN (hypertension) Status: Chronic (8) Urinary tract infection Status: Acute (9) Coagulopathy Status: Acute (10) Pneumonia Status: Acute
[2018-02-15] MEDS: Ipratropium 0.02% Inhal Soln (0.5 mg/2.5 ml) UD IH SCH ×4 (02:12→19:00)
[2018-02-15] MEDS: Levalbuterol 0.63 MG/3 ML Inhal Soln UD INH SCH ×4 (02:13→19:00)
[2018-02-15] MEDS: Digoxin 125 mcg (0.125 mg) Tab PO SCH (08:19)
[2018-02-15 08:21] VITALS: PULSE 78
[2018-02-15] MEDS: Cefepime 2 GM in Sodium Chloride 0.9% 100 ML IVPB SCH ×2 (08:26→21:00)
[2018-02-15] MEDS: Bacitracin OINT 15GM TOP SCH (10:33)
--- NOTE | 2018-02-15 11:45 | CP.PCM.PN ---
Subjective - Date & Time of Evaluation Date of Evaluation: 02/15/18 Time of Evaluation: 11:10 - Subjective Subjective: Spent virtually the entire day in the chair yesterday Got out of bed with assistance of 2 people now Denies dyspnoea BP 122/80 mm Hg/ A Fib at 80 BPM No calf tenderness JVP flat, no oedema over feet Recovering well from Sx Objective - Vital Signs/Intake and Output Vital Signs (last 24 hours): Temp Pulse Resp BP Pulse Ox 97.7 F 78 20 151/101 H 98 02/15/18 08:16 02/15/18 08:21 02/15/18 08:16 02/15/18 08:21 02/15/18 08:16 - Medications Medications: Current Medications Albuterol (Ventolin Hfa 90 Mcg/Actuation (8 G)) 2 puff IH Q4 PRN PRN Reason: Shortness of Breath Last Admin: 02/11/18 06:27 Dose: 2 puff Allopurinol (Zyloprim) 100 mg PO DAILY [facility] Last Admin: 02/15/18 08:15 Dose: 100 mg Bacitracin (Bacitracin Oint) 1 applic TOP DAILY [facility] Last Admin: 02/15/18 10:33 Dose: 1 applic Carvedilol (Coreg) 25 mg PO Q12 [facility] Last Admin: 02/15/18 08:21 Dose: 25 mg Dexamethasone (Decadron) 20 mg PO DAILY [facility] Last Admin: 02/15/18 08:19 Dose: 20 mg Digoxin (Digoxin) 0.125 mg PO DAILY [facility] Last Admin: 02/15/18 08:19 Dose: 0.125 mg Famotidine (Pepcid) 20 mg PO BID [facility] Last Admin: 02/15/18 08:19 Dose: 20 mg Furosemide (Lasix) 20 mg PO DAILY [facility] Last Admin: 02/15/18 08:18 Dose: 20 mg Cefepime HCl 2 gm/ Sodium (Chloride) 100 mls @ 100 mls/hr IVPB Q12 ESSIE PRN Reason: Protocol Last Admin: 02/15/18 08:26 Dose: 100 mls/hr Vancomycin HCl 1 gm/ Sodium (Chloride) 250 mls @ 166.667 mls/hr IVPB Q12 ESSIE PRN Reason: Protocol Last Admin: 02/15/18 10:00 Dose: 166.667 mls/hr Ipratropium [place] (Atrovent) 0.5 mg IH RQ6 [facility] Last Admin: 02/15/18 07:04 Dose: 0.5 mg Levalbuterol HCl (Xopenex) 0.63 mg INH RQ6 [facility] Last Admin: 02/15/18 07:04 Dose: 0.63 mg Lisinopril (Zestril) 10 mg PO DAILY [facility] Last Admin: 02/15/18 08:16 Dose: 10 mg Morphine Sulfate (Morphine) 2 mg IVP Q4 PRN PRN Reason: Pain, severe (8-10) Last Admin: 02/15/18 10:14 Dose: 2 mg Nystatin (Nystop Topical Powder) 1 applic TOP TID [facility] Last Admin: 02/15/18 10:32 Dose: 1 applic Oxycodone/Acetaminophen (Percocet 5/325 Mg Tab) 1 tab PO Q4 PRN PRN Reason: Pain, Mild (1-3) Stop: 02/17/18 11:47 - Labs Labs: 02/13/18 06:30 02/14/18 05:30 PT 13.2 Seconds (9.8-13.1) H 02/11/18 04:30 INR 1.2 (0.9-1.2) 02/11/18 04:30 APTT 26.4 Seconds (25.6-37.1) 02/11/18 04:30
[2018-02-15] MEDS ORDERED: Ipratropium 0.02% Inhal Soln (0.5 mg/2.5 ml) UD IH STA (14:44)
--- NOTE | 2018-02-15 16:01 | CP.PCM.PN ---
Subjective - Date & Time of Evaluation Date of Evaluation: 02/15/18 Time of Evaluation: 12:00 - Subjective Subjective: F/U S/P Laminectomy Cough , no post-op pain today Objective - Vital Signs/Intake and Output Vital Signs (last 24 hours): Temp Pulse Resp BP Pulse Ox 97.7 F 90 20 106/72 89 L 02/15/18 15:56 02/15/18 15:56 02/15/18 15:56 02/15/18 15:56 02/15/18 15:56 - Medications Medications: Current Medications Albuterol (Ventolin Hfa 90 Mcg/Actuation (8 G)) 2 puff IH Q4 PRN PRN Reason: Shortness of Breath Last Admin: 02/11/18 06:27 Dose: 2 puff Allopurinol (Zyloprim) 100 mg PO DAILY [facility] Last Admin: 02/15/18 08:15 Dose: 100 mg Bacitracin (Bacitracin Oint) 1 applic TOP DAILY [facility] Last Admin: 02/15/18 10:33 Dose: 1 applic Carvedilol (Coreg) 25 mg PO Q12 [facility] Last Admin: 02/15/18 08:21 Dose: 25 mg Dexamethasone (Decadron) 20 mg PO DAILY [facility] Last Admin: 02/15/18 08:19 Dose: 20 mg Digoxin (Digoxin) 0.125 mg PO DAILY [facility] Last Admin: 02/15/18 08:19 Dose: 0.125 mg Famotidine (Pepcid) 20 mg PO BID [facility] Last Admin: 02/15/18 08:19 Dose: 20 mg Furosemide (Lasix) 20 mg PO DAILY [facility] Last Admin: 02/15/18 08:18 Dose: 20 mg Cefepime HCl 2 gm/ Sodium (Chloride) 100 mls @ 100 mls/hr IVPB Q12 ESSIE PRN Reason: Protocol Last Admin: 02/15/18 08:26 Dose: 100 mls/hr Vancomycin HCl 1 gm/ Sodium (Chloride) 250 mls @ 166.667 mls/hr IVPB Q12 ESSIE PRN Reason: Protocol Last Admin: 02/15/18 10:00 Dose: 166.667 mls/hr Ipratropium [place] (Atrovent) 0.5 mg IH RQ6 [facility] Levalbuterol HCl (Xopenex) 0.63 mg INH RQ6 [facility] Last Admin: 02/15/18 13:16 Dose: 0.63 mg Lisinopril (Zestril) 10 mg PO DAILY [facility] Last Admin: 02/15/18 08:16 Dose: 10 mg Morphine Sulfate (Morphine) 2 mg IVP Q4 PRN PRN Reason: Pain, severe (8-10) Last Admin: 02/15/18 10:14 Dose: 2 mg Nystatin (Nystop Topical Powder) 1 applic TOP TID [facility] Last Admin: 02/15/18 10:32 Dose: 1 applic Oxycodone/Acetaminophen (Percocet 5/325 Mg Tab) 1 tab PO Q4 PRN PRN Reason: Pain, Mild (1-3) Stop: 02/17/18 11:47 - Labs Labs: 02/13/18 06:30 02/14/18 05:30 PT 13.2 Seconds (9.8-13.1) H 02/11/18 04:30 INR 1.2 (0.9-1.2) 02/11/18 04:30 APTT 26.4 Seconds (25.6-37.1) 02/11/18 04:30 - Constitutional Appears: No Acute Distress - Head Exam Head Exam: NORMAL INSPECTION - Eye Exam Eye Exam: PERRL - ENT Exam ENT Exam: Normal Exam - Neck Exam Neck Exam: Normal Inspection - Respiratory Exam Respiratory Exam: Rhonchi - Cardiovascular Exam Cardiovascular Exam: REGULAR RHYTHM - GI/Abdominal Exam GI & Abdominal Exam: Soft, Normal Bowel Sounds - Extremities Exam Extremities Exam: Normal Inspection - Back Exam Additional comments: surgical incision healing well , kaylee in place - Neurological Exam Neurological Exam: Alert, CN II-XII Intact, Oriented x3 Additional comments: almost full extension L leg, unable to flex L thigh , limited movement L foot , RLE full ROM - Psychiatric Exam Psychiatric exam: Normal Affect, Normal Mood - Skin Skin Exam: Warm Assessment and Plan (1) Status post laminectomy Status: Acute (2) Epidural abscess Status: Acute (3) Spinal cord compression Status: Acute (4) Staph aureus infection Status: Acute (5) Multiple myeloma Status: Chronic (6) Afib Status: Chronic (7) HTN (hypertension) Status: Chronic (8) Urinary tract infection Status: Acute (9) Coagulopathy Status: Acute (10) Pneumonia Status: Acute - Assessment and Plan (Free Text) Plan: continue Cefepime, Vanco , Digoxin , Lasix , PT and rest of treatment , add DuoNeb , Cardiology consult appreciated, Vanco trough level low , repeat level in am
[2018-02-16 00:06] VITALS: BP 123/83; PULSE 73; RESP 18; TEMP 97.9; O2SAT 96
[2018-02-16] MEDS: Levalbuterol 0.63 MG/3 ML Inhal Soln UD INH SCH (00:59)
[2018-02-16] MEDS: Ipratropium 0.02% Inhal Soln (0.5 mg/2.5 ml) UD IH SCH (00:59)
--- NOTE | 2018-02-16 07:19 | CP.PCM.PRO ---
Pronouncement of Note - Clinical Findings Physical Exam: No Response Verbal/Painful Stimuli, Absent Peripheral Pulses{ Carotid & Femoral}, Absent Heart & Breath Sounds, Pupils Fixed & Dilated, Absence of Vital Signs - Pronouncement Time Time of Pronouncement of : 06:51 Additional Comments: Tomer garibay was called on the patient this AM. Patient received CPR for 30+ minutes, 6 of epi, 1 of atropine, 2 g of Mg, 300 of amiodarone, and 100 mg of lidocaine. Patient was intubated and ventilated with no problems. After 30+ minutes of CPR, no pulse was returned, and code was ended. - Notifications Project Management Advisor Notified: No - Autopsy Autopsy Requested: No - [place] [id number]
--- NOTE | 2018-02-16 13:05 | RAD ---
PROCEDURE: Fluoroscopy up to 1 hr. HISTORY: T11-T12 LAMINECTOMY COMPARISON: None TECHNIQUE: Standard protocol for this study/examination. FINDINGS: Total fluoroscopic time (continuous mode) utilized during the procedure 25.3 (seconds). Total exam DLP: (mGy) 9.78 IMPRESSION: Less than 1 hr fluoroscopic time utilized during performance of the procedure.
== END 2018-02-16 06:51 | DRG 531 ==
LOC: H.ER 11:14 → H.ERHOLD 15:15 → H.MEDSURG1 19:40 → H.ICU/CCU 02-10 17:32 → H.MEDSURG1 02-11 17:36
PROVIDERS: ADMIT Internal Medicine Pulmonary Disease; ATTEND Internal Medicine Pulmonary Disease
PROC: 5A0955Z Assistance with Respiratory Ventilation, Greater than 96 Consecutive Hours (ICD-10-PCS; 2018-02-09)
PROC: 30233K1 Transfusion of Nonautologous Frozen Plasma into Peripheral Vein, Percutaneous Approach (ICD-10-PCS; 2018-02-09)
PROC: 3E1R38Z Irrigation of Spinal Canal using Irrigating Substance, Percutaneous Approach (ICD-10-PCS; 2018-02-10)
PROC: 009U0ZZ Drainage of Spinal Canal, Open Approach (ICD-10-PCS; principal; 2018-02-10 11:30)
PROC: 5A12012 Performance of Cardiac Output, Single, Manual (ICD-10-PCS; 2018-02-16)
DX: G06.1 Intraspinal abscess and granuloma (principal); J18.9 Pneumonia, unspecified organism; I50.32 Chronic diastolic (congestive) heart failure; C90.00 Multiple myeloma not having achieved remission; N39.0 Urinary tract infection, site not specified; I11.0 Hypertensive heart disease with heart failure; E87.6 Hypokalemia; B95.61 Methicillin susceptible Staphylococcus aureus infection as the cause of diseases classified elsewhere; I48.2 Chronic atrial fibrillation; M47.816 Spondylosis without myelopathy or radiculopathy, lumbar region; Z79.01 Long term (current) use of anticoagulants; B96.20 Unspecified Escherichia coli [E. coli] as the cause of diseases classified elsewhere; G82.20 Paraplegia, unspecified; G95.29 Other cord compression; R79.1 Abnormal coagulation profile